=== PATIENT | male | born 1935 | race Caucasian/White ===

== ENCOUNTER 2022-08-26 13:36 | Inpatient (IN) ==
[2022-08-26] MEDS ORDERED: 0.9 % SODIUM CHLORIDE 1,000 ML IV ONE ×2 (13:38→14:00)
--- NOTE | 2022-08-26 13:54 | Emergency Department Note ---
Skin/Abscess/FB HPI General Chief complaint: Skin/Abscess/Rash Stated complaint: Abscess to groin Time Seen by Provider: 08/26/22 13:37 Source: patient and family Mode of arrival: wheelchair Limitations: no limitations History of Present Illness HPI Narrative: Narrative: Patient presents to the ED after being sent over from minor care for concerns about patient being sepsis secondary to an abscess in his groin area. Patient states that he noticed a bump in his right groin 3 days ago that has grown since then. He states it hurts whenever anybody touches it. He denies any drainage from the area, fever, chills, nausea, vomiting, difficulty urinating, difficulty having a BM. Patient denies any other alleviating or aggravating factors. Related Data Home Medications Medication Instructions Recorded Confirmed ascorbic acid (vitamin C) 500 mg 500 mg PO QDAY 01/16/15 08/26/22 capsule,extended release hydrochlorothiazide 12.5 mg tablet 12.5 mg PO QDAY 09/14/18 08/26/22 atorvastatin 80 mg tablet 80 mg PO QHS 09/30/20 08/26/22 lisinopril 40 mg tablet 40 mg PO QDAY 09/30/20 08/26/22 metoprolol succinate 50 mg 25 mg PO BID 09/30/20 08/26/22 tablet,extended release 24 hr tamsulosin 0.4 mg capsule 0.4 mg PO QDAY 09/30/20 08/26/22 blood sugar diagnostic (Accu-Chek 05/27/21 08/26/22 Guide test strips) carboxymethylcellulose sodium 0.5 1 drp ophthalmic (eye) TID 05/27/21 08/26/22 % eye drops cholecalciferol (vitamin D3) 50 1,000 unit PO QDAY 07/22/21 08/26/22 mcg (2,000 unit) capsule insulin glargine 100 unit/mL 35 unit subcut QHS 07/22/21 08/26/22 subcutaneous solution aspirin 81 mg tablet,delayed 81 mg PO DAILY 02/12/22 08/26/22 release Previous Rx's Medication Instructions Recorded blood sugar diagnostic (OneTouch #200 ea 05/21/16 Ultra Test strips) insulin syringe-needle U-100 1 mL #100 ea 05/21/16 30 gauge x 1/2" (BD Insulin Syringe Ultra-Fine) Allergies Allergy/AdvReac Type Severity Reaction Status Date / Time felodipine [From Plendil] AdvReac Intermediate Swelling Verified 08/26/22 13:39 pioglitazone [From Actos] AdvReac Intermediate Swelling Verified 08/26/22 13:39 Lotrel AdvReac Intermediate Swelling Uncoded 08/26/22 13:30 Review of Systems ROS ROS Narrative: Narrative: All systems ED: reviewed and negative except as stated. [facility] Narrative Patient History Narrative: Narrative: Medical/Surgical/Family History All Active Problems (Updated 08/26/22 @ 15:26 by Sathya De La Cruz DO) Sepsis (Acute) Cellulitis of buttock, right (Acute) Generalized weakness (Acute) Anemia (Chronic) Long-term use of high-risk medication (Chronic 05/06/13) Colon polyps (Chronic 09/23/03) Diverticulosis of colon (Chronic 10/03/03) Hyperlipidemia, mixed (Chronic) Hypertension (Chronic) Obstructive uropathy (Chronic) Peripheral neuropathy (Chronic) History of prostate cancer (Chronic) Renal failure (Chronic) Seborrheic keratosis (Chronic) Urinary tract infection (Chronic) History of appendectomy (Chronic) History of radiation therapy (Chronic) Encounter for Health Maintenance Examination in Adult (Chronic) Sciatica of right side (Chronic) Ventricular bigeminy (Chronic) Hip pain (Chronic) Lumbago with sciatica (Chronic) Tachycardia (Chronic) Nevus, choroidal (Chronic) Microscopic hematuria (Chronic) Age-related nuclear cataract, bilateral (Chronic) Other corneal scars and opacities (Chronic) Other disorders of refraction (Chronic) Dysuria (Chronic) Urinary frequency (Chronic) Chronic kidney disease (Chronic) Proteinuria (Chronic) CKD stage G4/A3, 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) Retention of urine (Chronic) Carcinoma in situ of prostate (Chronic) Carcinoma of prostate (Chronic) Nevus, non-neoplastic (Chronic) Other urethral stricture, male, unspecified site (Chronic) Polyp of colon (Chronic) Postprocedural bulbous urethral stricture, 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 10- year sequence. Diabetes mellitus with neuropathy Goal HgBA1c <7.5% Diverticulosis of colon (10/03/03) Colonoscopy--Dr. Cartagena--Polypectomy, benign colonic mucosa with prominent lymphoid aggregate; moderately severe diverticulosis, small hemorrhoids Hip pain History of prostate cancer History of cancer of the prostate status post radiation therapy in 1993 History of radiation therapy History of Cancer of the Prostate status post radiation therapy in 1993 History of urinary tract infection Recurrent, clinically stable, due for recheck Hyperkalemia Hyperlipidemia, mixed Hypertension Controlled on 3 Rx Goal 130/80 Long-term use of high-risk medication (05/06/13) patient on Statin for Hyperlipidemia Lumbago with sciatica Medicare annual wellness visit, subsequent Microscopic hematuria Nevus, choroidal Nevus, non-neoplastic Obstructive uropathy Other corneal scars and opacities Other disorders of refraction Other urethral stricture, male, unspecified site Peripheral neuropathy Very mild by exam Polyp of colon Postprocedural bulbous urethral stricture, male Renal failure Mild, probably related to diuretics and now stabilized Retention of urine Sciatica of right side Seborrheic keratosis Multiple, yearly dermatology follow up through [place] Tachycardia Urinary frequency Urinary tract infection History of recurrent urinary tract infections, previous suppressive therapy and previous evaluation through Dr. Durham in January of 2010 Surgical History History of appendectomy In the distant past History of arthroplasty Left hip in September of 2005 History of colonoscopy Lymphoid polyp and sigmoid diverticulii on ten year sequencing through [address]. Cartagena History of cystoscopy (~10/2017) with urethral dilation History of left hip replacement History of tonsillectomy Family History Mother Breast cancer Social History Smoking Status: Former smoker Alcohol Intake Frequency: does not drink Substance Use: does not use Exam Narrative Narrative: Narrative: General Limitations: no limitations General appearance: Absent in distress ENT ENT: Present normal oropharynx and mucous membranes moist Respiratory Respiratory: Present normal lung sounds bilaterally; Absent respiratory distress Cardiovascular Cardiovascular: Present normal rhythm and tachycardia Adbominal Abdominal: Present soft; Absent tenderness Extremities Extremities: Present normal inspection and normal capillary refill Neurological Neurological: Present alert and oriented X3 Psychiatric Psychiatric: Present normal affect and normal mood Skin Skin: Present warm (WNL) Expanded Skin Body image: 1. Large area of erythema, fluctuance, warmth and tenderness to palpation Course Course Course Narrative: Patient was evaluated for concerns of abscess to the right buttocks and inner thigh. Physical exam consistent with cellulitis with induration. Labs were obtained and showed that patient had elevated white cell count with severe leukocytosis. Lactic acid was elevated at 3. Patient's renal function was compromised but he does have history of CKD with unknown baseline creatinine. Patient was bolused IV fluids. Blood cultures were obtained he was then given IV Rocephin. CT of the abdomen pelvis was obtained which showed cellulitis without any obvious abscess. Patient has generalized weakness and I believe he will benefit from having inpatient antibiotic treatment for his sepsis. He was initially tachycardic but his heart rate improved after IV fluids. Shared decision made conversation with had with patient about possible inpatient treatment versus outpatient treatment. Patient is expressed a desire to have inpatient treatment due to patient's increasing weakness and the fact how fast the the infection is spreading. This is a reasonable decision. Case was discussed with the office who has agreed to admit the patient. Consultations Consultation #1: Case discussed with hospitalist, Dr. Lindsey, who has agreed to admit the patient Time: 15:35 Vital Signs Vital signs: Vital Signs Temperature 97.0 F 08/26/22 13:37 Pulse Rate 115 H 08/26/22 13:37 Respiratory Rate 17 08/26/22 13:37 Blood Pressure 126/64 08/26/22 13:37 Pulse Oximetry (%) 98 08/26/22 13:37 Oxygen Delivery Method Room Air 08/26/22 13:37 Temperature 97.0 F 08/26/22 13:37 Pulse Rate 92 H 08/26/22 15:16 Respiratory Rate 17 08/26/22 13:37 Blood Pressure 125/52 08/26/22 15:16 Pulse Oximetry (%) 92 08/26/22 15:16 Oxygen Delivery Method Room Air 08/26/22 13:37 [facility] MDM Narrative Medical decision making narrative: Narrative: Differential Diagnosis Differential Diagnosis: Groin abscess Medical Records Medical records reviewed: Yes I reviewed the patient's medical records. Lab Data Lab results reviewed: Yes I reviewed the patient's lab results. 08/26/22 13:38 Labs: Lab Results 08/26/22 08/26/22 08/26/22 Range/Units 13:38 13:53 13:53 WBC 25.4 H (4.5-11.0) K/mcL RBC 3.52 L (4.63-6.08) M/mcL Hgb 10.9 L (13.7-17.5) g/dL Hct 33.8 L (40.1-51.0) % POC Hct 33.0 L (41-55) MCV 96.0 (80.0-100.0) fL MCH 31.0 (26.0-34.0) pg MCHC 32.2 (31.0-36.0) g/dL RDW 12.5 (11.5-14.5) % Plt Count 182 (140-440) K/mcL MPV 13.0 H (8.8-12.5) fL Immature Gran % (Auto) 0.8 H (0.0-0.5) % Neut % (Auto) 83.7 H (38.0-78.0) % Lymph % (Auto) 8.2 L (15.5-49.0) % Nelson % (Auto) 7.0 (1.0-12.0) % Eos % (Auto) 0.1 (0.0-7.0) % Baso % (Auto) 0.2 (0.0-2.0) % Lymph # (Auto) 2.07 (1.50-4.80) K/mcL Nelson # (Auto) 1.78 H (0.10-0.90) K/mcL Eos # (Auto) 0.03 (0.00-0.70) K/mcL Baso # (Auto) 0.06 (0.00-0.30) K/mcL Immature Gran # 0.21 H (0.00-0.05) K/mcl Absolute Neutrophils 21.20 H (1.80-8.00) K/mcL POC VBG pH 7.38 (7.32-7.42) POC VBG pCO2 at Temp 34.4 L (41-51) POC VBG pO2 23 L (25-40) POC VBG HCO3 20.6 L (24-28) POC VBG Total CO2 22.0 L (25-29) POC Venous O2 Sat 39.0 L (40-70) POC VBG Base Excess -4.0 L (-2-2) VBG Lactic Acid 3.0 H (0.5-2) POC Sodium 133 (133-145) POC Potassium 4.2 (3.3-5.1) POC Chloride 102 (96-108) POC Total CO2 21.0 L (22-30) POC BUN 86 H (6-20) POC Creatinine 2.7 H (0.6-1.2) POC Glucose 223 H (70-105) POC WB Ioniz Calcium 1.24 (1.16-1.32) Radiology Data Radiology results reviewed: Yes I reviewed the patient's radiology results. Radiology results narrative: CT of the pelvis obtained with image reviewed myself, agree with radiologist to rotation Core Measures AMI Core Measures Followed: Yes Discharge Plan Patient/Caregiver Discharge Instructions Pt seen by COST ENGINEER/PA only: No Clinical Impression: Cellulitis of buttock, right, Generalized weakness Sepsis Qualifiers: Sepsis type: sepsis due to unspecified organism Sepsis acute organ dysfunction status: without acute organ dysfunction Qualified Code(s): A41.9 - Sepsis, unspecified organism Patient Disposition: Xfer As Outpt/Obs ([facility]) Condition: Fair Follow up with: Jamison Jean MD [Primary Care Provider] - Prescriptions: No Action (DME) blood sugar diagnostic [OneTouch Ultra Test] strip See Dose Instructions .ROUTE .MEDSUPPLY MDD 2 Qty: 200 3RF Dose Instruction: As directed Rx Instructions: As directed testing blood glucose twice daily. (DME) insulin syringe-needle U-100 [BD Insulin Syringe Ultra-Fine] 1 mL 30 gauge x 1/2" syringe See Dose Instructions .ROUTE .MEDSUPPLY MDD 1 Qty: 100 3RF Dose Instruction: As directed Rx Instructions: As directed with Lantus once daily. ascorbic acid (vitamin C) 500 mg capsule, extended release 500 mg PO QDAY Patient Comments: take 1 capsule by oral route daily hydrochlorothiazide 12.5 mg tablet 12.5 mg tablet 12.5 mg PO QDAY cholecalciferol (vitamin D3) 50 mcg (2,000 unit) capsule 1,000 unit PO QDAY insulin glargine 100 unit/mL solution 35 unit SUB-Q QHS (DME) Accu-Chek Guide test strips Strip See Rx Instructions .Route Rx Instructions: As directed carboxymethylcellulose sodium 0.5 % drops 1 drp ophthalmic (eye) TID tamsulosin 0.4 mg capsule 0.4 mg PO QDAY metoprolol succinate 50 mg tablet extended release 24 hr 25 mg PO BID atorvastatin 80 mg tablet 80 mg PO QHS lisinopril 40 mg tablet 40 mg PO QDAY aspirin 81 mg tablet,delayed release (DR/EC) 81 mg PO DAILY Patient Comments: patient takes every other day
[2022-08-26 13:57] LABS: POC Calcium, Ionized 1.24 (1.16-1.32); POC Creatinine 2.7 (0.6-1.2); POC Potassium 4.2 (3.3-5.1)
[2022-08-26] MEDS ORDERED: cefTRIAXone 2 GM in DEXTROSE 5% IN WATER 50 ML IV ONE (14:01)
[2022-08-26 14:45] LABS: Basophils # (Auto) 0.06 K/mcL (0.00-0.30); Basophils % (Auto) 0.2 % (0.0-2.0); Eosinophils # (Auto) 0.03 K/mcL (0.00-0.70); Eosinophils % (Auto) 0.1 % (0.0-7.0); Hematocrit 33.8 % (40.1-51.0); Hemoglobin 10.9 g/dL (13.7-17.5); Lymphocytes # (Auto) 2.07 K/mcL (1.50-4.80); Lymphocytes % (Auto) 8.2 % (15.5-49.0); Mean Corpuscular HGB Conc 32.2 g/dL (31.0-36.0); Monocytes # (Auto) 1.78 K/mcL (0.10-0.90); Neutrophils % (Auto) 83.7 % (38.0-78.0); Platelet Count 182 K/mcL (140-440); RBC 3.52 M/mcL (4.63-6.08); Red Cell Distribution Width 12.5 % (11.5-14.5); WBC 25.4 K/mcL (4.5-11.0)
--- NOTE | 2022-08-26 15:09 | Cat Scan Report ---
CLINICAL INFORMATION: groin/buttocks abscess COMPARISON: None. FINDINGS: Moderate simple cellulitis is confined to the subcutaneous fat of the right upper thigh with extension to the right buttocks region. No evidence of abscess. Muscle and fascial planes are, otherwise, normal. Bone windows show left hip prostheses is anatomically aligned without loosening or infection. Moderate right and hip and bilateral SI degeneration noted. No osseous abnormalities. There are multiple sigmoid diverticuli, but no evidence of diverticulitis. The remaining visualized large and small bowel are normal. There is no free air, free fluid or adenopathy. Prostate is mildly enlarged-5 cm.. Mild wall thickening the urinary bladder appreciated most prominent anteriorly. Moderate dilatation of the visualized ureters-particularly distally suggesting chronic bladder outlet obstruction IMPRESSION: Cellulitis in the subcutaneous fat of the right upper thigh and right buttock region. No evidence of abscess. Sigmoid diverticulosis, but no evidence of diverticulitis Mild prostate enlargement. Mild wall urinary bladder could indicate chronic bladder outlet narrowing. 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 Interpreted and Authenticated by: Pee Shoemaker 08/26/22
--- NOTE | 2022-08-26 16:41 | Internal Med History&Physical ---
HPI History of Present Illness Patient information: Note initiated : 08/26/22 at 4:28 pm Service Date, if different from initiated Date: [] Patient: Bebo Barnes a 87 y/o M admitted on for Abscess to groin. Chief Complaint: [] Chief complaint: Right groin pain and redness History of present illness: Mr. Barnes is a 87 year old M with history of diabetes mellitus 2 with neuropathy, hypertension, hyperlipidemia, CKD stage IV baseline creatinine unknown, anemia, BPH, history of prostate cancer noted a bump in his right groin 3 days ago, that has been growing since then. He has been feeling feverish associated with chills. It hurts whenever anything touches it. He reported no drainage, no nausea vomiting. Patient was seen at [facility] first and was sent to ED for concerns of sepsis secondary to abscess in his groin. In ER patient was in sepsis with tachycardia of 92, leukocytosis of 25,000, lactic acidosis 3.0, acute kidney injury with creatinine of 2.7. Lab work also showed chronic anemia of 10.9, hyperglycemia 2-3. CT scan showed cellulitis in the subcutaneous fat of the right upper thigh and right buttock region. No evidence of abscess. Patient was admitted to the floor. Review of systems Patient reports right groin pain, redness. Chills and felt feverish No headache or visual disturbance No nausea or vomiting or abdominal pain No dysuria, no hematuria No focal deficits, known visual problems Denies depression or anxiety Physical exam General General appearance: Alert and awake, in no acute distress ENT ENT: Present normal oropharynx and mucous membranes moist Respiratory Respiratory: Present normal lung sounds bilaterally; Absent respiratory distress Cardiovascular Cardiovascular: Present S1 and S2, normal rhythm and tachycardia, no murmurs heard Adbominal Abdominal: Present soft; Absent tenderness Extremities Extremities: Present normal inspection and normal capillary refill Neurological Neurological: Present alert and oriented X3 Psychiatric Psychiatric: Present normal affect and normal mood Skin Skin: Right groin skin is red, indurated, no open wound, it is close to scrotum and superficial layer of skin is off, induration does not reach all the way to the buttock. Assessment and plan Sepsis. Patient meets sepsis criteria with tachycardia of 92, leukocytosis of 25,000, lactic acidosis 3.0, acute kidney injury with creatinine of 2.7. Will give IV antibiotics and IV hydration Right groin cellulitis CT scan showed cellulitis in the subcutaneous fat of the right upper thigh and right buttock region. No evidence of abscess. IV Zosyn and clindamycin. Patient has no history of MRSA. Will obtain MRSA screen. Blood cultures pending. Repeat lactic acid to clear. Diabetes mellitus 2 with hyperglycemia. Most recent A1c 7.6 on 05/15/2022. Will repeat A1c. Home dose glargine 35 units. Insulin sliding scale HENNY versus progression chronic renal failure on CKD stage IV. Unclear baseline creatinine. Will hydrate and repeat BMP Anemia Likely anemia of chronic kidney disease. Patient is on iron supplementation which will be continued Hypertension Hold hydrochlorothiazide and lisinopril due to HENNY. Will give IV labetalol and IV hydralazine as needed for blood pressure control Hyperlipidemia Continue home dose atorvastatin BPH. CT with mild prostate enlargement. Mild wall urinary bladder could indicate chronic bladder outlet narrowing. 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 Continue with home dose tamsulosin Sigmoid diverticulosis, incidental finding, but no evidence of diverticulitis DVT prophylaxis with SCDs CODE STATUS, full code Total time taken 55 minutes PFSH PFS All Active Problems (Updated 08/26/22 @ 15:26 by Sathya De La Cruz DO) Sepsis (Acute) Cellulitis of buttock, right (Acute) Generalized weakness (Acute) Anemia (Chronic) Long-term use of high-risk medication (Chronic 05/06/13) Colon polyps (Chronic 09/23/03) Diverticulosis of colon (Chronic 10/03/03) Hyperlipidemia, mixed (Chronic) Hypertension (Chronic) Obstructive uropathy (Chronic) Peripheral neuropathy (Chronic) History of prostate cancer (Chronic) Renal failure (Chronic) Seborrheic keratosis (Chronic) Urinary tract infection (Chronic) History of appendectomy (Chronic) History of radiation therapy (Chronic) Encounter for Health Maintenance Examination in Adult (Chronic) Sciatica of right side (Chronic) Ventricular bigeminy (Chronic) Hip pain (Chronic) Lumbago with sciatica (Chronic) Tachycardia (Chronic) Nevus, choroidal (Chronic) Microscopic hematuria (Chronic) Age-related nuclear cataract, bilateral (Chronic) Other corneal scars and opacities (Chronic) Other disorders of refraction (Chronic) Dysuria (Chronic) Urinary frequency (Chronic) Chronic kidney disease (Chronic) Proteinuria (Chronic) CKD stage G4/A3, 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) Retention of urine (Chronic) Carcinoma in situ of prostate (Chronic) Carcinoma of prostate (Chronic) Nevus, non-neoplastic (Chronic) Other urethral stricture, male, unspecified site (Chronic) Polyp of colon (Chronic) Postprocedural bulbous urethral stricture, 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 mellitus with neuropathy (Chronic) Hyperkalemia (Acute) Urethral stricture (Acute) Medicare annual wellness visit, subsequent (Acute) Hypercalcemia due to a drug (Acute) Acute urinary tract infection (Acute) Urethral stricture (Acute) Incomplete bladder emptying (Acute) Medical History Age-related nuclear cataract, bilateral Anemia Carcinoma in situ of prostate Carcinoma of prostate s/p Radiation 1993 Chronic kidney disease Colon polyps (09/23/03) Colonoscopy Dr Cartagena--Polypectomy, benign colonic mucosa with prominent ly mphoid aggregate; moderately severe diverticulosis, small hemorrhoids. 10- year sequence. Diabetes mellitus with neuropathy Goal HgBA1c <7.5% Diverticulosis of colon (10/03/03) Colonoscopy--Dr. Cartagena--Polypectomy, benign colonic mucosa with prominent lymphoid aggregate; moderately severe diverticulosis, small hemorrhoids Hip pain History of prostate cancer History of cancer of the prostate status post radiation therapy in 1993 History of radiation therapy History of Cancer of the Prostate status post radiation therapy in 1993 History of urinary tract infection Recurrent, clinically stable, due for recheck Hyperkalemia Hyperlipidemia, mixed Hypertension Controlled on 3 Rx Goal 130/80 Long-term use of high-risk medication (05/06/13) patient on Statin for Hyperlipidemia Lumbago with sciatica Medicare annual wellness visit, subsequent Microscopic hematuria Nevus, choroidal Nevus, non-neoplastic Obstructive uropathy Other corneal scars and opacities Other disorders of refraction Other urethral stricture, male, unspecified site Peripheral neuropathy Very mild by exam Polyp of colon Postprocedural bulbous urethral stricture, male Renal failure Mild, probably related to diuretics and now stabilized Retention of urine Sciatica of right side Seborrheic keratosis Multiple, yearly dermatology follow up through [place] Tachycardia Urinary frequency Urinary tract infection History of recurrent urinary tract infections, previous suppressive therapy and previous evaluation through Dr. 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 [employer] smoking status: Former smoker alcohol intake frequency: does not drink substance use type: does not use MEDS/ALLERGIES Home Medications and Allergies Home Medications Medication Instructions Recorded Confirmed Type ascorbic acid (vitamin C) 500 mg 500 mg PO QDAY 01/16/15 08/26/22 History capsule,extended release blood sugar diagnostic (OneTouch #200 ea 05/21/16 08/26/22 Rx Ultra Test strips) insulin syringe-needle U-100 1 mL #100 ea 05/21/16 08/26/22 Rx 30 gauge x 1/2" (BD Insulin Syringe Ultra-Fine) hydrochlorothiazide 12.5 mg tablet 12.5 mg PO QDAY 09/14/18 08/26/22 History atorvastatin 80 mg tablet 80 mg PO QHS 09/30/20 08/26/22 History lisinopril 40 mg tablet 40 mg PO QDAY 09/30/20 08/26/22 History metoprolol succinate 50 mg 25 mg PO BID 09/30/20 08/26/22 History tablet,extended release 24 hr tamsulosin 0.4 mg capsule 0.4 mg PO QDAY 09/30/20 08/26/22 History blood sugar diagnostic (Accu-Chek 05/27/21 08/26/22 History Guide test strips) carboxymethylcellulose sodium 0.5 1 drp ophthalmic (eye) TID 05/27/21 08/26/22 History % eye drops cholecalciferol (vitamin D3) 50 1,000 unit PO QDAY 07/22/21 08/26/22 History mcg (2,000 unit) capsule insulin glargine 100 unit/mL 30 unit subcut QHS 07/22/21 08/26/22 History subcutaneous solution aspirin 81 mg tablet,delayed 81 mg PO DAILY 02/12/22 08/26/22 History release Allergies Allergy/AdvReac Type Severity Reaction Status Date / Time felodipine [From Plendil] AdvReac Intermediate Swelling Verified 08/26/22 13:39 pioglitazone [From Actos] AdvReac Intermediate Swelling Verified 08/26/22 13:39 Lotrel AdvReac Intermediate Swelling Uncoded 08/26/22 13:30 EXAM Constitutional Vitals: Temp Pulse Resp BP Pulse Ox O2 Del Method 97.0 F 96 H 17 123/58 98 Room Air 08/26/22 13:37 08/26/22 16:02 08/26/22 13:37 08/26/22 16:02 08/26/22 16:02 08/26/22 13:37 DATA Data Completed and Pending Labs: Labs from last 24 hours 08/26/22 08/26/22 08/26/22 13:53 13:53 13:38 WBC 25.4 H RBC 3.52 L Hgb 10.9 L Hct 33.8 L POC Hct 33.0 L MCV 96.0 MCH 31.0 MCHC 32.2 RDW 12.5 Plt Count 182 MPV 13.0 H Immature Gran % (Auto) 0.8 H Neut % (Auto) 83.7 H Lymph % (Auto) 8.2 L [place] % (Auto) 7.0 Eos % (Auto) 0.1 Baso % (Auto) 0.2 Lymph # (Auto) 2.07 [place] # (Auto) 1.78 H Eos # (Auto) 0.03 Baso # (Auto) 0.06 Immature Gran # 0.21 H Absolute Neutrophils 21.20 H POC VBG pH 7.38 POC VBG pCO2 at Temp 34.4 L POC VBG pO2 23 L POC VBG HCO3 20.6 L POC VBG Total CO2 22.0 L POC Venous O2 Sat 39.0 L POC VBG Base Excess -4.0 L VBG Lactic Acid 3.0 H POC Sodium 133 POC Potassium 4.2 POC Chloride 102 POC Total CO2 21.0 L POC BUN 86 H POC Creatinine 2.7 H POC Glucose 223 H POC WB Ioniz Calcium 1.24 A/P Time Spent With Patient Time: Total time spent is greater than 50% in coordination of care (as documented) at patient's floor/unit and/or counseling patient: Initial: Total time with patient: 40 - 54 minutes Critical Care Time: Yes Total Critical Care Time: 55
[2022-08-26] MEDS ORDERED: DEXTROSE 50% 50 ML VIAL IV PRN (17:07)
[2022-08-26] MEDS ORDERED: DEXTROSE 31 GM ORAL.SUSP PO PRN (17:07)
[2022-08-26] MEDS ORDERED: hydrALAZINE 20 MG/ML VIAL IV PRN (17:42)
[2022-08-26] MEDS ORDERED: ONDANSETRON 4 MG/2 ML VIAL IV PRN (17:42)
[2022-08-26] MEDS ORDERED: MAGNESIUM HYDROXIDE 30 ML ORAL.SUSP PO PRN (17:42)
[2022-08-26] MEDS: PIPERACILLIN SODIUM/TAZOBACTAM 2.25 GM in DEXTROSE 5% IN WATER 50 ML IV SCH ×2 (18:19→23:22)
[2022-08-26 19:15] LABS: Hemoglobin A1C 7.7 % Hgb (4.0-6.0)
[2022-08-26] MEDS: ATORVASTATIN 40 MG TABLET PO SCH (21:25)
[2022-08-26] MEDS: CARBOXYMETHYLCELLULOSE SODIUM 1 EACH DROPER.GEL OU SCH (21:25)
[2022-08-26] MEDS: ACETAMINOPHEN 325 MG TABLET PO PRN (21:25)
[2022-08-26] MEDS: SENNOSIDES 1 TABLET PO SCH (21:25)
[2022-08-26] MEDS: METOPROLOL SUCCINATE 50 MG TAB.XL.24H PO SCH (21:25)
[2022-08-26] MEDS: FAMOTIDINE 20 MG TABLET PO SCH (21:25)
[2022-08-26] MEDS: DOCUSATE SODIUM 100 MG CAPSULE PO SCH (21:25)
[2022-08-26] MEDS: INSULIN GLARGINE, HUMAN 1 UNIT/0.01 ML SQ SCH (21:26)
[2022-08-26] MEDS: INSULIN LISPRO 1 UNIT/0.01 ML UNIT SQ SCH (21:26)
[2022-08-26] MEDS: HEPARIN 5,000 UNIT/ML VIAL SQ SCH (21:26)
[2022-08-26] MEDS: 0.9 % SODIUM CHLORIDE 10 ML SYRINGE IV SCH (21:27)
[2022-08-27] MEDS: PIPERACILLIN SODIUM/TAZOBACTAM 2.25 GM in DEXTROSE 5% IN WATER 50 ML IV SCH ×4 (05:14→23:29)
[2022-08-27] MEDS: 0.9 % SODIUM CHLORIDE 10 ML SYRINGE IV SCH ×3 (05:14→21:28)
[2022-08-27 06:10] LABS: Basophils # (Auto) 0.05 K/mcL (0.00-0.30); Basophils % (Auto) 0.2 % (0.0-2.0); Eosinophils # (Auto) 0.01 K/mcL (0.00-0.70); Eosinophils % (Auto) 0 % (0.0-7.0); Hematocrit 29.3 % (40.1-51.0); Hemoglobin 9.2 g/dL (13.7-17.5); Lymphocytes # (Auto) 1.27 K/mcL (1.50-4.80); Lymphocytes % (Auto) 5.8 % (15.5-49.0); Mean Corpuscular HGB Conc 31.4 g/dL (31.0-36.0); Mean Platelet Volume 12.2 fL (8.8-12.5); Monocytes # (Auto) 1.36 K/mcL (0.10-0.90); Monocytes % (Auto) 6.3 % (1.0-12.0); Platelet Count 166 K/mcL (140-440); RBC 3.02 M/mcL (4.63-6.08); Red Cell Distribution Width 12.6 % (11.5-14.5); WBC 21.7 K/mcL (4.5-11.0)
[2022-08-27 06:49] LABS: ALT/SGPT 15 U/L (<40); AST/SGOT 19 U/L (<40); Albumin 2.6 gm/dL (3.2-5.2); Albumin/Globulin Ratio 0.7 (1.0-2.3); Alkaline Phosphatase 79 U/L (39-117); Bilirubin,Total 0.4 mg/dL (0.1-1.0); Blood Urea Nitrogen 77 mg/dL (8-23); Calcium 9.4 mg/dL (8.6-10.4); Carbon Dioxide 21 mmol/L (22-30); Chloride 103 mmol/L (96-108); Globulin 3.5 gm/dL (2.2-3.7); Glomerular Filtration Rate 22; Glucose 176 mg/dL (70-105)
[2022-08-27] MEDS: INSULIN LISPRO 1 UNIT/0.01 ML UNIT SQ SCH ×4 (07:56→21:16)
--- NOTE | 2022-08-27 08:38 | Internal Med Progress Note ---
SUBJECTIVE Subjective Patient information: Note initiated : 08/27/22 at 8:32 am Service Date, if different from initiated Date: [] Patient: Bebo Barnes a 87 y/o M admitted on 08/26/22 for Abscess to groin, Celulitis, Sepsis. Chief Complaint: [] Additional PMFSH (Level 3 Only): History of present illness: Mr. Barnes is a 87 year old M with history of diabetes mellitus 2 with neuropathy, hypertension, hyperlipidemia, CKD stage IV baseline creatinine unknown, anemia, BPH, history of prostate cancer noted a bump in his right groin 3 days ago, that has been growing since then. He has been feeling feverish associated with chills. It hurts whenever anything touches it. He reported no drainage, no nausea vomiting. Patient was seen at [facility] first and was sent to ED for concerns of sepsis secondary to abscess in his groin. In ER patient was in sepsis with tachycardia of 92, leukocytosis of 25,000, lactic acidosis 3.0, acute kidney injury with creatinine of 2.7. Lab work also showed chronic anemia of 10.9, hyperglycemia 2-3. CT scan showed cellulitis in the subcutaneous fat of the right upper thigh and right buttock region. No evidence of abscess. Patient was admitted to the floor. 08/27. Patient seen and examined. Patient had low-grade fever of 99.9 F overnight, somewhat hypotensive with BP 106/44. Leukocytosis somewhat improved however still elevated at 21,000 significantly. Patient serum creatinine improved to 2.5 from 2.7 yesterday. BUN and down to 77 from 86 yesterday. Glucose improved to 176 from 2-3 before. HBA 1C came to A1c is 7.7. Blood culture is still pending. He remains on IV Zosyn and clindamycin. Will give 1 L NS for hypotension and acute kidney injury. Review of systems Patient reports less right groin pain, redness is still there. No fever or chills No headache or visual disturbance No nausea or vomiting or abdominal pain No dysuria, no hematuria No focal deficits, known visual problems Denies depression or anxiety Physical exam General General appearance: Alert and awake, in no acute distress ENT ENT: Present normal oropharynx and mucous membranes moist Respiratory Respiratory: Present normal lung sounds bilaterally; Absent respiratory distress Cardiovascular Cardiovascular: Present S1 and S2, normal rhythm and tachycardia, no murmurs heard Adbominal Abdominal: Present soft; Absent tenderness Extremities Extremities: Present normal inspection and normal capillary refill Neurological Neurological: Present alert and oriented X3 Psychiatric Psychiatric: Present normal affect and normal mood Skin Skin: Right groin skin is still red, less indurated, superficial layer of skin is off, but no drainage. Assessment and plan Sepsis. Patient meets sepsis criteria with tachycardia of 92, leukocytosis of 25,000, lactic acidosis 3.0, acute kidney injury with creatinine of 2.7. Right groin cellulitis CT scan showed cellulitis in the subcutaneous fat of the right upper thigh and right buttock region. No evidence of abscess. IV Zosyn and clindamycin. Patient has no history of MRSA. MRSA screen pending. Blood cultures pending. Lactic acidosis has cleared Diabetes mellitus 2 with hyperglycemia. Blood glucose control improving, A1c 7.7 on 08/26/2022. Home dose glargine 35 units. Insulin sliding scale HENNY versus progression chronic renal failure on CKD stage IV. Unclear baseline creatinine. Serum creatinine improved to 2.5 from 2.7 on admission. Will give 1 L of NS and repeat BMP Anemia Likely anemia of chronic kidney disease. Patient is on iron supplementation which will be continued Hypertension Continue to hold hydrochlorothiazide and lisinopril due to hypotension and HENNY. Will give IV labetalol and IV hydralazine as needed for blood pressure control Hyperlipidemia Continue home dose atorvastatin BPH. CT with mild prostate enlargement. Mild wall urinary bladder could indicate chronic bladder outlet narrowing. 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 Continue with home dose tamsulosin Sigmoid diverticulosis, incidental finding, but no evidence of diverticulitis DVT prophylaxis with SCDs CODE STATUS, full code Total time taken 50 minutes Constitutional Vitals: Vital Signs Temp Pulse Resp BP Pulse Ox O2 Del Method 98.4 F 84 22 106/44 97 Room Air 08/27/22 07:34 08/27/22 07:34 08/27/22 07:34 08/27/22 07:34 08/27/22 07:34 08/27/22 07:34 Period Temp Pulse Resp BP Sys/Canela Pulse Ox O2 Del Method O2 Flow Rate Last 24 Hr 97.0 F-100.2 F 81-115 17-26 100-142/44-82 92-100 Room Air-Room Air Intake and Output 08/26/22 08/27/22 08/27/22 19:59 03:59 11:59 Intake Total 2099 350 50 Output Total 1 2 Balance 2098 50 Weight 103.192 kg Intake & Output: Intake & Output 08/26/22 08/27/22 08/27/22 19:59 03:59 11:59 Intake Total 2100 350 50 Output Total 1 2 Balance 2098 50 Weight 103.192 kg Intake: IV 2099 50 50 Sodium Chloride 0.9% 1,000 ml @ 2000 Wide Open IV BOLUS ONE Rx#: [id number] Zosyn 2.25 gm In Dextrose 5% in 50 50 50 Water 50 ml @ 100 mls/hr IV Q8H JAIME Rx#:[id number] Rocephin 2 gm In Dextrose 5% in 50 Water 50 ml @ 100 mls/hr IV ONCE ONE Rx#:[id number] Oral 300 Output: # of times incontinent of urine 1 2 OBJ DATA Labs 08/27/22 05:20 08/27/22 05:20 Labs: Abnormal Lab Results 08/27/22 08/27/22 08/26/22 05:20 05:20 17:15 WBC 21.7 H RBC 3.02 L Hgb 9.2 L Hct 29.3 L POC Hct MPV Immature Gran % (Auto) 0.7 H Neut % (Auto) 87.0 H Lymph % (Auto) 5.8 L Lymph # (Auto) 1.27 L [place] # (Auto) 1.36 H Immature Gran # 0.15 H Absolute Neutrophils 18.89 H POC VBG pCO2 at Temp POC VBG pO2 POC VBG HCO3 POC VBG Total CO2 POC Venous O2 Sat POC VBG Base Excess VBG Lactic Acid Carbon Dioxide 21 L POC Total CO2 POC BUN BUN 77 H Creatinine 2.5 H POC Creatinine Glucose 176 H POC Glucose Hemoglobin A1c 7.7 H Albumin 2.6 L Albumin/Globulin Ratio 0.7 L 08/26/22 08/26/22 08/26/22 13:53 13:53 13:38 WBC 25.4 H RBC 3.52 L Hgb 10.9 L Hct 33.8 L POC Hct 33.0 L MPV 13.0 H Immature Gran % (Auto) 0.8 H Neut % (Auto) 83.7 H Lymph % (Auto) 8.2 L Lymph # (Auto) [place] # (Auto) 1.78 H Immature Gran # 0.21 H Absolute Neutrophils 21.20 H POC VBG pCO2 at Temp 34.4 L POC VBG pO2 23 L POC VBG HCO3 20.6 L POC VBG Total CO2 22.0 L POC Venous O2 Sat 39.0 L POC VBG Base Excess -4.0 L VBG Lactic Acid 3.0 H Carbon Dioxide POC Total CO2 21.0 L POC BUN 86 H BUN Creatinine POC Creatinine 2.7 H Glucose POC Glucose 223 H Hemoglobin A1c Albumin Albumin/Globulin Ratio Meds: Medications Acetaminophen (Acetaminophen 325 Mg Tablet) 650 mg PO Q6HP PRN; Protocol PRN Reason: Per Pain Protocol/Fever > 101 Last Admin: 08/26/22 21:25 Dose: 650 mg Artificial Tears (Carboxymethylcellulose Sodium 1 Each Droper.Gel) 1 each OU TID [facility] Last Admin: 08/26/22 21:25 Dose: 1 each Ascorbic Acid (Ascorbic Acid 500 Mg Tablet) 500 mg PO DAILY [facility] Aspirin (Aspirin 81 Mg Tab.Chew) 81 mg PO DAILY [facility] Atorvastatin Calcium (Atorvastatin 40 Mg Tablet) 80 mg PO HS [facility] Last Admin: 08/26/22 21:25 Dose: 80 mg Dextrose (Dextrose 50% 50 Ml Vial) 0 ml IV UD PRN PRN Reason: Per Sliding Scale Diagnostic Test (Pha) (Accu-Chek 1 Each Strip) 1 each FS ACHS [facility] Last Admin: 08/27/22 07:30 Dose: 1 each Docusate Sodium (Docusate Sodium 100 Mg Capsule) 100 mg PO BID [facility] Last Admin: 08/26/22 21:25 Dose: 100 mg Famotidine (Famotidine 20 Mg Tablet) 20 mg PO BID [facility] Last Admin: 08/26/22 21:25 Dose: 20 mg Glucose (Dextrose 31 Gm Oral.Susp) 15 gm PO PRN PRN PRN Reason: Hypoglycemia Heparin Sodium (Porcine) (Heparin 5,000 Unit/Ml Vial) 5,000 unit SQ Q12 [facility] Last Admin: 08/26/22 21:26 Dose: 5,000 unit Hydralazine HCl (Hydralazine 20 Mg/Ml Vial) 10 mg IV Q4-6HP PRN PRN Reason: Hypertension Piperacillin Sod/Tazobactam (Sod 2.25 gm/ Dextrose) 50 mls @ 100 mls/hr IV Q8H [facility]; Protocol Last Infusion: 08/27/22 05:44 Dose: Infused Insulin Glargine (Insulin Glargine, Human 1 Unit/0.01 Ml) 35 unit SQ QHS [facility] Last Admin: 08/26/22 21:26 Dose: 35 units Insulin Human Lispro (Insulin Lispro 1 Unit/0.01 Ml Unit) 0 unit SQ ACHS [facility]; Protocol Last Admin: 08/27/22 07:56 Dose: 2 units Magnesium Hydroxide (Magnesium Hydroxide 30 Ml Oral.Susp) 30 ml PO DAILYP PRN PRN Reason: Constipation Metoprolol Succinate (Metoprolol Succinate 50 Mg Tab.Xl.24h) 25 mg PO BID [facility] Last Admin: 08/26/22 21:25 Dose: 25 mg Ondansetron HCl (Ondansetron 4 Mg/2 Ml Vial) 4 mg IV Q6HP PRN PRN Reason: Nausea And Vomiting Oxycodone HCl (Oxycodone Ir 5 Mg Tablet) 5 mg PO Q4HP PRN; Protocol PRN Reason: Per Pain Protocol Senna (Sennosides 1 Tablet) 2 tab PO HS [facility] Last Admin: 08/26/22 21:25 Dose: 2 tab Sodium Chloride (0.9 % Sodium Chloride 10 Ml Syringe) 10 ml IV Q8 [facility] Last Admin: 08/27/22 05:14 Dose: 10 ml Tamsulosin HCl (Tamsulosin 0.4 Mg Capsule) 0.4 mg PO QDAY [facility] Trazodone HCl (Trazodone Hcl 50 Mg Tablet) 25 mg PO HSP PRN PRN Reason: Insomnia Vitamin D (Vitamin D3 25 Mcg Tablet) 25 mcg PO DAILY [facility] A/P Time Spent With Patient Time: Total time spent is greater than 50% in coordination of care (as documented) at patient's floor/unit and/or counseling patient: QUALITY Stroke Symptom Onset Unknown: No VTE Deep Vein Thrombosis/Pulmonary Embolism Present on Admission: No
[2022-08-27] MEDS ORDERED: 0.9 % SODIUM CHLORIDE 1,000 ML IV SCH (08:45)
[2022-08-27] MEDS: ASPIRIN 81 MG TAB.CHEW PO SCH (09:12)
[2022-08-27] MEDS: FAMOTIDINE 20 MG TABLET PO SCH ×2 (09:13→21:09)
[2022-08-27] MEDS: DOCUSATE SODIUM 100 MG CAPSULE PO SCH ×2 (09:13→21:08)
[2022-08-27] MEDS: TAMSULOSIN 0.4 MG CAPSULE PO SCH (09:14)
[2022-08-27] MEDS: CARBOXYMETHYLCELLULOSE SODIUM 1 EACH DROPER.GEL OU SCH ×3 (09:15→21:05)
[2022-08-27] MEDS: VITAMIN D3 25 MCG TABLET PO SCH (09:16)
[2022-08-27] MEDS: ASCORBIC ACID 500 MG TABLET PO SCH (09:16)
[2022-08-27] MEDS: HEPARIN 5,000 UNIT/ML VIAL SQ SCH ×2 (09:20→21:05)
[2022-08-27] MEDS: METOPROLOL SUCCINATE 50 MG TAB.XL.24H PO SCH ×2 (09:25→21:05)
[2022-08-27] MEDS: CLINDAMYCIN IN 0.9 % SOD CHLOR 900 MG/50 ML BAG IV SCH ×3 (10:51→21:28)
[2022-08-27] MEDS: traZODone HCL 50 MG TABLET PO PRN (21:06)
[2022-08-27] MEDS: ATORVASTATIN 40 MG TABLET PO SCH (21:07)
[2022-08-27] MEDS: SENNOSIDES 1 TABLET PO SCH (21:08)
[2022-08-27] MEDS: INSULIN GLARGINE, HUMAN 1 UNIT/0.01 ML SQ SCH (21:17)
[2022-08-28] MEDS: PIPERACILLIN SODIUM/TAZOBACTAM 2.25 GM in DEXTROSE 5% IN WATER 50 ML IV SCH ×3 (05:04→17:24)
[2022-08-28] MEDS: 0.9 % SODIUM CHLORIDE 10 ML SYRINGE IV SCH ×3 (05:04→22:51)
[2022-08-28] MEDS: CLINDAMYCIN IN 0.9 % SOD CHLOR 900 MG/50 ML BAG IV SCH ×3 (05:05→22:51)
[2022-08-28 06:03] LABS: Basophils # (Auto) 0.05 K/mcL (0.00-0.30); Basophils % (Auto) 0.3 % (0.0-2.0); Eosinophils # (Auto) 0.16 K/mcL (0.00-0.70); Eosinophils % (Auto) 0.8 % (0.0-7.0); Hematocrit 27.7 % (40.1-51.0); Hemoglobin 8.6 g/dL (13.7-17.5); Lymphocytes # (Auto) 1.03 K/mcL (1.50-4.80); Lymphocytes % (Auto) 5.4 % (15.5-49.0); Mean Cell Volume 97.9 fL (80.0-100.0); Mean Platelet Volume 12.1 fL (8.8-12.5); Monocytes # (Auto) 0.91 K/mcL (0.10-0.90); Monocytes % (Auto) 4.8 % (1.0-12.0); Platelet Count 161 K/mcL (140-440); RBC 2.83 M/mcL (4.63-6.08); Red Cell Distribution Width 12.6 % (11.5-14.5); WBC 19.1 K/mcL (4.5-11.0)
[2022-08-28 06:30] LABS: ALT/SGPT 24 U/L (<40); AST/SGOT 33 U/L (<40); Albumin 2.3 gm/dL (3.2-5.2); Albumin/Globulin Ratio 0.6 (1.0-2.3); Alkaline Phosphatase 85 U/L (39-117); Bilirubin,Total 0.3 mg/dL (0.1-1.0); Blood Urea Nitrogen 84 mg/dL (8-23); Calcium 9.5 mg/dL (8.6-10.4); Carbon Dioxide 19 mmol/L (22-30); Chloride 101 mmol/L (96-108); Globulin 3.9 gm/dL (2.2-3.7); Glomerular Filtration Rate 20; Glucose 185 mg/dL (70-105)
[2022-08-28] MEDS: INSULIN LISPRO 1 UNIT/0.01 ML UNIT SQ SCH ×4 (07:55→21:52)
[2022-08-28] MEDS: TAMSULOSIN 0.4 MG CAPSULE PO SCH (08:17)
[2022-08-28] MEDS: VITAMIN D3 25 MCG TABLET PO SCH (08:17)
[2022-08-28] MEDS: DOCUSATE SODIUM 100 MG CAPSULE PO SCH ×2 (08:17→21:32)
[2022-08-28] MEDS: ASCORBIC ACID 500 MG TABLET PO SCH (08:17)
[2022-08-28] MEDS: HEPARIN 5,000 UNIT/ML VIAL SQ SCH ×2 (08:18→21:31)
[2022-08-28] MEDS: METOPROLOL SUCCINATE 50 MG TAB.XL.24H PO SCH ×2 (08:18→21:32)
[2022-08-28] MEDS: FAMOTIDINE 20 MG TABLET PO SCH ×2 (08:18→21:32)
[2022-08-28] MEDS: ASPIRIN 81 MG TAB.CHEW PO SCH (08:18)
[2022-08-28] MEDS: CARBOXYMETHYLCELLULOSE SODIUM 1 EACH DROPER.GEL OU SCH ×3 (08:18→21:32)
--- NOTE | 2022-08-28 17:11 | Ultrasound Report ---
CLINICAL INFORMATION: N18.9 - Chronic kidney disease, unspecified COMPARISON: 10/10/2020 FINDINGS: Both kidneys are mildly enlarged: The right is 13 x 6 cm and left is 12.6 cm Renal parenchymal echotexture is elevated consistent with medical renal disease. There is a 1.7 cm simple cyst in the superior pole the left kidney. No solid lesions or stones. Mild left hydronephrosis has developed. Urinary bladder volume is 174 cc with 17 cc post void residual. Prostate volume is normal 70 cc IMPRESSION: Mildly enlarged, hyperechoic kidneys compatible medical renal disease Mild left hydronephrosis. 1.7 cm simple cyst superior pole the left kidney-stable. Urinary bladder and prostate are normal Interpreted and Authenticated by: Pee Shoemaker 08/28/22
--- NOTE | 2022-08-28 17:26 | Internal Med Progress Note ---
SUBJECTIVE Subjective Patient information: Note initiated : 08/28/22 at 5:25 pm Service Date, if different from initiated Date: [] Patient: Bebo Barnes a 87 y/o M admitted on 08/26/22 for Abscess to groin, Celulitis, Sepsis. Chief Complaint: [] Additional PMFSH (Level 3 Only): Hospital course: Mr. Barnes is a 87 year old M with history of diabetes mellitus 2 with neuropathy, hypertension, hyperlipidemia, CKD stage IV baseline creatinine unkno wn, anemia, BPH, history of prostate cancer noted a bump in his right groin 3 days ago, that has been growing since then. He has been feeling feverish associated with chills. It hurts whenever anything touches it. He reported no drainage, no nausea vomiting. Patient was seen at [facility] first and was sent to ED for concerns of sepsis secondary to abscess in his groin. In ER patient was in sepsis with tachycardia of 92, leukocytosis of 25,000, lactic acidosis 3.0, acute kidney injury with creatinine of 2.7. Lab work also showed chronic anemia of 10.9, hyperglycemia 2-3. CT scan showed cellulitis in the subcutaneous fat of the right upper thigh and right buttock region. No evidence of abscess. Patient was admitted to the floor. 08/27. Patient seen and examined. Patient had low-grade fever of 99.9 F overnight, somewhat hypotensive with BP 106/44. Leukocytosis somewhat improved however still elevated at 21,000 significantly. Patient serum creatinine improved to 2.5 from 2.7 yesterday. BUN and down to 77 from 86 yesterday. Glucose improved to 176 from 2-3 before. HBA 1C came to A1c is 7.7. Blood culture is still pending. He remains on IV Zosyn and clindamycin. Will give 1 L NS for hypotension and acute kidney injury. 08/28 patient reports feeling better. WBC slightly improved to 19,000 from 21,000, hemoglobin 8.6 down from 9.2, likely in the setting of hemodilution. Creatinine worsened to 2.7 from 2.5 yesterday. His baseline is around 1.9-2.0. He has stage IV kidney disease at baseline. RN reported patient was having urine dribbling. Suspect urinary retention. Will put Wood catheter in. HbA1c 7.7 Review of systems Patient reports no fever or chills, strength is still low No fever or chills No headache or visual disturbance No nausea or vomiting or abdominal pain No dysuria, no hematuria No focal deficits, known visual problems Less erythema in right groin Denies depression or anxiety Physical exam General General appearance: Alert and awake, in no acute distress ENT ENT: Present normal oropharynx and mucous membranes moist Respiratory Respiratory: Present normal lung sounds bilaterally; Absent respiratory distress Cardiovascular Cardiovascular: Present S1 and S2, normal rhythm and tachycardia, no murmurs heard Adbominal Abdominal: Present soft; Absent tenderness Extremities Extremities: Present normal inspection and normal capillary refill Neurological Neurological: Present alert and oriented X3 Psychiatric Psychiatric: Present normal affect and normal mood Skin Skin: Right groin skin is is less red and indurated, portion of superficial layer is off, skin is covered with barrier cream. Assessment and plan Sepsis. Patient meets sepsis criteria with tachycardia of 92, leukocytosis of 25,000, lactic acidosis 3.0, acute kidney injury with creatinine of 2.7. Right groin cellulitis CT scan showed cellulitis in the subcutaneous fat of the right upper thigh and right buttock region. No evidence of abscess. Continue IV Zosyn and clindamycin. Patient has no history of MRSA. MRSA screen pending. Blood cultures pending. Lactic acidosis has cleared Diabetes mellitus 2 with hyperglycemia. Blood glucose control improving, A1c 7.7 on 08/26/2022. Home dose glargine 35 units. Insulin sliding scale HENNY versus progression chronic renal failure on CKD stage IV. Serum creatinine 2.5 on admission. Worsened to 2.7. Continue to hold lisinopril and HCTZ. Suspect obstruction since patient is dribbling. Patient has history of BPH and prostate issues. Wood catheter was placed and an 1100cc urine came out. Renal ultrasound completed and showed mildly enlarged kidneys consistent with medical renal disease, mild left hydronephrosis. Anemia Likely anemia of chronic kidney disease. Patient is on iron supplementation which will be continued Hypertension Continue to hold hydrochlorothiazide and lisinopril due to hypotension and HENNY. Will give IV labetalol and IV hydralazine as needed for blood pressure control Hyperlipidemia Continue home dose atorvastatin BPH. CT with mild prostate enlargement. Mild wall urinary bladder could indicate chronic bladder outlet narrowing. 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 Renal ultrasound completed and showed mildly enlarged kidneys consistent with medical renal disease, mild left hydronephrosis. Continue with home dose tamsulosin Sigmoid diverticulosis, incidental finding, but no evidence of diverticulitis DVT prophylaxis with SCDs CODE STATUS, full code Total time taken 50 minutes Constitutional Vitals: Vital Signs Temp Pulse Resp BP Pulse Ox O2 Del Method 98.6 F 90 16 118/76 100 Room Air 08/28/22 12:00 08/28/22 12:00 08/28/22 12:00 08/28/22 12:00 08/28/22 12:00 08/28/22 12:00 Period Temp Pulse Resp BP Sys/Canela Pulse Ox O2 Del Method O2 Flow Rate Last 24 Hr 97.3 F-98.8 F 87-106 16-18 106-118/36-76 95-100 Room Air-Room Air Intake and Output 08/28/22 08/28/22 08/28/22 03:59 11:59 19:59 Intake Total 750 880 100 Output Total 400 Balance 750 480 100 Weight 99.473 kg Intake & Output: Intake & Output 08/28/22 08/28/22 08/28/22 03:59 11:59 19:59 Intake Total 750 880 100 Output Total 400 Balance 750 480 100 Weight 99.473 kg Intake: IV 150 100 100 Zosyn 2.25 gm In Dextrose 5% in 100 50 50 Water 50 ml @ 100 mls/hr IV Q6H [facility] Rx#:[id number] Oral 600 780 Output: Void Amount 400 Other: Meal Breakfast Percent of Meal Consumed 100% Feeding Ability Independent Urine Appearance Clear Uretheral (Wood) Clear Urine Color Yellow Uretheral (Wood) Yellow Stool Size Smear Stool Color Brown Brown Stool Consistency Loose Loose # Bowel Movements 2 # of times incontinent of 2 Bowels OBJ DATA Labs 08/28/22 05:20 08/28/22 05:20 Labs: Abnormal Lab Results 08/28/22 08/28/22 08/27/22 05:20 05:20 05:20 WBC 19.1 H RBC 2.83 L Hgb 8.6 L Hct 27.7 L POC Hct MPV Immature Gran % (Auto) 0.7 H Neut % (Auto) 88.0 H Lymph % (Auto) 5.4 L Lymph # (Auto) 1.03 L [place] # (Auto) 0.91 H Immature Gran # 0.14 H Absolute Neutrophils 16.85 H POC VBG pCO2 at Temp POC VBG pO2 POC VBG HCO3 POC VBG Total CO2 POC Venous O2 Sat POC VBG Base Excess VBG Lactic Acid Sodium 132 L Carbon Dioxide 19 L 21 L POC Total CO2 POC BUN BUN 84 H 77 H Creatinine 2.7 H 2.5 H POC Creatinine Glucose 185 H 176 H POC Glucose Hemoglobin A1c Albumin 2.3 L 2.6 L Globulin 3.9 H Albumin/Globulin Ratio 0.6 L 0.7 L 08/27/22 08/26/22 08/26/22 05:20 17:15 13:53 WBC 21.7 H RBC 3.02 L Hgb 9.2 L Hct 29.3 L POC Hct MPV Immature Gran % (Auto) 0.7 H Neut % (Auto) 87.0 H Lymph % (Auto) 5.8 L Lymph # (Auto) 1.27 L [place] # (Auto) 1.36 H Immature Gran # 0.15 H Absolute Neutrophils 18.89 H POC VBG pCO2 at Temp 34.4 L POC VBG pO2 23 L POC VBG HCO3 20.6 L POC VBG Total CO2 22.0 L POC Venous O2 Sat 39.0 L POC VBG Base Excess -4.0 L VBG Lactic Acid 3.0 H Sodium Carbon Dioxide POC Total CO2 POC BUN BUN Creatinine POC Creatinine Glucose POC Glucose Hemoglobin A1c 7.7 H Albumin Globulin Albumin/Globulin Ratio 08/26/22 08/26/22 13:53 13:38 WBC 25.4 H RBC 3.52 L Hgb 10.9 L Hct 33.8 L POC Hct 33.0 L MPV 13.0 H Immature Gran % (Auto) 0.8 H Neut % (Auto) 83.7 H Lymph % (Auto) 8.2 L Lymph # (Auto) [place] # (Auto) 1.78 H Immature Gran # 0.21 H Absolute Neutrophils 21.20 H POC VBG pCO2 at Temp POC VBG pO2 POC VBG HCO3 POC VBG Total CO2 POC Venous O2 Sat POC VBG Base Excess VBG Lactic Acid Sodium Carbon Dioxide POC Total CO2 21.0 L POC BUN 86 H BUN Creatinine POC Creatinine 2.7 H Glucose POC Glucose 223 H Hemoglobin A1c Albumin Globulin Albumin/Globulin Ratio Meds: Medications Acetaminophen (Acetaminophen 325 Mg Tablet) 650 mg PO Q6HP PRN; Protocol PRN Reason: Per Pain Protocol/Fever > 101 Last Admin: 08/26/22 21:25 Dose: 650 mg Artificial Tears (Carboxymethylcellulose Sodium 1 Each Droper.Gel) 1 each OU TID [facility] Last Admin: 08/28/22 14:37 Dose: 1 each Ascorbic Acid (Ascorbic Acid 500 Mg Tablet) 500 mg PO DAILY [facility] Last Admin: 08/28/22 08:17 Dose: 500 mg Aspirin (Aspirin 81 Mg Tab.Chew) 81 mg PO DAILY [facility] Last Admin: 08/28/22 08:18 Dose: 81 mg Atorvastatin Calcium (Atorvastatin 40 Mg Tablet) 80 mg PO HS [facility] Last Admin: 08/27/22 21:07 Dose: 80 mg Dextrose (Dextrose 50% 50 Ml Vial) 0 ml IV UD PRN PRN Reason: Per Sliding Scale Diagnostic Test (Pha) (Accu-Chek 1 Each Strip) 1 each FS ACHS [facility] Last Admin: 08/28/22 17:03 Dose: 1 each Docusate Sodium (Docusate Sodium 100 Mg Capsule) 100 mg PO BID [facility] Last Admin: 08/28/22 08:17 Dose: 100 mg Famotidine (Famotidine 20 Mg Tablet) 20 mg PO BID [facility] Last Admin: 08/28/22 08:18 Dose: 20 mg Glucose (Dextrose 31 Gm Oral.Susp) 15 gm PO PRN PRN PRN Reason: Hypoglycemia Heparin Sodium (Porcine) (Heparin 5,000 Unit/Ml Vial) 5,000 unit SQ Q12 [facility] Last Admin: 08/28/22 08:18 Dose: 5,000 unit Hydralazine HCl (Hydralazine 20 Mg/Ml Vial) 10 mg IV Q4-6HP PRN PRN Reason: Hypertension Piperacillin Sod/Tazobactam (Sod 2.25 gm/ Dextrose) 50 mls @ 100 mls/hr IV Q6H [facility]; Protocol Last Admin: 08/28/22 17:24 Dose: 100 mls/hr CLINDAMYCIN IN 0.9 % SOD CHLOR (Clindamycin 900 Mg/50 Ml-Ns) 900 mg in 50 mls @ 100 mls/hr IV Q8H [facility] Last Infusion: 08/28/22 13:59 Dose: Infused Insulin Glargine (Insulin Glargine, Human 1 Unit/0.01 Ml) 35 unit SQ QHS [facility] Last Admin: 08/27/22 21:17 Dose: 35 units Insulin Human Lispro (Insulin Lispro 1 Unit/0.01 Ml Unit) 0 unit SQ ACHS [facility]; Protocol Last Admin: 08/28/22 17:06 Dose: 4 units Magnesium Hydroxide (Magnesium Hydroxide 30 Ml Oral.Susp) 30 ml PO DAILYP PRN PRN Reason: Constipation Metoprolol Succinate (Metoprolol Succinate 50 Mg Tab.Xl.24h) 25 mg PO BID [facility] Last Admin: 08/28/22 08:18 Dose: 25 mg Ondansetron HCl (Ondansetron 4 Mg/2 Ml Vial) 4 mg IV Q6HP PRN PRN Reason: Nausea And Vomiting Oxycodone HCl (Oxycodone Ir 5 Mg Tablet) 5 mg PO Q4HP PRN; Protocol PRN Reason: Per Pain Protocol Senna (Sennosides 1 Tablet) 2 tab PO HS [facility] Last Admin: 08/27/22 21:08 Dose: 2 tab Sodium Chloride (0.9 % Sodium Chloride 10 Ml Syringe) 10 ml IV Q8 [facility] Last Admin: 08/28/22 13:59 Dose: 10 ml Tamsulosin HCl (Tamsulosin 0.4 Mg Capsule) 0.4 mg PO QDAY [facility] Last Admin: 08/28/22 08:17 Dose: 0.4 mg Trazodone HCl (Trazodone Hcl 50 Mg Tablet) 25 mg PO HSP PRN PRN Reason: Insomnia Last Admin: 08/27/22 21:06 Dose: 25 mg Vitamin D (Vitamin D3 25 Mcg Tablet) 25 mcg PO DAILY [facility] Last Admin: 08/28/22 08:17 Dose: 25 mcg A/P Time Spent With Patient Time: Total time spent is greater than 50% in coordination of care (as documented) at patient's floor/unit and/or counseling patient: QUALITY Stroke Symptom Onset Unknown: No VTE Deep Vein Thrombosis/Pulmonary Embolism Present on Admission: No
[2022-08-28] MEDS: ATORVASTATIN 40 MG TABLET PO SCH (21:32)
[2022-08-28] MEDS: SENNOSIDES 1 TABLET PO SCH (21:32)
[2022-08-28] MEDS: INSULIN GLARGINE, HUMAN 1 UNIT/0.01 ML SQ SCH (21:52)
[2022-08-29] MEDS: PIPERACILLIN SODIUM/TAZOBACTAM 2.25 GM in DEXTROSE 5% IN WATER 50 ML IV SCH ×5 (00:06→23:43)
[2022-08-29] MEDS: CLINDAMYCIN IN 0.9 % SOD CHLOR 900 MG/50 ML BAG IV SCH ×3 (04:41→21:28)
[2022-08-29] MEDS: 0.9 % SODIUM CHLORIDE 10 ML SYRINGE IV SCH ×3 (05:13→21:28)
[2022-08-29 06:37] LABS: Basophils # (Auto) 0.04 K/mcL (0.00-0.30); Basophils % (Auto) 0.2 % (0.0-2.0); Eosinophils # (Auto) 0.21 K/mcL (0.00-0.70); Eosinophils % (Auto) 1.1 % (0.0-7.0); Hemoglobin 8.5 g/dL (13.7-17.5); Lymphocytes # (Auto) 0.86 K/mcL (1.50-4.80); Lymphocytes % (Auto) 4.6 % (15.5-49.0); Mean Cell Volume 96.1 fL (80.0-100.0); Mean Corpuscular HGB Conc 31.5 g/dL (31.0-36.0); Mean Platelet Volume 12.4 fL (8.8-12.5); Monocytes # (Auto) 0.94 K/mcL (0.10-0.90); Neutrophils % (Auto) 88.2 % (38.0-78.0); Platelet Count 183 K/mcL (140-440); RBC 2.81 M/mcL (4.63-6.08); Red Cell Distribution Width 12.8 % (11.5-14.5); WBC 18.8 K/mcL (4.5-11.0)
[2022-08-29 07:23] LABS: ALT/SGPT 39 U/L (<40); AST/SGOT 47 U/L (<40); Albumin 2.3 gm/dL (3.2-5.2); Albumin/Globulin Ratio 0.7 (1.0-2.3); Alkaline Phosphatase 112 U/L (39-117); Bilirubin,Total 0.2 mg/dL (0.1-1.0); Blood Urea Nitrogen 83 mg/dL (8-23); Calcium 9.1 mg/dL (8.6-10.4); Carbon Dioxide 20 mmol/L (22-30); Chloride 104 mmol/L (96-108); Globulin 3.4 gm/dL (2.2-3.7); Glomerular Filtration Rate 21; Glucose 220 mg/dL (70-105)
[2022-08-29] MEDS: INSULIN LISPRO 1 UNIT/0.01 ML UNIT SQ SCH ×4 (07:52→20:43)
[2022-08-29] MEDS: DOCUSATE SODIUM 100 MG CAPSULE PO SCH ×2 (08:42→20:43)
[2022-08-29] MEDS: METOPROLOL SUCCINATE 50 MG TAB.XL.24H PO SCH ×2 (08:42→20:43)
[2022-08-29] MEDS: HEPARIN 5,000 UNIT/ML VIAL SQ SCH ×2 (08:42→20:43)
[2022-08-29] MEDS: TAMSULOSIN 0.4 MG CAPSULE PO SCH (08:42)
[2022-08-29] MEDS: FAMOTIDINE 20 MG TABLET PO SCH ×2 (08:42→20:43)
[2022-08-29] MEDS: ASPIRIN 81 MG TAB.CHEW PO SCH (08:43)
[2022-08-29] MEDS: VITAMIN D3 25 MCG TABLET PO SCH (08:43)
[2022-08-29] MEDS: CARBOXYMETHYLCELLULOSE SODIUM 1 EACH DROPER.GEL OU SCH ×3 (08:43→20:42)
[2022-08-29] MEDS: ASCORBIC ACID 500 MG TABLET PO SCH (08:43)
--- NOTE | 2022-08-29 13:10 | Internal Med Progress Note ---
SUBJECTIVE Subjective Patient information: Note initiated : 08/29/22 at 1:06 pm Service Date, if different from initiated Date: [] Patient: Bebo Barnes a 87 y/o M admitted on 08/26/22 for Abscess to groin, Celulitis, Sepsis. Chief Complaint: [] Additional PMFSH (Level 3 Only): Hospital course: Mr. Barnes is a 87 year old M with history of diabetes mellitus 2 with neuropathy, hypertension, hyperlipidemia, CKD stage IV baseline creatinine unkno wn, anemia, BPH, history of prostate cancer noted a bump in his right groin 3 days ago, that has been growing since then. He has been feeling feverish associated with chills. It hurts whenever anything touches it. He reported no drainage, no nausea vomiting. Patient was seen at [facility] first and was sent to ED for concerns of sepsis secondary to abscess in his groin. In ER patient was in sepsis with tachycardia of 92, leukocytosis of 25,000, lactic acidosis 3.0, acute kidney injury with creatinine of 2.7. Lab work also showed chronic anemia of 10.9, hyperglycemia 2-3. CT scan showed cellulitis in the subcutaneous fat of the right upper thigh and right buttock region. No evidence of abscess. Patient was admitted to the floor. 08/27. Patient seen and examined. Patient had low-grade fever of 99.9 F overnight, somewhat hypotensive with BP 106/44. Leukocytosis somewhat improved however still elevated at 21,000 significantly. Patient serum creatinine improved to 2.5 from 2.7 yesterday. BUN and down to 77 from 86 yesterday. Glucose improved to 176 from 2-3 before. HBA 1C came to A1c is 7.7. Blood culture is still pending. He remains on IV Zosyn and clindamycin. Will give 1 L NS for hypotension and acute kidney injury. 08/28 patient reports feeling better. WBC slightly improved to 19,000 from 21,000, hemoglobin 8.6 down from 9.2, likely in the setting of hemodilution. Creatinine worsened to 2.7 from 2.5 yesterday. His baseline is around 1.9-2.0. He has stage IV kidney disease at baseline. RN reported patient was having urine dribbling. Suspect urinary retention. Will put Wood catheter in. HbA1c 7.7 5/13. No fevers overnight, leukocytosis slightly improved to 18,000. Reports scrotal discomfort is improving. Serum creatinine 2.6 down from 2.7 yesterday. BUN same 83. Patient is tolerating antibiotics Review of systems Patient reports no fever or chills, strength is still low No fever or chills No headache or visual disturbance No nausea or vomiting or abdominal pain No dysuria, no hematuria No focal deficits, known visual problems Less erythema in right groin Denies depression or anxiety Physical exam General General appearance: Alert and awake, in no acute distress ENT ENT: Present normal oropharynx and mucous membranes moist Respiratory Respiratory: Present normal lung sounds bilaterally; Absent respiratory distress Cardiovascular Cardiovascular: Present S1 and S2, normal rhythm and tachycardia, no murmurs heard Adbominal Abdominal: Present soft; Absent tenderness Extremities Extremities: Present normal inspection and normal capillary refill Neurological Neurological: Present alert and oriented X3 Psychiatric Psychiatric: Present normal affect and normal mood Skin Skin: Right groin skin is is less red and indurated, portion of superficial layer is off, skin is covered with barrier cream. Assessment and plan Sepsis. Patient meets sepsis criteria with tachycardia of 92, leukocytosis of 25,000, lactic acidosis 3.0, acute kidney injury with creatinine of 2.7. Right groin cellulitis CT scan showed cellulitis in the subcutaneous fat of the right upper thigh and right buttock region. No evidence of abscess. Continue IV Zosyn and clindamyc in. Patient has no history of MRSA. MRSA screen pending. Blood cultures pending. Lactic acidosis has cleared Diabetes mellitus 2 with hyperglycemia. Blood glucose control improving, A1c 7.7 on 08/26/2022. Home dose glargine 35 units. Insulin sliding scale HENNY versus progression chronic renal failure on CKD stage IV. Serum creatinine 2.5 on admission. Worsened to 2.7. and now 2.6. Patient noted to have urinary retention, status post Wood with immediate drainage of 1100 cc. Patient with history of BPH and prostate issues and was noted to have dribbling prior to Wood catheter placement. Renal ultrasound showed mildly enlarged kidneys consistent with medical renal disease, mild left hydronephrosis. Repeat BMP. Hold HCTZ and lisinopril Anemia Likely anemia of chronic kidney disease. Patient is on iron supplementation which will be continued Hypertension Continue to hold hydrochlorothiazide and lisinopril due to hypotension and HENNY. Will give IV labetalol and IV hydralazine as needed for blood pressure control Hyperlipidemia Continue home dose atorvastatin BPH. CT with mild prostate enlargement. Mild wall urinary bladder could indicate chronic bladder outlet narrowing. 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 Renal ultrasound completed and showed mildly enlarged kidneys consistent with medical renal disease, mild left hydronephrosis. Continue with home dose tamsulosin Sigmoid diverticulosis, incidental finding, but no evidence of diverticulitis Physical deconditioning, weakness PT eval DVT prophylaxis with SCDs CODE STATUS, full code Total time taken 50 minutes Constitutional Vitals: Vital Signs Temp Pulse Resp BP Pulse Ox O2 Del Method 97.9 F 84 16 112/51 94 Room Air 08/29/22 08:00 08/29/22 08:00 08/29/22 08:00 08/29/22 08:00 08/29/22 08:00 08/29/22 08:00 Period Temp Pulse Resp BP Sys/Canela Pulse Ox O2 Del Method O2 Flow Rate Last 24 Hr 97.9 F-99.1 F 84-96 16-28 112-128/46-51 94-96 Room Air-Room r Intake and Output 08/29/22 08/29/22 08/29/22 03:59 11:59 19:59 Intake Total 100 100 240 Output Total 500 Balance -400 100 240 Weight 107.048 kg Intake & Output: Intake & Output 08/29/22 08/29/22 08/29/22 03:59 11:59 19:59 Intake Total 100 100 240 Output Total 500 Balance -400 100 240 Weight 107.048 kg Intake: IV 100 100 Zosyn 2.25 gm In Dextrose 5% in 50 50 Water 50 ml @ 100 mls/hr IV Q6H [facility] Rx#:[id number] Oral 240 Output: Urine Catheter Amount 500 Other: Meal Breakfast Percent of Meal Consumed 100% Feeding Ability Assist with Tray Set Up Urine Appearance Clear Clear Sediment Uretheral (Wood) Cloudy Clear Sediment Sediment Urine Color Dark Yellow Dark Elina Uretheral (Wood) Dark Elina Dark Elina Red Brown Urine Odor Normal OBJ DATA Labs 08/29/22 05:13 08/29/22 05:13 Labs: Abnormal Lab Results 08/29/22 08/29/22 08/28/22 05:13 05:13 05:20 WBC 18.8 H RBC 2.81 L Hgb 8.5 L Hct 27.0 L POC Hct MPV Immature Gran % (Auto) 0.9 H Neut % (Auto) 88.2 H Lymph % (Auto) 4.6 L Lymph # (Auto) 0.86 L [place] # (Auto) 0.94 H Immature Gran # 0.16 H Absolute Neutrophils 16.55 H POC VBG pCO2 at Temp POC VBG pO2 POC VBG HCO3 POC VBG Total CO2 POC Venous O2 Sat POC VBG Base Excess VBG Lactic Acid Sodium 132 L Carbon Dioxide 20 L 19 L POC Total CO2 POC BUN BUN 83 H 84 H Creatinine 2.6 H 2.7 H POC Creatinine Glucose 220 H 185 H POC Glucose Hemoglobin A1c AST 47 H Total Protein 5.7 L Albumin 2.3 L 2.3 L Globulin 3.9 H Albumin/Globulin Ratio 0.7 L 0.6 L 08/28/22 08/27/22 08/27/22 05:20 05:20 05:20 WBC 19.1 H 21.7 H RBC 2.83 L 3.02 L Hgb 8.6 L 9.2 L Hct 27.7 L 29.3 L POC Hct MPV Immature Gran % (Auto) 0.7 H 0.7 H Neut % (Auto) 88.0 H 87.0 H Lymph % (Auto) 5.4 L 5.8 L Lymph # (Auto) 1.03 L 1.27 L [place] # (Auto) 0.91 H 1.36 H Immature Gran # 0.14 H 0.15 H Absolute Neutrophils 16.85 H 18.89 H POC VBG pCO2 at Temp POC VBG pO2 POC VBG HCO3 POC VBG Total CO2 POC Venous O2 Sat POC VBG Base Excess VBG Lactic Acid Sodium Carbon Dioxide 21 L POC Total CO2 POC BUN BUN 77 H Creatinine 2.5 H POC Creatinine Glucose 176 H POC Glucose Hemoglobin A1c AST Total Protein Albumin 2.6 L Globulin Albumin/Globulin Ratio 0.7 L 08/26/22 08/26/22 08/26/22 17:15 13:53 13:53 WBC RBC Hgb Hct POC Hct 33.0 L MPV Immature Gran % (Auto) Neut % (Auto) Lymph % (Auto) Lymph # (Auto) [place] # (Auto) Immature Gran # Absolute Neutrophils POC VBG pCO2 at Temp 34.4 L POC VBG pO2 23 L POC VBG HCO3 20.6 L POC VBG Total CO2 22.0 L POC Venous O2 Sat 39.0 L POC VBG Base Excess -4.0 L VBG Lactic Acid 3.0 H Sodium Carbon Dioxide POC Total CO2 21.0 L POC BUN 86 H BUN Creatinine POC Creatinine 2.7 H Glucose POC Glucose 223 H Hemoglobin A1c 7.7 H AST Total Protein Albumin Globulin Albumin/Globulin Ratio 08/26/22 13:38 WBC 25.4 H RBC 3.52 L Hgb 10.9 L Hct 33.8 L POC Hct MPV 13.0 H Immature Gran % (Auto) 0.8 H Neut % (Auto) 83.7 H Lymph % (Auto) 8.2 L Lymph # (Auto) [place] # (Auto) 1.78 H Immature Gran # 0.21 H Absolute Neutrophils 21.20 H POC VBG pCO2 at Temp POC VBG pO2 POC VBG HCO3 POC VBG Total CO2 POC Venous O2 Sat POC VBG Base Excess VBG Lactic Acid Sodium Carbon Dioxide POC Total CO2 POC BUN BUN Creatinine POC Creatinine Glucose POC Glucose Hemoglobin A1c AST Total Protein Albumin Globulin Albumin/Globulin Ratio Meds: Medications Acetaminophen (Acetaminophen 325 Mg Tablet) 650 mg PO Q6HP PRN; Protocol PRN Reason: Per Pain Protocol/Fever > 101 Last Admin: 08/26/22 21:25 Dose: 650 mg Artificial Tears (Carboxymethylcellulose Sodium 1 Each Droper.Gel) 1 each OU TID [facility] Last Admin: 08/29/22 08:43 Dose: 1 each Ascorbic Acid (Ascorbic Acid 500 Mg Tablet) 500 mg PO DAILY [facility] Last Admin: 08/29/22 08:43 Dose: 500 mg Aspirin (Aspirin 81 Mg Tab.Chew) 81 mg PO DAILY [facility] Last Admin: 08/29/22 08:43 Dose: 81 mg Atorvastatin Calcium (Atorvastatin 40 Mg Tablet) 80 mg PO HS [facility] Last Admin: 08/28/22 21:32 Dose: 80 mg Dextrose (Dextrose 50% 50 Ml Vial) 0 ml IV UD PRN PRN Reason: Per Sliding Scale Diagnostic Test (Pha) (Accu-Chek 1 Each Strip) 1 each FS ACHS [facility] Last Admin: 08/29/22 11:59 Dose: 1 each Docusate Sodium (Docusate Sodium 100 Mg Capsule) 100 mg PO BID [facility] Last Admin: 08/29/22 08:42 Dose: 100 mg Famotidine (Famotidine 20 Mg Tablet) 20 mg PO BID [facility] Last Admin: 08/29/22 08:42 Dose: 20 mg Glucose (Dextrose 31 Gm Oral.Susp) 15 gm PO PRN PRN PRN Reason: Hypoglycemia Heparin Sodium (Porcine) (Heparin 5,000 Unit/Ml Vial) 5,000 unit SQ Q12 [facility] Last Admin: 08/29/22 08:42 Dose: 5,000 unit Hydralazine HCl (Hydralazine 20 Mg/Ml Vial) 10 mg IV Q4-6HP PRN PRN Reason: Hypertension Piperacillin Sod/Tazobactam (Sod 2.25 gm/ Dextrose) 50 mls @ 100 mls/hr IV Q6H [facility]; Protocol Last Admin: 08/29/22 12:42 Dose: 100 mls/hr CLINDAMYCIN IN 0.9 % SOD CHLOR (Clindamycin 900 Mg/50 Ml-Ns) 900 mg in 50 mls @ 100 mls/hr IV Q8H [facility] Last Infusion: 08/29/22 05:42 Dose: Infused Insulin Glargine (Insulin Glargine, Human 1 Unit/0.01 Ml) 35 unit SQ QHS [facility] Last Admin: 08/28/22 21:52 Dose: 35 units Insulin Human Lispro (Insulin Lispro 1 Unit/0.01 Ml Unit) 0 unit SQ ACHS [facility]; Protocol Last Admin: 08/29/22 11:58 Dose: 6 units Magnesium Hydroxide (Magnesium Hydroxide 30 Ml Oral.Susp) 30 ml PO DAILYP PRN PRN Reason: Constipation Metoprolol Succinate (Metoprolol Succinate 50 Mg Tab.Xl.24h) 25 mg PO BID [facility] Last Admin: 08/29/22 08:42 Dose: 25 mg Ondansetron HCl (Ondansetron 4 Mg/2 Ml Vial) 4 mg IV Q6HP PRN PRN Reason: Nausea And Vomiting Oxycodone HCl (Oxycodone Ir 5 Mg Tablet) 5 mg PO Q4HP PRN; Protocol PRN Reason: Per Pain Protocol Senna (Sennosides 1 Tablet) 2 tab PO HS [facility] Last Admin: 08/28/22 21:32 Dose: 2 tab Sodium Chloride (0.9 % Sodium Chloride 10 Ml Syringe) 10 ml IV Q8 [facility] Last Admin: 08/29/22 05:13 Dose: 10 ml Tamsulosin HCl (Tamsulosin 0.4 Mg Capsule) 0.4 mg PO QDAY [facility] Last Admin: 08/29/22 08:42 Dose: 0.4 mg Trazodone HCl (Trazodone Hcl 50 Mg Tablet) 25 mg PO HSP PRN PRN Reason: Insomnia Last Admin: 08/27/22 21:06 Dose: 25 mg Vitamin D (Vitamin D3 25 Mcg Tablet) 25 mcg PO DAILY [facility] Last Admin: 08/29/22 08:43 Dose: 25 mcg A/P Time Spent With Patient Time: Total time spent is greater than 50% in coordination of care (as documented) at patient's floor/unit and/or counseling patient: QUALITY Stroke Symptom Onset Unknown: No VTE Deep Vein Thrombosis/Pulmonary Embolism Present on Admission: No
[2022-08-29] MEDS: INSULIN GLARGINE, HUMAN 1 UNIT/0.01 ML SQ SCH (20:42)
[2022-08-29] MEDS: SENNOSIDES 1 TABLET PO SCH (20:43)
[2022-08-29] MEDS: ATORVASTATIN 40 MG TABLET PO SCH (20:43)
[2022-08-30] MEDS: PIPERACILLIN SODIUM/TAZOBACTAM 2.25 GM in DEXTROSE 5% IN WATER 50 ML IV SCH ×3 (05:02→17:31)
[2022-08-30] MEDS: 0.9 % SODIUM CHLORIDE 10 ML SYRINGE IV SCH ×3 (05:05→20:30)
[2022-08-30] MEDS: CLINDAMYCIN IN 0.9 % SOD CHLOR 900 MG/50 ML BAG IV SCH ×3 (05:38→22:45)
[2022-08-30 06:32] LABS: Basophils # (Auto) 0.06 K/mcL (0.00-0.30); Basophils % (Auto) 0.3 % (0.0-2.0); Eosinophils # (Auto) 0.31 K/mcL (0.00-0.70); Eosinophils % (Auto) 1.6 % (0.0-7.0); Hematocrit 28.5 % (40.1-51.0); Hemoglobin 9.4 g/dL (13.7-17.5); Lymphocytes # (Auto) 1.14 K/mcL (1.50-4.80); Lymphocytes % (Auto) 5.8 % (15.5-49.0); Mean Cell Volume 91.3 fL (80.0-100.0); Mean Platelet Volume 11.9 fL (8.8-12.5); Monocytes # (Auto) 1.16 K/mcL (0.10-0.90); Monocytes % (Auto) 5.9 % (1.0-12.0); Neutrophils % (Auto) 85.6 % (38.0-78.0); Platelet Count 221 K/mcL (140-440); RBC 3.12 M/mcL (4.63-6.08); WBC 19.8 K/mcL (4.5-11.0)
[2022-08-30 06:43] LABS: ALT/SGPT 55 U/L (<40); AST/SGOT 49 U/L (<40); Albumin 2.4 gm/dL (3.2-5.2); Albumin/Globulin Ratio 0.6 (1.0-2.3); Alkaline Phosphatase 127 U/L (39-117); Bilirubin,Total 0.2 mg/dL (0.1-1.0); Blood Urea Nitrogen 86 mg/dL (8-23); Calcium 9.6 mg/dL (8.6-10.4); Carbon Dioxide 22 mmol/L (22-30); Chloride 105 mmol/L (96-108); Globulin 3.8 gm/dL (2.2-3.7); Glomerular Filtration Rate 21; Glucose 189 mg/dL (70-105)
[2022-08-30] MEDS: INSULIN LISPRO 1 UNIT/0.01 ML UNIT SQ SCH ×8 (07:42→20:29)
[2022-08-30] MEDS: ASCORBIC ACID 500 MG TABLET PO SCH (09:02)
[2022-08-30] MEDS: METOPROLOL SUCCINATE 50 MG TAB.XL.24H PO SCH ×2 (09:02→20:31)
[2022-08-30] MEDS: TAMSULOSIN 0.4 MG CAPSULE PO SCH (09:02)
[2022-08-30] MEDS: FAMOTIDINE 20 MG TABLET PO SCH (09:02)
[2022-08-30] MEDS: ASPIRIN 81 MG TAB.CHEW PO SCH (09:02)
[2022-08-30] MEDS: VITAMIN D3 25 MCG TABLET PO SCH (09:02)
[2022-08-30] MEDS: HEPARIN 5,000 UNIT/ML VIAL SQ SCH ×2 (09:02→20:30)
[2022-08-30] MEDS: CARBOXYMETHYLCELLULOSE SODIUM 1 EACH DROPER.GEL OU SCH ×3 (09:02→20:30)
[2022-08-30] MEDS: DOCUSATE SODIUM 100 MG CAPSULE PO SCH ×2 (09:03→20:30)
--- NOTE | 2022-08-30 11:48 | Internal Med Progress Note ---
SUBJECTIVE Subjective Patient information: Note initiated : 08/30/22 at 11:43 am Service Date, if different from initiated Date: [] Patient: Bebo Barnes a 87 y/o M admitted on 08/26/22 for Abscess to groin, Celulitis, Sepsis. Chief Complaint: [] Additional PMFSH (Level 3 Only): Hospital course: Mr. Barnes is a 87 year old M with history of diabetes mellitus 2 with neuropathy, hypertension, hyperlipidemia, CKD stage IV baseline creatinine unkn own, anemia, BPH, history of prostate cancer noted a bump in his right groin 3 days ago, that has been growing since then. He has been feeling feverish associated with chills. It hurts whenever anything touches it. He reported no drainage, no nausea vomiting. Patient was seen at [facility] first and was sent to ED for concerns of sepsis secondary to abscess in his groin. In ER patient was in sepsis with tachycardia of 92, leukocytosis of 25,000, lactic acidosis 3.0, acute kidney injury with creatinine of 2.7. Lab work also showed chronic anemia of 10.9, hyperglycemia 2-3. CT scan showed cellulitis in the subcutaneous fat of the right upper thigh and right buttock region. No evidence of abscess. Patient was admitted to the floor. 08/27. Patient seen and examined. Patient had low-grade fever of 99.9 F overnight, somewhat hypotensive with BP 106/44. Leukocytosis somewhat improved however still elevated at 21,000 significantly. Patient serum creatinine improved to 2.5 from 2.7 yesterday. BUN and down to 77 from 86 yesterday. Glucose improved to 176 from 2-3 before. HBA 1C came to A1c is 7.7. Blood culture is still pending. He remains on IV Zosyn and clindamycin. Will give 1 L NS for hypotension and acute kidney injury. 08/28 patient reports feeling better. WBC slightly improved to 19,000 from 21,000, hemoglobin 8.6 down from 9.2, likely in the setting of hemodilution. Creatinine worsened to 2.7 from 2.5 yesterday. His baseline is around 1.9-2.0. He has stage IV kidney disease at baseline. RN reported patient was having urine dribbling. Suspect urinary retention. Will put Wood catheter in. HbA1c 7.7 08/29. No fevers overnight, leukocytosis slightly improved to 18,000. Reports scrotal discomfort is improving. Serum creatinine 2.6 down from 2.7 yesterday. BUN same 83. Patient is tolerating antibiotics 08/30 afebrile, leukocytosis up to 19.8 from 18.8 yesterday, creatinine 2.6 stable. Will order CRP and procalcitonin to follow-up on his infection. Also will obtain repeat CT scan of pelvis to see if he has an abscess Review of systems Patient reports no fever or chills, strength is slowly improving No fever or chills No headache or visual disturbance No nausea or vomiting or abdominal pain No dysuria, no hematuria No focal deficits, known visual problems Less erythema in right groin Denies depression or anxiety Physical exam General General appearance: Alert and awake, in no acute distress ENT ENT: Present normal oropharynx and mucous membranes moist Respiratory Respiratory: Present normal lung sounds bilaterally; Absent respiratory distress Cardiovascular Cardiovascular: Present S1 and S2, normal rhythm and tachycardia, no murmurs heard Adbominal Abdominal: Present soft; Absent tenderness Extremities Extremities: Present normal inspection and normal capillary refill Neurological Neurological: Present alert and oriented X3 Psychiatric Psychiatric: Present normal affect and normal mood Skin Skin: Right groin skin is is less red and indurated, portion of superficial layer is off, skin is covered with barrier cream. Assessment and plan Sepsis. Patient meets sepsis criteria with tachycardia of 92, leukocytosis of 25,000, lactic acidosis 3.0, acute kidney injury with creatinine of 2.7. Right groin cellulitis CT scan showed cellulitis in the subcutaneous fat of the right upper thigh and right buttock region, no abscess. Continue IV Zosyn and clindamycin. Patient has no history of MRSA. Blood cultures pending. Lactic acidosis has cleared. Still significant leukocytosis. Will repeat CT pelvis to evaluate for organized or occult abscess Diabetes mellitus 2 with hyperglycemia. Blood glucose control improving, A1c 7.7 on 08/26/2022. Blood glucose in house elevated, start scheduled lispro 4 units insulin lispro with each meal, continue glargine 35 units. Increase to moderate insulin sliding scale HENNY versus progression chronic renal failure on CKD stage IV. Serum creatinine 2.5 on admission. Worsened to 2.7. and now 2.6. Patient noted to have urinary retention, status post Wood with immediate drainage of [address] c. Patient with history of BPH and prostate issues and was noted to have dribbling prior to Wood catheter placement. Renal ultrasound showed mildly enlarged kidneys consistent with medical renal disease, mild left hydronephrosis. Repeat BMP. Hold HCTZ and lisinopril Anemia Likely anemia of chronic kidney disease. Patient is on iron supplementation which will be continued Hypertension Continue to hold hydrochlorothiazide and lisinopril due to hypotension and HENNY. Will give IV labetalol and IV hydralazine as needed for blood pressure control Hyperlipidemia Continue home dose atorvastatin BPH. CT with mild prostate enlargement. Mild wall urinary bladder could indicate chronic bladder outlet narrowing. 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 Renal ultrasound completed and showed mildly enlarged kidneys consistent with medical renal disease, mild left hydronephrosis. Continue with home dose tamsulosin Sigmoid diverticulosis, incidental finding, but no evidence of diverticulitis Physical deconditioning, weakness PT eval DVT prophylaxis with SCDs CODE STATUS, full code Total time taken 50 minutes Constitutional Vitals: Vital Signs Temp Pulse Resp BP Pulse Ox O2 Del Method 98.4 F 91 H 18 119/53 97 Room Air 08/30/22 07:41 08/30/22 07:41 08/30/22 07:41 08/30/22 07:41 08/30/22 07:41 08/30/22 07:41 Period Temp Pulse Resp BP Sys/Canela Pulse Ox O2 Del Method O2 Flow Rate Last 24 Hr 98.1 F-99.3 F 88-95 16-24 119-130/50-72 94-97 Room Air-Room Air Intake and Output 08/29/22 08/30/22 08/30/22 19:59 03:59 11:59 Intake Total 1270 100 700 Output Total 425 1300 Balance 845 100 -600 Weight 106.322 kg Intake & Output: Intake & Output 08/29/22 08/30/22 08/30/22 19:59 03:59 11:59 Intake Total 1270 100 700 Output Total 425 1300 Balance 845 100 -600 Weight 106.322 kg Intake: Nourishment/Supplement quantity 240 (ml) IV 150 100 100 Zosyn 2.25 gm In Dextrose 5% in 100 50 50 Water 50 ml @ 100 mls/hr IV Q6H [facility] Rx#:[id number] Oral 880 600 Output: Urine Catheter Amount 425 1300 Other: Meal Lunch Percent of Meal Consumed 25% Feeding Ability Independent Nourishment/Supplement name ensure Urine Appearance Cloudy Clear Sediment Uretheral (Wood) Clear Sediment Urine Color Dark Elina Yellow Tea Colored Uretheral (Wood) Yellow Urine Odor Foul Normal Stool Size Large Stool Color Brown Stool Consistency Soft Formed Loose # Bowel Movements 1 OBJ DATA Labs 08/30/22 05:24 08/30/22 05:24 Labs: Abnormal Lab Results 08/30/22 08/30/22 08/29/22 05:24 05:24 05:13 WBC 19.8 H RBC 3.12 L Hgb 9.4 L Hct 28.5 L Immature Gran % (Auto) 0.8 H Neut % (Auto) 85.6 H Lymph % (Auto) 5.8 L Lymph # (Auto) 1.14 L Dolores # (Auto) 1.16 H Immature Gran # 0.15 H Absolute Neutrophils 16.93 H Sodium Carbon Dioxide 20 L BUN 86 H 83 H Creatinine 2.6 H 2.6 H Glucose 189 H 220 H AST 49 H 47 H ALT 55 H Alkaline Phosphatase 127 H Total Protein 5.7 L Albumin 2.4 L 2.3 L Globulin 3.8 H Albumin/Globulin Ratio 0.6 L 0.7 L 08/29/22 08/28/22 08/28/22 05:13 05:20 05:20 WBC 18.8 H 19.1 H RBC 2.81 L 2.83 L Hgb 8.5 L 8.6 L Hct 27.0 L 27.7 L Immature Gran % (Auto) 0.9 H 0.7 H Neut % (Auto) 88.2 H 88.0 H Lymph % (Auto) 4.6 L 5.4 L Lymph # (Auto) 0.86 L 1.03 L Dolores # (Auto) 0.94 H 0.91 H Immature Gran # 0.16 H 0.14 H Absolute Neutrophils 16.55 H 16.85 H Sodium 132 L Carbon Dioxide 19 L BUN 84 H Creatinine 2.7 H Glucose 185 H AST ALT Alkaline Phosphatase Total Protein Albumin 2.3 L Globulin 3.9 H Albumin/Globulin Ratio 0.6 L Meds: Medications Acetaminophen (Acetaminophen 325 Mg Tablet) 650 mg PO Q6HP PRN; Protocol PRN Reason: Per Pain Protocol/Fever > 101 Last Admin: 08/26/22 21:25 Dose: 650 mg Artificial Tears (Carboxymethylcellulose Sodium 1 Each Droper.Gel) 1 each OU TID [facility] Last Admin: 08/30/22 09:02 Dose: 1 each Ascorbic Acid (Ascorbic Acid 500 Mg Tablet) 500 mg PO DAILY [facility] Last Admin: 08/30/22 09:02 Dose: 500 mg Aspirin (Aspirin 81 Mg Tab.Chew) 81 mg PO DAILY [facility] Last Admin: 08/30/22 09:02 Dose: 81 mg Atorvastatin Calcium (Atorvastatin 40 Mg Tablet) 80 mg PO HS [facility] Last Admin: 08/29/22 20:43 Dose: 80 mg Dextrose (Dextrose 50% 50 Ml Vial) 0 ml IV UD PRN PRN Reason: Per Sliding Scale Diagnostic Test (Pha) (Accu-Chek 1 Each Strip) 1 each FS ACHS [facility] Last Admin: 08/30/22 07:42 Dose: 1 each Docusate Sodium (Docusate Sodium 100 Mg Capsule) 100 mg PO BID [facility] Last Admin: 08/30/22 09:03 Dose: Not Given Famotidine (Famotidine 20 Mg Tablet) 20 mg PO QAM [facility] Last Admin: 08/30/22 09:02 Dose: 20 mg Glucose (Dextrose 31 Gm Oral.Susp) 15 gm PO PRN PRN PRN Reason: Hypoglycemia Heparin Sodium (Porcine) (Heparin 5,000 Unit/Ml Vial) 5,000 unit SQ Q12 [facility] Last Admin: 08/30/22 09:02 Dose: 5,000 unit Hydralazine HCl (Hydralazine 20 Mg/Ml Vial) 10 mg IV Q4-6HP PRN PRN Reason: Hypertension Piperacillin Sod/Tazobactam (Sod 2.25 gm/ Dextrose) 50 mls @ 100 mls/hr IV Q6H [facility]; Protocol Last Infusion: 08/30/22 05:35 Dose: Infused CLINDAMYCIN IN 0.9 % SOD CHLOR (Clindamycin 900 Mg/50 Ml-Ns) 900 mg in 50 mls @ 100 mls/hr IV Q8H [facility] Last Infusion: 08/30/22 06:39 Dose: Infused Insulin Glargine (Insulin Glargine, Human 1 Unit/0.01 Ml) 35 unit SQ QHS [facility] Last Admin: 08/29/22 20:42 Dose: 35 units Insulin Human Lispro (Insulin Lispro 1 Unit/0.01 Ml Unit) 4 unit SQ [facility] Insulin Human Lispro (Insulin Lispro 1 Unit/0.01 Ml Unit) 0 unit SQ [facility]; Protocol Magnesium Hydroxide (Magnesium Hydroxide 30 Ml Oral.Susp) 30 ml PO DAILYP PRN PRN Reason: Constipation Metoprolol Succinate (Metoprolol Succinate 50 Mg Tab.Xl.24h) 25 mg PO BID [facility] Last Admin: 08/30/22 09:02 Dose: 25 mg Ondansetron HCl (Ondansetron 4 Mg/2 Ml Vial) 4 mg IV Q6HP PRN PRN Reason: Nausea And Vomiting Oxycodone HCl (Oxycodone Ir 5 Mg Tablet) 5 mg PO Q4HP PRN; Protocol PRN Reason: Per Pain Protocol Senna (Sennosides 1 Tablet) 2 tab PO HS [facility] Last Admin: 08/29/22 20:43 Dose: 2 tab Sodium Chloride (0.9 % Sodium Chloride 10 Ml Syringe) 10 ml IV Q8 [facility] Last Admin: 08/30/22 05:05 Dose: 10 ml Tamsulosin HCl (Tamsulosin 0.4 Mg Capsule) 0.4 mg PO QDAY [facility] Last Admin: 08/30/22 09:02 Dose: 0.4 mg Trazodone HCl (Trazodone Hcl 50 Mg Tablet) 25 mg PO HSP PRN PRN Reason: Insomnia Last Admin: 08/27/22 21:06 Dose: 25 mg Vitamin D (Vitamin D3 25 Mcg Tablet) 25 mcg PO DAILY [facility] Last Admin: 08/30/22 09:02 Dose: 25 mcg A/P Time Spent With Patient Time: Total time spent is greater than 50% in coordination of care (as documented) at patient's floor/unit and/or counseling patient: QUALITY Stroke Symptom Onset Unknown: No VTE Deep Vein Thrombosis/Pulmonary Embolism Present on Admission: No
[2022-08-30 12:36] LABS: CRP,High Sensitivity 242.1 mg/L (1.0-3.0)
--- NOTE | 2022-08-30 13:47 | Cat Scan Report ---
CLINICAL INFORMATION: groin/buttocks abscess COMPARISON: None. FINDINGS: Moderate simple cellulitis the subcutaneous fat of the right upper thigh with extension to the right buttocks region shows overall mild improvement from the comparison exam four days ago. There is, however, a new cluster of 3-4 fluid collections in the subcutaneous fat of the superior medial right thigh ranging up to 3 cm. These could represent small developing abscesses. Moderate hydrocele is also noted in the scrotal region.Muscle and fascial planes are, otherwise, normal. Bone windows show left hip prostheses is anatomically aligned without loosening or infection. Moderate right and hip and bilateral SI degeneration noted. No osseous abnormalities. There are multiple sigmoid diverticuli, but no evidence of diverticulitis. The remaining visualized large and small bowel are normal. There is no free air, free fluid or adenopathy. Prostate is mildly enlarged-5 cm.. Urinary bladder is decompressed by Wood catheter. There is mild wall thickening as previously seen. A small (1.5 cm) abscess in Camper's fascia and the left periumbilical region. IMPRESSION: Slight improvement in cellulitis in the subcutaneous fat of the right upper thigh and buttock region there is, however, 3-4 new fluid collections in this area ranging up to 3 cm. They may represent small abscesses. Moderate hydrocele present the scrotal region. Sigmoid diverticulosis, but no evidence of diverticulitis Mild prostate enlargement. Mild wall urinary bladder could indicate chronic bladder outlet narrowing. 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 Small (1.5 cm) abscess in Camper's fascia left periumbilical region new from prior exam Interpreted and Authenticated by: Pee Shoemaker 08/30/22
[2022-08-30] MEDS: ACETAMINOPHEN 325 MG TABLET PO PRN (14:00)
--- NOTE | 2022-08-30 16:38 | General Surgery Consult Note ---
HPI Date of Consult Consult Date: 08/30/22 Primary Care Provider: Jamison Jean MD Consult Narrative Patient Information: Note initiated : 08/30/22 at 4:35 pm Service Date, if different from initiated Date: [] Patient: Bebo Barnes 87 y/o M admitted on 08/26/22 for Abscess to groin, Celulitis, Sepsis. Patient was admitted on 510 for cellulitis, he was placed on IV antibiotics initially his white count and cellulitis started to improve, however today his white count increased therefore the hospitalist ordered another CT scan which is read as resolving cellulitis but with several small abscesses the largest being 3 x 3 cm. I was asked today to further evaluate for possible need for incision and drainage patient has no complaints at this time. He has no fevers chills nausea or vomiting. Chief Complaint: [] Chief complaint: Cellulitis, right leg cc:: CC: Manolo Garcia MD Review of Systems Review of systems: All systems are reviewed, negative other than above PFSH PFSH All Active Problems (Updated 08/26/22 @ 15:26 by Sathya De La Cruz DO) Sepsis (Acute) Cellulitis of buttock, right (Acute) Generalized weakness (Acute) Anemia (Chronic) Long-term use of high-risk medication (Chronic 05/06/13) Colon polyps (Chronic 09/23/03) Diverticulosis of colon (Chronic 10/03/03) Hyperlipidemia, mixed (Chronic) Hypertension (Chronic) Obstructive uropathy (Chronic) Peripheral neuropathy (Chronic) History of prostate cancer (Chronic) Renal failure (Chronic) Seborrheic keratosis (Chronic) Urinary tract infection (Chronic) History of appendectomy (Chronic) History of radiation therapy (Chronic) Encounter for Health Maintenance Examination in Adult (Chronic) Sciatica of right side (Chronic) Ventricular bigeminy (Chronic) Hip pain (Chronic) Lumbago with sciatica (Chronic) Tachycardia (Chronic) Nevus, choroidal (Chronic) Microscopic hematuria (Chronic) Age-related nuclear cataract, bilateral (Chronic) Other corneal scars and opacities (Chronic) Other disorders of refraction (Chronic) Dysuria (Chronic) Urinary frequency (Chronic) Chronic kidney disease (Chronic) Proteinuria (Chronic) CKD stage G4/A3, 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) Retention of urine (Chronic) Carcinoma in situ of prostate (Chronic) Carcinoma of prostate (Chronic) Nevus, non-neoplastic (Chronic) Other urethral stricture, male, unspecified site (Chronic) Polyp of colon (Chronic) Postprocedural bulbous urethral stricture, 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 10- year sequence. Diabetes mellitus with neuropathy Goal HgBA1c <7.5% Diverticulosis of colon (10/03/03) Colonoscopy--Dr. Cartagena--Polypectomy, benign colonic mucosa with prominent lymphoid aggregate; moderately severe diverticulosis, small hemorrhoids Hip pain History of prostate cancer History of cancer of the prostate status post radiation therapy in 1993 History of radiation therapy History of Cancer of the Prostate status post radiation therapy in 1993 History of urinary tract infection Recurrent, clinically stable, due for recheck Hyperkalemia Hyperlipidemia, mixed Hypertension Controlled on 3 Rx Goal 130/80 Long-term use of high-risk medication (05/06/13) patient on Statin for Hyperlipidemia Lumbago with sciatica Medicare annual wellness visit, subsequent Microscopic hematuria Nevus, choroidal Nevus, non-neoplastic Obstructive uropathy Other corneal scars and opacities Other disorders of refraction Other urethral stricture, male, unspecified site Peripheral neuropathy Very mild by exam Polyp of colon Postprocedural bulbous urethral stricture, male Renal failure Mild, probably related to diuretics and now stabilized Retention of urine Sciatica of right side Seborrheic keratosis Multiple, yearly dermatology follow up through [place] Tachycardia Urinary frequency Urinary tract infection History of recurrent urinary tract infections, previous suppressive therapy and previous evaluation through Dr. 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 [employer] smoking status: Former smoker alcohol intake frequency: does not drink substance use type: does not use MEDS/ALLERGIES Home Medications and Allergies Home Medications Medication Instructions Recorded Confirmed Type ascorbic acid (vitamin C) 500 mg 500 mg PO QDAY 01/16/15 08/26/22 History capsule,extended release blood sugar diagnostic (OneTouch #200 ea 05/21/16 08/26/22 Rx Ultra Test strips) insulin syringe-needle U-100 1 mL #100 ea 05/21/16 08/26/22 Rx 30 gauge x 1/2" (BD Insulin Syringe Ultra-Fine) hydrochlorothiazide 12.5 mg tablet 12.5 mg PO QDAY 09/14/18 08/26/22 History atorvastatin 80 mg tablet 80 mg PO QHS 09/30/20 08/26/22 History lisinopril 40 mg tablet 40 mg PO QDAY 09/30/20 08/26/22 History metoprolol succinate 50 mg 25 mg PO BID 09/30/20 08/26/22 History tablet,extended release 24 hr tamsulosin 0.4 mg capsule 0.4 mg PO QDAY 09/30/20 08/26/22 History blood sugar diagnostic (Accu-Chek 05/27/21 08/26/22 History Guide test strips) carboxymethylcellulose sodium 0.5 1 drp ophthalmic (eye) TID 05/27/21 08/26/22 History % eye drops cholecalciferol (vitamin D3) 50 1,000 unit PO QDAY 07/22/21 08/26/22 History mcg (2,000 unit) capsule insulin glargine 100 unit/mL 30 unit subcut QHS 07/22/21 08/26/22 History subcutaneous solution aspirin 81 mg tablet,delayed 81 mg PO DAILY 02/12/22 08/26/22 History release Allergies Allergy/AdvReac Type Severity Reaction Status Date / Time amlodipine [From Lotrel] AdvReac Intermediate Swelling Verified 08/26/22 17:46 benazepril [From Lotrel] AdvReac Intermediate Swelling Verified 08/26/22 17:46 felodipine [From Plendil] AdvReac Intermediate Swelling Verified 08/26/22 13:39 pioglitazone [From Actos] AdvReac Intermediate Swelling Verified 08/26/22 13:39 Physical Examination Vital Signs Vital signs: Temp Pulse Resp BP Pulse Ox O2 Del Method 98.2 F 94 H 20 108/76 94 Room Air 08/30/22 12:00 08/30/22 12:00 08/30/22 12:00 08/30/22 12:00 08/30/22 12:00 08/30/22 12:00 General physical appearance General physical exam: well developed, well nourished and no distress Eyes Eye exam: PERRL and normal ocular movement ENT ENT exam: normal pinna, normal nares, normal mucosa, no hearing loss and no congestion Head Head exam IM: Present atraumatic and normocephalic Neck Neck exam: no masses, no bruits, trachea midline, no lymphadenopathy and no venous distension Cardiovascular Cardiovascular exam IM: Present normal rate and rhythm Respiratory Respiratory exam: normal expansion, normal respiratory effort, clear to percussion and clear to auscultation Abdomen Abdomen: Present soft, non tender and bowel sounds Hernia: Present none Genitourinary Genitourinary (Male): Present normal penis with no external lesions Rectum Rectum: Present normal sphincter tone, no hemorrhoids, no tenderness, no masses and no bleeding Integumentary Integumentary: Present no rash, no growths and no abnormal pigmentation Neurologic Neurologic: Present normal coordination and normal sensation Musculoskeletal Musculoskeletal: Present normal gait and normal posture Psychiatric Psychiatric: Present oriented to time, oriented to person, oriented to place, speech is normal and memory intact Additional Findings Additional exam: Along the inner right thigh there is an area of fluctuance, upon palpation loni pus started draining therefore the area was probed with a sterile cotton tip applicator and approximately 100 cc of pus was drained from the abscess cavity. It was packed loosely with the corner of a 4 x 4. Results Labs 08/30/22 05:24 08/30/22 05:24 Labs: Abnormal lab results 08/30/22 08/30/22 08/30/22 Range/Units 05:24 05:24 05:24 WBC 19.8 H (4.5-11.0) K/mcL RBC 3.12 L (4.63-6.08) M/mcL Hgb 9.4 L (13.7-17.5) g/dL Hct 28.5 L (40.1-51.0) % Immature Gran % (Auto) 0.8 H (0.0-0.5) % Neut % (Auto) 85.6 H (38.0-78.0) % Lymph % (Auto) 5.8 L (15.5-49.0) % Lymph # (Auto) 1.14 L (1.50-4.80) K/mcL [facility] # (Auto) 1.16 H (0.10-0.90) K/mcL Immature Gran # 0.15 H (0.00-0.05) K/mcl Absolute Neutrophils 16.93 H (1.80-8.00) K/mcL BUN 86 H (8-23) mg/dL Creatinine 2.6 H (0.7-1.2) mg/dL Glucose 189 H (70-105) mg/dL AST 49 H (<40) U/L ALT 55 H (<40) U/L Alkaline Phosphatase 127 H (39-117) U/L C-React Prot High Sens 242.1 H (1.0-3.0) mg/L Albumin 2.4 L (3.2-5.2) gm/dL Globulin 3.8 H (2.2-3.7) gm/dL Albumin/Globulin Ratio 0.6 L (1.0-2.3) Procalcitonin (<0.10) ng/mL 08/30/22 Range/Units 05:24 WBC (4.5-11.0) K/mcL RBC (4.63-6.08) M/mcL Hgb (13.7-17.5) g/dL Hct (40.1-51.0) % Immature Gran % (Auto) (0.0-0.5) % Neut % (Auto) (38.0-78.0) % Lymph % (Auto) (15.5-49.0) % Lymph # (Auto) (1.50-4.80) K/mcL [facility] # (Auto) (0.10-0.90) K/mcL Immature Gran # (0.00-0.05) K/mcl Absolute Neutrophils (1.80-8.00) K/mcL BUN (8-23) mg/dL Creatinine (0.7-1.2) mg/dL Glucose (70-105) mg/dL AST (<40) U/L ALT (<40) U/L Alkaline Phosphatase (39-117) U/L C-React Prot High Sens (1.0-3.0) mg/L Albumin (3.2-5.2) gm/dL Globulin (2.2-3.7) gm/dL Albumin/Globulin Ratio (1.0-2.3) Procalcitonin 1.17 H (<0.10) ng/mL Diabetes panel 08/30/22 Range/Units 05:24 Sodium 136 (133-145) mmol/L Potassium 4.7 (3.3-5.1) mmol/L Chloride 105 (96-108) mmol/L Carbon Dioxide 22 (22-30) mmol/L BUN 86 H (8-23) mg/dL Creatinine 2.6 H (0.7-1.2) mg/dL Glucose 189 H (70-105) mg/dL Calcium 9.6 (8.6-10.4) mg/dL AST 49 H (<40) U/L ALT 55 H (<40) U/L Alkaline Phosphatase 127 H (39-117) U/L Total Protein 6.2 (5.9-8.4) gm/dL Albumin 2.4 L (3.2-5.2) gm/dL Calcium panel 08/30/22 Range/Units 05:24 Calcium 9.6 (8.6-10.4) mg/dL Albumin 2.4 L (3.2-5.2) gm/dL Pituitary panel 08/30/22 Range/Units 05:24 Sodium 136 (133-145) mmol/L Potassium 4.7 (3.3-5.1) mmol/L Chloride 105 (96-108) mmol/L Carbon Dioxide 22 (22-30) mmol/L BUN 86 H (8-23) mg/dL Creatinine 2.6 H (0.7-1.2) mg/dL Glucose 189 H (70-105) mg/dL Calcium 9.6 (8.6-10.4) mg/dL Adrenal panel 08/30/22 Range/Units 05:24 Sodium 136 (133-145) mmol/L Potassium 4.7 (3.3-5.1) mmol/L Chloride 105 (96-108) mmol/L Carbon Dioxide 22 (22-30) mmol/L BUN 86 H (8-23) mg/dL Creatinine 2.6 H (0.7-1.2) mg/dL Glucose 189 H (70-105) mg/dL Calcium 9.6 (8.6-10.4) mg/dL Total Bilirubin 0.2 (0.1-1.0) mg/dL AST 49 H (<40) U/L ALT 55 H (<40) U/L Alkaline Phosphatase 127 H (39-117) U/L Total Protein 6.2 (5.9-8.4) gm/dL Albumin 2.4 L (3.2-5.2) gm/dL All other labs normal. Imaging CT scan - abdomen: image reviewed A/P Assessment and plan (1) Cellulitis of buttock, right: Plan: Cellulitis which has coalesced into a small abscess which is now spontaneously draining. Recommend continue with IV antibiotics. Twice daily dressing changes to the area. I will continue to follow with you. Status: Acute Time Spent With Patient Time: Total time spent is greater than 50% in coordination of care (as documented) at patient's floor/unit and/or counseling patient:
[2022-08-30] MEDS: INSULIN GLARGINE, HUMAN 1 UNIT/0.01 ML SQ SCH (20:29)
[2022-08-30] MEDS: ATORVASTATIN 40 MG TABLET PO SCH (20:30)
[2022-08-30] MEDS: SENNOSIDES 1 TABLET PO SCH (20:30)
[2022-08-31] MEDS: PIPERACILLIN SODIUM/TAZOBACTAM 2.25 GM in DEXTROSE 5% IN WATER 50 ML IV SCH ×5 (00:17→23:53)
[2022-08-31] MEDS: 0.9 % SODIUM CHLORIDE 10 ML SYRINGE IV SCH ×3 (05:57→21:36)
[2022-08-31 06:27] LABS: Basophils # (Auto) 0.03 K/mcL (0.00-0.30); Basophils % (Auto) 0.2 % (0.0-2.0); Eosinophils # (Auto) 0.39 K/mcL (0.00-0.70); Eosinophils % (Auto) 2.2 % (0.0-7.0); Hematocrit 26.7 % (40.1-51.0); Hemoglobin 8.8 g/dL (13.7-17.5); Lymphocytes # (Auto) 1.37 K/mcL (1.50-4.80); Lymphocytes % (Auto) 7.6 % (15.5-49.0); Mean Cell Volume 91.1 fL (80.0-100.0); Mean Platelet Volume 11.9 fL (8.8-12.5); Monocytes # (Auto) 1.02 K/mcL (0.10-0.90); Monocytes % (Auto) 5.7 % (1.0-12.0); Neutrophils % (Auto) 83.4 % (38.0-78.0); Platelet Count 211 K/mcL (140-440); RBC 2.93 M/mcL (4.63-6.08)
[2022-08-31] MEDS: CLINDAMYCIN IN 0.9 % SOD CHLOR 900 MG/50 ML BAG IV SCH ×3 (06:31→22:07)
[2022-08-31 07:05] LABS: ALT/SGPT 62 U/L (<40); AST/SGOT 52 U/L (<40); Albumin 2.3 gm/dL (3.2-5.2); Albumin/Globulin Ratio 0.6 (1.0-2.3); Alkaline Phosphatase 117 U/L (39-117); Bilirubin,Total 0.3 mg/dL (0.1-1.0); Blood Urea Nitrogen 94 mg/dL (8-23); Calcium 9.8 mg/dL (8.6-10.4); Carbon Dioxide 21 mmol/L (22-30); Chloride 106 mmol/L (96-108); Globulin 3.8 gm/dL (2.2-3.7); Glomerular Filtration Rate 19; Glucose 87 mg/dL (70-105)
[2022-08-31] MEDS: INSULIN LISPRO 1 UNIT/0.01 ML UNIT SQ SCH ×8 (07:51→21:36)
--- NOTE | 2022-08-31 08:28 | General Surgery Progress Note ---
SUBJECTIVE Subjective Patient information: Note initiated : 08/31/22 at 8:26 am Service Date, if different from initiated Date: [] Patient: Bebo Barnes 87 y/o M admitted on 08/26/22 for Abscess to groin, Celulitis, Sepsis. Chief Complaint: [] Interval history: Patient is doing better today, white blood cell count has decreased. The area of cellulitis and an abscess continues to drain. Constitutional Vitals: Vital Signs Temp Pulse Resp BP Pulse Ox O2 Del Method 98.6 F 95 H 16 131/61 97 Room Air 08/31/22 08:00 08/31/22 08:00 08/31/22 08:00 08/31/22 08:00 08/31/22 08:00 08/31/22 08:00 Period Temp Pulse Resp BP Sys/Canela Pulse Ox O2 Del Method O2 Flow Rate Last 24 Hr 97.9 F-99.2 F 81-95 16-20 102-131/50-76 94-98 Room Air-Room Air Intake and Output 08/30/22 08/31/22 08/31/22 19:59 03:59 11:59 Intake Total 750 100 100 Output Total 450 550 Balance 300 100 -450 Weight 232 lb 6 oz Intake & Output: Intake & Output 08/30/22 08/31/22 08/31/22 19:59 03:59 11:59 Intake Total 750 100 100 Output Total 450 550 Balance 300 100 -450 Weight 232 lb 6 oz Intake: IV 150 100 100 Zosyn 2.25 gm In Dextrose 5% in 100 50 50 Water 50 ml @ 100 mls/hr IV Q6H PENDING SALE TO [facility] Rx#:[id number] GI Tube Flush 600 Output: Urine Catheter Amount 450 550 Other: Urine Appearance Clear Clear Sediment Uretheral (Wood) Clear Clear Sediment Sediment Urine Color Dark Yellow Yellow Uretheral (Wood) Yellow Yellow Urine Odor Strong Normal Stool Size Large Moderate Stool Color Brown Brown Stool Consistency Soft Soft Formed # Bowel Movements 1 # of times incontinent of 1 Bowels General appearance: cooperative and no acute distress GI/Abdominal GI/Abdominal exam: Present normal bowel sounds and soft; Absent distended Additional comments: Improved cellulitis and fluctuance A/P Assessment and plan (1) Cellulitis of buttock, right: Plan: Cellulitis coalesced into abscess which is spontaneously draining. Continue with twice daily dressing changes. Would not recommend culturing secondary to spontaneous drainage and contamination from skin. I will continue to follow. Status: Acute Time Spent With Patient Time: Total time spent is greater than 50% in coordination of care (as documented) at patient's floor/unit and/or counseling patient:
[2022-08-31] MEDS: ASCORBIC ACID 500 MG TABLET PO SCH (08:41)
[2022-08-31] MEDS: DOCUSATE SODIUM 100 MG CAPSULE PO SCH ×2 (08:41→21:38)
[2022-08-31] MEDS: FAMOTIDINE 20 MG TABLET PO SCH (08:41)
[2022-08-31] MEDS: TAMSULOSIN 0.4 MG CAPSULE PO SCH (08:42)
[2022-08-31] MEDS: ASPIRIN 81 MG TAB.CHEW PO SCH (08:42)
[2022-08-31] MEDS: VITAMIN D3 25 MCG TABLET PO SCH (08:42)
[2022-08-31] MEDS: CARBOXYMETHYLCELLULOSE SODIUM 1 EACH DROPER.GEL OU SCH ×3 (08:42→21:38)
[2022-08-31] MEDS: HEPARIN 5,000 UNIT/ML VIAL SQ SCH ×2 (08:42→21:37)
[2022-08-31] MEDS: METOPROLOL SUCCINATE 50 MG TAB.XL.24H PO SCH ×2 (08:42→21:38)
--- NOTE | 2022-08-31 12:44 | Internal Med Progress Note ---
SUBJECTIVE Subjective Patient information: Note initiated : 08/31/22 at 12:42 pm Service Date, if different from initiated Date: [] Patient: Bebo Barnes a 87 y/o M admitted on 08/26/22 for Abscess to groin, Celulitis, Sepsis. Chief Complaint: [] Additional PMFSH (Level 3 Only): Hospital course: Mr. Barnes is a 87 year old M with history of diabetes mellitus 2 with neuropathy, hypertension, hyperlipidemia, CKD stage IV baseline creatinine unkn own, anemia, BPH, history of prostate cancer noted a bump in his right groin 3 days ago, that has been growing since then. He has been feeling feverish associated with chills. It hurts whenever anything touches it. He reported no drainage, no nausea vomiting. Patient was seen at [facility] first and was sent to ED for concerns of sepsis secondary to abscess in his groin. In ER patient was in sepsis with tachycardia of 92, leukocytosis of 25,000, lactic acidosis 3.0, acute kidney injury with creatinine of 2.7. Lab work also showed chronic anemia of 10.9, hyperglycemia 2-3. CT scan showed cellulitis in the subcutaneous fat of the right upper thigh and right buttock region. No evidence of abscess. Patient was admitted to the floor. 08/27. Patient seen and examined. Patient had low-grade fever of 99.9 F overnight, somewhat hypotensive with BP 106/44. Leukocytosis somewhat improved however still elevated at 21,000 significantly. Patient serum creatinine improved to 2.5 from 2.7 yesterday. BUN and down to 77 from 86 yesterday. Glucose improved to 176 from 2-3 before. HBA 1C came to A1c is 7.7. Blood culture is still pending. He remains on IV Zosyn and clindamycin. Will give 1 L NS for hypotension and acute kidney injury. 08/28 patient reports feeling better. WBC slightly improved to 19,000 from 21,000, hemoglobin 8.6 down from 9.2, likely in the setting of hemodilution. Creatinine worsened to 2.7 from 2.5 yesterday. His baseline is around 1.9-2.0. He has stage IV kidney disease at baseline. RN reported patient was having urine dribbling. Suspect urinary retention. Will put Wood catheter in. HbA1c 7.7 08/29. No fevers overnight, leukocytosis slightly improved to 18,000. Reports scrotal discomfort is improving. Serum creatinine 2.6 down from 2.7 yesterday. BUN same 83. Patient is tolerating antibiotics 08/30 afebrile, leukocytosis up to 19.8 from 18.8 yesterday, creatinine 2.6 stable. Will order CRP and procalcitonin to follow-up on his infection. Also will obtain repeat CT scan of pelvis to see if he has an abscess 08/31 Patient is doing better today, white cell counts has come down.. The area of cellulitis and an abscess continues to drain. I was able to drain about 5 cc of pus by squeezing the area. Cellulitis coalesced into abscess which is now spontaneously draining. Appreciate Dr. Yanez recommendations. Recommending to continue twice daily dressing change. Review of systems Patient reports no fever or chills, still weak but improved from before No fever or chills No headache or visual disturbance No nausea or vomiting or abdominal pain No dysuria, no hematuria No focal deficits, known visual problems Less erythema in right groin Denies depression or anxiety Physical exam General General appearance: Alert and awake, in no acute distress ENT ENT: Present normal oropharynx and mucous membranes moist Respiratory Respiratory: Present normal lung sounds bilaterally; Absent respiratory distress Cardiovascular Cardiovascular: Present S1 and S2, normal rhythm and tachycardia, no murmurs h eard Adbominal Abdominal: Present soft; Absent tenderness Extremities Extremities: Present normal inspection and normal capillary refill Neurological Neurological: Present alert and oriented X3 Psychiatric Psychiatric: Present normal affect and normal mood Skin Skin: Right groin abscess spontaneously draining, just less than 2 cm depth with probe, about 5 cc pus was expressed and was sent for culture Assessment and plan Sepsis. Patient meets sepsis criteria with tachycardia of 92, leukocytosis of 25,000, lactic acidosis 3.0, acute kidney injury with creatinine of 2.7. Right groin cellulitis and abscess Initial CT scan showed cellulitis but no abscess. Repeat CT scan Cellulitis coalesced into abscess which is now spontaneously draining. Appreciate Dr. Yanez recommendations. Recommending to continue twice daily dressing change. Continue IV Zosyn and clindamycin Follow culture data Diabetes mellitus 2 with hyperglycemia. Blood glucose control improving, A1c 7.7 on 08/26/2022. Blood glucose in house elevated, start scheduled lispro 4 units insulin lispro with each meal, continue glargine 35 units. Increase to moderate insulin sliding scale HENNY versus progression chronic renal failure on CKD stage IV. Serum creatinine 2.5 on admission now 2.8 . Patient noted to have urinary retention, status post Wood with immediate drainage of 1100 cc. Patient with history of BPH and prostate issues and was noted to have dribbling prior to Wood catheter placement. Renal ultrasound showed mildly enlarged kidneys consistent with medical renal disease, mild left hydronephrosis. Repeat BMP. Hold HCTZ and lisinopril Anemia Likely anemia of chronic kidney disease. Patient is on iron supplementation which will be continued Hypertension Continue to hold hydrochlorothiazide and lisinopril due to hypotension and HENNY. Will give IV labetalol and IV hydralazine as needed for blood pressure control Hyperlipidemia Continue home dose atorvastatin BPH. CT with mild prostate enlargement. Mild wall urinary bladder could indicate chronic bladder outlet narrowing. 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 Renal ultrasound completed and showed mildly enlarged kidneys consistent with medical renal disease, mild left hydronephrosis. Continue with home dose tamsulosin Sigmoid diverticulosis, incidental finding, but no evidence of diverticulitis Physical deconditioning, weakness PT eval DVT prophylaxis with SCDs CODE STATUS, full code Total time taken 40 minutes Constitutional Vitals: Vital Signs Temp Pulse Resp BP Pulse Ox O2 Del Method 98.4 F 86 18 128/51 96 Room Air 08/31/22 12:00 08/31/22 12:00 08/31/22 12:00 08/31/22 12:00 08/31/22 12:00 08/31/22 12:00 Period Temp Pulse Resp BP Sys/Canela Pulse Ox O2 Del Method O2 Flow Rate Last 24 Hr 97.9 F-99.2 F 81-95 16-18 102-131/50-61 95-98 Room Air-Room Air Intake and Output 08/31/22 08/31/22 08/31/22 03:59 11:59 19:59 Intake Total 100 780 Output Total 550 Balance 100 230 Weight 105.404 kg Intake & Output: Intake & Output 08/31/22 08/31/22 08/31/22 03:59 11:59 19:59 Intake Total 100 780 Output Total 550 Balance 100 230 Weight 105.404 kg Intake: IV 100 100 Zosyn 2.25 gm In Dextrose 5% in 50 50 Water 50 ml @ 100 mls/hr IV Q6H [facility] Rx#:[id number] Oral 480 GI Tube Flush 200 Output: Urine Catheter Amount 550 Other: Meal Breakfast Percent of Meal Consumed 100% Feeding Ability Independent Urine Appearance Clear Sediment Uretheral (Wood) Clear Sediment Urine Color Yellow Uretheral (Wood) Yellow Urine Odor Normal Stool Size Moderate Stool Color Brown Stool Consistency Soft # of times incontinent of 1 Bowels OBJ DATA Labs 08/31/22 05:27 08/31/22 05:27 Labs: Abnormal Lab Results 08/31/22 08/31/22 08/30/22 05:27 05:27 05:24 WBC 18.0 H RBC 2.93 L Hgb 8.8 L Hct 26.7 L Immature Gran % (Auto) 0.9 H Neut % (Auto) 83.4 H Lymph % (Auto) 7.6 L Lymph # (Auto) 1.37 L [place] # (Auto) 1.02 H Immature Gran # 0.16 H Absolute Neutrophils 15.04 H Carbon Dioxide 21 L BUN 94 H Creatinine 2.8 H Glucose AST 52 H ALT 62 H Alkaline Phosphatase C-React Prot High Sens Total Protein Albumin 2.3 L Globulin 3.8 H Albumin/Globulin Ratio 0.6 L Procalcitonin 1.17 H 08/30/22 08/30/22 08/30/22 05:24 05:24 05:24 WBC 19.8 H RBC 3.12 L Hgb 9.4 L Hct 28.5 L Immature Gran % (Auto) 0.8 H Neut % (Auto) 85.6 H Lymph % (Auto) 5.8 L Lymph # (Auto) 1.14 L [place] # (Auto) 1.16 H Immature Gran # 0.15 H Absolute Neutrophils 16.93 H Carbon Dioxide BUN 86 H Creatinine 2.6 H Glucose 189 H AST 49 H ALT 55 H Alkaline Phosphatase 127 H C-React Prot High Sens 242.1 H Total Protein Albumin 2.4 L Globulin 3.8 H Albumin/Globulin Ratio 0.6 L Procalcitonin 08/29/22 08/29/22 05:13 05:13 WBC 18.8 H RBC 2.81 L Hgb 8.5 L Hct 27.0 L Immature Gran % (Auto) 0.9 H Neut % (Auto) 88.2 H Lymph % (Auto) 4.6 L Lymph # (Auto) 0.86 L [place] # (Auto) 0.94 H Immature Gran # 0.16 H Absolute Neutrophils 16.55 H Carbon Dioxide 20 L BUN 83 H Creatinine 2.6 H Glucose 220 H AST 47 H ALT Alkaline Phosphatase C-React Prot High Sens Total Protein 5.7 L Albumin 2.3 L Globulin Albumin/Globulin Ratio 0.7 L Procalcitonin Meds: Medications Acetaminophen (Acetaminophen 325 Mg Tablet) 650 mg PO Q6HP PRN; Protocol PRN Reason: Per Pain Protocol/Fever > 101 Last Admin: 08/30/22 14:00 Dose: 650 mg Artificial Tears (Carboxymethylcellulose Sodium 1 Each Droper.Gel) 1 each OU TID [facility] Last Admin: 08/31/22 08:42 Dose: 1 each Ascorbic Acid (Ascorbic Acid 500 Mg Tablet) 500 mg PO DAILY [facility] Last Admin: 08/31/22 08:41 Dose: 500 mg Aspirin (Aspirin 81 Mg Tab.Chew) 81 mg PO DAILY [facility] Last Admin: 08/31/22 08:42 Dose: 81 mg Atorvastatin Calcium (Atorvastatin 40 Mg Tablet) 80 mg PO HS [facility] Last Admin: 08/30/22 20:30 Dose: 80 mg Dextrose (Dextrose 50% 50 Ml Vial) 0 ml IV UD PRN PRN Reason: Per Sliding Scale Diagnostic Test (Pha) (Accu-Chek 1 Each Strip) 1 each FS ACHS [facility] Last Admin: 08/31/22 11:58 Dose: 1 each Docusate Sodium (Docusate Sodium 100 Mg Capsule) 100 mg PO BID [facility] Last Admin: 08/31/22 08:41 Dose: 100 mg Famotidine (Famotidine 20 Mg Tablet) 20 mg PO QAM [facility] Last Admin: 08/31/22 08:41 Dose: 20 mg Glucose (Dextrose 31 Gm Oral.Susp) 15 gm PO PRN PRN PRN Reason: Hypoglycemia Heparin Sodium (Porcine) (Heparin 5,000 Unit/Ml Vial) 5,000 unit SQ Q12 [facility] Last Admin: 08/31/22 08:42 Dose: 5,000 unit Hydralazine HCl (Hydralazine 20 Mg/Ml Vial) 10 mg IV Q4-6HP PRN PRN Reason: Hypertension Piperacillin Sod/Tazobactam (Sod 2.25 gm/ Dextrose) 50 mls @ 100 mls/hr IV Q6H [facility]; Protocol Last Admin: 08/31/22 11:58 Dose: 100 mls/hr CLINDAMYCIN IN 0.9 % SOD CHLOR (Clindamycin 900 Mg/50 Ml-Ns) 900 mg in 50 mls @ 100 mls/hr IV Q8H [facility] Last Infusion: 08/31/22 07:18 Dose: Infused Insulin Glargine (Insulin Glargine, Human 1 Unit/0.01 Ml) 35 unit SQ QHS [facility] Last Admin: 08/30/22 20:29 Dose: 35 units Insulin Human Lispro (Insulin Lispro 1 Unit/0.01 Ml Unit) 4 unit SQ ACHS [facility] Last Admin: 08/31/22 11:58 Dose: 4 units Insulin Human Lispro (Insulin Lispro 1 Unit/0.01 Ml Unit) 0 unit SQ ACHS [facility]; Protocol Last Admin: 08/31/22 11:58 Dose: 6 units Magnesium Hydroxide (Magnesium Hydroxide 30 Ml Oral.Susp) 30 ml PO DAILYP PRN PRN Reason: Constipation Metoprolol Succinate (Metoprolol Succinate 50 Mg Tab.Xl.24h) 25 mg PO BID [facility] Last Admin: 08/31/22 08:42 Dose: 25 mg Ondansetron HCl (Ondansetron 4 Mg/2 Ml Vial) 4 mg IV Q6HP PRN PRN Reason: Nausea And Vomiting Oxycodone HCl (Oxycodone Ir 5 Mg Tablet) 5 mg PO Q4HP PRN; Protocol PRN Reason: Per Pain Protocol Senna (Sennosides 1 Tablet) 2 tab PO HS [facility] Last Admin: 08/30/22 20:30 Dose: Not Given Sodium Chloride (0.9 % Sodium Chloride 10 Ml Syringe) 10 ml IV Q8 [facility] Last Admin: 08/31/22 05:57 Dose: 10 ml Tamsulosin HCl (Tamsulosin 0.4 Mg Capsule) 0.4 mg PO QDAY [facility] Last Admin: 08/31/22 08:42 Dose: 0.4 mg Trazodone HCl (Trazodone Hcl 50 Mg Tablet) 25 mg PO HSP PRN PRN Reason: Insomnia Last Admin: 08/27/22 21:06 Dose: 25 mg Vitamin D (Vitamin D3 25 Mcg Tablet) 25 mcg PO DAILY [facility] Last Admin: 08/31/22 08:42 Dose: 25 mcg A/P Time Spent With Patient Time: Total time spent is greater than 50% in coordination of care (as documented) at patient's floor/unit and/or counseling patient: QUALITY Stroke Symptom Onset Unknown: No VTE Deep Vein Thrombosis/Pulmonary Embolism Present on Admission: No
[2022-08-31 14:11] LABS: Appearance,Urine CLOUDY (Clear); Bilirubin,Urine Negative (Negative); Color,Urine YELLOW; Culture Indicated,Urine yes; Glucose,Urine (UA) Negative (Negative); Ketones,Urine Negative (Negative); Leukocyte Esterase,Urine 500 /uL (Negative); Mucus,Urine FEW /hpf; Nitrate,Urine Negative (Negative); Protein,Urine 30 mg/dL (Negative); Specific Gravity,Urine 1.015 (1.000-1.035); Urine Blood >=1.0 mg/dL (Negative); Urine RBC 149 /hpf (0-3); Urine Squamous Epithelial Cell 0 /hpf (0-4); Urine Transitional Epi Cells < 1 /hpf (0-2); Urine WBC 163 /hpf (0-4); Urobilinogen,Urine Negative
[2022-08-31] MEDS: SENNOSIDES 1 TABLET PO SCH (21:37)
[2022-08-31] MEDS: INSULIN GLARGINE, HUMAN 1 UNIT/0.01 ML SQ SCH (21:37)
[2022-08-31] MEDS: ATORVASTATIN 40 MG TABLET PO SCH (21:37)
[2022-09-01] MEDS: PIPERACILLIN SODIUM/TAZOBACTAM 2.25 GM in DEXTROSE 5% IN WATER 50 ML IV SCH ×4 (05:42→23:47)
[2022-09-01] MEDS: 0.9 % SODIUM CHLORIDE 10 ML SYRINGE IV SCH ×3 (05:43→21:46)
[2022-09-01] MEDS: CLINDAMYCIN IN 0.9 % SOD CHLOR 900 MG/50 ML BAG IV SCH ×3 (06:32→21:48)
[2022-09-01 06:44] LABS: Basophils # (Auto) 0.03 K/mcL (0.00-0.30); Basophils % (Auto) 0.2 % (0.0-2.0); Eosinophils # (Auto) 0.36 K/mcL (0.00-0.70); Hematocrit 28.8 % (40.1-51.0); Hemoglobin 8.9 g/dL (13.7-17.5); Lymphocytes # (Auto) 1.23 K/mcL (1.50-4.80); Lymphocytes % (Auto) 6.9 % (15.5-49.0); Mean Corpuscular HGB Conc 30.9 g/dL (31.0-36.0); Mean Platelet Volume 11.8 fL (8.8-12.5); Monocytes % (Auto) 6.2 % (1.0-12.0); Neutrophils % (Auto) 83.7 % (38.0-78.0); Platelet Count 244 K/mcL (140-440); RBC 2.97 M/mcL (4.63-6.08); Red Cell Distribution Width 13.3 % (11.5-14.5); WBC 17.7 K/mcL (4.5-11.0)
[2022-09-01 07:08] LABS: ALT/SGPT 63 U/L (<40); AST/SGOT 50 U/L (<40); Albumin 2.2 gm/dL (3.2-5.2); Albumin/Globulin Ratio 0.6 (1.0-2.3); Alkaline Phosphatase 118 U/L (39-117); Bilirubin,Total 0.3 mg/dL (0.1-1.0); Blood Urea Nitrogen 89 mg/dL (8-23); Calcium 9.6 mg/dL (8.6-10.4); Carbon Dioxide 20 mmol/L (22-30); Chloride 108 mmol/L (96-108); Globulin 3.7 gm/dL (2.2-3.7); Glomerular Filtration Rate 23; Glucose 146 mg/dL (70-105)
[2022-09-01] MEDS: INSULIN LISPRO 1 UNIT/0.01 ML UNIT SQ SCH ×8 (07:14→21:33)
--- NOTE | 2022-09-01 07:18 | General Surgery Progress Note ---
SUBJECTIVE Subjective Patient information: Note initiated : 09/01/22 at 7:17 am Service Date, if different from initiated Date: [] Patient: Bebo Barnes 87 y/o M admitted on 08/26/22 for Abscess to groin, Celulitis, Sepsis. Chief Complaint: [] Principal diagnosis: Cellulitis Interval history: Decreased white count, no fevers. Constitutional Vitals: Vital Signs Temp Pulse Resp BP Pulse Ox O2 Del Method 98.6 F 92 H 20 129/53 95 Room Air 09/01/22 04:00 09/01/22 04:00 09/01/22 04:00 09/01/22 04:00 09/01/22 04:00 09/01/22 04:00 Period Temp Pulse Resp BP Sys/Canela Pulse Ox O2 Del Method O2 Flow Rate Last 24 Hr 98.4 F-99.9 F 80-95 16-25 111-145/51-98 95-100 Room Air-Room Air Intake and Output 08/31/22 09/01/22 09/01/22 19:59 03:59 11:59 Intake Total 350 100 50 Output Total 625 950 Balance -275 100 -900 Weight 227 lb 6.4 oz Intake & Output: Intake & Output 08/31/22 09/01/22 09/01/22 19:59 03:59 11:59 Intake Total 350 100 50 Output Total 625 950 Balance -275 100 -900 Weight 227 lb 6.4 oz Intake: IV 150 100 50 Zosyn 2.25 gm In Dextrose 5% in 100 50 50 Water 50 ml @ 100 mls/hr IV Q6H [facility] Rx#:[id number] GI Tube Flush 200 Output: Urine Catheter Amount 625 950 Other: Urine Appearance Clear Sediment Uretheral (Wood) Clear Sediment Urine Color Yellow Yellow Uretheral (Wood) Yellow Urine Odor Normal Normal General appearance: cooperative and no acute distress GI/Abdominal GI/Abdominal exam: Present normal bowel sounds and soft; Absent distended Additional comments: Improved cellulitis and fluctuance A/P Assessment and plan (1) Cellulitis of buttock, right: Plan: Resolving cellulitis and abscess of right thigh. Continue antibiotics and wound care. Call with any further questions. Status: Acute Time Spent With Patient Time: Total time spent is greater than 50% in coordination of care (as documented) at patient's floor/unit and/or counseling patient:
[2022-09-01] MEDS: CARBOXYMETHYLCELLULOSE SODIUM 1 EACH DROPER.GEL OU SCH ×3 (08:48→21:48)
[2022-09-01] MEDS: METOPROLOL SUCCINATE 50 MG TAB.XL.24H PO SCH ×2 (08:48→21:46)
[2022-09-01] MEDS: DOCUSATE SODIUM 100 MG CAPSULE PO SCH ×2 (08:49→21:48)
[2022-09-01] MEDS: VITAMIN D3 25 MCG TABLET PO SCH (08:49)
[2022-09-01] MEDS: ASCORBIC ACID 500 MG TABLET PO SCH (08:49)
[2022-09-01] MEDS: HEPARIN 5,000 UNIT/ML VIAL SQ SCH ×2 (08:49→21:48)
[2022-09-01] MEDS: TAMSULOSIN 0.4 MG CAPSULE PO SCH (08:49)
[2022-09-01] MEDS: FAMOTIDINE 20 MG TABLET PO SCH (08:49)
[2022-09-01] MEDS: ASPIRIN 81 MG TAB.CHEW PO SCH (08:49)
--- NOTE | 2022-09-01 13:45 | Internal Med Progress Note ---
SUBJECTIVE Subjective Patient information: Note initiated : 09/01/22 at 1:42 pm Service Date, if different from initiated Date: [] Patient: Bebo Barnes a 87 y/o M admitted on 08/26/22 for Abscess to groin, Celulitis, Sepsis. Chief Complaint: [] Principal diagnosis: Cellulitis Additional PMFSH (Level 3 Only): Hospital course: Mr. Barnes is a 87 year old M with history of diabetes mellitus 2 with neuropathy, hypertension, hyperlipidemia, CKD stage IV baseline creatinine unknown, anemia, BPH, history of prostate cancer noted a bump in his right groin 3 days ago, that has been growing since then. He has been feeling feverish associated with chills. It hurts whenever anything touches it. He reported no drainage, no nausea vomiting. Patient was seen at [facility] and was sent to ED for concerns of sepsis secondary to abscess in his groin. In ER patient was in sepsis with tachycardia of 92, leukocytosis of 25,000, lactic acidosis 3.0, acute kidney injury with creatinine of 2.7. Lab work also showed chronic anemia of 10.9, hyperglycemia 2-3. CT scan showed cellulitis in the subcutaneous fat of the right upper thigh and right buttock region. No evidence of abscess. Patient was admitted to the floor. 08/27. Patient seen and examined. Patient had low-grade fever of 99.9 F overnight, somewhat hypotensive with BP 106/44. Leukocytosis somewhat improved however still elevated at 21,000 significantly. Patient serum creatinine improved to 2.5 from 2.7 yesterday. BUN and down to 77 from 86 yesterday. Glucose improved to 176 from 2-3 before. HBA 1C came to A1c is 7.7. Blood culture is still pending. He remains on IV Zosyn and clindamycin. Will give 1 L NS for hypotension and acute kidney injury. 08/28 patient reports feeling better. WBC slightly improved to 19,000 from 21,000, hemoglobin 8.6 down from 9.2, likely in the setting of hemodilution. Creatinine worsened to 2.7 from 2.5 yesterday. His baseline is around 1.9-2.0. He has stage IV kidney disease at baseline. RN reported patient was having urine dribbling. Suspect urinary retention. Will put Wood catheter in. HbA1c 7.7 08/29. No fevers overnight, leukocytosis slightly improved to 18,000. Reports scrotal discomfort is improving. Serum creatinine 2.6 down from 2.7 yesterday. BUN same 83. Patient is tolerating antibiotics 08/30 afebrile, leukocytosis up to 19.8 from 18.8 yesterday, creatinine 2.6 stable. Will order CRP and procalcitonin to follow-up on his infection. Also will obtain repeat CT scan of pelvis to see if he has an abscess 08/31 Patient is doing better today, white cell counts has come down.. The area of cellulitis and an abscess continues to drain. I was able to drain about 5 cc of pus by squeezing the area. Cellulitis coalesced into abscess which is now spontaneously draining. Appreciate Dr. Yanez recommendations. Recommending to continue twice daily dressing change. 09/01 leukocytosis trending down slowly. No fever. Right groin with minimal discharge. Cultures are pending. Review of systems Patient reports no fevers or chills, feels the same No fever or chills No headache or visual disturbance No nausea or vomiting or abdominal pain No dysuria, no hematuria No focal deficits, known visual problems Less erythema in right groin Denies depression or anxiety Physical exam General General appearance: Alert and awake, in no acute distress ENT ENT: Present normal oropharynx and mucous membranes moist Respiratory Respiratory: Present normal lung sounds bilaterally; Absent respiratory distress Cardiovascular Cardiovascular: Present S1 and S2, normal rhythm and tachycardia, no murmurs heard Adbominal Abdominal: Present soft; Absent tenderness Extremities Extremities: Present normal inspection and normal capillary refill Neurological Neurological: Present alert and oriented X3 Psychiatric Psychiatric: Present normal affect and normal mood Skin Skin: Right groin with less erythema and minimal discharge, gluteal area still indurated Assessment and plan Sepsis. Patient meets sepsis criteria with tachycardia of 92, leukocytosis of 25,000, lactic acidosis 3.0, acute kidney injury with creatinine of 2.7. Right groin cellulitis and abscess Initial CT scan showed cellulitis but no abscess. Repeat CT scan Cellulitis coalesced into abscess which is now spontaneously draining. Ap preciate Dr. Yanez recommendations. Continue twice daily dressing Continue IV Zosyn and clindamycin Follow culture data Diabetes mellitus 2 with hyperglycemia. Blood glucose control improving, A1c 7.7 on 08/26/2022. Blood glucose in house elevated, start scheduled lispro 4 units insulin lispro with each meal, continue glargine 35 units. Increase to moderate insulin sliding scale HENNY versus progression chronic renal failure on CKD stage IV. Serum creatinine 2.5 on admission now 2.4 . Patient noted to have urinary retention, status post Wood with immediate drainage of 1100 cc. Patient with history of BPH and prostate issues and was noted to have dribbling prior to Wood catheter placement. Renal ultrasound showed mildly enlarged kidneys consistent with medical renal disease, mild left hydronephrosis. Repeat BMP. Hold HCTZ and lisinopril Anemia Likely anemia of chronic kidney disease. Patient is on iron supplementation which will be continued Hypertension Continue to hold hydrochlorothiazide and lisinopril due to hypotension and HENNY. Will give IV labetalol and IV hydralazine as needed for blood pressure control Hyperlipidemia Continue home dose atorvastatin BPH. CT with mild prostate enlargement. Mild wall urinary bladder could indicate chronic bladder outlet narrowing. 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 Renal ultrasound completed and showed mildly enlarged kidneys consistent with medical renal disease, mild left hydronephrosis. Continue with home dose tamsulosin Sigmoid diverticulosis, incidental finding, but no evidence of diverticulitis Physical deconditioning, weakness PT eval. patient will likely need rehab at SNF. Case management on board DVT prophylaxis with SCDs CODE STATUS, full code Total time taken 40 minutes Constitutional Vitals: Vital Signs Temp Pulse Resp BP Pulse Ox O2 Del Method 98.1 F 71 18 136/67 96 Room Air 09/01/22 12:00 09/01/22 12:00 09/01/22 12:00 09/01/22 12:00 09/01/22 12:00 09/01/22 12:00 Period Temp Pulse Resp BP Sys/Cnaela Pulse Ox O2 Del Method O2 Flow Rate Last 24 Hr 98.1 F-99.9 F 71-95 18-25 111-145/52-98 95-100 Room Air-Room Air Intake and Output 09/01/22 09/01/22 09/01/22 03:59 11:59 19:59 Intake Total 100 100 940 Output Total 950 Balance 100 -850 940 Weight 103.147 kg Patient Weight 09/02/22 03:59 Weight 103.147 kg Intake & Output: Intake & Output 09/01/22 09/01/22 09/01/22 03:59 11:59 19:59 Intake Total 100 100 940 Output Total 950 Balance 100 -850 940 Weight 103.147 kg Intake: IV 100 100 Zosyn 2.25 gm In Dextrose 5% in 50 50 Water 50 ml @ 100 mls/hr IV Q6H [facility] Rx#:[id number] Oral 940 Output: Urine Catheter Amount 950 Other: Meal Breakfast Percent of Meal Consumed 100% Urine Appearance Sediment Uretheral (Wood) Clear Sediment Sediment Urine Color Yellow Uretheral (Wood) Yellow Yellow Urine Odor Normal OBJ DATA Labs 09/01/22 05:50 09/01/22 05:50 Labs: Abnormal Lab Results 09/01/22 09/01/22 08/31/22 05:50 05:50 12:50 WBC 17.7 H RBC 2.97 L Hgb 8.9 L Hct 28.8 L MCHC 30.9 L Immature Gran % (Auto) 1.0 H Neut % (Auto) 83.7 H Lymph % (Auto) 6.9 L Lymph # (Auto) 1.23 L [place] # (Auto) 1.10 H Immature Gran # 0.18 H Absolute Neutrophils 14.80 H Carbon Dioxide 20 L BUN 89 H Creatinine 2.4 H Glucose 146 H AST 50 H ALT 63 H Alkaline Phosphatase 118 H C-React Prot High Sens Albumin 2.2 L Globulin Albumin/Globulin Ratio 0.6 L Procalcitonin Urine Appearance Cloudy A Urine Protein 30 A Urine Occult Blood >=1.0 A Ur Leukocyte Esterase 500 A Urine RBC 149 H Urine WBC 163 H Urine Mucus Few A 08/31/22 08/31/22 08/30/22 05:27 05:27 05:24 WBC 18.0 H RBC 2.93 L Hgb 8.8 L Hct 26.7 L MCHC Immature Gran % (Auto) 0.9 H Neut % (Auto) 83.4 H Lymph % (Auto) 7.6 L Lymph # (Auto) 1.37 L [place] # (Auto) 1.02 H Immature Gran # 0.16 H Absolute Neutrophils 15.04 H Carbon Dioxide 21 L BUN 94 H Creatinine 2.8 H Glucose AST 52 H ALT 62 H Alkaline Phosphatase C-React Prot High Sens Albumin 2.3 L Globulin 3.8 H Albumin/Globulin Ratio 0.6 L Procalcitonin 1.17 H Urine Appearance Urine Protein Urine Occult Blood Ur Leukocyte Esterase Urine RBC Urine WBC Urine Mucus 08/30/22 08/30/22 08/30/22 05:24 05:24 05:24 WBC 19.8 H RBC 3.12 L Hgb 9.4 L Hct 28.5 L MCHC Immature Gran % (Auto) 0.8 H Neut % (Auto) 85.6 H Lymph % (Auto) 5.8 L Lymph # (Auto) 1.14 L [place] # (Auto) 1.16 H Immature Gran # 0.15 H Absolute Neutrophils 16.93 H Carbon Dioxide BUN 86 H Creatinine 2.6 H Glucose 189 H AST 49 H ALT 55 H Alkaline Phosphatase 127 H C-React Prot High Sens 242.1 H Albumin 2.4 L Globulin 3.8 H Albumin/Globulin Ratio 0.6 L Procalcitonin Urine Appearance Urine Protein Urine Occult Blood Ur Leukocyte Esterase Urine RBC Urine WBC Urine Mucus Meds: Medications Acetaminophen (Acetaminophen 325 Mg Tablet) 650 mg PO Q6HP PRN; Protocol PRN Reason: Per Pain Protocol/Fever > 101 Last Admin: 08/30/22 14:00 Dose: 650 mg Artificial Tears (Carboxymethylcellulose Sodium 1 Each Droper.Gel) 1 each OU TID [facility] Last Admin: 09/01/22 08:48 Dose: 1 each Ascorbic Acid (Ascorbic Acid 500 Mg Tablet) 500 mg PO DAILY [facility] Last Admin: 09/01/22 08:49 Dose: 500 mg Aspirin (Aspirin 81 Mg Tab.Chew) 81 mg PO DAILY [facility] Last Admin: 09/01/22 08:49 Dose: 81 mg Atorvastatin Calcium (Atorvastatin 40 Mg Tablet) 80 mg PO HS [facility] Last Admin: 08/31/22 21:37 Dose: 80 mg Dextrose (Dextrose 50% 50 Ml Vial) 0 ml IV UD PRN PRN Reason: Per Sliding Scale Diagnostic Test (Pha) (Accu-Chek 1 Each Strip) 1 each FS ACHS [facility] Last Admin: 09/01/22 11:34 Dose: 1 each Docusate Sodium (Docusate Sodium 100 Mg Capsule) 100 mg PO BID [facility] Last Admin: 09/01/22 08:49 Dose: 100 mg Famotidine (Famotidine 20 Mg Tablet) 20 mg PO QAM [facility] Last Admin: 09/01/22 08:49 Dose: 20 mg Glucose (Dextrose 31 Gm Oral.Susp) 15 gm PO PRN PRN PRN Reason: Hypoglycemia Heparin Sodium (Porcine) (Heparin 5,000 Unit/Ml Vial) 5,000 unit SQ Q12 [facility] Last Admin: 09/01/22 08:49 Dose: 5,000 unit Hydralazine HCl (Hydralazine 20 Mg/Ml Vial) 10 mg IV Q4-6HP PRN PRN Reason: Hypertension Piperacillin Sod/Tazobactam (Sod 2.25 gm/ Dextrose) 50 mls @ 100 mls/hr IV Q6H [facility]; Protocol Last Admin: 09/01/22 12:15 Dose: 100 mls/hr CLINDAMYCIN IN 0.9 % SOD CHLOR (Clindamycin 900 Mg/50 Ml-Ns) 900 mg in 50 mls @ 100 mls/hr IV Q8H [facility] Last Infusion: 09/01/22 07:05 Dose: Infused Insulin Glargine (Insulin Glargine, Human 1 Unit/0.01 Ml) 35 unit SQ QHS [facility] Last Admin: 08/31/22 21:37 Dose: 35 units Insulin Human Lispro (Insulin Lispro 1 Unit/0.01 Ml Unit) 4 unit SQ [facility] Last Admin: 09/01/22 11:34 Dose: 4 units Insulin Human Lispro (Insulin Lispro 1 Unit/0.01 Ml Unit) 0 unit SQ [facility]; Protocol Last Admin: 09/01/22 11:34 Dose: 8 units Magnesium Hydroxide (Magnesium Hydroxide 30 Ml Oral.Susp) 30 ml PO DAILYP PRN PRN Reason: Constipation Metoprolol Succinate (Metoprolol Succinate 50 Mg Tab.Xl.24h) 25 mg PO BID [facility] Last Admin: 09/01/22 08:48 Dose: 25 mg Ondansetron HCl (Ondansetron 4 Mg/2 Ml Vial) 4 mg IV Q6HP PRN PRN Reason: Nausea And Vomiting Oxycodone HCl (Oxycodone Ir 5 Mg Tablet) 5 mg PO Q4HP PRN; Protocol PRN Reason: Per Pain Protocol Senna (Sennosides 1 Tablet) 2 tab PO [facility] Last Admin: 08/31/22 21:37 Dose: 2 tab Sodium Chloride (0.9 % Sodium Chloride 10 Ml Syringe) 10 ml IV Q8 [facility] Last Admin: 09/01/22 05:43 Dose: 10 ml Tamsulosin HCl (Tamsulosin 0.4 Mg Capsule) 0.4 mg PO QDAY [facility] Last Admin: 09/01/22 08:49 Dose: 0.4 mg Trazodone HCl (Trazodone Hcl 50 Mg Tablet) 25 mg PO HSP PRN PRN Reason: Insomnia Last Admin: 08/27/22 21:06 Dose: 25 mg Vitamin D (Vitamin D3 25 Mcg Tablet) 25 mcg PO DAILY [facility] Last Admin: 09/01/22 08:49 Dose: 25 mcg A/P Time Spent With Patient Time: Total time spent is greater than 50% in coordination of care (as documented) at patient's floor/unit and/or counseling patient: QUALITY Stroke Symptom Onset Unknown: No VTE Deep Vein Thrombosis/Pulmonary Embolism Present on Admission: No
--- NOTE | 2022-09-01 19:38 | Internal Med Progress Note ---
SUBJECTIVE Subjective Patient information: Note initiated : 09/01/22 at 7:38 pm Service Date, if different from initiated Date: [] Patient: Bebo Barnes a 87 y/o M admitted on 08/26/22 for Abscess to groin, Celulitis, Sepsis. Chief Complaint: [] Principal diagnosis: Cellulitis Additional PMFSH (Level 3 Only): Hospital course: Mr. Barnes is a 87 year old M with history of diabetes mellitus 2 with neuropathy, hypertension, hyperlipidemia, CKD stage IV baseline creatinine unknown, anemia, BPH, history of prostate cancer noted a bump in his right groin 3 days ago, that has been growing since then. He has been feeling feverish associated with chills. It hurts whenever anything touches it. He reported no drainage, no nausea vomiting. Patient was seen at [facility] and was sent to ED for concerns of sepsis secondary to abscess in his groin. In ER patient was in sepsis with tachycardia of 92, leukocytosis of 25,000, lactic acidosis 3.0, acute kidney injury with creatinine of 2.7. Lab work also showed chronic anemia of 10.9, hyperglycemia 2-3. CT scan showed cellulitis in the subcutaneous fat of the right upper thigh and right buttock region. No evidence of abscess. Patient was admitted to the floor. 08/27. Patient seen and examined. Patient had low-grade fever of 99.9 F overnight, somewhat hypotensive with BP 106/44. Leukocytosis somewhat improved however still elevated at 21,000 significantly. Patient serum creatinine improved to 2.5 from 2.7 yesterday. BUN and down to 77 from 86 yesterday. Glucose improved to 176 from 2-3 before. HBA 1C came to A1c is 7.7. Blood culture is still pending. He remains on IV Zosyn and clindamycin. Will give 1 L NS for hypotension and acute kidney injury. 08/28 patient reports feeling better. WBC slightly improved to 19,000 from 21,000, hemoglobin 8.6 down from 9.2, likely in the setting of hemodilution. Creatinine worsened to 2.7 from 2.5 yesterday. His baseline is around 1.9-2.0. He has stage IV kidney disease at baseline. RN reported patient was having urine dribbling. Suspect urinary retention. Will put Wood catheter in. HbA1c 7.7 08/29. No fevers overnight, leukocytosis slightly improved to 18,000. Reports scrotal discomfort is improving. Serum creatinine 2.6 down from 2.7 yesterday. BUN same 83. Patient is tolerating antibiotics 08/30 afebrile, leukocytosis up to 19.8 from 18.8 yesterday, creatinine 2.6 stable. Will order CRP and procalcitonin to follow-up on his infection. Also will obtain repeat CT scan of pelvis to see if he has an abscess 08/31 Patient is doing better today, white cell counts has come down.. The area of cellulitis and an abscess continues to drain. I was able to drain about 5 cc of pus by squeezing the area. Cellulitis coalesced into abscess which is now spontaneously draining. Appreciate Dr. Yanez recommendations. Recommending to continue twice daily dressing change. 09/01 leukocytosis trending down slowly. No fever. Right groin with minimal discharge. Cultures are pending. 09/02. WBC 17,000 down from 17.7 yesterday. Still purulent discharge from right groin. No fever. Wound culture and urine cultures negative. Patient on antibiotics. Review of systems Patient reports no fevers or chills, no complaints No fever or chills No headache or visual disturbance No nausea or vomiting or abdominal pain No dysuria, no hematuria No focal deficits, known visual problems Less erythema in right groin Denies depression or anxiety Physical exam General General appearance: Alert and awake, in no acute distress ENT ENT: Present normal oropharynx and mucous membranes moist Respiratory Respiratory: Present normal lung sounds bilaterally; Absent respiratory distress Cardiovascular Cardiovascular: Present S1 and S2, normal rhythm and tachycardia, no murmurs heard Adbominal Abdominal: Present soft; Absent tenderness Extremities Extremities: Present normal inspection and normal capillary refill Neurological Neurological: Present alert and oriented X3 Psychiatric Psychiatric: Present normal affect and normal mood Skin Skin: Right groin with less erythema and minimal discharge, gluteal area still indurated Assessment and plan Sepsis. Patient meets sepsis criteria with tachycardia of 92, leukocytosis of 25,000, lactic acidosis 3.0, acute kidney injury with creatinine of 2.7. Right groin cellulitis and abscess Initial CT scan showed cellulitis but no abscess. Repeat CT scan 08/30 with 3-4 continue fluid collection in the right thigh buttock area representing small abscesses. Cellulitis coalesced into abscess which is now spontaneously draining. Appreciate Dr. Yanez recommendations. Continue twice daily dressing Continue IV Zosyn and clindamycin Wound culture is negative. Abscess is still draining, continue IV antibiotics Diabetes mellitus 2 with hyperglycemia. Blood glucose control improving, A1c 7.7 on 08/26/2022. Blood glucose in house elevated, scheduled lispro 4 units insulin lispro with each meal, continue glargine 35 units. Increase to moderate insulin sliding scale HENNY versus progression chronic renal failure on CKD stage IV. Serum creatinine 2.5 on admission, fluctuates and now 2.5 . Patient noted to have urinary retention, status post Wood with immediate drainage of 1100 cc. Patient with history of BPH and prostate issues and was noted to have dribbling prior to Wood catheter placement. Renal ultrasound showed mildly enlarged kidneys consistent with medical renal disease, mild left hydronephrosis. Repeat BMP. Hold HCTZ and lisinopril Anemia Likely anemia of chronic kidney disease. Patient is on iron supplementation at home which is continued Hypertension Continue to hold hydrochlorothiazide and lisinopril due to hypotension and HENNY. Will give IV labetalol and IV hydralazine as needed for blood pressure control Hyperlipidemia Continue home dose atorvastatin BPH. CT with mild prostate enlargement. Mild wall urinary bladder could indicate chronic bladder outlet narrowing. 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 Renal ultrasound completed and showed mildly enlarged kidneys consistent with medical renal disease, mild left hydronephrosis. Continue with home dose tamsulosin Sigmoid diverticulosis, incidental finding, but no evidence of diverticulitis Physical deconditioning, weakness PT eval. patient will likely need rehab at SNF. Case management on board DVT prophylaxis with SCDs CODE STATUS, full code Total time taken 40 minutes Constitutional Vitals: Vital Signs Temp Pulse Resp BP Pulse Ox O2 Del Method 98.6 F 80 18 123/54 97 Room Air 09/01/22 16:00 09/01/22 16:00 09/01/22 16:00 09/01/22 16:00 09/01/22 16:00 09/01/22 16:00 Period Temp Pulse Resp BP Sys/Canela Pulse Ox O2 Del Method O2 Flow Rate Last 24 Hr 98.1 F-99.9 F 71-95 18-25 122-145/52-67 95-100 Room Air-Room Air Intake and Output 09/01/22 09/01/22 09/01/22 03:59 11:59 19:59 Intake Total 326 572 1992 Output Total 950 550 Balance 100 -850 1280 Weight 103.147 kg Patient Weight 09/02/22 03:59 Weight 103.147 kg Intake & Output: Intake & Output 09/01/22 09/01/22 09/01/22 03:59 11:59 19:59 Intake Total 403 796 8866 Output Total 950 550 Balance 100 -850 1280 Weight 103.147 kg Intake: IV 100 100 50 Zosyn 2.25 gm In Dextrose 5% in 50 50 50 Water 50 ml @ 100 mls/hr IV Q6H [facility] Rx#:[id number] Oral 1780 Output: Urine Catheter Amount 950 550 Other: Meal Dinner Percent of Meal Consumed 100% Feeding Ability Independent Urine Appearance Sediment Uretheral (Wood) Clear Sediment Sediment Urine Color Yellow Uretheral (Wood) Yellow Yellow Urine Odor Normal OBJ DATA Labs 09/02/22 05:32 09/02/22 05:32 Labs: Abnormal Lab Results 09/01/22 09/01/22 08/31/22 05:50 05:50 12:50 WBC 17.7 H RBC 2.97 L Hgb 8.9 L Hct 28.8 L MCHC 30.9 L Immature Gran % (Auto) 1.0 H Neut % (Auto) 83.7 H Lymph % (Auto) 6.9 L Lymph # (Auto) 1.23 L [place] # (Auto) 1.10 H Immature Gran # 0.18 H Absolute Neutrophils 14.80 H Carbon Dioxide 20 L BUN 89 H Creatinine 2.4 H Glucose 146 H AST 50 H ALT 63 H Alkaline Phosphatase 118 H C-React Prot High Sens Albumin 2.2 L Globulin Albumin/Globulin Ratio 0.6 L Procalcitonin Urine Appearance Cloudy A Urine Protein 30 A Urine Occult Blood >=1.0 A Ur Leukocyte Esterase 500 A Urine RBC 149 H Urine WBC 163 H Urine Mucus Few A 08/31/22 08/31/22 08/30/22 05:27 05:27 05:24 WBC 18.0 H RBC 2.93 L Hgb 8.8 L Hct 26.7 L MCHC Immature Gran % (Auto) 0.9 H Neut % (Auto) 83.4 H Lymph % (Auto) 7.6 L Lymph # (Auto) 1.37 L [place] # (Auto) 1.02 H Immature Gran # 0.16 H Absolute Neutrophils 15.04 H Carbon Dioxide 21 L BUN 94 H Creatinine 2.8 H Glucose AST 52 H ALT 62 H Alkaline Phosphatase C-React Prot High Sens Albumin 2.3 L Globulin 3.8 H Albumin/Globulin Ratio 0.6 L Procalcitonin 1.17 H Urine Appearance Urine Protein Urine Occult Blood Ur Leukocyte Esterase Urine RBC Urine WBC Urine Mucus 08/30/22 08/30/22 08/30/22 05:24 05:24 05:24 WBC 19.8 H RBC 3.12 L Hgb 9.4 L Hct 28.5 L MCHC Immature Gran % (Auto) 0.8 H Neut % (Auto) 85.6 H Lymph % (Auto) 5.8 L Lymph # (Auto) 1.14 L [place] # (Auto) 1.16 H Immature Gran # 0.15 H Absolute Neutrophils 16.93 H Carbon Dioxide BUN 86 H Creatinine 2.6 H Glucose 189 H AST 49 H ALT 55 H Alkaline Phosphatase 127 H C-React Prot High Sens 242.1 H Albumin 2.4 L Globulin 3.8 H Albumin/Globulin Ratio 0.6 L Procalcitonin Urine Appearance Urine Protein Urine Occult Blood Ur Leukocyte Esterase Urine RBC Urine WBC Urine Mucus Meds: Medications Acetaminophen (Acetaminophen 325 Mg Tablet) 650 mg PO Q6HP PRN; Protocol PRN Reason: Per Pain Protocol/Fever > 101 Last Admin: 08/30/22 14:00 Dose: 650 mg Artificial Tears (Carboxymethylcellulose Sodium 1 Each Droper.Gel) 1 each OU TID [facility] Last Admin: 09/01/22 15:38 Dose: 1 each Ascorbic Acid (Ascorbic Acid 500 Mg Tablet) 500 mg PO DAILY [facility] Last Admin: 09/01/22 08:49 Dose: 500 mg Aspirin (Aspirin 81 Mg Tab.Chew) 81 mg PO DAILY [facility] Last Admin: 09/01/22 08:49 Dose: 81 mg Atorvastatin Calcium (Atorvastatin 40 Mg Tablet) 80 mg PO HS [facility] Last Admin: 08/31/22 21:37 Dose: 80 mg Dextrose (Dextrose 50% 50 Ml Vial) 0 ml IV UD PRN PRN Reason: Per Sliding Scale Diagnostic Test (Pha) (Accu-Chek 1 Each Strip) 1 each FS ACHS [facility] Last Admin: 09/01/22 16:59 Dose: 1 each Docusate Sodium (Docusate Sodium 100 Mg Capsule) 100 mg PO BID [facility] Last Admin: 09/01/22 08:49 Dose: 100 mg Famotidine (Famotidine 20 Mg Tablet) 20 mg PO QAM [facility] Last Admin: 09/01/22 08:49 Dose: 20 mg Glucose (Dextrose 31 Gm Oral.Susp) 15 gm PO PRN PRN PRN Reason: Hypoglycemia Heparin Sodium (Porcine) (Heparin 5,000 Unit/Ml Vial) 5,000 unit SQ Q12 [facility] Last Admin: 09/01/22 08:49 Dose: 5,000 unit Hydralazine HCl (Hydralazine 20 Mg/Ml Vial) 10 mg IV Q4-6HP PRN PRN Reason: Hypertension Piperacillin Sod/Tazobactam (Sod 2.25 gm/ Dextrose) 50 mls @ 100 mls/hr IV Q6H [facility]; Protocol Last Admin: 09/01/22 17:59 Dose: 100 mls/hr CLINDAMYCIN IN 0.9 % SOD CHLOR (Clindamycin 900 Mg/50 Ml-Ns) 900 mg in 50 mls @ 100 mls/hr IV Q8H [facility] Last Admin: 09/01/22 14:10 Dose: 100 mls/hr Insulin Glargine (Insulin Glargine, Human 1 Unit/0.01 Ml) 35 unit SQ QHS [facility] Last Admin: 08/31/22 21:37 Dose: 35 units Insulin Human Lispro (Insulin Lispro 1 Unit/0.01 Ml Unit) 4 unit SQ ACHS [facility] Last Admin: 09/01/22 17:00 Dose: 4 units Insulin Human Lispro (Insulin Lispro 1 Unit/0.01 Ml Unit) 0 unit SQ ACHS [facility]; P rotocol Last Admin: 09/01/22 17:00 Dose: 8 units Magnesium Hydroxide (Magnesium Hydroxide 30 Ml Oral.Susp) 30 ml PO DAILYP PRN PRN Reason: Constipation Metoprolol Succinate (Metoprolol Succinate 50 Mg Tab.Xl.24h) 25 mg PO BID [facility] Last Admin: 09/01/22 08:48 Dose: 25 mg Ondansetron HCl (Ondansetron 4 Mg/2 Ml Vial) 4 mg IV Q6HP PRN PRN Reason: Nausea And Vomiting Oxycodone HCl (Oxycodone Ir 5 Mg Tablet) 5 mg PO Q4HP PRN; Protocol PRN Reason: Per Pain Protocol Senna (Sennosides 1 Tablet) 2 tab PO HS [facility] Last Admin: 08/31/22 21:37 Dose: 2 tab Sodium Chloride (0.9 % Sodium Chloride 10 Ml Syringe) 10 ml IV Q8 [facility] Last Admin: 09/01/22 14:11 Dose: 10 ml Tamsulosin HCl (Tamsulosin 0.4 Mg Capsule) 0.4 mg PO QDAY [facility] Last Admin: 09/01/22 08:49 Dose: 0.4 mg Trazodone HCl (Trazodone Hcl 50 Mg Tablet) 25 mg PO HSP PRN PRN Reason: Insomnia Last Admin: 08/27/22 21:06 Dose: 25 mg Vitamin D (Vitamin D3 25 Mcg Tablet) 25 mcg PO DAILY [facility] Last Admin: 09/01/22 08:49 Dose: 25 mcg A/P Time Spent With Patient Time: Total time spent is greater than 50% in coordination of care (as documented) at patient's floor/unit and/or counseling patient: QUALITY Stroke Symptom Onset Unknown: No VTE Deep Vein Thrombosis/Pulmonary Embolism Present on Admission: No
[2022-09-01] MEDS: INSULIN GLARGINE, HUMAN 1 UNIT/0.01 ML SQ SCH (21:33)
[2022-09-01] MEDS: ATORVASTATIN 40 MG TABLET PO SCH (21:47)
[2022-09-01] MEDS: SENNOSIDES 1 TABLET PO SCH (21:48)
[2022-09-02] MEDS: PIPERACILLIN SODIUM/TAZOBACTAM 2.25 GM in DEXTROSE 5% IN WATER 50 ML IV SCH ×4 (05:34→23:55)
[2022-09-02] MEDS: 0.9 % SODIUM CHLORIDE 10 ML SYRINGE IV SCH ×3 (05:34→21:59)
[2022-09-02] MEDS: CLINDAMYCIN IN 0.9 % SOD CHLOR 900 MG/50 ML BAG IV SCH ×3 (06:07→21:58)
[2022-09-02 07:06] LABS: Basophils # (Auto) 0.04 K/mcL (0.00-0.30); Basophils % (Auto) 0.2 % (0.0-2.0); Eosinophils # (Auto) 0.43 K/mcL (0.00-0.70); Eosinophils % (Auto) 2.5 % (0.0-7.0); Hemoglobin 8.5 g/dL (13.7-17.5); Lymphocytes # (Auto) 1.35 K/mcL (1.50-4.80); Mean Cell Volume 91.9 fL (80.0-100.0); Mean Corpuscular HGB Conc 32.7 g/dL (31.0-36.0); Mean Platelet Volume 11.1 fL (8.8-12.5); Monocytes # (Auto) 0.91 K/mcL (0.10-0.90); Monocytes % (Auto) 5.4 % (1.0-12.0); Neutrophils % (Auto) 83.2 % (38.0-78.0); Platelet Count 255 K/mcL (140-440); RBC 2.83 M/mcL (4.63-6.08); Red Cell Distribution Width 13.1 % (11.5-14.5)
[2022-09-02] MEDS: INSULIN LISPRO 1 UNIT/0.01 ML UNIT SQ SCH ×8 (07:15→21:55)
[2022-09-02 07:55] LABS: ALT/SGPT 58 U/L (<40); AST/SGOT 38 U/L (<40); Albumin 2.1 gm/dL (3.2-5.2); Albumin/Globulin Ratio 0.6 (1.0-2.3); Alkaline Phosphatase 110 U/L (39-117); Bilirubin,Total 0.3 mg/dL (0.1-1.0); Blood Urea Nitrogen 89 mg/dL (8-23); Calcium 9.4 mg/dL (8.6-10.4); Carbon Dioxide 19 mmol/L (22-30); Chloride 106 mmol/L (96-108); Globulin 3.7 gm/dL (2.2-3.7); Glomerular Filtration Rate 22; Glucose 129 mg/dL (70-105)
[2022-09-02] MEDS: HEPARIN 5,000 UNIT/ML VIAL SQ SCH (09:05)
[2022-09-02] MEDS: ASCORBIC ACID 500 MG TABLET PO SCH (09:05)
[2022-09-02] MEDS: CARBOXYMETHYLCELLULOSE SODIUM 1 EACH DROPER.GEL OU SCH ×3 (09:05→21:57)
[2022-09-02] MEDS: METOPROLOL SUCCINATE 50 MG TAB.XL.24H PO SCH ×2 (09:05→21:56)
[2022-09-02] MEDS: TAMSULOSIN 0.4 MG CAPSULE PO SCH (09:06)
[2022-09-02] MEDS: FAMOTIDINE 20 MG TABLET PO SCH (09:06)
[2022-09-02] MEDS: VITAMIN D3 25 MCG TABLET PO SCH (09:06)
[2022-09-02] MEDS: ASPIRIN 81 MG TAB.CHEW PO SCH (09:06)
[2022-09-02] MEDS: DOCUSATE SODIUM 100 MG CAPSULE PO SCH ×2 (09:06→21:57)
--- NOTE | 2022-09-02 13:22 | Internal Med Progress Note ---
SUBJECTIVE Subjective Patient information: Note initiated : 09/02/22 at 1:15 pm Service Date, if different from initiated Date: [] Patient: Bebo Barnes a 87 y/o M admitted on 08/26/22 for Abscess to groin, Celulitis, Sepsis. Chief Complaint: [] Principal diagnosis: Cellulitis Interval history: Hospital course: Mr. Barnes is a 87 year old M with history of diabetes mellitus 2 with neuropathy, hypertension, hyperlipidemia, CKD stage IV baseline creatinine unknown, anemia, BPH, history of prostate cancer noted a bump in his right groin 3 days ago, that has been growing since then. He has been feeling feverish associated with chills. It hurts whenever anything touches it. He reported no drainage, no nausea vomiting. Patient was seen at [facility] first and was sent to ED for concerns of sepsis secondary to abscess in his groin. In ER patient was in sepsis with tachycardia of 92, leukocytosis of 25,000, lac tic acidosis 3.0, acute kidney injury with creatinine of 2.7. Lab work also showed chronic anemia of 10.9, hyperglycemia 2-3. CT scan showed cellulitis in the subcutaneous fat of the right upper thigh and right buttock region. No evidence of abscess. Patient was admitted to the floor. 08/27. Patient seen and examined. Patient had low-grade fever of 99.9 F overnight, somewhat hypotensive with BP 106/44. Leukocytosis somewhat improved however still elevated at 21,000 significantly. Patient serum creatinine improved to 2.5 from 2.7 yesterday. BUN and down to 77 from 86 yesterday. Glucose improved to 176 from 2-3 before. HBA 1C came to A1c is 7.7. Blood culture is still pending. He remains on IV Zosyn and clindamycin. Will give 1 L NS for hypotension and acute kidney injury. 08/28 patient reports feeling better. WBC slightly improved to 19,000 from 21,000, hemoglobin 8.6 down from 9.2, likely in the setting of hemodilution. Creatinine worsened to 2.7 from 2.5 yesterday. His baseline is around 1.9-2.0. He has stage IV kidney disease at baseline. RN reported patient was having urine dribbling. Suspect urinary retention. Will put Wood catheter in. HbA1c 7.7 08/29. No fevers overnight, leukocytosis slightly improved to 18,000. Reports scrotal discomfort is improving. Serum creatinine 2.6 down from 2.7 yesterday. BUN same 83. Patient is tolerating antibiotics 08/30 afebrile, leukocytosis up to 19.8 from 18.8 yesterday, creatinine 2.6 stable. Will order CRP and procalcitonin to follow-up on his infection. Also will obtain repeat CT scan of pelvis to see if he has an abscess 08/31 Patient is doing better today, white cell counts has come down.. The area of cellulitis and an abscess continues to drain. I was able to drain about 5 cc of pus by squeezing the area. Cellulitis coalesced into abscess which is now spontaneously draining. Appreciate Dr. Yanez recommendations. Recommending to continue twice daily dressing change. 09/01 leukocytosis trending down slowly. No fever. Right groin with minimal discharge. Cultures are pending. 09/02. WBC 17,000 down from 17.7 yesterday. Still purulent discharge from right groin. No fever. Wound culture and urine cultures negative. Patient on antibiotics. 09/03 Review of Systems: denies headache/fever/chills/nausea/vomiting/chest or abdominal pain/cough/dyspnea/diarrhea. Otherwise see above. PHYSICAL EXAM General: Alert, Awake, No acute Distress, obese Eyes/N/T: EOMI, no scleral icterus, Head/Neck: neck supple, full ROM, CV: RRR, No murmurs, Pulm: Clear b/l, no wheezing/rhonchi/rales, no respiratory distress Abd: soft, nontender, +BS x4 Ext: no clubbing/cyanosis/edema, nontender Neuro: Alert, no focal deficits, moves all extremities, , sensations intact b/l upper/lower Psychiatric: Skin: Right groin with less erythema and minimal discharge, gluteal area still indurated Constitutional Vitals: Vital Signs Temp Pulse Resp BP Pulse Ox O2 Del Method 98.2 F 82 20 117/97 97 Room Air 09/02/22 12:00 09/02/22 12:00 09/02/22 12:00 09/02/22 12:00 09/02/22 12:00 09/02/22 12:00 Period Temp Pulse Resp BP Sys/Canela Pulse Ox O2 Del Method O2 Flow Rate Last 24 Hr 96.8 F-98.7 F 78-94 16-24 112-151/50-97 96-97 Room Air-Room Air Intake and Output 09/02/22 09/02/22 09/02/22 03:59 11:59 19:59 Intake Total 400 460 290 Output Total 625 Balance -225 460 290 Intake & Output: Intake & Output 09/02/22 09/02/22 09/02/22 03:59 11:59 19:59 Intake Total 400 460 290 Output Total 625 Balance -225 460 290 Intake: Nourishment/Supplement quantity 240 (ml) IV 100 100 50 Zosyn 2.25 gm In Dextrose 5% in 50 50 50 Water 50 ml @ 100 mls/hr IV Q6H [facility] Rx#:[id number] Oral 300 120 240 Output: Urine Catheter Amount 625 Other: Meal Breakfast Lunch Percent of Meal Consumed 100% 75% Feeding Ability Independent Independent Urine Appearance Clear Uretheral (Wood) Sediment Hematuria Urine Color Blood Tinged Uretheral (Wood) Blood Tinged Urine Odor Normal OBJ DATA Labs 09/02/22 05:32 09/02/22 05:32 Labs: Abnormal Lab Results 09/02/22 09/02/22 09/01/22 05:32 05:32 05:50 WBC 17.0 H RBC 2.83 L Hgb 8.5 L Hct 26.0 L MCHC Immature Gran % (Auto) 0.7 H Neut % (Auto) 83.2 H Lymph % (Auto) 8.0 L Lymph # (Auto) 1.35 L Pettis # (Auto) 0.91 H Immature Gran # 0.12 H Absolute Neutrophils 14.11 H Carbon Dioxide 19 L 20 L BUN 89 H 89 H Creatinine 2.5 H 2.4 H Glucose 129 H 146 H AST 50 H ALT 58 H 63 H Alkaline Phosphatase 118 H Total Protein 5.8 L Albumin 2.1 L 2.2 L Globulin Albumin/Globulin Ratio 0.6 L 0.6 L Urine Appearance Urine Protein Urine Occult Blood Ur Leukocyte Esterase Urine RBC Urine WBC Urine Mucus 09/01/22 08/31/22 08/31/22 05:50 12:50 05:27 WBC 17.7 H RBC 2.97 L Hgb 8.9 L Hct 28.8 L MCHC 30.9 L Immature Gran % (Auto) 1.0 H Neut % (Auto) 83.7 H Lymph % (Auto) 6.9 L Lymph # (Auto) 1.23 L Pettis # (Auto) 1.10 H Immature Gran # 0.18 H Absolute Neutrophils 14.80 H Carbon Dioxide 21 L BUN 94 H Creatinine 2.8 H Glucose AST 52 H ALT 62 H Alkaline Phosphatase Total Protein Albumin 2.3 L Globulin 3.8 H Albumin/Globulin Ratio 0.6 L Urine Appearance Cloudy A Urine Protein 30 A Urine Occult Blood >=1.0 A Ur Leukocyte Esterase 500 A Urine RBC 149 H Urine WBC 163 H Urine Mucus Few A 08/31/22 05:27 WBC 18.0 H RBC 2.93 L Hgb 8.8 L Hct 26.7 L MCHC Immature Gran % (Auto) 0.9 H Neut % (Auto) 83.4 H Lymph % (Auto) 7.6 L Lymph # (Auto) 1.37 L Pettis # (Auto) 1.02 H Immature Gran # 0.16 H Absolute Neutrophils 15.04 H Carbon Dioxide BUN Creatinine Glucose AST ALT Alkaline Phosphatase Total Protein Albumin Globulin Albumin/Globulin Ratio Urine Appearance Urine Protein Urine Occult Blood Ur Leukocyte Esterase Urine RBC Urine WBC Urine Mucus Meds: Medications Acetaminophen (Acetaminophen 325 Mg Tablet) 650 mg PO Q6HP PRN; Protocol PRN Reason: Per Pain Protocol/Fever > 101 Last Admin: 08/30/22 14:00 Dose: 650 mg Artificial Tears (Carboxymethylcellulose Sodium 1 Each Droper.Gel) 1 each OU TID [facility] Last Admin: 09/02/22 09:05 Dose: 1 each Ascorbic Acid (Ascorbic Acid 500 Mg Tablet) 500 mg PO DAILY [facility] Last Admin: 09/02/22 09:05 Dose: 500 mg Aspirin (Aspirin 81 Mg Tab.Chew) 81 mg PO DAILY [facility] Last Admin: 09/02/22 09:06 Dose: 81 mg Atorvastatin Calcium (Atorvastatin 40 Mg Tablet) 80 mg PO HS [facility] Last Admin: 09/01/22 21:47 Dose: 80 mg Dextrose (Dextrose 50% 50 Ml Vial) 0 ml IV UD PRN PRN Reason: Per Sliding Scale Diagnostic Test (Pha) (Accu-Chek 1 Each Strip) 1 each FS ACHS [facility] Last Admin: 09/02/22 11:21 Dose: 1 each Docusate Sodium (Docusate Sodium 100 Mg Capsule) 100 mg PO BID [facility] Last Admin: 09/02/22 09:06 Dose: Not Given Famotidine (Famotidine 20 Mg Tablet) 20 mg PO QAM [facility] Last Admin: 09/02/22 09:06 Dose: 20 mg Glucose (Dextrose 31 Gm Oral.Susp) 15 gm PO PRN PRN PRN Reason: Hypoglycemia Heparin Sodium (Porcine) (Heparin 5,000 Unit/Ml Vial) 5,000 unit SQ Q12 [facility] Last Admin: 09/02/22 09:05 Dose: 5,000 unit Hydralazine HCl (Hydralazine 20 Mg/Ml Vial) 10 mg IV Q4-6HP PRN PRN Reason: Hypertension Piperacillin Sod/Tazobactam (Sod 2.25 gm/ Dextrose) 50 mls @ 100 mls/hr IV Q6H [facility]; Protocol Last Infusion: 09/02/22 12:30 Dose: Infused CLINDAMYCIN IN 0.9 % SOD CHLOR (Clindamycin 900 Mg/50 Ml-Ns) 900 mg in 50 mls @ 100 mls/hr IV Q8H [facility] Last Infusion: 09/02/22 06:40 Dose: Infused Insulin Glargine (Insulin Glargine, Human 1 Unit/0.01 Ml) 35 unit SQ QHS [facility] Last Admin: 09/01/22 21:33 Dose: 35 units Insulin Human Lispro (Insulin Lispro 1 Unit/0.01 Ml Unit) 4 unit SQ ACHS [facility] Last Admin: 09/02/22 11:22 Dose: 4 units Insulin Human Lispro (Insulin Lispro 1 Unit/0.01 Ml Unit) 0 unit SQ ACHS [facility]; Protocol Last Admin: 09/02/22 11:22 Dose: 6 units Magnesium Hydroxide (Magnesium Hydroxide 30 Ml Oral.Susp) 30 ml PO DAILYP PRN PRN Reason: Constipation Metoprolol Succinate (Metoprolol Succinate 50 Mg Tab.Xl.24h) 25 mg PO BID [facility] Last Admin: 09/02/22 09:05 Dose: 25 mg Ondansetron HCl (Ondansetron 4 Mg/2 Ml Vial) 4 mg IV Q6HP PRN PRN Reason: Nausea And Vomiting Oxycodone HCl (Oxycodone Ir 5 Mg Tablet) 5 mg PO Q4HP PRN; Protocol PRN Reason: Per Pain Protocol Senna (Sennosides 1 Tablet) 2 tab PO HS [facility] Last Admin: 09/01/22 21:48 Dose: Not Given Sodium Chloride (0.9 % Sodium Chloride 10 Ml Syringe) 10 ml IV Q8 [facility] Last Admin: 09/02/22 05:34 Dose: 10 ml Tamsulosin HCl (Tamsulosin 0.4 Mg Capsule) 0.4 mg PO QDAY [facility] Last Admin: 09/02/22 09:06 Dose: 0.4 mg Trazodone HCl (Trazodone Hcl 50 Mg Tablet) 25 mg PO HSP PRN PRN Reason: Insomnia Last Admin: 08/27/22 21:06 Dose: 25 mg Vitamin D (Vitamin D3 25 Mcg Tablet) 25 mcg PO DAILY [facility] Last Admin: 09/02/22 09:06 Dose: 25 mcg A/P Narrative A/P Narrative: Assessment and plan *Sepsis: 2/2 groin abscess/cellulitis - *Right groin cellulitis and abscess: -Initial CT scan showed cellulitis but no abscess -Repeat CT scan 08/30 with 3-4 continue fluid collection in the right thigh buttock area representing small abscesses. -Cellulitis coalesced into abscess which is now spontaneously draining -Appreciate Surgery following -Continue twice daily dressing -Continue IV Zosyn and clindamycin -Wound culture is negative. Abscess is still draining, continue IV antibiotics *HENNY vs progression of CKD stage IV: -Serum creatinine 2.5 on admission, fluctuates and now 2.5 -Patient noted to have urinary retention, status post Wood with immediate drainage of 1100 cc -Patient with history of BPH and prostate issues and was noted to have dribbling prior to Wood catheter placement -Renal ultrasound showed mildly enlarged kidneys consistent with medical renal disease, mild left hydronephrosis -Repeat BMP. Hold HCTZ and lisinopril *DM2: with hyperglycemia -Blood glucose control improving, A1c 7.7 on 08/26/2022. Blood glucose in house elevated -scheduled lispro 4 units insulin lispro with each meal, continue glargine 35 units. Increase to moderate insulin sliding scale *Anemia, likely of chronic kidney disease -Patient is on iron supplementation at home which is continued *Hypertension/Hyperlipidemia: -Continue to hold hydrochlorothiazide and lisinopril due to hypotension and HENNY -Will give IV labetalol and IV hydralazine as needed for blood pressure control -Continue home dose atorvastatin *BPH with UR: -CT with mild prostate enlargement. Mild wall urinary bladder could indicate -chronic bladder outlet narrowing. There is also moderate dilatation of both ureters -Renal ultrasound miild left hydronephrosis. -Continue with home dose tamsulosin *Generalized weakness/deconditioning: -PT eval. patient will likely need rehab at SNF. -Case management on board *Obesity: BMI 33 -lifestyle modifications *prophylaxis: heparin / pepcid CODE STATUS, full code Time Spent With Patient Time: Total time spent is greater than 50% in coordination of care (as documented) at patient's floor/unit and/or counseling patient: QUALITY Stroke Symptom Onset Unknown: No VTE Deep Vein Thrombosis/Pulmonary Embolism Present on Admission: No
[2022-09-02] MEDS: INSULIN GLARGINE, HUMAN 1 UNIT/0.01 ML SQ SCH (21:55)
[2022-09-02] MEDS: ATORVASTATIN 40 MG TABLET PO SCH (21:56)
[2022-09-02] MEDS: SENNOSIDES 1 TABLET PO SCH (21:57)
[2022-09-03] MEDS: 0.9 % SODIUM CHLORIDE 10 ML SYRINGE IV SCH ×3 (05:06→22:23)
[2022-09-03] MEDS: PIPERACILLIN SODIUM/TAZOBACTAM 2.25 GM in DEXTROSE 5% IN WATER 50 ML IV SCH ×3 (05:06→17:30)
[2022-09-03] MEDS: CLINDAMYCIN IN 0.9 % SOD CHLOR 900 MG/50 ML BAG IV SCH (05:44)
[2022-09-03 06:24] LABS: Basophils # (Auto) 0.04 K/mcL (0.00-0.30); Basophils % (Auto) 0.3 % (0.0-2.0); Eosinophils # (Auto) 0.44 K/mcL (0.00-0.70); Eosinophils % (Auto) 2.8 % (0.0-7.0); Hematocrit 25.5 % (40.1-51.0); Hemoglobin 8.4 g/dL (13.7-17.5); Lymphocytes # (Auto) 1.36 K/mcL (1.50-4.80); Lymphocytes % (Auto) 8.6 % (15.5-49.0); Mean Cell Volume 91.7 fL (80.0-100.0); Mean Corpuscular HGB Conc 32.9 g/dL (31.0-36.0); Mean Platelet Volume 11.3 fL (8.8-12.5); Monocytes % (Auto) 5.7 % (1.0-12.0); Neutrophils % (Auto) 81.6 % (38.0-78.0); Platelet Count 270 K/mcL (140-440); RBC 2.78 M/mcL (4.63-6.08); Red Cell Distribution Width 13.1 % (11.5-14.5); WBC 15.8 K/mcL (4.5-11.0)
[2022-09-03 07:07] LABS: ALT/SGPT 50 U/L (<40); AST/SGOT 32 U/L (<40); Albumin 2.1 gm/dL (3.2-5.2); Albumin/Globulin Ratio 0.6 (1.0-2.3); Alkaline Phosphatase 95 U/L (39-117); Bilirubin,Direct < 0.2 mg/dL (0-0.3); Bilirubin,Total 0.3 mg/dL (0.1-1.0); Blood Urea Nitrogen 81 mg/dL (8-23); Carbon Dioxide 19 mmol/L (22-30); Chloride 109 mmol/L (96-108); Globulin 3.6 gm/dL (2.2-3.7); Glomerular Filtration Rate 24; Glucose 127 mg/dL (70-105); Lactate Dehydrogenase 177 U/L (135-225); Triglycerides 96 mg/dL (<150); Uric Acid 7.8 mg/dL (2.5-8.0)
--- NOTE | 2022-09-03 07:28 | Internal Med Progress Note ---
SUBJECTIVE Subjective Patient information: Note initiated : 09/03/22 at 7:24 am Service Date, if different from initiated Date: [] Patient: Bebo Barnes a 87 y/o M admitted on 08/26/22 for Abscess to groin, Celulitis, Sepsis. Chief Complaint: [] Principal diagnosis: Cellulitis Interval history: Hospital course: Mr. Barnes is a 87 year old M with history of diabetes mellitus 2 with neuropathy, hypertension, hyperlipidemia, CKD stage IV baseline creatinine unknown, anemia, BPH, history of prostate cancer noted a bump in his right groin 3 days ago, that has been growing since then. He has been feeling feverish associated with chills. It hurts whenever anything touches it. He reported no drainage, no nausea vomiting. Patient was seen at [facility] first and was sent to ED for concerns of sepsis secondary to abscess in his groin. In ER patient was in sepsis with tachycardia of 92, leukocytosis of 25,000, lac tic acidosis 3.0, acute kidney injury with creatinine of 2.7. Lab work also showed chronic anemia of 10.9, hyperglycemia 2-3. CT scan showed cellulitis in the subcutaneous fat of the right upper thigh and right buttock region. No evidence of abscess. Patient was admitted to the floor. 08/27. Patient seen and examined. Patient had low-grade fever of 99.9 F overnight, somewhat hypotensive with BP 106/44. Leukocytosis somewhat improved however still elevated at 21,000 significantly. Patient serum creatinine improved to 2.5 from 2.7 yesterday. BUN and down to 77 from 86 yesterday. Glucose improved to 176 from 2-3 before. HBA 1C came to A1c is 7.7. Blood culture is still pending. He remains on IV Zosyn and clindamycin. Will give 1 L NS for hypotension and acute kidney injury. 08/28 patient reports feeling better. WBC slightly improved to 19,000 from 21,000, hemoglobin 8.6 down from 9.2, likely in the setting of hemodilution. Creatinine worsened to 2.7 from 2.5 yesterday. His baseline is around 1.9-2.0. He has stage IV kidney disease at baseline. RN reported patient was having urine dribbling. Suspect urinary retention. Will put Wood catheter in. HbA1c 7.7 08/29. No fevers overnight, leukocytosis slightly improved to 18,000. Reports scrotal discomfort is improving. Serum creatinine 2.6 down from 2.7 yesterday. BUN same 83. Patient is tolerating antibiotics 08/30 afebrile, leukocytosis up to 19.8 from 18.8 yesterday, creatinine 2.6 stable. Will order CRP and procalcitonin to follow-up on his infection. Also will obtain repeat CT scan of pelvis to see if he has an abscess 08/31 Patient is doing better today, white cell counts has come down.. The area of cellulitis and an abscess continues to drain. I was able to drain about 5 cc of pus by squeezing the area. Cellulitis coalesced into abscess which is now spontaneously draining. Appreciate Dr. Yanez recommendations. Recommending to continue twice daily dressing change. 09/01 leukocytosis trending down slowly. No fever. Right groin with minimal discharge. Cultures are pending. 09/02. WBC 17,000 down from 17.7 yesterday. Still purulent discharge from right groin. No fever. Wound culture and urine cultures negative. Patient on antibiotics. 09/03 No acute events overnight. Patient with leukocytosis with very slow gradual improvement. Creatinine 2.3. Wound culture with no growth.Although there is gram-negative bacilli that did not grow in the aerobic culture possible anaerobe s. Review of Systems: denies headache/fever/chills/nausea/vomiting/chest or abdominal pain/cough/dy spnea/diarrhea. Otherwise see above. PHYSICAL EXAM General: Alert, Awake, No acute Distress, obese Eyes/N/T: EOMI, no scleral icterus, Head/Neck: neck supple, full ROM, CV: RRR, No murmurs, Pulm: Clear b/l, no wheezing/rhonchi/rales, no respiratory distress Abd: soft, nontender, +BS x4 Ext: no clubbing/cyanosis/edema, nontender Neuro: Alert, no focal deficits, moves all extremities, , sensations intact b/l upper/lower Psychiatric: Skin: Right groin with less erythema and minimal discharge, gluteal area still indurated Constitutional Vitals: Vital Signs Temp Pulse Resp BP Pulse Ox O2 Del Method 98.6 F 77 22 120/51 93 Room Air 09/03/22 02:46 09/03/22 02:46 09/03/22 02:46 09/03/22 02:46 09/03/22 02:46 09/03/22 02:46 Period Temp Pulse Resp BP Sys/Canela Pulse Ox O2 Del Method O2 Flow Rate Last 24 Hr 96.8 F-98.9 F 77-87 20-24 117-140/50-97 93-99 Room Air-Room Air Intake and Output 09/02/22 09/03/22 09/03/22 19:59 03:59 11:59 Intake Total 1430 550 100 Output Total 700 650 Balance 730 -100 100 Weight 104.236 kg Intake & Output: Intake & Output 09/02/22 09/03/22 09/03/22 19:59 03:59 11:59 Intake Total 1430 550 100 Output Total 700 650 Balance 730 -100 100 Weight 104.236 kg Intake: IV 150 100 100 Zosyn 2.25 gm In Dextrose 5% in 100 50 50 Water 50 ml @ 100 mls/hr IV Q6H [facility] Rx#:[id number] Oral 1280 450 Output: Urine Catheter Amount 650 Void Amount 700 Other: Meal Dinner Percent of Meal Consumed 100% Feeding Ability Assist with Tray Set Up Urine Appearance Hematuria Uretheral (Wood) Hematuria Urine Color Tea Colored Tea Colored Uretheral (Wood) Tea Colored Tea Colored Stool Size Small Smear Small Stool Color Brown Brown Stool Consistency Soft # Bowel Movements 1 1 OBJ DATA Labs 09/03/22 05:40 09/03/22 05:40 Labs: Abnormal Lab Results 09/03/22 09/03/22 09/02/22 05:40 05:40 05:32 WBC 15.8 H RBC 2.78 L Hgb 8.4 L Hct 25.5 L MCHC Immature Gran % (Auto) 1.0 H Neut % (Auto) 81.6 H Lymph % (Auto) 8.6 L Lymph # (Auto) 1.36 L [place] # (Auto) Immature Gran # 0.15 H Absolute Neutrophils 12.87 H Chloride 109 H Carbon Dioxide 19 L 19 L BUN 81 H 89 H Creatinine 2.3 H 2.5 H Glucose 127 H 129 H GGT 79 H AST ALT 50 H 58 H Alkaline Phosphatase Total Protein 5.7 L 5.8 L Albumin 2.1 L 2.1 L Albumin/Globulin Ratio 0.6 L 0.6 L Urine Appearance Urine Protein Urine Occult Blood Ur Leukocyte Esterase Urine RBC Urine WBC Urine Mucus 09/02/22 09/01/22 09/01/22 05:32 05:50 05:50 WBC 17.0 H 17.7 H RBC 2.83 L 2.97 L Hgb 8.5 L 8.9 L Hct 26.0 L 28.8 L MCHC 30.9 L Immature Gran % (Auto) 0.7 H 1.0 H Neut % (Auto) 83.2 H 83.7 H Lymph % (Auto) 8.0 L 6.9 L Lymph # (Auto) 1.35 L 1.23 L [place] # (Auto) 0.91 H 1.10 H Immature Gran # 0.12 H 0.18 H Absolute Neutrophils 14.11 H 14.80 H Chloride Carbon Dioxide 20 L BUN 89 H Creatinine 2.4 H Glucose 146 H GGT AST 50 H ALT 63 H Alkaline Phosphatase 118 H Total Protein Albumin 2.2 L Albumin/Globulin Ratio 0.6 L Urine Appearance Urine Protein Urine Occult Blood Ur Leukocyte Esterase Urine RBC Urine WBC Urine Mucus 08/31/22 12:50 WBC RBC Hgb Hct MCHC Immature Gran % (Auto) Neut % (Auto) Lymph % (Auto) Lymph # (Auto) [place] # (Auto) Immature Gran # Absolute Neutrophils Chloride Carbon Dioxide BUN Creatinine Glucose GGT AST ALT Alkaline Phosphatase Total Protein Albumin Albumin/Globulin Ratio Urine Appearance Cloudy A Urine Protein 30 A Urine Occult Blood >=1.0 A Ur Leukocyte Esterase 500 A Urine RBC 149 H Urine WBC 163 H Urine Mucus Few A Meds: Medications Acetaminophen (Acetaminophen 325 Mg Tablet) 650 mg PO Q6HP PRN; Protocol PRN Reason: Per Pain Protocol/Fever > 101 Last Admin: 08/30/22 14:00 Dose: 650 mg Artificial Tears (Carboxymethylcellulose Sodium 1 Each Droper.Gel) 1 each OU TID [facility] Last Admin: 09/02/22 21:57 Dose: 1 each Ascorbic Acid (Ascorbic Acid 500 Mg Tablet) 500 mg PO DAILY [facility] Last Admin: 09/02/22 09:05 Dose: 500 mg Aspirin (Aspirin 81 Mg Tab.Chew) 81 mg PO DAILY [facility] Last Admin: 09/02/22 09:06 Dose: 81 mg Atorvastatin Calcium (Atorvastatin 40 Mg Tablet) 80 mg PO HS [facility] Last Admin: 09/02/22 21:56 Dose: 80 mg Dextrose (Dextrose 50% 50 Ml Vial) 0 ml IV UD PRN PRN Reason: Per Sliding Scale Diagnostic Test (Pha) (Accu-Chek 1 Each Strip) 1 each FS ACHS [facility] Last Admin: 09/02/22 21:53 Dose: 1 each Docusate Sodium (Docusate Sodium 100 Mg Capsule) 100 mg PO BID [facility] Last Admin: 09/02/22 21:57 Dose: Not Given Famotidine (Famotidine 20 Mg Tablet) 20 mg PO QAM [facility] Last Admin: 09/02/22 09:06 Dose: 20 mg Glucose (Dextrose 31 Gm Oral.Susp) 15 gm PO PRN PRN PRN Reason: Hypoglycemia Hydralazine HCl (Hydralazine 20 Mg/Ml Vial) 10 mg IV Q4-6HP PRN PRN Reason: Hypertension Piperacillin Sod/Tazobactam (Sod 2.25 gm/ Dextrose) 50 mls @ 100 mls/hr IV Q6H [facility]; Protocol Last Infusion: 09/03/22 05:43 Dose: Infused CLINDAMYCIN IN 0.9 % SOD CHLOR (Clindamycin 900 Mg/50 Ml-Ns) 900 mg in 50 mls @ 100 mls/hr IV Q8H [facility] Last Infusion: 09/03/22 06:31 Dose: Infused Insulin Glargine (Insulin Glargine, Human 1 Unit/0.01 Ml) [facility] Admin: 09/02/22 21:55 Dose: 35 units Insulin Human Lispro (Insulin Lispro 1 Unit/0.01 Ml Unit) 4 unit SQ [facility] Last Admin: 09/02/22 21:54 Dose: 4 units Insulin Human Lispro (Insulin Lispro 1 Unit/0.01 Ml Unit) 0 unit SQ [facility]; Protocol Last Admin: 09/02/22 21:55 Dose: 6 units Magnesium Hydroxide (Magnesium Hydroxide 30 Ml Oral.Susp) 30 ml PO DAILYP PRN PRN Reason: Constipation Metoprolol Succinate (Metoprolol Succinate 50 Mg Tab.Xl.24h) 25 mg PO BID [facility] Last Admin: 09/02/22 21:56 Dose: 25 mg Ondansetron HCl (Ondansetron 4 Mg/2 Ml Vial) 4 mg IV Q6HP PRN PRN Reason: Nausea And Vomiting Oxycodone HCl (Oxycodone Ir 5 Mg Tablet) 5 mg PO Q4HP PRN; Protocol PRN Reason: Per Pain Protocol Senna (Sennosides 1 Tablet) 2 tab PO HS [facility] Last Admin: 09/02/22 21:57 Dose: Not Given Sodium Chloride (0.9 % Sodium Chloride 10 Ml Syringe) 10 ml IV Q8 [facility] Last Admin: 09/03/22 05:06 Dose: 10 ml Tamsulosin HCl (Tamsulosin 0.4 Mg Capsule) 0.4 mg PO QDAY [facility] Last Admin: 09/02/22 09:06 Dose: 0.4 mg Trazodone HCl (Trazodone Hcl 50 Mg Tablet) 25 mg PO HSP PRN PRN Reason: Insomnia Last Admin: 08/27/22 21:06 Dose: 25 mg Vitamin D (Vitamin D3 25 Mcg Tablet) 25 mcg PO DAILY [facility] Last Admin: 09/02/22 09:06 Dose: 25 mcg A/P Narrative A/P Narrative: Assessment and plan *Sepsis: 2/2 groin abscess/cellulitis -leukocytosis *Right groin cellulitis and abscess: -Repeat CT scan 08/30 with 3-4 small abscesses in the right thigh buttock -Cellulitis coalesced into abscess which is now spontaneously draining -Appreciate Surgery following -Continue twice daily dressing -Continue IV Zosyn and d/c clindamycin -Wound culture is negative. Abscess is still draining, continue IV antibiotics *HENNY vs progression of CKD stage IV: -Serum creatinine 2.5 on admission, -Patient noted to have urinary retention, status post Wood with immediate drainage of 1100 cc -Patient with history of BPH and prostate issues and was noted to have dribbling prior to Wood catheter placement -Renal ultrasound showed mildly enlarged kidneys consistent with medical renal disease, mild left hydronephrosis -Repeat BMP. Hold HCTZ and lisinopril *Metabolic acidosis: *DM2: with hyperglycemia -Blood glucose control improving, A1c 7.7 on 08/26/2022. Blood glucose in house elevated -scheduled lispro 4 units insulin lispro with each meal, continue glargine 35 units. Increased to moderate insulin sliding scale *Anemia, likely of chronic kidney disease -Patient is on iron supplementation at home which is continued *Hypertension/Hyperlipidemia: -Continue to hold hydrochlorothiazide and lisinopril due to HENNY -Will give IV labetalol and IV hydralazine as needed for blood pressure control -Continue home dose atorvastatin *BPH with UR: -CT with mild prostate enlargement. Mild wall urinary bladder could indicate -chronic bladder outlet narrowing. There is also moderate dilatation of both ureters -Renal ultrasound mild left hydronephrosis. -Continue with home dose tamsulosin *Generalized weakness/deconditioning: -PT eval. patient will likely need rehab at SNF. -Case management on board *Obesity: BMI 33 -lifestyle modifications *prophylaxis: heparin / pepcid CODE STATUS, full code Time Spent With Patient Time: Total time spent is greater than 50% in coordination of care (as documented) at patient's floor/unit and/or counseling patient: Subsequent: Total time with patient: 50 - 65 Minutes QUALITY Stroke Symptom Onset Unknown: No VTE Deep Vein Thrombosis/Pulmonary Embolism Present on Admission: No
[2022-09-03] MEDS: INSULIN LISPRO 1 UNIT/0.01 ML UNIT SQ SCH ×8 (07:36→22:22)
[2022-09-03 08:29] LABS: Band Neutrophils % 1 % (0-10); Eosinophils % (Manual) 2 % (0-7); Lymphocytes % 7 % (15-49); Monocytes % (Manual) 3 % (1-12); Platelet Estimate NORMAL (Normal); RBC Morphology NORMAL (Normal); Segmented Neutrophils % 87 % (38-78)
[2022-09-03] MEDS: TAMSULOSIN 0.4 MG CAPSULE PO SCH (09:20)
[2022-09-03] MEDS: ASCORBIC ACID 500 MG TABLET PO SCH (09:21)
[2022-09-03] MEDS: METOPROLOL SUCCINATE 50 MG TAB.XL.24H PO SCH ×2 (09:23→22:11)
[2022-09-03] MEDS: VITAMIN D3 25 MCG TABLET PO SCH (09:23)
[2022-09-03] MEDS: ASPIRIN 81 MG TAB.CHEW PO SCH (09:23)
[2022-09-03] MEDS: CARBOXYMETHYLCELLULOSE SODIUM 1 EACH DROPER.GEL OU SCH ×3 (09:30→22:12)
[2022-09-03] MEDS: FAMOTIDINE 20 MG TABLET PO SCH (09:37)
[2022-09-03] MEDS: DOCUSATE SODIUM 100 MG CAPSULE PO SCH ×2 (09:48→22:02)
[2022-09-03] MEDS: SENNOSIDES 1 TABLET PO SCH (22:04)
[2022-09-03] MEDS: ATORVASTATIN 40 MG TABLET PO SCH (22:12)
[2022-09-03] MEDS: INSULIN GLARGINE, HUMAN 1 UNIT/0.01 ML SQ SCH (22:22)
[2022-09-04] MEDS: PIPERACILLIN SODIUM/TAZOBACTAM 2.25 GM in DEXTROSE 5% IN WATER 50 ML IV SCH ×4 (00:10→17:43)
[2022-09-04] MEDS: ACETAMINOPHEN 325 MG TABLET PO PRN ×2 (01:24→09:47)
[2022-09-04] MEDS: oxyCODONE IR 5 MG TABLET PO PRN ×2 (01:24→09:47)
[2022-09-04 06:43] LABS: Basophils # (Auto) 0.05 K/mcL (0.00-0.30); Basophils % (Auto) 0.3 % (0.0-2.0); Eosinophils # (Auto) 0.22 K/mcL (0.00-0.70); Eosinophils % (Auto) 1.3 % (0.0-7.0); Hematocrit 27.2 % (40.1-51.0); Hemoglobin 8.9 g/dL (13.7-17.5); Lymphocytes # (Auto) 0.91 K/mcL (1.50-4.80); Lymphocytes % (Auto) 5.5 % (15.5-49.0); Mean Cell Volume 91.3 fL (80.0-100.0); Mean Corpuscular HGB Conc 32.7 g/dL (31.0-36.0); Mean Platelet Volume 11.2 fL (8.8-12.5); Monocytes % (Auto) 4.8 % (1.0-12.0); Neutrophils % (Auto) 87.1 % (38.0-78.0); Platelet Count 285 K/mcL (140-440); RBC 2.98 M/mcL (4.63-6.08); Red Cell Distribution Width 12.9 % (11.5-14.5); WBC 16.6 K/mcL (4.5-11.0)
[2022-09-04 07:28] LABS: Blood Urea Nitrogen 77 mg/dL (8-23); Calcium 9.1 mg/dL (8.6-10.4); Carbon Dioxide 19 mmol/L (22-30); Chloride 108 mmol/L (96-108); Glomerular Filtration Rate 23; Glucose 117 mg/dL (70-105)
[2022-09-04] MEDS: 0.9 % SODIUM CHLORIDE 10 ML SYRINGE IV SCH ×3 (07:48→22:01)
[2022-09-04] MEDS: INSULIN LISPRO 1 UNIT/0.01 ML UNIT SQ SCH ×8 (07:48→22:00)
--- NOTE | 2022-09-04 07:49 | Internal Med Progress Note ---
SUBJECTIVE Subjective Patient information: Note initiated : 09/04/22 at 7:44 am Service Date, if different from initiated Date: [] Patient: Bebo Barnes a 87 y/o M admitted on 08/26/22 for Abscess to groin, Celulitis, Sepsis. Chief Complaint: [] Principal diagnosis: Cellulitis Interval history: Hospital course: Mr. Barnes is a 87 year old M with history of diabetes mellitus 2 with neuropathy, hypertension, hyperlipidemia, CKD stage IV baseline creatinine unknown, anemia, BPH, history of prostate cancer noted a bump in his right groin 3 days ago, that has been growing since then. He has been feeling feverish associated with chills. It hurts whenever anything touches it. He reported no drainage, no nausea vomiting. Patient was seen at [facility] first and was sent to ED for concerns of sepsis secondary to abscess in his groin. In ER patient was in sepsis with tachycardia of 92, leukocytosis of 25,000, lac tic acidosis 3.0, acute kidney injury with creatinine of 2.7. Lab work also showed chronic anemia of 10.9, hyperglycemia 2-3. CT scan showed cellulitis in the subcutaneous fat of the right upper thigh and right buttock region. No evidence of abscess. Patient was admitted to the floor. 08/27. Patient seen and examined. Patient had low-grade fever of 99.9 F overnight, somewhat hypotensive with BP 106/44. Leukocytosis somewhat improved however still elevated at 21,000 significantly. Patient serum creatinine improved to 2.5 from 2.7 yesterday. BUN and down to 77 from 86 yesterday. Glucose improved to 176 from 2-3 before. HBA 1C came to A1c is 7.7. Blood culture is still pending. He remains on IV Zosyn and clindamycin. Will give 1 L NS for hypotension and acute kidney injury. 08/28 patient reports feeling better. WBC slightly improved to 19,000 from 21,000, hemoglobin 8.6 down from 9.2, likely in the setting of hemodilution. Creatinine worsened to 2.7 from 2.5 yesterday. His baseline is around 1.9-2.0. He has stage IV kidney disease at baseline. RN reported patient was having urine dribbling. Suspect urinary retention. Will put Wood catheter in. HbA1c 7.7 08/29. No fevers overnight, leukocytosis slightly improved to 18,000. Reports scrotal discomfort is improving. Serum creatinine 2.6 down from 2.7 yesterday. BUN same 83. Patient is tolerating antibiotics 08/30 afebrile, leukocytosis up to 19.8 from 18.8 yesterday, creatinine 2.6 stable. Will order CRP and procalcitonin to follow-up on his infection. Also will obtain repeat CT scan of pelvis to see if he has an abscess 08/31 Patient is doing better today, white cell counts has come down.. The area of cellulitis and an abscess continues to drain. I was able to drain about 5 cc of pus by squeezing the area. Cellulitis coalesced into abscess which is now spontaneously draining. Appreciate Dr. Yanez recommendations. Recommending to continue twice daily dressing change. 09/01 leukocytosis trending down slowly. No fever. Right groin with minimal discharge. Cultures are pending. 09/02. WBC 17,000 down from 17.7 yesterday. Still purulent discharge from right groin. No fever. Wound culture and urine cultures negative. Patient on antibiotics. 09/03 No acute events overnight. Patient with leukocytosis with very slow gradual improvement. Creatinine 2.3. Wound culture with no growth.Although there is gram-negative bacilli that did not grow in the aerobic culture possible anaerobe s. 09/04 Patient states that he had poor sleep last night because his bladder was full. Sounds like the Wood malfunction probably from clots that he is has developed noticeable gross hematuria. Repeat CT pelvis today shows improving cellulitis and resolving abscess but this shows worsening obstructive distal ureters concerning for possible blood within the ureters as well as inflamed bladder wall. Will discuss with urology. Review of Systems: denies headache/fever/chills/nausea/vomiting/chest or abdominal pain/cough/dyspnea/diarrhea. Otherwise see above. PHYSICAL EXAM General: Alert, Awake, No acute Distress, obese Eyes/N/T: EOMI, no scleral icterus, Head/Neck: neck supple, full ROM, CV: RRR, No murmurs, Pulm: Clear b/l, no wheezing/rhonchi/rales, no respiratory distress Abd: soft, nontender, +BS x4, groin dressing in place, Ext: no clubbing/cyanosis/edema, nontender Neuro: Alert, no focal deficits, moves all extremities, , sensations intact b/l upper/lower Psychiatric: Skin: Right groin with less erythema and light drainage, gluteal area still indurated Constitutional Vitals: Vital Signs Temp Pulse Resp BP Pulse Ox O2 Del Method 97.9 F 96 H 18 155/76 97 Room Air 09/04/22 05:13 09/04/22 05:13 09/04/22 05:13 09/04/22 05:13 09/04/22 05:13 09/04/22 05:13 Period Temp Pulse Resp BP Sys/Canela Pulse Ox O2 Del Method O2 Flow Rate Last 24 Hr 97.9 F-99.0 F 63-96 16- 112-159/42-76 96-99 Room Air-Room Air Intake and Output 09/03/22 09/04/22 09/04/22 19:59 03:59 11:59 Intake Total 735 50 90 Output Total 400 2 550 Balance 335 48 -460 Weight 104.326 kg Patient Weight 09/05/22 03:59 Weight 104.326 kg Intake & Output: Intake & Output 09/03/22 09/04/22 09/04/22 19:59 03:59 11:59 Intake Total 735 50 90 Output Total 400 2 550 Balance 335 48 -460 Weight 104.326 kg Intake: Nourishment/Supplement quantity 275 (ml) IV 100 50 50 Zosyn 2.25 gm In Dextrose 5% in 100 50 50 Water 50 ml @ 100 mls/hr IV Q6H [facility] Rx#:[id number] Oral 360 CBI Fluid 40 Output: Urine Catheter Amount 400 # of times incontinent of urine 2 CBI Fluid 550 Other: Meal Dinner Percent of Meal Consumed 60 Feeding Ability Independent Nourishment/Supplement name nephro Urine Appearance Clear Small Blood Clots Uretheral (Wood) Small Blood Clots Urine Color Tea Colored Dark Red Uretheral (Wood) Dark Red Urine Odor Normal Stool Size Moderate Small Moderate Stool Color Brown Brown Brown Stool Consistency Soft Soft Soft # of times incontinent of 1 1 Bowels Net CBI 510 OBJ DATA Labs 09/04/22 05:40 09/04/22 05:40 Labs: Abnormal Lab Results 09/04/22 09/04/22 09/03/22 05:40 05:40 05:40 WBC 16.6 H RBC 2.98 L Hgb 8.9 L Hct 27.2 L Immature Gran % (Auto) 1.0 H Neut % (Auto) 87.1 H Lymph % (Auto) 5.5 L Lymph # (Auto) 0.91 L [place] # (Auto) Seg Neutrophils % 87 H Lymphocytes % 7 L Immature Gran # 0.16 H Absolute Neutrophils 14.49 H Chloride Carbon Dioxide 19 L BUN 77 H Creatinine 2.4 H Glucose 117 H GGT ALT Total Protein Albumin Albumin/Globulin Ratio 09/03/22 09/03/22 09/02/22 05:40 05:40 05:32 WBC 15.8 H RBC 2.78 L Hgb 8.4 L Hct 25.5 L Immature Gran % (Auto) 1.0 H Neut % (Auto) 81.6 H Lymph % (Auto) 8.6 L Lymph # (Auto) 1.36 L [place] # (Auto) Seg Neutrophils % Lymphocytes % Immature Gran # 0.15 H Absolute Neutrophils 12.87 H Chloride 109 H Carbon Dioxide 19 L 19 L BUN 81 H 89 H Creatinine 2.3 H 2.5 H Glucose 127 H 129 H GGT 79 H ALT 50 H 58 H Total Protein 5.7 L 5.8 L Albumin 2.1 L 2.1 L Albumin/Globulin Ratio 0.6 L 0.6 L 09/02/22 05:32 WBC 17.0 H RBC 2.83 L Hgb 8.5 L Hct 26.0 L Immature Gran % (Auto) 0.7 H Neut % (Auto) 83.2 H Lymph % (Auto) 8.0 L Lymph # (Auto) 1.35 L [place] # (Auto) 0.91 H Seg Neutrophils % Lymphocytes % Immature Gran # 0.12 H Absolute Neutrophils 14.11 H Chloride Carbon Dioxide BUN Creatinine Glucose GGT ALT Total Protein Albumin Albumin/Globulin Ratio Meds: Medications Acetaminophen (Acetaminophen 325 Mg Tablet) 650 mg PO Q6HP PRN; Protocol PRN Reason: Per Pain Protocol/Fever > 101 Last Admin: 09/04/22 01:24 Dose: 650 mg Artificial Tears (Carboxymethylcellulose Sodium 1 Each Droper.Gel) 1 each OU TID [facility] Last Admin: 09/03/22 22:12 Dose: 1 each Ascorbic Acid (Ascorbic Acid 500 Mg Tablet) 500 mg PO DAILY [facility] Last Admin: 09/03/22 09:21 Dose: 500 mg Aspirin (Aspirin 81 Mg Tab.Chew) 81 mg PO DAILY [facility] Last Admin: 09/03/22 09:23 Dose: 81 mg Atorvastatin Calcium (Atorvastatin 40 Mg Tablet) 80 mg PO HS [facility] Last Admin: 09/03/22 22:12 Dose: 80 mg Dextrose (Dextrose 50% 50 Ml Vial) 0 ml IV UD PRN PRN Reason: Per Sliding Scale Diagnostic Test (Pha) (Accu-Chek 1 Each Strip) 1 each FS [facility] Last Admin: 09/03/22 22:23 Dose: 1 each Docusate Sodium (Docusate Sodium 100 Mg Capsule) 100 mg PO BID [facility] Last Admin: 09/03/22 22:02 Dose: Not Given Famotidine (Famotidine 20 Mg Tablet) 20 mg PO QAM [facility] Last Admin: 09/03/22 09:37 Dose: 20 mg Glucose (Dextrose 31 Gm Oral.Susp) 15 gm PO PRN PRN PRN Reason: Hypoglycemia Hydralazine HCl (Hydralazine 20 Mg/Ml Vial) 10 mg IV Q4-6HP PRN PRN Reason: Hypertension Piperacillin Sod/Tazobactam (Sod 2.25 gm/ Dextrose) 50 mls @ 100 mls/hr IV Q6H [facility]; Protocol Last Infusion: 09/04/22 05:50 Dose: Infused Insulin Glargine (Insulin Glargine, Human 1 Unit/0.01 Ml) [facility] Admin: 09/03/22 22:22 Dose: 35 units Insulin Human Lispro (Insulin Lispro 1 Unit/0.01 Ml Unit) 4 unit SQ [facility] Last Admin: 09/03/22 22:22 Dose: 4 units Insulin Human Lispro (Insulin Lispro 1 Unit/0.01 Ml Unit) 0 unit SQ [facility]; Protocol Last Admin: 09/03/22 22:22 Dose: 6 units Magnesium Hydroxide (Magnesium Hydroxide 30 Ml Oral.Susp) 30 ml PO DAILYP PRN PRN Reason: Constipation Metoprolol Succinate (Metoprolol Succinate 50 Mg Tab.Xl.24h) 25 mg PO BID [facility] Last Admin: 09/03/22 22:11 Dose: 25 mg Ondansetron HCl (Ondansetron 4 Mg/2 Ml Vial) 4 mg IV Q6HP PRN PRN Reason: Nausea And Vomiting Oxycodone HCl (Oxycodone Ir 5 Mg Tablet) 5 mg PO Q4HP PRN; Protocol PRN Reason: Per Pain Protocol Last Admin: 09/04/22 01:24 Dose: 5 mg Senna (Sennosides 1 Tablet) 2 tab PO HS [facility] Last Admin: 09/03/22 22:04 Dose: Not Given Sodium Chloride (0.9 % Sodium Chloride 10 Ml Syringe) 10 ml IV Q8 [facility] Last Admin: 09/03/22 22:23 Dose: 10 ml Tamsulosin HCl (Tamsulosin 0.4 Mg Capsule) 0.4 mg PO QDAY [facility] Last Admin: 09/03/22 09:20 Dose: 0.4 mg Trazodone HCl (Trazodone Hcl 50 Mg Tablet) 25 mg PO HSP PRN PRN Reason: Insomnia Last Admin: 08/27/22 21:06 Dose: 25 mg Vitamin D (Vitamin D3 25 Mcg Tablet) 25 mcg PO DAILY [facility] Last Admin: 09/03/22 09:23 Dose: 25 mcg A/P Narrative A/P Narrative: Assessment and plan *Sepsis: 2/2 groin abscess/cellulitis -leukocytosis *Right groin cellulitis and abscess: -Repeat CT scan 08/30 with 3-4 small abscesses in the right thigh buttock -Cellulitis coalesced into abscess which is now spontaneously draining -Appreciate Surgery following -Continue twice daily dressing -Continue IV Zosyn and d/c clindamycin -Wound culture is negative. -slight bump in wbc, f/u CT *HENNY vs progression of CKD stage IV: -Serum creatinine 2.5 on admission, -Patient noted to have urinary retention, status post Wood with immediate drainage of 1100 cc -Patient with history of BPH and prostate issues and was noted to have dribbling prior to Wood catheter placement -Renal ultrasound showed mildly enlarged kidneys consistent with medical renal disease, mild left hydronephrosis -Repeat BMP. Hold HCTZ and lisinopril *Metabolic acidosis: *DM2: with hyperglycemia -Blood glucose control improving, A1c 7.7 on 08/26/2022. Blood glucose in house elevated -lispro 4 units AC, continue glargine 35 units. Increased to moderate insulin sliding scale *Anemia, likely of chronic kidney disease -Patient is on iron supplementation at home which is continued *Hypertension/Hyperlipidemia: -Continue to hold hydrochlorothiazide and lisinopril due to HENNY -Will give IV labetalol and IV hydralazine as needed for blood pressure control -Continue home dose atorvastatin *BPH w/UR: -CT with mild prostate enlargement. Mild wall urinary bladder could indicate -chronic bladder outlet narrowing. There is also moderate dilatation of both ureters -Renal ultrasound mild left hydronephrosis. -Continue with home dose tamsulosin *Gross Hematuria: -aspirin d/c'd *Worsening b/l ureteral dilation: likely 2/2 blood clotting -Urology consult *Generalized weakness/deconditioning: -PT eval. patient will likely need rehab at SNF. -Case management on board *Obesity: BMI 33 -lifestyle modifications *prophylaxis: SCD(heparin d/c'd) / pepcid CODE STATUS, full code Time Spent With Patient Time: Total time spent is greater than 50% in coordination of care (as documented) at patient's floor/unit and/or counseling patient: Subsequent: Total time with patient: 50 - 65 Minutes QUALITY Stroke Symptom Onset Unknown: No VTE Deep Vein Thrombosis/Pulmonary Embolism Present on Admission: No
[2022-09-04] MEDS: TAMSULOSIN 0.4 MG CAPSULE PO SCH (08:49)
[2022-09-04] MEDS: VITAMIN D3 25 MCG TABLET PO SCH (08:49)
[2022-09-04] MEDS: DOCUSATE SODIUM 100 MG CAPSULE PO SCH ×2 (08:49→21:49)
[2022-09-04] MEDS: CARBOXYMETHYLCELLULOSE SODIUM 1 EACH DROPER.GEL OU SCH ×3 (08:50→21:50)
[2022-09-04] MEDS: FAMOTIDINE 20 MG TABLET PO SCH (08:50)
[2022-09-04] MEDS: METOPROLOL SUCCINATE 50 MG TAB.XL.24H PO SCH ×2 (08:50→21:49)
[2022-09-04] MEDS: ASPIRIN 81 MG TAB.CHEW PO SCH (08:50)
[2022-09-04] MEDS: ASCORBIC ACID 500 MG TABLET PO SCH (08:50)
--- NOTE | 2022-09-04 09:09 | Cat Scan Report ---
History: Follow-up pelvic abscess, persistent leukocytosis, sepsis, cellulitis technique: The pelvis was imaged without contrast in axial plane from above the iliac crests to the upper thighs. Sagittal and coronal reformats were created. The radiation exposure was limited using dose reduction technology. FINDINGS: There is a small scar and subcutaneous fat in the left side of the umbilicus. A small pocket of fluid and gas were present at this site on the prior CT done on 08/30/22. This might have been related to a prior injection. No intraabdominal abscess is present. There are numerous diverticula in the descending and sigmoid colon but without evidence of acute diverticulitis. The small intestine is normal caliber. There is severe dilatation of both ureters. The right measures 2.5 and the left 2.6 cm in diameter. There is high attenuation material within the distal ureters which could be blood. The urinary bladder is decompressed by Wood catheter. The wall is abnormally thickened and heterogeneous. The thickening of bladder wall is new since 08/30/22. This may be cystitis. Bladder cancer would not enlarge this rapidly. The ureters are much larger today than they were on the prior CT. There is cellulitis along the inner aspect of the right upper thigh and the perineal region. The small subcutaneous abscesses in this location have nearly but not completely resolved. Largest pocket is 1.5 cm. There is also edema in the subcutaneous fat posterior to the right gluteus muscle. No abscess is present in that region. The inflammation of the perineum extends into the right upper scrotum. There is no hydrocele or scrotal abscess. 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 IMPRESSION: Improving cellulitis and resolving abscess in the right perineum and inner aspect of the right upper thigh. Worsening obstruction of the distal ureters. There may be blood within the ureters. Abnormally thickened and inflamed bladder wall. Cystitis should be suspected. Diverticulosis without diverticulitis Interpreted and Authenticated by: Quincy Israel 09/04/22
--- NOTE | 2022-09-04 13:06 | Urology Consult Note ---
[facility] Date of Consult Consult Date: 09/04/22 Requesting physician: Ronaldo Mark Primary Care Provider: Jamison Jean MD Consult Narrative Patient Information: Note initiated : 09/04/22 at 12:45 pm Service Date, if different from initiated Date: [] Patient: Bebo Barnes a 87 y/o M admitted on 08/26/22 for Abscess to groin, Celulitis, Sepsis. Chief Complaint: Bebo is an 87-year-old male who is well-known to me. I last saw him in my office on November 05, 2021. He has a history of prostate cancer status post radiation. He had a biochemical recurrence with a rise in his PSA. He has a history of incomplete bladder emptying. He also has a history of urinary tract infections. His most recent PSA was 1.29 on August 06, 2021. Most recently he was admitted to the hospital on August 26, 2022 with cellulitis of the right groin. There were several small abscesses which coalesced into one that spontaneously drained. The patient is being followed by Dr. Yanez. When Dr. Yanez last saw the patient the right cellulitis was resolving. During his admission a Wood catheter was placed. Evidently they had difficulty placing the Wood catheter and placed a 14 Swedish catheter. The patient began to have some gross hematuria yesterday and the Wood catheter stopped draining. Urology consultation was obtained. Chief complaint: Gross hematuria and urinary retention with catheter in place. Reason for consult: Gross hematuria urinary retention with catheter in place cc:: CC: Manolo Garcia MD Review of Systems All systems: reviewed and no additional remarkable complaints except as stated Constitutional Constitutional: Present as per [facility] Genitourinary Additional comments: Gross hematuria PFSH PFSH All Active Problems (Updated 09/04/22 @ 13:02 by Cody Richardson MD) Gross hematuria (Acute) Sepsis (Acute) Cellulitis of buttock, right (Acute) Generalized weakness (Acute) Incomplete bladder emptying (Acute) Urethral stricture (Acute) Acute urinary tract infection (Acute) Medicare annual wellness visit, subsequent (Acute) Hypercalcemia due to a drug (Acute) Urethral stricture (Acute) Anemia (Chronic) Long-term use of high-risk medication (Chronic 05/06/13) Colon polyps (Chronic 09/23/03) Diverticulosis of colon (Chronic 10/03/03) Hyperlipidemia, mixed (Chronic) Hypertension (Chronic) Obstructive uropathy (Chronic) Peripheral neuropathy (Chronic) History of prostate cancer (Chronic) Renal failure (Chronic) Seborrheic keratosis (Chronic) Urinary tract infection (Chronic) History of appendectomy (Chronic) History of radiation therapy (Chronic) Encounter for Health Maintenance Examination in Adult (Chronic) Sciatica of right side (Chronic) Ventricular bigeminy (Chronic) Hip pain (Chronic) Lumbago with sciatica (Chronic) Tachycardia (Chronic) Nevus, choroidal (Chronic) Microscopic hematuria (Chronic) Age-related nuclear cataract, bilateral (Chronic) Other corneal scars and opacities (Chronic) Other disorders of refraction (Chronic) Dysuria (Chronic) Urinary frequency (Chronic) Chronic kidney disease (Chronic) Proteinuria (Chronic) CKD stage G4/A3, 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) Retention of urine (Chronic) Carcinoma in situ of prostate (Chronic) Carcinoma of prostate (Chronic) Nevus, non-neoplastic (Chronic) Other urethral stricture, male, unspecified site (Chronic) Polyp of colon (Chronic) Postprocedural bulbous urethral stricture, 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 10- year sequence. Diabetes mellitus with neuropathy Goal HgBA1c <7.5% Diverticulosis of colon (10/03/03) Colonoscopy--Dr. Cartagena--Polypectomy, benign colonic mucosa with prominent lymphoid aggregate; moderately severe diverticulosis, small hemorrhoids Hip pain History of prostate cancer History of cancer of the prostate status post radiation therapy in 1993 History of radiation therapy History of Cancer of the Prostate status post radiation therapy in 1993 History of urinary tract infection Recurrent, clinically stable, due for recheck Hyperkalemia Hyperlipidemia, mixed Hypertension Controlled on 3 Rx Goal 130/80 Long-term use of high-risk medication (05/06/13) patient on Statin for Hyperlipidemia Lumbago with sciatica Medicare annual wellness visit, subsequent Microscopic hematuria Nevus, choroidal Nevus, non-neoplastic Obstructive uropathy Other corneal scars and opacities Other disorders of refraction Other urethral stricture, male, unspecified site Peripheral neuropathy Very mild by exam Polyp of colon Postprocedural bulbous urethral stricture, male Renal failure Mild, probably related to diuretics and now stabilized Retention of urine Sciatica of right side Seborrheic keratosis Multiple, [facility] Tachycardia Urinary frequency Urinary tract infection History of recurrent urinary tract infections, previous suppressive therapy and previous evaluation through Dr. 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 [employer] smoking status: Former smoker alcohol intake frequency: does not drink substance use type: does not use MEDS/ALLERGIES Home Medications and Allergies Home Medications Medication Instructions Recorded Confirmed Type ascorbic acid (vitamin C) 500 mg 500 mg PO QDAY 01/16/15 08/26/22 History capsule,extended release blood sugar diagnostic (OneTouch #200 ea 05/21/16 08/26/22 Rx Ultra Test strips) insulin syringe-needle U-100 1 mL #100 ea 05/21/16 08/26/22 Rx 30 gauge x 1/2" (BD Insulin Syringe Ultra-Fine) hydrochlorothiazide 12.5 mg tablet 12.5 mg PO QDAY 09/14/18 08/26/22 History atorvastatin 80 mg tablet 80 mg PO QHS 09/30/20 08/26/22 History lisinopril 40 mg tablet 40 mg PO QDAY 09/30/20 08/26/22 History metoprolol succinate 50 mg 25 mg PO BID 09/30/20 08/26/22 History tablet,extended release 24 hr tamsulosin 0.4 mg capsule 0.4 mg PO QDAY 09/30/20 08/26/22 History blood sugar diagnostic (Accu-Chek 05/27/21 08/26/22 History Guide test strips) carboxymethylcellulose sodium 0.5 1 drp ophthalmic (eye) TID 05/27/21 08/26/22 History % eye drops cholecalciferol (vitamin D3) 50 1,000 unit PO QDAY 07/22/21 08/26/22 History mcg (2,000 unit) capsule insulin glargine 100 unit/mL 30 unit subcut QHS 07/22/21 08/26/22 History subcutaneous solution aspirin 81 mg tablet,delayed 81 mg PO DAILY 02/12/22 08/26/22 History release Allergies Allergy/AdvReac Type Severity Reaction Status Date / Time amlodipine [From Lotrel] AdvReac Intermediate Swelling Verified 08/26/22 17:46 benazepril [From Lotrel] AdvReac Intermediate Swelling Verified 08/26/22 17:46 felodipine [From Plendil] AdvReac Intermediate Swelling Verified 08/26/22 13:39 pioglitazone [From Actos] AdvReac Intermediate Swelling Verified 08/26/22 13:39 Physical Examination Vital Signs Vital signs: Temp Pulse Resp BP Pulse Ox O2 Del Method 97.9 F 94 H 16 151/68 97 Room Air 09/04/22 08:00 09/04/22 08:00 09/04/22 08:00 09/04/22 08:00 09/04/22 08:00 09/04/22 05:13 General physical appearance General physical exam: well developed, well nourished and no distress Head Head exam IM: Present atraumatic, normal inspection and normocephalic Neck Neck exam: trachea midline Cardiovascular Cardiovascular exam IM: Present normal rate and rhythm Respiratory Respiratory exam: normal respiratory effort and clear to auscultation Abdomen Abdomen: Present soft, non tender and wound (Right groin with dressing) Genitourinary Genitourinary (Male): Present normal penis with no external lesions and other (Mild edema on circumcised) Neurologic Neurologic: Present normal sensation Psychiatric Psychiatric: Present oriented to time, oriented to person, oriented to place and speech is normal Results Labs 09/04/22 05:40 09/04/22 05:40 Labs: Abnormal lab results 09/04/22 09/04/22 Range/Units 05:40 05:40 WBC 16.6 H (4.5-11.0) K/mcL RBC 2.98 L (4.63-6.08) M/mcL Hgb 8.9 L (13.7-17.5) g/dL Hct 27.2 L (40.1-51.0) % Immature Gran % (Auto) 1.0 H (0.0-0.5) % Neut % (Auto) 87.1 H (38.0-78.0) % Lymph % (Auto) 5.5 L (15.5-49.0) % Lymph # (Auto) 0.91 L (1.50-4.80) K/mcL Immature Gran # 0.16 H (0.00-0.05) K/mcl Absolute Neutrophils 14.49 H (1.80-8.00) K/mcL Carbon Dioxide 19 L (22-30) mmol/L BUN 77 H (8-23) mg/dL Creatinine 2.4 H (0.7-1.2) mg/dL Glucose 117 H (70-105) mg/dL Diabetes panel 09/04/22 Range/Units 05:40 Sodium 138 (133-145) mmol/L Potassium 4.8 (3.3-5.1) mmol/L Chloride 108 (96-108) mmol/L Carbon Dioxide 19 L (22-30) mmol/L BUN 77 H (8-23) mg/dL Creatinine 2.4 H (0.7-1.2) mg/dL Glucose 117 H (70-105) mg/dL Calcium 9.1 (8.6-10.4) mg/dL Calcium panel 09/04/22 Range/Units 05:40 Calcium 9.1 (8.6-10.4) mg/dL Pituitary panel 09/04/22 Range/Units 05:40 Sodium 138 (133-145) mmol/L Potassium 4.8 (3.3-5.1) mmol/L Chloride 108 (96-108) mmol/L Carbon Dioxide 19 L (22-30) mmol/L BUN 77 H (8-23) mg/dL Creatinine 2.4 H (0.7-1.2) mg/dL Glucose 117 H (70-105) mg/dL Calcium 9.1 (8.6-10.4) mg/dL Adrenal panel 09/04/22 Range/Units 05:40 Sodium 138 (133-145) mmol/L Potassium 4.8 (3.3-5.1) mmol/L Chloride 108 (96-108) mmol/L Carbon Dioxide 19 L (22-30) mmol/L BUN 77 H (8-23) mg/dL Creatinine 2.4 H (0.7-1.2) mg/dL Glucose 117 H (70-105) mg/dL Calcium 9.1 (8.6-10.4) mg/dL All other labs normal. Imaging CT scan - abdomen: report reviewed and image reviewed CT scan - pelvis: report reviewed and image reviewed A/P Assessment and plan (1) Retention of urine: Status: Chronic (2) Carcinoma of prostate: Status: Chronic Comment: s/p Radiation 1993 (3) Urethral stricture: Assessment and plan: Yuliana Status: Acute (4) Gross hematuria: Status: Acute Narrative A/P Narrative: Bebo is an 87-year-old male who is well-known to me. I last saw him in my office on November 05, 2021. He has a history of prostate cancer status post radiation. He had a biochemical recurrence with a rise in his PSA. He has a history of incomplete bladder emptying. He also has a history of urinary tract infections. His most recent PSA was 1.29 on August 06, 2021. Most recently he was admitted to the hospital on August 26, 2022 with cellulitis of the right groin. There were several small abscesses which coalesced into one that spontaneously drained. The patient is being followed by Dr. Yanez. When Dr. Yanez last saw the patient the right cellulitis was resolving. During his admission a Wood catheter was placed. Evidently they had difficulty placing the Wood catheter and placed a 14 Swedish catheter. The patient began to have some gross hematuria yesterday and the Wood catheter stopped draining. Urology consultation was obtained. On examination the patient had a 14 Swedish [address] catheter in place. It was draining minimally with red blood in the catheter and Wood bag. Additionally, the patient had a StatLock on the catheter which was placed just above the patient's left knee. This created significant tension on the catheter likely pulling the balloon into the prostate and or causing trauma. At the bedside I removed the 14 Swedish Wood catheter and easily placed a 22 Swedish catheter which was placed into the bladder. The balloon was inflated with 20 mL of sterile water was then seated properly. I placed a StatLock getting the catheter plenty of room so that there was no tension. The catheter was then hand irrigated using sterile water until there were no clots in the urine ran clear light red. The patient has been anticoagulated and anticoagulation has been held. The urine should now begin to clear up over the next couple of days. The catheter should be hand irrigated at least once per shift and as needed. Please call if there are any further problems. The patient will need to see me in follow-up. He will need to have a new PSA at some point in the near future but not now. Time Spent With Patient Time: Total time spent is greater than 50% in coordination of care (as documented) at patient's floor/unit and/or counseling patient:
[2022-09-04 15:40] LABS: Hematocrit 27.4 % (40.1-51.0)
[2022-09-04] MEDS: ATORVASTATIN 40 MG TABLET PO SCH (21:50)
[2022-09-04] MEDS: INSULIN GLARGINE, HUMAN 1 UNIT/0.01 ML SQ SCH (22:00)
[2022-09-04] MEDS: SENNOSIDES 1 TABLET PO SCH (22:01)
[2022-09-05] MEDS: PIPERACILLIN SODIUM/TAZOBACTAM 2.25 GM in DEXTROSE 5% IN WATER 50 ML IV SCH ×5 (00:18→23:40)
[2022-09-05] MEDS: 0.9 % SODIUM CHLORIDE 10 ML SYRINGE IV SCH ×4 (06:06→22:45)
[2022-09-05 06:12] LABS: Basophils # (Auto) 0.07 K/mcL (0.00-0.30); Basophils % (Auto) 0.4 % (0.0-2.0); Eosinophils # (Auto) 0.17 K/mcL (0.00-0.70); Eosinophils % (Auto) 0.9 % (0.0-7.0); Hematocrit 28.3 % (40.1-51.0); Hemoglobin 9.5 g/dL (13.7-17.5); Lymphocytes # (Auto) 1.49 K/mcL (1.50-4.80); Lymphocytes % (Auto) 7.6 % (15.5-49.0); Mean Cell Volume 91.9 fL (80.0-100.0); Mean Corpuscular HGB Conc 33.6 g/dL (31.0-36.0); Mean Platelet Volume 10.8 fL (8.8-12.5); Monocytes # (Auto) 1.11 K/mcL (0.10-0.90); Monocytes % (Auto) 5.6 % (1.0-12.0); Neutrophils % (Auto) 84.7 % (38.0-78.0); Platelet Count 321 K/mcL (140-440); RBC 3.08 M/mcL (4.63-6.08); Red Cell Distribution Width 12.9 % (11.5-14.5); WBC 19.7 K/mcL (4.5-11.0)
[2022-09-05 06:52] LABS: ALT/SGPT 53 U/L (<40); AST/SGOT 39 U/L (<40); Albumin 2.4 gm/dL (3.2-5.2); Albumin/Globulin Ratio 0.6 (1.0-2.3); Alkaline Phosphatase 97 U/L (39-117); Bilirubin,Direct < 0.2 mg/dL (0-0.3); Bilirubin,Total 0.3 mg/dL (0.1-1.0); Blood Urea Nitrogen 88 mg/dL (8-23); Calcium 9.5 mg/dL (8.6-10.4); Carbon Dioxide 19 mmol/L (22-30); Chloride 105 mmol/L (96-108); Globulin 4.1 gm/dL (2.2-3.7); Glomerular Filtration Rate 14; Glucose 116 mg/dL (70-105); Lactate Dehydrogenase 209 U/L (135-225); Phosphorous 5.9 mg/dL (2.5-4.5); Triglycerides 96 mg/dL (<150)
--- NOTE | 2022-09-05 07:53 | Internal Med Progress Note ---
SUBJECTIVE Subjective Patient information: Note initiated : 09/05/22 at 7:41 am Service Date, if different from initiated Date: [] Patient: Bebo Barnes a 87 y/o M admitted on 08/26/22 for Abscess to groin, Celulitis, Sepsis. Chief Complaint: [] Principal diagnosis: Cellulitis Interval history: Hospital course: Mr. Barnes is a 87 year old M with history of diabetes mellitus 2 with neuropathy, hypertension, hyperlipidemia, CKD stage IV baseline creatinine unknown, anemia, BPH, history of prostate cancer noted a bump in his right groin 3 days ago, that has been growing since then. He has been feeling feverish associated with chills. It hurts whenever anything touches it. He reported no drainage, no nausea vomiting. Patient was seen at [facility] first and was sent to ED for concerns of sepsis secondary to abscess in his groin. In ER patient was in sepsis with tachycardia of 92, leukocytosis of 25,000, lac tic acidosis 3.0, acute kidney injury with creatinine of 2.7. Lab work also showed chronic anemia of 10.9, hyperglycemia 2-3. CT scan showed cellulitis in the subcutaneous fat of the right upper thigh and right buttock region. No evidence of abscess. Patient was admitted to the floor. 08/27. Patient seen and examined. Patient had low-grade fever of 99.9 F overnight, somewhat hypotensive with BP 106/44. Leukocytosis somewhat improved however still elevated at 21,000 significantly. Patient serum creatinine improved to 2.5 from 2.7 yesterday. BUN and down to 77 from 86 yesterday. Glucose improved to 176 from 2-3 before. HBA 1C came to A1c is 7.7. Blood culture is still pending. He remains on IV Zosyn and clindamycin. Will give 1 L NS for hypotension and acute kidney injury. 08/28 patient reports feeling better. WBC slightly improved to 19,000 from 21,000, hemoglobin 8.6 down from 9.2, likely in the setting of hemodilution. Creatinine worsened to 2.7 from 2.5 yesterday. His baseline is around 1.9-2.0. He has stage IV kidney disease at baseline. RN reported patient was having urine dribbling. Suspect urinary retention. Will put Rogers catheter in. HbA1c 7.7 08/29. No fevers overnight, leukocytosis slightly improved to 18,000. Reports scrotal discomfort is improving. Serum creatinine 2.6 down from 2.7 yesterday. BUN same 83. Patient is tolerating antibiotics 08/30 afebrile, leukocytosis up to 19.8 from 18.8 yesterday, creatinine 2.6 stable. Will order CRP and procalcitonin to follow-up on his infection. Also will obtain repeat CT scan of pelvis to see if he has an abscess 08/31 Patient is doing better today, white cell counts has come down.. The area of cellulitis and an abscess continues to drain. I was able to drain about 5 cc of pus by squeezing the area. Cellulitis coalesced into abscess which is now spontaneously draining. Appreciate Dr. Yanez recommendations. Recommending to continue twice daily dressing change. 09/01 leukocytosis trending down slowly. No fever. Right groin with minimal discharge. Cultures are pending. 09/02. WBC 17,000 down from 17.7 yesterday. Still purulent discharge from right groin. No fever. Wound culture and urine cultures negative. Patient on antibiotics. 09/03 No acute events overnight. Patient with leukocytosis with very slow gradual improvement. Creatinine 2.3. Wound culture with no growth.Although there is gram-negative bacilli that did not grow in the aerobic culture possible anaerobe s. 09/04 Patient states that he had poor sleep last night because his bladder was full. Sounds like the Rogers malfunction probably from clots that he is has developed noticeable gross hematuria. Repeat CT pelvis today shows improving cellulitis and resolving abscess but this shows worsening obstructive distal ureters concerning for possible blood within the ureters as well as inflamed bladder wall. Will discuss with urology. 09/05 Larger Rogers catheter placed yesterday day by urology and irrigation by nursing. Overnight Rogers catheter stopped producing fluid. Nurse irrigated this morning as able to get out some bloody fluid. However creatinine worsened and with corresponding electrolyte abnormalities with elevated potassium/phos/mag. Patient seems to be obstructing again. Urgent renal ultrasound ordered and will likely need to discuss again with urology. Patient otherwise is feeling fine and slept okay. Review of Systems: denies headache/fever/chills/nausea/vomiting/chest or abdominal pain/cough/dyspnea/diarrhea. Otherwise see above. PHYSICAL EXAM General: Alert, Awake, No acute Distress, obese Eyes/N/T: EOMI, no scleral icterus, Head/Neck: neck supple, full ROM, CV: RRR, No murmurs, Pulm: Clear b/l, no wheezing/rhonchi/rales, no respiratory distress Abd: soft, nontender, +BS x4, groin dressing in place, Ext: no clubbing/cyanosis, b/l LE trace edema, nontender Neuro: Alert, no focal deficits, moves all extremities, , sensations intact b/l upper/lower Psychiatric: Skin: Right groin with less erythema and light drainage, cellulitis improving Constitutional Vitals: Vital Signs Temp Pulse Resp BP Pulse Ox O2 Del Method 98.8 F 79 24 H 140/60 97 Room Air 09/05/22 03:45 09/05/22 03:45 09/05/22 03:45 09/05/22 03:45 09/05/22 03:45 09/05/22 03:45 Period Temp Pulse Resp BP Sys/Canela Pulse Ox O2 Del Method O2 Flow Rate Last 24 Hr 97.9 F-98.8 F 77-94 16-24 129-158/54-74 96-98 Room Air-Room Air Intake and Output 09/04/22 09/05/22 09/05/22 19:59 03:59 11:59 Intake Total 50 720 350 Output Total 300 235 350 Balance -250 485 0 Weight 104.326 kg 103.464 kg Intake & Output: Intake & Output 09/04/22 09/05/22 09/05/22 19:59 03:59 11:59 Intake Total 50 720 350 Output Total 300 235 350 Balance -250 485 0 Weight 104.326 kg 103.464 kg Intake: IV 50 100 50 Zosyn 2.25 gm In Dextrose 5% in 50 100 50 Water 50 ml @ 100 mls/hr IV Q6H [facility] Rx#:[id number] Oral 500 CBI Fluid 120 300 Output: Urine Catheter Amount 300 100 CBI Fluid 135 350 Other: Urine Appearance Hematuria Small Blood Clots Uretheral (Rogers) Hematuria Small Blood Clots Small Blood Clots Large Blood Clots Urine Color Dark Red Dark Red Uretheral (Rogers) Dark Red Dark Red Dark Red Stool Size Moderate Stool Color Brown Stool Consistency Soft Net CBI 0 30 OBJ DATA Labs 09/05/22 05:39 09/05/22 05:39 Labs: Abnormal Lab Results 09/05/22 09/05/22 09/04/22 05:39 05:39 15:00 WBC 19.7 H RBC 3.08 L Hgb 9.5 L 9.0 L Hct 28.3 L 27.4 L Immature Gran % (Auto) 0.8 H Neut % (Auto) 84.7 H Lymph % (Auto) 7.6 L Lymph # (Auto) 1.49 L Campbell # (Auto) 1.11 H Seg Neutrophils % Lymphocytes % Immature Gran # 0.15 H Absolute Neutrophils 16.67 H Potassium 5.6 H Chloride Carbon Dioxide 19 L BUN 88 H Creatinine 3.6 H Glucose 116 H Uric Acid 9.0 H Phosphorus 5.9 H* Magnesium 2.6 H GGT 87 H ALT 53 H Total Protein Albumin 2.4 L Globulin 4.1 H Albumin/Globulin Ratio 0.6 L 09/04/22 09/04/22 09/03/22 05:40 05:40 05:40 WBC 16.6 H RBC 2.98 L Hgb 8.9 L Hct 27.2 L Immature Gran % (Auto) 1.0 H Neut % (Auto) 87.1 H Lymph % (Auto) 5.5 L Lymph # (Auto) 0.91 L Campbell # (Auto) Seg Neutrophils % 87 H Lymphocytes % 7 L Immature Gran # 0.16 H Absolute Neutrophils 14.49 H Potassium Chloride Carbon Dioxide 19 L BUN 77 H Creatinine 2.4 H Glucose 117 H Uric Acid Phosphorus Magnesium GGT ALT Total Protein Albumin Globulin Albumin/Globulin Ratio 09/03/22 09/03/22 09/02/22 05:40 05:40 05:32 WBC 15.8 H RBC 2.78 L Hgb 8.4 L Hct 25.5 L Immature Gran % (Auto) 1.0 H Neut % (Auto) 81.6 H Lymph % (Auto) 8.6 L Lymph # (Auto) 1.36 L Campbell # (Auto) Seg Neutrophils % Lymphocytes % Immature Gran # 0.15 H Absolute Neutrophils 12.87 H Potassium Chloride 109 H Carbon Dioxide 19 L 19 L BUN 81 H 89 H Creatinine 2.3 H 2.5 H Glucose 127 H 129 H Uric Acid Phosphorus Magnesium GGT 79 H ALT 50 H 58 H Total Protein 5.7 L 5.8 L Albumin 2.1 L 2.1 L Globulin Albumin/Globulin Ratio 0.6 L 0.6 L Meds: Medications Acetaminophen (Acetaminophen 325 Mg Tablet) 650 mg PO Q6HP PRN; Protocol PRN Reason: Per Pain Protocol/Fever > 101 Last Admin: 09/04/22 09:47 Dose: 650 mg Artificial Tears (Carboxymethylcellulose Sodium 1 Each Droper.Gel) 1 each OU TID [facility] Last Admin: 09/04/22 21:50 Dose: 1 each Ascorbic Acid (Ascorbic Acid 500 Mg Tablet) 500 mg PO DAILY [facility] Last Admin: 09/04/22 08:50 Dose: 500 mg Atorvastatin Calcium (Atorvastatin 40 Mg Tablet) 80 mg PO HS [facility] Last Admin: 09/04/22 21:50 Dose: 80 mg Dextrose (Dextrose 50% 50 Ml Vial) 0 ml IV UD PRN PRN Reason: Per Sliding Scale Diagnostic Test (Pha) (Accu-Chek 1 Each Strip) 1 each FS ACHS [facility] Last Admin: 09/04/22 21:54 Dose: 1 each Docusate Sodium (Docusate Sodium 100 Mg Capsule) 100 mg PO BID [facility] Last Admin: 09/04/22 21:49 Dose: 100 mg Famotidine (Famotidine 20 Mg Tablet) 20 mg PO QAM [facility] Last Admin: 09/04/22 08:50 Dose: 20 mg Glucose (Dextrose 31 Gm Oral.Susp) 15 gm PO PRN PRN PRN Reason: Hypoglycemia Hydralazine HCl (Hydralazine 20 Mg/Ml Vial) 10 mg IV Q4-6HP PRN PRN Reason: Hypertension Piperacillin Sod/Tazobactam (Sod 2.25 gm/ Dextrose) 50 mls @ 100 mls/hr IV Q6H [facility]; Protocol Last Infusion: 09/05/22 06:43 Dose: Infused Insulin Glargine (Insulin Glargine, Human 1 Unit/0.01 Ml) 35 unit SQ QHS [facility] Last Admin: 09/04/22 22:00 Dose: 35 units Insulin Human Lispro (Insulin Lispro 1 Unit/0.01 Ml Unit) 4 unit SQ [facility] Last Admin: 09/04/22 21:59 Dose: 4 units Insulin Human Lispro (Insulin Lispro 1 Unit/0.01 Ml Unit) 0 unit SQ [facility]; Protocol Last Admin: 09/04/22 22:00 Dose: 8 units Magnesium Hydroxide (Magnesium Hydroxide 30 Ml Oral.Susp) 30 ml PO DAILYP PRN PRN Reason: Constipation Metoprolol Succinate (Metoprolol Succinate 50 Mg Tab.Xl.24h) 25 mg PO BID [facility] Last Admin: 09/04/22 21:49 Dose: 25 mg Ondansetron HCl (Ondansetron 4 Mg/2 Ml Vial) 4 mg IV Q6HP PRN PRN Reason: Nausea And Vomiting Oxycodone HCl (Oxycodone Ir 5 Mg Tablet) 5 mg PO Q4HP PRN; Protocol PRN Reason: Per Pain Protocol Last Admin: 09/04/22 09:47 Dose: 5 mg Senna (Sennosides 1 Tablet) 2 tab PO HS [facility] Last Admin: 09/04/22 22:01 Dose: Not Given Sodium Chloride (0.9 % Sodium Chloride 10 Ml Syringe) 10 ml IV Q8 [facility] Last Admin: 09/05/22 06:06 Dose: 10 ml Tamsulosin HCl (Tamsulosin 0.4 Mg Capsule) 0.4 mg PO QDAY [facility] Last Admin: 09/04/22 08:49 Dose: 0.4 mg Trazodone HCl (Trazodone Hcl 50 Mg Tablet) 25 mg PO HSP PRN PRN Reason: Insomnia Last Admin: 08/27/22 21:06 Dose: 25 mg Vitamin D (Vitamin D3 25 Mcg Tablet) 25 mcg PO DAILY [facility] Last Admin: 09/04/22 08:49 Dose: 25 mcg A/P Narrative A/P Narrative: Assessment and plan *Sepsis: 2/2 groin abscess/cellulitis -leukocytosis worsened; check man diff; suspect reactive from renal issues -recheck UA and monitor for other source of infection, no resp symptoms -may be reactive from current situation *Right groin cellulitis and abscess: -f/u CT yesterday with improving cellulitis and resolving abscess -Cellulitis coalesced into abscess which is now spontaneously draining -Appreciate Surgery following -Continue twice daily dressing -Continue IV Zosyn -Wound culture is negative. *HENNY vs progression of CKD stage IV: improved but worsened after gross hematuria and ureteral obstruction -Patient noted to have urinary retention, status post Rogers with immediate drainage of 1100 cc on admit -Patient with history of BPH and prostate issues and was noted to have dribbling prior to Rogers catheter placement -b/l ureteral obstruction likley from blood clots -Repeat BMP. Hold HCTZ and lisinopril -renal u/s *Gross Hematuria: likely 2/2 rogers/prostate trauma *Worsening b/l ureteral dilation: likely 2/2 blood clotting -Urology following *BPH w/UR: -CT with mild prostate enlargement. Mild wall urinary bladder could indicate -chronic bladder outlet narrowing. There is also moderate dilatation of both ureters -Renal ultrasound mild left hydronephrosis. -Continue with home dose tamsulosin *Metabolic acidosis: *Hyperkalemia/Hyperphos/Hyperma: 2/2 HENNY. monitor *DM2: with hyperglycemia on admit -A1c 7.7 on 08/26/2022. -lispro 4 to 6 units AC, continue glargine 35 units.ssi *Anemia, likely of chronic kidney disease -Patient is on iron supplementation at home which is continued *Hypertension/Hyperlipidemia: -Continue to hold hydrochlorothiazide and lisinopril due to HENNY -Will give IV labetalol and IV hydralazine as needed for blood pressure control -Continue home dose atorvastatin *Generalized weakness/deconditioning: -PT eval. patient will likely need rehab at SNF. -Case management on board *Obesity: BMI 33 -lifestyle modifications *prophylaxis: SCD(heparin d/c'd) / pepcid CODE STATUS, full code Time Spent With Patient Time: Total time spent is greater than 50% in coordination of care (as documented) at patient's floor/unit and/or counseling patient: Subsequent: Total time with patient: 50 - 65 Minutes QUALITY Stroke Symptom Onset Unknown: No VTE Deep Vein Thrombosis/Pulmonary Embolism Present on Admission: No
[2022-09-05] MEDS: INSULIN LISPRO 1 UNIT/0.01 ML UNIT SQ SCH ×8 (07:55→22:30)
[2022-09-05] MEDS: TAMSULOSIN 0.4 MG CAPSULE PO SCH (08:36)
[2022-09-05] MEDS: 0.9 % SODIUM CHLORIDE 1,000 ML IV SCH ×2 (08:36→15:39)
[2022-09-05] MEDS: METOPROLOL SUCCINATE 50 MG TAB.XL.24H PO SCH ×2 (08:36→22:18)
[2022-09-05] MEDS: CARBOXYMETHYLCELLULOSE SODIUM 1 EACH DROPER.GEL OU SCH ×3 (08:36→22:19)
[2022-09-05] MEDS: ASCORBIC ACID 500 MG TABLET PO SCH (08:36)
[2022-09-05] MEDS: FAMOTIDINE 20 MG TABLET PO SCH (08:36)
[2022-09-05] MEDS: DOCUSATE SODIUM 100 MG CAPSULE PO SCH ×2 (08:36→22:18)
[2022-09-05] MEDS: VITAMIN D3 25 MCG TABLET PO SCH (08:36)
[2022-09-05 09:29] LABS: Band Neutrophils % 6 % (0-10); Eosinophils % (Manual) 2 % (0-7); Lymphocytes % 8 % (15-49); Monocytes % (Manual) 5 % (1-12); Platelet Estimate NORMAL (Normal); RBC Morphology NORMAL (Normal); Segmented Neutrophils % 79 % (38-78)
--- NOTE | 2022-09-05 10:04 | Ultrasound Report ---
History: Gross hematuria with diminished urine output FINDINGS: Right kidney measures 6.3 x 7.0 x 13.5 cm and the left measures 5.0 x 6.4 x 12.7 cm. There is significant thinning of the renal cortex bilaterally due to atrophy. Moderate hydronephrosis is present in both kidneys. Both ureters are dilated. The right measures 2.2 cm and left measures up to 2.6 cm in diameter. No mass or stone are seen in either kidney. There is no perinephric fluid collection. Urinary bladder is decompressed and cannot be visualized. Comparison with the prior CT done yesterday shows no change in caliber of the ureters. IMPRESSION: Nonvisualized obstruction in the distal ureters causing moderate bilateral hydronephrosis. Moderate atrophy in both kidneys Interpreted and Authenticated by: Quincy Israel 09/05/22
--- NOTE | 2022-09-05 10:25 | Urology Progress Note ---
SUBJECTIVE Subjective Patient information: Note initiated : 09/05/22 at 10:21 am Service Date, if different from initiated Date: [] Patient: Bebo Barnes a 87 y/o M admitted on 08/26/22 for Abscess to groin, Celulitis, Sepsis. Chief Complaint: [Bilateral ureterectasis and hydronephrosis with a decompressed bladder] Principal diagnosis: Cellulitis Interval history: Bebo is a an 87-year-old male with bilateral hydronephrosis and ureterectasis and a decompressed bladder. He also continues to have gross hematuria. His white blood cell count remains elevated. He has a right groin wound. Constitutional Vitals: Vital Signs Temp Pulse Resp BP Pulse Ox O2 Del Method 99.1 F H 78 16 137/52 98 Room Air 09/05/22 07:55 09/05/22 07:55 09/05/22 07:55 09/05/22 07:55 09/05/22 07:55 09/05/22 07:55 Period Temp Pulse Resp BP Sys/Canela Pulse Ox O2 Del Method O2 Flow Rate Last 24 Hr 98.1 F-99.1 F 77-82 16-24 129-158/52-74 96-98 Room Air-Room Air Intake and Output 09/04/22 09/05/22 09/05/22 19:59 03:59 11:59 Intake Total 50 720 590 Output Total 300 235 350 Balance -250 485 240 Weight 104.326 kg 103.464 kg Intake & Output: Intake & Output 09/04/22 09/05/22 09/05/22 19:59 03:59 11:59 Intake Total 50 720 590 Output Total 300 235 350 Balance -250 485 240 Weight 104.326 kg 103.464 kg Intake: Nourishment/Supplement quantity 240 (ml) IV 50 100 50 Zosyn 2.25 gm In Dextrose 5% in 50 100 50 Water 50 ml @ 100 mls/hr IV Q6H [facility] Rx#:[id number] Oral 500 CBI Fluid 120 300 Output: Urine Catheter Amount 300 100 CBI Fluid 135 350 Other: Meal Breakfast Percent of Meal Consumed 75% Feeding Ability Independent Nourishment/Supplement name ensure Urine Appearance Hematuria Small Blood Clots Hematuria Uretheral (Wood) Hematuria Small Blood Clots Small Blood Clots Urine Color Dark Red Dark Red Dark Red Uretheral (Wood) Dark Red Dark Red Dark Red Stool Size Moderate Stool Color Brown Stool Consistency Soft Net CBI 0 30 Expanded Exam Urine Appearance: Clear Urine Color: Medium Red A/P Assessment and plan (1) Gross hematuria: Status: Acute (2) Sepsis: Status: Acute Qualifiers: Sepsis acute organ dysfunction status: without acute organ dysfunction Sepsis type: sepsis due to unspecified organism Qualified Code(s): A41.9 - Sepsis, unspecified organism (3) Incomplete bladder emptying: Status: Acute (4) Urethral stricture: Status: Acute (5) Bilateral hydronephrosis: Status: Acute (6) Carcinoma of prostate: Status: Chronic Comment: s/p Radiation 1994 Narrative A/P Narrative: Bebo is an 87-year-old male with a history of prostate cancer status post rad iation. He has a history of a distal urethral stricture. Most recently he began to have gross hematuria with clot retention. He had a [address] catheter in [address]. This was changed yesterday to a 22 Hebrew catheter which for the most part has drained well and has needed to be irrigated on several occasions to keep it draining the urine remains a clear red. Follow-up renal ultrasound today shows continued bilateral hydronephrosis and ureterectasis down to the bladder with a decompressed bladder We discussed going to the operating room for cystoscopy, bilateral retrograde pyelograms, and bilateral ureteral stent placement. I discussed the procedure with the patient. He understands the procedure and the risks and agrees to proceed. Time Spent With Patient Time: Total time spent is greater than 50% in coordination of care (as documented) at patient's floor/unit and/or counseling patient:
--- NOTE | 2022-09-05 14:18 | Event Note ---
Event Note Event Note: I saw Mr Barnes with [facility]. Reviewed ongoing wound care. Reviewed details of patient's condition, and subsequent progress / plan of care by Dr. Richardson, Patient has RIGHT groin wound with clear drainage and firm subcutaneous nodules. Spoke with Dr. Richardson. Await OR evaluation by Dr. Richardson. Continue ongoing care / change dressings RIGHT groin as needed.
[2022-09-05] MEDS ORDERED: ONDANSETRON 4 MG/2 ML VIAL ONE (18:48)
[2022-09-05] MEDS ORDERED: GLYCOPYRROLATE 0.2 MG/ML VIAL IV ONE (18:48)
[2022-09-05] MEDS ORDERED: LIDOCAINE HCL/PF 100 MG/5 ML SYRINGE IV ONE (18:48)
[2022-09-05] MEDS ORDERED: SUGAMMADEX SODIUM 200 MG/2 ML VIAL IV ONE (18:48)
[2022-09-05] MEDS ORDERED: PHENYLephrine 1 MG/10 ML SYRINGE (ANEST) ONE (18:48)
[2022-09-05] MEDS ORDERED: PROPOFOL 200 MG/20 ML VIAL IV ONE (18:48)
[2022-09-05] MEDS ORDERED: MIDAZOLAM 2 MG/2 ML VIAL ONE (18:48)
[2022-09-05] MEDS ORDERED: KETAMINE 50 MG/ML Syringe (ANEST) IV ONE (18:48)
[2022-09-05] MEDS ORDERED: DEXAMETHASONE 10 MG/ML VIAL ONE (18:48)
[2022-09-05] MEDS ORDERED: ROCURONIUM 10 MG/ML ML IV ONE (18:48)
[2022-09-05] MEDS ORDERED: LIDOCAINE 2% URO-JET 10 ML JEL.PF.APP UR ONE (19:09)
[2022-09-05] MEDS ORDERED: IOVERSOL 20 ML VIAL IJ ONE (19:10)
[2022-09-05] MEDS ORDERED: PROMETHAZINE 25 MG/ML VIAL IV PRN (19:56)
[2022-09-05] MEDS ORDERED: fentaNYL 100 MCG/2 ML VIAL IV PRN (19:56)
[2022-09-05] MEDS ORDERED: ONDANSETRON 4 MG/2 ML VIAL IV PRN (19:56)
[2022-09-05] MEDS ORDERED: METHOCARBAMOL 1,000 MG/10 ML VIAL IV PRN (19:56)
[2022-09-05] MEDS ORDERED: IPRATROPIUM/ALBUTEROL 3 ML AMPUL.NEB NEB PRN (19:56)
[2022-09-05] MEDS ORDERED: OPIUM/BELLADONNA ALKALOIDS 30 MG SUPP.RECT PR SCH (20:00)
--- NOTE | 2022-09-05 20:15 | Operative Note ---
Brief Operative Note Date of procedure: 09/05/22 Pre-op diagnosis: Bilateral ureterectasis, hydronephrosis and gross hematuria, urethral stric Post-op diagnosis: same Procedure: Cystoscopy, evacuation of clot, bilateral retrograde pyelograms, bilateral ureteral stent placement, Wood placement. Grafts/Implants: Yes (7 x 24 cm right ureteral stent with no string, 7 x 26 cm left ureteral sten) Anesthesia: GETA Findings: Blood seen in both ureteral orifices. Both ureteral orifices appeared to be obstructed. Severe proximal ureterectasis and hydronephrosis. Urethral stricture. Complications: none Surgeon: Cody Richardson Estimated blood loss (cc): 15 Specimens Removed/Pathology: none sent Condition: stable Disposition: PACU Operative Note Operative Note: After obtaining informed consent from the patient, he was brought to the operating room was placed upon on the operating table. General anesthesia was provided. He was repositioned in a dorsolithotomy position was prepped and draped in usual sterile fashion. Attention was directed to the urethral meatus where a 21 Rwandan cystoscope was passed per urethra into the bladder. The pallavi ent was noted to have a urethral stricture which allowed passage of the cystoscope. There was irritation of the urethra. There was blood clot that was irrigated out. With extreme difficulty I was eventually able to identify both ureteral orifices which appeared to have blood within them. Bilateral retrograde pyelograms were performed that revealed bilateral proximal severe ureterectasis and hydronephrosis. I placed a wire through the right ureteral orifice with difficulty and passed a 7 Rwandan by 24 cm right ureteral stent with no string. This appeared to drain well. I then passed a wire through the left ureter and passed a 7 Rwandan by 26 cm ureteral stent with no string leaving a good curl on both sides in the kidneys and a good curl in the bladder. I then performed a cystogram and did not see any bladder extravasation. I then with difficulty placed a 24 Rwandan three-way Wood catheter. The balloon was inflated with 15 mL of sterile water. Placement was confirmed with cystogram. The catheter was then placed to gravity drainage and continuous bladder irrigation was started. The patient was returned to the spine position. He was awake and returned to the recovery in stable condition.
[2022-09-05] MEDS ORDERED: MEPERIDINE 25 MG/ML VIAL IV ONE (20:29)
[2022-09-05] MEDS ORDERED: MEPERIDINE 50 MG/ML VIAL ONE (20:36)
[2022-09-05] MEDS: ATORVASTATIN 40 MG TABLET PO SCH (22:18)
[2022-09-05] MEDS: SENNOSIDES 1 TABLET PO SCH (22:18)
[2022-09-05] MEDS: INSULIN GLARGINE, HUMAN 1 UNIT/0.01 ML SQ SCH (22:29)
[2022-09-06] MEDS: PIPERACILLIN SODIUM/TAZOBACTAM 2.25 GM in DEXTROSE 5% IN WATER 50 ML IV SCH (05:10)
[2022-09-06] MEDS: 0.9 % SODIUM CHLORIDE 10 ML SYRINGE IV SCH ×6 (05:10→20:15)
[2022-09-06 06:04] LABS: Basophils # (Auto) 0.05 K/mcL (0.00-0.30); Basophils % (Auto) 0.3 % (0.0-2.0); Eosinophils # (Auto) 0.01 K/mcL (0.00-0.70); Eosinophils % (Auto) 0.1 % (0.0-7.0); Hematocrit 26.5 % (40.1-51.0); Hemoglobin 8.6 g/dL (13.7-17.5); Lymphocytes # (Auto) 1.26 K/mcL (1.50-4.80); Lymphocytes % (Auto) 6.4 % (15.5-49.0); Mean Corpuscular HGB Conc 32.5 g/dL (31.0-36.0); Mean Platelet Volume 10.7 fL (8.8-12.5); Monocytes # (Auto) 0.29 K/mcL (0.10-0.90); Monocytes % (Auto) 1.5 % (1.0-12.0); Platelet Count 283 K/mcL (140-440); RBC 2.85 M/mcL (4.63-6.08); Red Cell Distribution Width 13.1 % (11.5-14.5); WBC 19.5 K/mcL (4.5-11.0)
[2022-09-06 06:54] LABS: ALT/SGPT 43 U/L (<40); AST/SGOT 25 U/L (<40); Albumin 2.3 gm/dL (3.2-5.2); Albumin/Globulin Ratio 0.6 (1.0-2.3); Alkaline Phosphatase 75 U/L (39-117); Bilirubin,Direct < 0.2 mg/dL (0-0.3); Bilirubin,Total 0.2 mg/dL (0.1-1.0); Blood Urea Nitrogen 94 mg/dL (8-23); Calcium 8.9 mg/dL (8.6-10.4); Carbon Dioxide 17 mmol/L (22-30); Chloride 105 mmol/L (96-108); Globulin 3.8 gm/dL (2.2-3.7); Glomerular Filtration Rate 11; Glucose 152 mg/dL (70-105); Lactate Dehydrogenase 178 U/L (135-225); Phosphorous 8.3 mg/dL (2.5-4.5); Triglycerides 65 mg/dL (<150); Uric Acid 9.3 mg/dL (2.5-8.0)
[2022-09-06] MEDS ORDERED: INSULIN REGULAR, HUMAN 1 UNIT/0.01 ML UNIT IV SCH (07:18)
[2022-09-06] MEDS ORDERED: DEXTROSE 50% 50 ML SYRINGE IV ONE (07:18)
[2022-09-06] MEDS ORDERED: SODIUM BICARBONATE 50 MEQ/50 ML VIAL IV ONE ×2 (07:20→16:52)
[2022-09-06] MEDS ORDERED: SODIUM POLYSTYRENE SULFONATE 15 GM/60 ML SUSPENSION PO SCH ×2 (07:21→16:56)
[2022-09-06] MEDS ORDERED: SODIUM BICARBONATE VIAL 50 MEQ in EMPTYBAG 0 ML IV SCH ×2 (07:45→17:15)
--- NOTE | 2022-09-06 07:45 | Internal Med Progress Note ---
SUBJECTIVE Subjective Patient information: Note initiated : 09/06/22 at 7:36 am Service Date, if different from initiated Date: [] Patient: Bebo Barnes a 87 y/o M admitted on 08/26/22 for Abscess to groin, Celulitis, Sepsis. Chief Complaint: [] Principal diagnosis: Cellulitis Interval history: Hospital course: Mr. Barnes is a 87 year old M with history of diabetes mellitus 2 with neuropathy, hypertension, hyperlipidemia, CKD stage IV baseline creatinine unknown, anemia, BPH, history of prostate cancer noted a bump in his right groin 3 days ago, that has been growing since then. He has been feeling feverish associated with chills. It hurts whenever anything touches it. He reported no drainage, no nausea vomiting. Patient was seen at [facility] first and was sent to ED for concerns of sepsis secondary to abscess in his groin. In ER patient was in sepsis with tachycardia of 92, leukocytosis of 25,000, lac tic acidosis 3.0, acute kidney injury with creatinine of 2.7. Lab work also showed chronic anemia of 10.9, hyperglycemia 2-3. CT scan showed cellulitis in the subcutaneous fat of the right upper thigh and right buttock region. No evidence of abscess. Patient was admitted to the floor. 08/27. Patient seen and examined. Patient had low-grade fever of 99.9 F overnight, somewhat hypotensive with BP 106/44. Leukocytosis somewhat improved however still elevated at 21,000 significantly. Patient serum creatinine improved to 2.5 from 2.7 yesterday. BUN and down to 77 from 86 yesterday. Glucose improved to 176 from 2-3 before. HBA 1C came to A1c is 7.7. Blood culture is still pending. He remains on IV Zosyn and clindamycin. Will give 1 L NS for hypotension and acute kidney injury. 08/28 patient reports feeling better. WBC slightly improved to 19,000 from 21,000, hemoglobin 8.6 down from 9.2, likely in the setting of hemodilution. Creatinine worsened to 2.7 from 2.5 yesterday. His baseline is around 1.9-2.0. He has stage IV kidney disease at baseline. RN reported patient was having urine dribbling. Suspect urinary retention. Will put Rogers catheter in. HbA1c 7.7 08/29. No fevers overnight, leukocytosis slightly improved to 18,000. Reports scrotal discomfort is improving. Serum creatinine 2.6 down from 2.7 yesterday. BUN same 83. Patient is tolerating antibiotics 08/30 afebrile, leukocytosis up to 19.8 from 18.8 yesterday, creatinine 2.6 stable. Will order CRP and procalcitonin to follow-up on his infection. Also will obtain repeat CT scan of pelvis to see if he has an abscess 08/31 Patient is doing better today, white cell counts has come down.. The area of cellulitis and an abscess continues to drain. I was able to drain about 5 cc of pus by squeezing the area. Cellulitis coalesced into abscess which is now spontaneously draining. Appreciate Dr. Yanez recommendations. Recommending to continue twice daily dressing change. 09/01 leukocytosis trending down slowly. No fever. Right groin with minimal discharge. Cultures are pending. 09/02. WBC 17,000 down from 17.7 yesterday. Still purulent discharge from right groin. No fever. Wound culture and urine cultures negative. Patient on antibiotics. 09/03 No acute events overnight. Patient with leukocytosis with very slow gradual improvement. Creatinine 2.3. Wound culture with no growth.Although there is gram-negative bacilli that did not grow in the aerobic culture possible anaerobe s. 09/04 Patient states that he had poor sleep last night because his bladder was full. Sounds like the Rogers malfunction probably from clots that he is has developed noticeable gross hematuria. Repeat CT pelvis today shows improving cellulitis and resolving abscess but this shows worsening obstructive distal ureters concerning for possible blood within the ureters as well as inflamed bladder wall. Will discuss with urology. 09/05 Larger Rogers catheter placed yesterday day by urology and irrigation by nursing. Overnight Rogers catheter stopped producing fluid. Nurse irrigated this morning as able to get out some bloody fluid. However creatinine worsened and with corresponding electrolyte abnormalities with elevated potassium/phos/mag. Patient seems to be obstructing again. Urgent renal ultrasound ordered and will likely need to discuss again with urology. Patient otherwise is feeling fine and slept okay. 09/06 Patient had cystoscopy with bilateral ureteral stents and evacuation of clots last evening. Currently undergoing CBI. Leukocytosis same as yesterday. But afebrile and no bandemia. Renal function worse patient likely has acute tubular necrosis. Hyperkalemia and hyperphosphatemia noted. Metabolic acidosis. Nephrology consult. Gross hematuria much improved Rogers bag fluid now pale red. Review of Systems: denies headache/fever/chills/nausea/vomiting/chest or abdominal pain/cough/dyspnea/diarrhea. Otherwise see above. PHYSICAL EXAM General: Alert, Awake, No acute Distress, obese Eyes/N/T: EOMI, no scleral icterus, Head/Neck: neck supple, full ROM, CV: RRR, No murmurs, Pulm: Clear b/l, no wheezing/rhonchi/rales, no respiratory distress Abd: soft, nontender, +BS x4, groin dressing in place, Ext: no clubbing/cyanosis, b/l LE trace edema, nontender Neuro: Alert, no focal deficits, moves all extremities, , sensations intact b/l upper/lower Psychiatric: Skin: Right groin with less erythema and light drainage, cellulitis improved Constitutional Vitals: Vital Signs Temp Pulse Resp BP Pulse Ox O2 Del Method O2 Flow Rate 97.3 F 66 20 116/45 93 Room Air 3 09/06/22 03:52 09/06/22 03:52 09/06/22 03:52 09/06/22 03:52 09/06/22 03:52 09/06/22 03:52 09/05/22 20:40 Period Temp Pulse Resp BP Sys/Canela Pulse Ox O2 Del Method O2 Flow Rate Last 24 Hr 97.3 F-99.2 F 66-88 15-20 105-158/45-110 87-100 Nasal Cannula- Room Air 3-5 Intake and Output 09/05/22 09/06/22 09/06/22 19:59 03:59 11:59 Intake Total 1000 43829 6500 Output Total 550 38149 6700 Balance 450 -1250 -200 Weight 104.78 kg Intake & Output: Intake & Output 09/05/22 09/06/22 09/06/22 19:59 03:59 11:59 Intake Total 1000 58056 6500 Output Total 550 12337 6700 Balance 450 -1250 -200 Weight 104.78 kg Intake: IV 800 50 50 Sodium Chloride 0.9% 1,000 ml @ 700 125 mls/hr IV .Q8H [facility] Rx#: [id number] Zosyn 2.25 gm In Dextrose 5% in 100 50 50 Water 50 ml @ 100 mls/hr IV Q6H [facility] Rx#:[id number] Oral 450 GI Tube Flush 200 IV - Manual Only 900 CBI Fluid 33192 6000 Output: Urine Catheter Amount 550 CBI Fluid 31545 6700 Other: Meal NPO [place] Percent of Meal Consumed 100% Feeding Ability Independent Urine Appearance Hematuria Clear Small Blood Clots Hematuria Large Blood Clots Uretheral (Rogers) Hematuria Small Blood Clots Large Blood Clots Urine Color Dark [place] [employer] [place] Uretheral (Rogers) Dark [place] [employer] Net CBI 300 300 OBJ DATA Labs 09/06/22 05:22 09/06/22 05:22 Labs: Abnormal Lab Results 09/06/22 09/06/22 09/05/22 05:22 05:22 07:43 WBC 19.5 H RBC 2.85 L Hgb 8.6 L Hct 26.5 L Immature Gran % (Auto) 0.7 H Neut % (Auto) 91.0 H Lymph % (Auto) 6.4 L Lymph # (Auto) 1.26 L Mclean # (Auto) Seg Neutrophils % 79 H Lymphocytes % 8 L Immature Gran # 0.13 H Absolute Neutrophils 17.80 H Potassium 6.8 H* Carbon Dioxide 17 L BUN 94 H Creatinine 4.5 H Glucose 152 H Uric Acid 9.3 H Phosphorus 8.3 H* Magnesium 2.6 H GGT 72 H ALT 43 H Albumin 2.3 L Globulin 3.8 H Albumin/Globulin Ratio 0.6 L 09/05/22 09/05/22 09/04/22 05:39 05:39 15:00 WBC 19.7 H RBC 3.08 L Hgb 9.5 L 9.0 L Hct 28.3 L 27.4 L Immature Gran % (Auto) 0.8 H Neut % (Auto) 84.7 H Lymph % (Auto) 7.6 L Lymph # (Auto) 1.49 L Mclean # (Auto) 1.11 H Seg Neutrophils % Lymphocytes % Immature Gran # 0.15 H Absolute Neutrophils 16.67 H Potassium 5.6 H Carbon Dioxide 19 L BUN 88 H Creatinine 3.6 H Glucose 116 H Uric Acid 9.0 H Phosphorus 5.9 H* Magnesium 2.6 H GGT 87 H ALT 53 H Albumin 2.4 L Globulin 4.1 H Albumin/Globulin Ratio 0.6 L 09/04/22 09/04/22 09/03/22 05:40 05:40 05:40 WBC 16.6 H RBC 2.98 L Hgb 8.9 L Hct 27.2 L Immature Gran % (Auto) 1.0 H Neut % (Auto) 87.1 H Lymph % (Auto) 5.5 L Lymph # (Auto) 0.91 L Mclean # (Auto) Seg Neutrophils % 87 H Lymphocytes % 7 L Immature Gran # 0.16 H Absolute Neutrophils 14.49 H Potassium Carbon Dioxide 19 L BUN 77 H Creatinine 2.4 H Glucose 117 H Uric Acid Phosphorus Magnesium GGT ALT Albumin Globulin Albumin/Globulin Ratio Meds: Medications Acetaminophen (Acetaminophen 325 Mg Tablet) 650 mg PO Q6HP PRN; Protocol PRN Reason: Per Pain Protocol/Fever > 101 Last Admin: 09/04/22 09:47 Dose: 650 mg Artificial Tears (Carboxymethylcellulose Sodium 1 Each Droper.Gel) 1 each OU TID [facility] Last Admin: 09/05/22 22:19 Dose: 1 each Ascorbic Acid (Ascorbic Acid 500 Mg Tablet) 500 mg PO DAILY [facility] Last Admin: 09/05/22 08:36 Dose: 500 mg Atorvastatin Calcium (Atorvastatin 40 Mg Tablet) 80 mg PO HS [facility] Last Admin: 09/05/22 22:18 Dose: 80 mg Dextrose (Dextrose 50% 50 Ml Vial) 0 ml IV UD PRN PRN Reason: Per Sliding Scale Diagnostic Test (Pha) (Accu-Chek 1 Each Strip) 1 each FS ACHS [facility] Last Admin: 09/05/22 22:23 Dose: 1 each Docusate Sodium (Docusate Sodium 100 Mg Capsule) 100 mg PO BID [facility] Last Admin: 09/05/22 22:18 Dose: 100 mg Famotidine (Famotidine 20 Mg Tablet) 20 mg PO QAM [facility] Last Admin: 09/05/22 08:36 Dose: 20 mg Glucose (Dextrose 31 Gm Oral.Susp) 15 gm PO PRN PRN PRN Reason: Hypoglycemia Hydralazine HCl (Hydralazine 20 Mg/Ml Vial) 10 mg IV Q4-6HP PRN PRN Reason: Hypertension Piperacillin Sod/Tazobactam (Sod 2.25 gm/ Dextrose) 50 mls @ 100 mls/hr IV Q6H [facility]; Protocol Last Infusion: 09/06/22 05:40 Dose: Infused Sodium Bicarbonate 50 meq/ (EMPTYBAG) 50 mls @ 100 mls/hr IV ONCE [facility] Stop: 09/06/22 10:00 Insulin Glargine (Insulin Glargine, Human 1 Unit/0.01 Ml) 35 unit SQ QHS [facility] Last Admin: 09/05/22 22:29 Dose: 35 units Insulin Human Lispro (Insulin Lispro 1 Unit/0.01 Ml Unit) 0 unit SQ [facility]; Protocol Last Admin: 09/05/22 22:23 Dose: Not Given Insulin Human Lispro (Insulin Lispro 1 Unit/0.01 Ml Unit) 6 unit SQ [facility] Last Admin: 09/05/22 22:30 Dose: Not Given Insulin Human Regular (Insulin Regular, Human 1 Unit/0.01 Ml Unit) 10 unit IV ONCE [facility] Stop: 09/06/22 10:00 Magnesium Hydroxide (Magnesium Hydroxide 30 Ml Oral.Susp) 30 ml PO DAILYP PRN PRN Reason: Constipation Metoprolol Succinate (Metoprolol Succinate 50 Mg Tab.Xl.24h) 25 mg PO BID [facility] Last Admin: 09/05/22 22:18 Dose: 25 mg Ondansetron HCl (Ondansetron 4 Mg/2 Ml Vial) 4 mg IV Q6HP PRN PRN Reason: Nausea And Vomiting Oxycodone HCl (Oxycodone Ir 5 Mg Tablet) 5 mg PO Q4HP PRN; Protocol PRN Reason: Per Pain Protocol Last Admin: 09/04/22 09:47 Dose: 5 mg Senna (Sennosides 1 Tablet) 2 tab PO HS [facility] Last Admin: 09/05/22 22:18 Dose: 2 tab Sodium Chloride (0.9 % Sodium Chloride 10 Ml Syringe) 10 ml IV Q8 [facility] Last Admin: 09/06/22 05:10 Dose: 10 ml Sodium Chloride (0.9 % Sodium Chloride 10 Ml Syringe) 10 ml IV Q8 [facility] Last Admin: 09/06/22 05:10 Dose: Not Given Sodium Polystyrene Sulfonate (Sodium Polystyrene Sulfonate 15 Gm/60 Ml Suspension) 15 gm PO ONCE [facility] Stop: 09/06/22 10:00 Tamsulosin HCl (Tamsulosin 0.4 Mg Capsule) 0.4 mg PO QDAY [facility] Last Admin: 09/05/22 08:36 Dose: 0.4 mg Trazodone HCl (Trazodone Hcl 50 Mg Tablet) 25 mg PO HSP PRN PRN Reason: Insomnia Last Admin: 08/27/22 21:06 Dose: 25 mg Vitamin D (Vitamin D3 25 Mcg Tablet) 25 mcg PO DAILY JAIME Last Admin: 09/05/22 08:36 Dose: 25 mcg A/P Narrative A/P Narrative: Assessment and plan *ATN, HENNY on CKD IV: 2/2 obstructive Uropathy -Hold HCTZ and lisinopril -IVF -good uop -Nephrology consult *Obstructive Uropathy: 2/2 gross hematuria/blood clots from rogers/prostate trauma. s/p b/l ureteral stents (09/06) -Urology following *BPH w/UR: -chronic bladder outlet narrowing. -Continue with home dose tamsulosin *Sepsis: 2/2 groin abscess/cellulitis -leukocytosis worsened after uropathy, non bandemia or fevers, ?reactive, still pending UA -recheck UA and monitor for other source of infection, no resp symptoms -may be reactive from current situation *Right groin cellulitis and abscess: -f/u CT yesterday with improving cellulitis and resolving abscess -Cellulitis coalesced into abscess which is now spontaneously draining -seen by Surgery -Continue twice daily dressing -d/c Zosyn -Wound culture is negative. *Hyperkalemia/Hyperphos/Hyperma/2 HENNY. monitor -Hyerkalemia treatment, f/u bmp today *Metabolic acidosis: 2/2 renal issues *DM2: with hyperglycemia on admit -A1c 7.7 on 08/26/2022. -lispro 4 to 6 units AC, continue glargine 35 units.ssi *Anemia, likely of chronic kidney disease *Hypertension/Hyperlipidemia: -Continue to hold hydrochlorothiazide and lisinopril due to HENNY -Will give IV labetalol and IV hydralazine as needed for blood pressure control -Continue home dose atorvastatin *Generalized weakness/deconditioning: -PT eval. patient will likely need rehab at SNF. -Case management on board *Obesity: BMI 33 -lifestyle modifications *prophylaxis: SCD(heparin d/c'd) / pepcid CODE STATUS, full code Time Spent With Patient Time: Total time spent is greater than 50% in coordination of care (as documented) at patient's floor/unit and/or counseling patient: Subsequent: Total time with patient: 50 - 65 Minutes QUALITY Stroke Symptom Onset Unknown: No VTE Deep Vein Thrombosis/Pulmonary Embolism Present on Admission: No
--- NOTE | 2022-09-06 07:59 | XRay Report ---
HISTORY: FINDINGS: IMPRESSION: 3.2 minutes of fluoroscopy time was used. Interpreted and Authenticated by: Quincy Israel 09/06/22
[2022-09-06] MEDS: 0.9 % SODIUM CHLORIDE 1,000 ML IV SCH ×2 (08:01→19:56)
[2022-09-06] MEDS: INSULIN LISPRO 1 UNIT/0.01 ML UNIT SQ SCH ×8 (08:57→20:33)
[2022-09-06] MEDS: METOPROLOL SUCCINATE 50 MG TAB.XL.24H PO SCH ×2 (08:58→20:12)
[2022-09-06] MEDS: FAMOTIDINE 20 MG TABLET PO SCH (08:58)
[2022-09-06] MEDS: TAMSULOSIN 0.4 MG CAPSULE PO SCH (08:58)
[2022-09-06] MEDS: CARBOXYMETHYLCELLULOSE SODIUM 1 EACH DROPER.GEL OU SCH ×3 (08:58→20:12)
[2022-09-06] MEDS: DOCUSATE SODIUM 100 MG CAPSULE PO SCH ×2 (08:58→20:12)
[2022-09-06] MEDS: VITAMIN D3 25 MCG TABLET PO SCH (08:58)
--- NOTE | 2022-09-06 10:24 | Urology Progress Note ---
SUBJECTIVE Subjective Patient information: Note initiated : 09/06/22 at 10:20 am Service Date, if different from initiated Date: [] Patient: Bebo Barnes a 87 y/o M admitted on 08/26/22 for Abscess to groin, Celulitis, Sepsis. Chief Complaint: [Bebo is an 87-year-old male with a history of bilateral ureteral obstruction and hydronephrosis, gross hematuria] Principal diagnosis: Cellulitis Interval history: Bebo is an 87-year-old male who is postoperative day #1 status post cystoscopy, difficult placement of bilateral ureteral stents, placement of a three-way Wood catheter with commencement of irrigation, and incision and packing of his right groin wound. He is doing well this morning. White blood cell count remains elevated. Serum creatinine remains elevated. Other electrolyte abnormalities are present. Overnight the wound had some bleeding which was packed with some pressure. It is no longer bleeding. The catheter appears to be draining well with irrigation Constitutional Vitals: Vital Signs Temp Pulse Resp BP Pulse Ox O2 Del Method O2 Flow Rate 97.5 F 92 H 16 135/59 92 Room Air 3 09/06/22 08:00 09/06/22 08:00 09/06/22 08:00 09/06/22 08:00 09/06/22 08:00 09/06/22 08:00 09/05/22 20:40 Period Temp Pulse Resp BP Sys/Canela Pulse Ox O2 Del Method O2 Flow Rate Last 24 Hr 97.3 F-99.2 F 66-92 15-20 105-158/45-110 87-100 Nasal Cannula- Room Air 3-5 Intake and Output 09/05/22 09/06/22 09/06/22 19:59 03:59 11:59 Intake Total 1000 37026 9790 Output Total 550 68330 17299 Balance 450 -1250 -3310 Weight 104.78 kg Intake & Output: Intake & Output 09/05/22 09/06/22 09/06/22 19:59 03:59 11:59 Intake Total 1000 14842 9790 Output Total 550 39391 63513 Balance 450 -1250 -3310 Weight 104.78 kg Intake: IV 800 50 100 Sodium Chloride 0.9% 1,000 ml @ 700 125 mls/hr IV .Q8H [facility] Rx#: [id number] Zosyn 2.25 gm In Dextrose 5% in 100 50 50 Water 50 ml @ 100 mls/hr IV Q6H [facility] Rx#:[id number] Sodium Bicarbonate Vial 50 Meq 50 In Emptybag 0 ml @ 100 mls/hr IV ONCE [facility] Rx#:[id number] Oral 690 GI Tube Flush 200 IV - Manual Only 900 CBI Fluid 44621 9000 Output: Urine Catheter Amount 550 3200 Uretheral (Wood) 3200 CBI Fluid 38880 9900 Other: Meal NPO [place] Breakfast Percent of Meal Consumed 100% 50% Feeding Ability Independent Assist with Tray Set Up Urine Appearance Hematuria Clear Small Blood Clots Hematuria Large Blood Clots Uretheral (Wood) Hematuria Clear Small Blood Clots Large Blood Clots Urine Color Dark [place] Uretheral (Wood) Dark Red Light [place] Light [place] Urine [place] Uretheral (Wood) Normal Net CBI 300 200 General appearance: average body habitus, cooperative and no acute distress GI/Abdominal Additional comments: Right groin wound packed with packing strips wet-to-dry. exam: Absent circumcision (Small lesion on the right side of the foreskin) Expanded Exam Urine Appearance: Clear Urine Color: Light Red A/P Assessment and plan (1) Bilateral hydronephrosis: Status: Acute (2) Gross hematuria: Status: Acute (3) Urethral stricture: Status: Acute (4) Right groin wound: Status: Acute Narrative A/P Narrative: Bebo is an 87-year-old male who is postoperative day #1 status post bilateral ureteral stent placement for ureteral obstruction with bilateral ureterectasis and hydronephrosis. I also opened his right groin wound and packed it wet-to-dry. A 24 Greek three-way Wood catheter was placed and continuous bladder irrigation was started. This morning he is doing well although he continues to have significant electrolyte abnormalities including an elevated serum creatinine. We will continue supportive care. If he continues to show obstruction we may need to consider placement of bilateral nephrostomy tubes by interventional radiology. We will continue to follow. Time Spent With Patient Time: Total time spent is greater than 50% in coordination of care (as documented) at patient's floor/unit and/or counseling patient:
--- NOTE | 2022-09-06 10:54 | Nephrology Consult Note ---
HPI Date of Consult Consult Date: 09/06/22 Requesting physician: Ronaldo Mark Primary Care Provider: Jamison Jean MD Consult Narrative Patient Information: Note initiated : 09/06/22 at 10:42 am Patient: Bebo Barnes 87 y/o M admitted on 08/26/22 for Abscess to groin, Celulitis, Sepsis. 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 He received IV Zosyn and clindamycin. Cellulitis coalesced into abscess which was drained on 08/31/22. A Wood catheter was placed on admission. The patient b maria teresa to have some gross hematuria on 09/03/22 and the Wood catheter stopped draining. Urology consultation was done and he had cystoscopy, evacuation of clot, bilateral retrograde pyelograms, bilateral ureteral stent placement and Wood placement on 09/05/22 for bilateral ureterectasis, hydronephrosis, gross hematuria, urethral stricture. He has been followed by Dr. Espinoza for chronic kidney disease stage 4, last visit was on 10/07/22, last serum creatinine was 1.9 (eGFR 31). His admission serum creatinine was 2.5 which started to rise on 09/05/22 to 3.6 and 4.5 on 09/06/22. Nephrology consultation was requested for acute kidney injury. Chief complaint: Right groin wound Reason for consult: Acute kidney injury on chronic kidney disease cc:: CC: Manolo Garcia MD Constitutional Constitutional: Present fatigue and weakness EENT Nose, mouth and throat: Absent nasal congestion or sore throat Cardiovascular Cardiovascular: Absent chest pain or palpatations Respiratory Respiratory: Absent dyspnea or wheezing Gastrointestinal Gastrointestinal: Absent nausea or vomiting Genitourinary Additional comments: CBI in progress Musculoskeletal Musculoskeletal: Absent joint swelling Integumentary Integumentary: Absent rash Neurological Neurological: Present weakness; Absent confusion Psychiatric Psychiatric: Absent anxiety or panic attacks Hematologic/Lymphatic Hematologic/Lymphatic: Absent easy bleeding or easy bruising Allergic/Immunologic Allergic/Immunologic: Absent tongue swelling or uticaria PFSH PFSH All Active Problems (Updated 09/06/22 @ 10:50 by Heriberto Morales MD) Acute renal failure superimposed on stage 4 chronic kidney disease (Acute) Anemia (Chronic) Long-term use of high-risk medication (Chronic 05/06/13) Colon polyps (Chronic 09/23/03) Diverticulosis of colon (Chronic 10/03/03) Hyperlipidemia, mixed (Chronic) Hypertension (Chronic) Obstructive uropathy (Chronic) Peripheral neuropathy (Chronic) History of prostate cancer (Chronic) Renal failure (Chronic) Seborrheic keratosis (Chronic) Urinary tract infection (Chronic) History of appendectomy (Chronic) History of radiation therapy (Chronic) Encounter for Health Maintenance Examination in Adult (Chronic) Sciatica of right side (Chronic) Ventricular bigeminy (Chronic) Hip pain (Chronic) Lumbago with sciatica (Chronic) Tachycardia (Chronic) Nevus, choroidal (Chronic) Microscopic hematuria (Chronic) Age-related nuclear cataract, bilateral (Chronic) Other corneal scars and opacities (Chronic) Other disorders of refraction (Chronic) Dysuria (Chronic) Urinary frequency (Chronic) Chronic kidney disease (Chronic) Proteinuria (Chronic) CKD stage G4/A3, 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) Retention of urine (Chronic) Carcinoma in situ of prostate (Chronic) Carcinoma of prostate (Chronic) Nevus, non-neoplastic (Chronic) Other urethral stricture, male, unspecified site (Chronic) Polyp of colon (Chronic) Postprocedural bulbous urethral stricture, 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 mellitus with neuropathy (Chronic) Hyperkalemia (Acute) Urethral stricture (Acute) Medicare annual wellness visit, subsequent (Acute) Hypercalcemia due to a drug (Acute) Acute urinary tract infection (Acute) Urethral stricture (Acute) Incomplete bladder emptying (Acute) Sepsis (Acute) Cellulitis of buttock, right (Acute) Generalized weakness (Acute) Gross hematuria (Acute) Bilateral hydronephrosis (Acute) Right groin wound (Acute) Medical History Age-related nuclear cataract, bilateral Anemia Carcinoma in situ of prostate Carcinoma of prostate s/p Radiation 1993 Chronic kidney disease Colon polyps (09/23/03) Colonoscopy Dr Cartagena--Polypectomy, benign colonic mucosa with prominent lymphoid aggregate; moderately severe diverticulosis, small hemorrhoids. 10- year sequence. Diabetes mellitus with neuropathy Goal HgBA1c <7.5% Diverticulosis of colon (10/03/03) Colonoscopy--Dr. Cartagena--Polypectomy, benign colonic mucosa with prominent lymphoid aggregate; moderately severe diverticulosis, small hemorrhoids Hip pain History of prostate cancer History of cancer of the prostate status post radiation therapy in 1993 History of radiation therapy History of Cancer of the Prostate status post radiation therapy in 1993 History of urinary tract infection Recurrent, clinically stable, due for recheck Hyperkalemia Hyperlipidemia, mixed Hypertension Controlled on 3 Rx Goal 130/80 Long-term use of high-risk medication (05/06/13) patient on Statin for Hyperlipidemia Lumbago with sciatica Medicare annual wellness visit, subsequent Microscopic hematuria Nevus, choroidal Nevus, non-neoplastic Obstructive uropathy Other corneal scars and opacities Other disorders of refraction Other urethral stricture, male, unspecified site Peripheral neuropathy Very mild by exam Polyp of colon Postprocedural bulbous urethral stricture, male Renal failure Mild, probably related to diuretics and now stabilized Retention of urine Sciatica of right side Seborrheic keratosis Multiple, yearly dermatology follow up through [place] Tachycardia Urinary frequency Urinary tract infection History of recurrent urinary tract infections, previous suppressive therapy and previous evaluation through Dr. Durham in January of 2010 Surgical History History of appendectomy In the distant past History of arthroplasty Left hip in September of 2005 History of colonoscopy Lymphoid polyp and sigmoid diverticulii on ten year sequencing through Dr. 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 [employer] smoking status: Former smoker alcohol intake frequency: does not drink substance use type: does not use MEDS/ALLERGIES Home Medications and Allergies Home Medications Medication Instructions Recorded Confirmed Type ascorbic acid (vitamin C) 500 mg 500 mg PO QDAY 01/16/15 08/26/22 History capsule,extended release blood sugar diagnostic (OneTouch #200 ea 05/21/16 08/26/22 Rx Ultra Test strips) insulin syringe-needle U-100 1 mL #100 ea 05/21/16 08/26/22 Rx 30 gauge x 1/2" (BD Insulin Syringe Ultra-Fine) hydrochlorothiazide 12.5 mg tablet 12.5 mg PO QDAY 09/14/18 08/26/22 History atorvastatin 80 mg tablet 80 mg PO QHS 09/30/20 08/26/22 History lisinopril 40 mg tablet 40 mg PO QDAY 09/30/20 08/26/22 History metoprolol succinate 50 mg 25 mg PO BID 09/30/20 08/26/22 History tablet,extended release 24 hr tamsulosin 0.4 mg capsule 0.4 mg PO QDAY 09/30/20 08/26/22 History blood sugar diagnostic (Accu-Chek 05/27/21 08/26/22 History Guide test strips) carboxymethylcellulose sodium 0.5 1 drp ophthalmic (eye) TID 05/27/21 08/26/22 History % eye drops cholecalciferol (vitamin D3) 50 1,000 unit PO QDAY 07/22/21 08/26/22 History mcg (2,000 unit) capsule insulin glargine 100 unit/mL 30 unit subcut QHS 07/22/21 08/26/22 History subcutaneous solution aspirin 81 mg tablet,delayed 81 mg PO DAILY 02/12/22 08/26/22 History release Allergies Allergy/AdvReac Type Severity Reaction Status Date / Time amlodipine [From Lotrel] AdvReac Intermediate Swelling Verified 08/26/22 17:46 benazepril [From Lotrel] AdvReac Intermediate Swelling Verified 08/26/22 17:46 felodipine [From Plendil] AdvReac Intermediate Swelling Verified 08/26/22 13:39 pioglitazone [From Actos] AdvReac Intermediate Swelling Verified 08/26/22 13:39 Physical Examination Vital Signs Vital signs: Temp Pulse Resp BP Pulse Ox O2 Del Method O2 Flow Rate 97.5 F 92 H 16 135/59 92 Room Air 3 09/06/22 08:00 09/06/22 08:00 09/06/22 08:00 09/06/22 08:00 09/06/22 08:00 09/06/22 08:00 09/05/22 20:40 General Appearance General appearance: well-developed and well-nourished EENT EENT: mucous membranes moist Neck Neck: no JVD Respiratory Respiratory: clear Cardiovascular Cardiology: edema Gastrointestinal Gastrointestinal: no tenderness Integumentary Integumentary: no rash Neurologic Neurologic: no focal deficit and alert and oriented x3 Musculoskeletal Musculoskeletal: no deformities Psychiatric Psychiatric: mood/affect appropriate and cooperative Results Lab Results 09/06/22 05:22 09/06/22 05:22 Lab results: Most recent lab results Calcium 8.9 mg/dL (8.6-10.4) 09/06/22 05:22 Phosphorus 8.3 mg/dL (2.5-4.5) H* 09/06/22 05:22 Magnesium 2.6 mg/dL (1.6-2.5) H 09/06/22 05:22 A/P Assessment and plan (1) Acute renal failure superimposed on stage 4 chronic kidney disease: Assessment and plan: Bebo Barnes is a 87-year-old male with hypertension, diabetes mellitus type 2, chronic kidney disease stage 4, 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 He received IV Zosyn and clindamycin. Cellulitis coalesced into abscess which was drained on 08/31/22. A Wood catheter was placed on admission. The patient began to have some gross hematuria on 09/03/22 and the Wood catheter stopped draining. Urology consultation was done and he had cystoscopy, evacuation of clot, bilateral retrograde pyelograms, bilateral ureteral stent placement and Wood placement on 09/05/22 for bilateral ureterectasis, hydronephrosis, gross hematuria, urethral stricture. He has been followed by Dr. Espinoza for chronic kidney disease stage 4, last visit was on 10/07/22, last serum creatinine was 1.9 (eGFR 31). His admission serum creatinine was 2.5 which started to rise on 09/05/22 to 3.6 and 4.5 on 09/06/22. Nephrology consultation was requested for acute kidney injury. 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 There is no recent history of IV contrast administration or NSAID use. Intravascular volume depletion unlikely. Acute infectious (immune complex) glomerulonephritis, acute interstitial nephritis or acute toxic nephropathy due to medications considered, but unlikely. Work up: Urinalysis on 08/31/22: Yellow, cloudy, pH 5.0, SG 1.015, protein 30, blood >1.0, leukocyte esterase 500. Urine random total protein/creatinine on 10/10/21: 1,000 mg/g creatinine. UPEP/FAYE on 09/30/20: Normal pattern. No monoclonal proteins detected. Renal US on 09/05/22: Nonvisualized obstruction in the distal ureters causing moderate bilateral hydronephrosis. Moderate atrophy in both kidneys. Progress: Serum creatinine increased from 3.6 to 4.5 in the past 24 hours. Baseline serum creatinine: Last serum creatinine was 1.9 (eGFR 31). Urine output: Not reported in the past 24 hours due to CBI. Metabolic acidosis. Hyperkalemia. No significant fluid overload. No uremic symptoms. Discussion: Serum creatinine elevation of 0.9 mg/dL in the past 24 hours is consistent with no recovery of acute kidney injury. Urine output is not known d ue to CBI. He has hyperkalemia and metabolic acidosis, but no significant uremic symptoms. Acute hemodialysis need is anticipated unless there is a change in the current trend. I discussed risks and benefits of dialysis and dialysis catheter placement as well as transfer to a higher level of care. He agrees with the plan. Recommendations/Plan: Hyperkalemia medically treated. Repeat Kayexalate if he has no BM in 4 hours. Monitor acute hemodialysis need with a follow up BMP. Avoid NSAIDs, nephrotoxic medications and IV contrast. Hold MAIKOL/ARB, Metformin. Status: Acute (2) Hyperkalemia: Status: Acute Time Spent With Patient Time: Total time spent is greater than 50% in coordination of care (as documented) at patient's floor/unit and/or counseling patient:
[2022-09-06] MEDS ORDERED: PIPERACILLIN SODIUM/TAZOBACTAM 2.25 GM in DEXTROSE 5% IN WATER 50 ML IV SCH (14:00)
[2022-09-06 16:44] LABS: Blood Urea Nitrogen 95 mg/dL (8-23); Calcium 8.9 mg/dL (8.6-10.4); Carbon Dioxide 18 mmol/L (22-30); Chloride 104 mmol/L (96-108); Glomerular Filtration Rate 11; Glucose 188 mg/dL (70-105)
[2022-09-06] MEDS ORDERED: SODIUM BICARBONATE 650 MG TABLET PO SCH (17:10)
[2022-09-06] MEDS: ATORVASTATIN 40 MG TABLET PO SCH (20:12)
[2022-09-06] MEDS: SENNOSIDES 1 TABLET PO SCH (20:12)
[2022-09-06] MEDS: INSULIN GLARGINE, HUMAN 1 UNIT/0.01 ML SQ SCH (20:33)
[2022-09-07] MEDS: 0.9 % SODIUM CHLORIDE 10 ML SYRINGE IV SCH ×6 (05:33→21:15)
[2022-09-07 06:03] LABS: Basophils # (Auto) 0.05 K/mcL (0.00-0.30); Basophils % (Auto) 0.4 % (0.0-2.0); Eosinophils # (Auto) 0.49 K/mcL (0.00-0.70); Eosinophils % (Auto) 3.5 % (0.0-7.0); Hemoglobin 7.5 g/dL (13.7-17.5); Lymphocytes # (Auto) 1.86 K/mcL (1.50-4.80); Lymphocytes % (Auto) 13.2 % (15.5-49.0); Mean Corpuscular HGB Conc 32.6 g/dL (31.0-36.0); Mean Platelet Volume 10.7 fL (8.8-12.5); Monocytes # (Auto) 0.98 K/mcL (0.10-0.90); Neutrophils % (Auto) 75.4 % (38.0-78.0); Platelet Count 281 K/mcL (140-440); Red Cell Distribution Width 13.2 % (11.5-14.5); WBC 14.1 K/mcL (4.5-11.0)
[2022-09-07 06:53] LABS: ALT/SGPT 39 U/L (<40); AST/SGOT 27 U/L (<40); Albumin/Globulin Ratio 0.6 (1.0-2.3); Alkaline Phosphatase 63 U/L (39-117); Bilirubin,Direct < 0.2 mg/dL (0-0.3); Bilirubin,Total 0.2 mg/dL (0.1-1.0); Blood Urea Nitrogen 85 mg/dL (8-23); Calcium 8.5 mg/dL (8.6-10.4); Carbon Dioxide 21 mmol/L (22-30); Chloride 108 mmol/L (96-108); Globulin 3.4 gm/dL (2.2-3.7); Glomerular Filtration Rate 13; Glucose 64 mg/dL (70-105); Lactate Dehydrogenase 169 U/L (135-225); Phosphorous 7.1 mg/dL (2.5-4.5); Triglycerides 71 mg/dL (<150); Uric Acid 8.9 mg/dL (2.5-8.0)
--- NOTE | 2022-09-07 07:02 | Nephrology Progress Note ---
SUBJECTIVE Subjective Patient information: Note initiated : 09/07/22 at 6:59 am Patient: Bebo Barnes 87 y/o M admitted on 08/26/22 for Abscess to groin, Celulitis, Sepsis. Chief Complaint: Weakness Principal diagnosis: Cellulitis Pertinent ROS: Weakness Constitutional Vitals: Vital Signs Temp Pulse Resp BP Pulse Ox O2 Del Method O2 Flow Rate 97.3 F 75 18 132/49 97 Room Air 3 09/07/22 03:31 09/07/22 03:31 09/07/22 03:31 09/07/22 03:31 09/07/22 03:31 09/07/22 03:31 09/05/22 20:40 Period Temp Pulse Resp BP Sys/Canela Pulse Ox O2 Del Method O2 Flow Rate Last 24 Hr 97.3 F-98.2 F 72-92 16-20 113-135/49-92 92-97 Room Air-Room Air Intake and Output 09/06/22 09/07/22 09/07/22 19:59 03:59 11:59 Intake Total 8180 6600 3000 Output Total 6750 6950 3650 Balance 1430 -350 -650 Weight 231 lb 12.8 oz Intake & Output: Intake & Output 09/06/22 09/07/22 09/07/22 19:59 03:59 11:59 Intake Total 8180 6600 3000 Output Total 6750 6950 3650 Balance 1430 -350 -650 Weight 231 lb 12.8 oz Intake: IV 1100 Sodium Chloride 0.9% 1,000 ml @ 1000 100 mls/hr IV .Q10H JAIME Rx#: [id number] Zosyn 2.25 gm In Dextrose 5% in 50 Water 50 ml @ 100 mls/hr IV Q8H JAIME Rx#:[id number] Sodium Bicarbonate Vial 50 Meq 50 In Emptybag 0 ml @ 100 mls/hr IV ONCE JAIME Rx#:[id number] Oral 480 600 GI Tube Flush 600 CBI Fluid 6000 6000 3000 Output: CBI Fluid 6750 6950 3650 Other: Meal Lunch Heath cracker Percent of Meal Consumed 100% 100% Feeding Ability Independent Independent Urine Appearance Clear Urine Color Light Breese Light Breese Uretheral (Wood) Light Red Stool Size Copious Stool Color Brown Stool Consistency Loose Net CBI 450 550 650 General appearance: cooperative and no acute distress Head Head exam: Present normal inspection Eye Eye exam: Present normal appearance ENT ENT exam: Present mucous membranes moist Respiratory Respiratory exam: Absent respiratory distress Cardiovascular Cardiovascular exam: Present normal rate and rhythm GI/Abdominal GI/Abdominal exam: Present soft; Absent tenderness Extremities Exam Extremities exam: Absent joint swelling or pedal edema Neurological Exam Neurological exam: Present alert and oriented X3 Psychiatric Psychiatric exam: Present normal affect and normal mood Skin Skin exam: Present warm; Absent rash A/P Assessment and plan (1) Acute renal failure superimposed on stage 4 chronic kidney disease: Assessment and plan: Bebo Barnes is a 87-year-old male with hypertension, diabetes mellitus type 2, chronic kidney disease stage 4, 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 He received IV Zosyn and clindamycin. Cellulitis coalesced into abscess which was drained on 08/31/22. A Wood catheter was placed on admission. The patient began to have some gross hematuria on 09/03/22 and the Wood catheter stopped draining. Urology consultation was done and he had cystoscopy, evacuation of clot, bilateral retrograde pyelograms, bilateral ureteral stent placement and Wood placement on 09/05/22 for bilateral ureterectasis, hydronephrosis, gross hematuria, urethral stricture. He has been followed by Dr. Espinoza for chronic kidney disease stage 4, last visit was on 10/07/22, last serum creatinine was 1.9 (eGFR 31). His admission serum creatinine was 2.5 which started to rise on 09/05/22 to 3.6 and 4.5 on 09/06/22. Nephrology consultation was requested for acute kidney injury on 09/06/22. 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 There is no recent history of IV contrast administration or NSAID use. Intravascular volume depletion unlikely. Acute infectious (immune complex) glomerulonephritis, acute interstitial nephritis or acute toxic nephropathy due to medications considered, but unlikely. Work up: Urinalysis on 08/31/22: Yellow, cloudy, pH 5.0, SG 1.015, protein 30, blood >1.0, leukocyte esterase 500. Urine random total protein/creatinine on 10/10/21: 1,000 mg/g creatinine. UPEP/FAYE on 09/30/20: Normal pattern. No monoclonal proteins detected. Renal US on 09/05/22: Nonvisualized obstruction in the distal ureters causing mod erate bilateral hydronephrosis. Moderate atrophy in both kidneys. Progress: Serum creatinine changed from 4.4 to 3.9 in the past 12 hours. Baseline serum creatinine: Last serum creatinine was 1.9 (eGFR 31). Urine output: CBI. Metabolic acidosis, improved. Hyperkalemia, resolved. No significant fluid overload. No uremic symptoms. Recommendations/Plan: Anticipate no acute hemodialysis need. Avoid NSAIDs, nephrotoxic medications and IV contrast. Hold MAIKOL/ARB, Metformin. Status: Acute (2) Hyperkalemia: Status: Acute Time Spent With Patient Time: Total time spent is greater than 50% in coordination of care (as documented) at patient's floor/unit and/or counseling patient:
[2022-09-07] MEDS: DOCUSATE SODIUM 100 MG CAPSULE PO SCH ×2 (07:11→20:52)
[2022-09-07] MEDS: INSULIN LISPRO 1 UNIT/0.01 ML UNIT SQ SCH ×8 (07:18→20:57)
[2022-09-07] MEDS ORDERED: 0.9 % SODIUM CHLORIDE 500 ML IV SCH (07:30)
--- NOTE | 2022-09-07 07:31 | Internal Med Progress Note ---
SUBJECTIVE Subjective Patient information: Note initiated : 09/07/22 at 7:27 am Service Date, if different from initiated Date: [] Patient: Bebo Barnes a 87 y/o M admitted on 08/26/22 for Abscess to groin, Celulitis, Sepsis. Chief Complaint: [] Principal diagnosis: Cellulitis Interval history: Hospital course: Mr. Barnes is a 87 year old M with history of diabetes mellitus 2 with neuropathy, hypertension, hyperlipidemia, CKD stage IV baseline creatinine unknown, anemia, BPH, history of prostate cancer noted a bump in his right groin 3 days ago, that has been growing since then. He has been feeling feverish associated with chills. It hurts whenever anything touches it. He reported no drainage, no nausea vomiting. Patient was seen at [facility] first and was sent to ED for concerns of sepsis secondary to abscess in his groin. In ER patient was in sepsis with tachycardia of 92, leukocytosis of 25,000, lac tic acidosis 3.0, acute kidney injury with creatinine of 2.7. Lab work also showed chronic anemia of 10.9, hyperglycemia 2-3. CT scan showed cellulitis in the subcutaneous fat of the right upper thigh and right buttock region. No evidence of abscess. Patient was admitted to the floor. 08/27. Patient seen and examined. Patient had low-grade fever of 99.9 F overnight, somewhat hypotensive with BP 106/44. Leukocytosis somewhat improved however still elevated at 21,000 significantly. Patient serum creatinine improved to 2.5 from 2.7 yesterday. BUN and down to 77 from 86 yesterday. Glucose improved to 176 from 2-3 before. HBA 1C came to A1c is 7.7. Blood culture is still pending. He remains on IV Zosyn and clindamycin. Will give 1 L NS for hypotension and acute kidney injury. 08/28 patient reports feeling better. WBC slightly improved to 19,000 from 21,000, hemoglobin 8.6 down from 9.2, likely in the setting of hemodilution. Creatinine worsened to 2.7 from 2.5 yesterday. His baseline is around 1.9-2.0. He has stage IV kidney disease at baseline. RN reported patient was having urine dribbling. Suspect urinary retention. Will put Rogers catheter in. HbA1c 7.7 08/29. No fevers overnight, leukocytosis slightly improved to 18,000. Reports scrotal discomfort is improving. Serum creatinine 2.6 down from 2.7 yesterday. BUN same 83. Patient is tolerating antibiotics 08/30 afebrile, leukocytosis up to 19.8 from 18.8 yesterday, creatinine 2.6 stable. Will order CRP and procalcitonin to follow-up on his infection. Also will obtain repeat CT scan of pelvis to see if he has an abscess 08/31 Patient is doing better today, white cell counts has come down.. The area of cellulitis and an abscess continues to drain. I was able to drain about 5 cc of pus by squeezing the area. Cellulitis coalesced into abscess which is now spontaneously draining. Appreciate Dr. Yanez recommendations. Recommending to continue twice daily dressing change. 09/01 leukocytosis trending down slowly. No fever. Right groin with minimal discharge. Cultures are pending. 09/02. WBC 17,000 down from 17.7 yesterday. Still purulent discharge from right groin. No fever. Wound culture and urine cultures negative. Patient on antibiotics. 09/03 No acute events overnight. Patient with leukocytosis with very slow gradual improvement. Creatinine 2.3. Wound culture with no growth.Although there is gram-negative bacilli that did not grow in the aerobic culture possible anaerobe s. 09/04 Patient states that he had poor sleep last night because his bladder was full. Sounds like the Rogers malfunction probably from clots that he is has developed noticeable gross hematuria. Repeat CT pelvis today shows improving cellulitis and resolving abscess but this shows worsening obstructive distal ureters concerning for possible blood within the ureters as well as inflamed bladder wall. Will discuss with urology. 09/05 Larger Rogers catheter placed yesterday day by urology and irrigation by nursing. Overnight Rogers catheter stopped producing fluid. Nurse irrigated this morning as able to get out some bloody fluid. However creatinine worsened and with corresponding electrolyte abnormalities with elevated potassium/phos/mag. Patient seems to be obstructing again. Urgent renal ultrasound ordered and will likely need to discuss again with urology. Patient otherwise is feeling fine and slept okay. 09/06 Patient had cystoscopy with bilateral ureteral stents and evacuation of clots last evening. Currently undergoing CBI. Leukocytosis same as yesterday. But afebrile and no bandemia. Renal function worse patient likely has acute tubular necrosis. Hyperkalemia and hyperphosphatemia noted. Metabolic acidosis. Nephrology consult. Gross hematuria much improved Rogers bag fluid now pale red. 09/07 Patient says he is feeling better today. Sitting up in bed eating breakfast. Leukocytosis is improving. Hemoglobin low at 7.7 monitor. Potassium within normal limits. Creatinine started to trend in the right direction. Review of Systems: denies headache/fever/chills/nausea/vomiting/chest or abdominal pain/cough/dyspnea/diarrhea. Otherwise see above. PHYSICAL EXAM General: Alert, Awake, No acute Distress, obese Eyes/N/T: EOMI, no scleral icterus, Head/Neck: neck supple, full ROM, CV: RRR, No murmurs, Pulm: Clear b/l, no wheezing/rhonchi/rales, no respiratory distress Abd: soft, nontender, +BS x4, groin dressing in place, Ext: no clubbing/cyanosis, b/l LE trace edema, nontender Neuro: Alert, no focal deficits, moves all extremities, , sensations intact b/l upper/lower Psychiatric: Skin: right groin cellulitis much improved Constitutional Vitals: Vital Signs Temp Pulse Resp BP Pulse Ox O2 Del Method O2 Flow Rate 97.5 F 72 18 156/70 96 Room Air 3 09/07/22 07:18 09/07/22 07:18 09/07/22 07:18 09/07/22 07:18 09/07/22 07:18 09/07/22 07:18 09/05/22 20:40 Period Temp Pulse Resp BP Sys/Canela Pulse Ox O2 Del Method O2 Flow Rate Last 24 Hr 97.3 F-98.2 F 72-92 16-20 113-156/49-92 92-97 Room Air-Room Air Intake and Output 09/06/22 09/07/22 09/07/22 19:59 03:59 11:59 Intake Total 8180 6600 3000 Output Total 6750 6950 3650 Balance 1430 -350 -650 Weight 105.143 kg Intake & Output: Intake & Output 09/06/22 09/07/22 09/07/22 19:59 03:59 11:59 Intake Total 8180 6600 3000 Output Total 6750 6950 3650 Balance 1430 -350 -650 Weight 105.143 kg Intake: IV 1100 Sodium Chloride 0.9% 1,000 ml @ 1000 100 mls/hr IV .Q10H JAIME Rx#: [id number] Zosyn 2.25 gm In Dextrose 5% in 50 Water 50 ml @ 100 mls/hr IV Q8H JAIME Rx#:[id number] Sodium Bicarbonate Vial 50 Meq 50 In Emptybag 0 ml @ 100 mls/hr IV ONCE JAIME Rx#:[id number] Oral 480 600 GI Tube Flush 600 CBI Fluid 6000 6000 3000 Output: CBI Fluid 6750 6950 3650 Other: Meal Lunch Heath cracker Percent of Meal Consumed 100% 100% Feeding Ability Independent Independent Urine Appearance Clear Clear Urine Color Light [place] Light [place] Light [place] Uretheral (Rogers) Light Red Stool Size Copious Stool Color Brown Stool Consistency Loose Net CBI 450 550 650 OBJ DATA Labs 09/07/22 05:22 09/07/22 05:22 Labs: Abnormal Lab Results 09/07/22 09/07/22 09/06/22 05:22 05:22 16:00 WBC 14.1 H RBC 2.50 L Hgb 7.5 L Hct 23.0 L Immature Gran % (Auto) Neut % (Auto) Lymph % (Auto) 13.2 L Lymph # (Auto) [place] # (Auto) 0.98 H Seg Neutrophils % Lymphocytes % Immature Gran # 0.07 H Absolute Neutrophils 10.65 H Potassium 5.9 H* Carbon Dioxide 21 L 18 L BUN 85 H 95 H Creatinine 3.9 H 4.4 H Glucose 64 L 188 H Uric Acid 8.9 H Calcium 8.5 L Phosphorus 7.1 H* Magnesium GGT 63 H ALT Total Protein 5.4 L Albumin 2.0 L Globulin Albumin/Globulin Ratio 0.6 L 09/06/22 09/06/22 09/05/22 05:22 05:22 07:43 WBC 19.5 H RBC 2.85 L Hgb 8.6 L Hct 26.5 L Immature Gran % (Auto) 0.7 H Neut % (Auto) 91.0 H Lymph % (Auto) 6.4 L Lymph # (Auto) 1.26 L [place] # (Auto) Seg Neutrophils % 79 H Lymphocytes % 8 L Immature Gran # 0.13 H Absolute Neutrophils 17.80 H Potassium 6.8 H* Carbon Dioxide 17 L BUN 94 H Creatinine 4.5 H Glucose 152 H Uric Acid 9.3 H Calcium Phosphorus 8.3 H* Magnesium 2.6 H GGT 72 H ALT 43 H Total Protein Albumin 2.3 L Globulin 3.8 H Albumin/Globulin Ratio 0.6 L 09/05/22 09/05/22 09/04/22 05:39 05:39 15:00 WBC 19.7 H RBC 3.08 L Hgb 9.5 L 9.0 L Hct 28.3 L 27.4 L Immature Gran % (Auto) 0.8 H Neut % (Auto) 84.7 H Lymph % (Auto) 7.6 L Lymph # (Auto) 1.49 L [place] # (Auto) 1.11 H Seg Neutrophils % Lymphocytes % Immature Gran # 0.15 H Absolute Neutrophils 16.67 H Potassium 5.6 H Carbon Dioxide 19 L BUN 88 H Creatinine 3.6 H Glucose 116 H Uric Acid 9.0 H Calcium Phosphorus 5.9 H* Magnesium 2.6 H GGT 87 H ALT 53 H Total Protein Albumin 2.4 L Globulin 4.1 H Albumin/Globulin Ratio 0.6 L 09/04/22 05:40 WBC RBC Hgb Hct Immature Gran % (Auto) Neut % (Auto) Lymph % (Auto) Lymph # (Auto) [place] # (Auto) Seg Neutrophils % Lymphocytes % Immature Gran # Absolute Neutrophils Potassium Carbon Dioxide 19 L BUN 77 H Creatinine 2.4 H Glucose 117 H Uric Acid Calcium Phosphorus Magnesium GGT ALT Total Protein Albumin Globulin Albumin/Globulin Ratio Meds: Medications Acetaminophen (Acetaminophen 325 Mg Tablet) 650 mg PO Q6HP PRN; Protocol PRN Reason: Per Pain Protocol/Fever > 101 Last Admin: 09/04/22 09:47 Dose: 650 mg Artificial Tears (Carboxymethylcellulose Sodium 1 Each Droper.Gel) 1 each OU TID COUNTS INCLUDE 234 BEDS AT THE [facility] Last Admin: 09/06/22 20:12 Dose: 1 each Atorvastatin Calcium (Atorvastatin 40 Mg Tablet) 80 mg PO HS COUNTS INCLUDE 234 BEDS AT THE [facility] Last Admin: 09/06/22 20:12 Dose: 80 mg Dextrose (Dextrose 50% 50 Ml Vial) 0 ml IV UD PRN PRN Reason: Per Sliding Scale Diagnostic Test (Pha) (Accu-Chek 1 Each Strip) 1 each FS ACHS COUNTS INCLUDE 234 BEDS AT THE [facility] Last Admin: 09/07/22 07:18 Dose: 1 each Docusate Sodium (Docusate Sodium 100 Mg Capsule) 100 mg PO BID COUNTS INCLUDE 234 BEDS AT THE [facility] Last Admin: 09/07/22 07:11 Dose: Not Given Famotidine (Famotidine 20 Mg Tablet) 20 mg PO QAM COUNTS INCLUDE 234 BEDS AT THE [facility] Last Admin: 09/06/22 08:58 Dose: 20 mg Glucose (Dextrose 31 Gm Oral.Susp) 15 gm PO PRN PRN PRN Reason: Hypoglycemia Hydralazine HCl (Hydralazine 20 Mg/Ml Vial) 10 mg IV Q4-6HP PRN PRN Reason: Hypertension Insulin Glargine (Insulin Glargine, Human 1 Unit/0.01 Ml) 35 unit SQ QHS COUNTS INCLUDE 234 BEDS AT THE [facility] Last Admin: 09/06/22 20:33 Dose: 35 units Insulin Human Lispro (Insulin Lispro 1 Unit/0.01 Ml Unit) 0 unit SQ [facility]; Protocol Last Admin: 09/07/22 07:18 Dose: Not Given Insulin Human Lispro (Insulin Lispro 1 Unit/0.01 Ml Unit) 6 unit SQ [facility] Last Admin: 09/06/22 20:33 Dose: 6 units Metoprolol Succinate (Metoprolol Succinate 50 Mg Tab.Xl.24h) 25 mg PO BID COUNTS INCLUDE 234 BEDS AT THE [facility] Last Admin: 09/06/22 20:12 Dose: 25 mg Ondansetron HCl (Ondansetron 4 Mg/2 Ml Vial) 4 mg IV Q6HP PRN PRN Reason: Nausea And Vomiting Oxycodone HCl (Oxycodone Ir 5 Mg Tablet) 5 mg PO Q4HP PRN; Protocol PRN Reason: Per Pain Protocol Last Admin: 09/04/22 09:47 Dose: 5 mg Senna (Sennosides 1 Tablet) 2 tab PO [facility] Last Admin: 09/06/22 20:12 Dose: 2 tab Sodium Chloride (0.9 % Sodium Chloride 10 Ml Syringe) 10 ml IV Q8 COUNTS INCLUDE 234 BEDS AT THE [facility] Last Admin: 09/07/22 05:33 Dose: Not Given Sodium Chloride (0.9 % Sodium Chloride 10 Ml Syringe) 10 ml IV Q8 COUNTS INCLUDE 234 BEDS AT THE [facility] Last Admin: 09/07/22 05:33 Dose: Not Given Tamsulosin HCl (Tamsulosin 0.4 Mg Capsule) 0.4 mg PO QDAY COUNTS INCLUDE 234 BEDS AT THE [facility] Last Admin: 09/06/22 08:58 Dose: 0.4 mg Trazodone HCl (Trazodone Hcl 50 Mg Tablet) 25 mg PO HSP PRN PRN Reason: Insomnia Last Admin: 08/27/22 21:06 Dose: 25 mg Vitamin D (Vitamin D3 25 Mcg Tablet) 25 mcg PO DAILY JAIME Last Admin: 09/06/22 08:58 Dose: 25 mcg A/P Narrative A/P Narrative: Assessment and plan *ATN, HENNY on CKD IV: 2/2 obstructive Uropathy -Hold HCTZ and lisinopril -IVF -good uop -Nephrology consult -improving *Obstructive Uropathy: 2/2 gross hematuria/blood clots from rogers/prostate trauma. s/p b/l ureteral stents (09/06) -Urology following *BPH w/UR: -chronic bladder outlet narrowing. -Continue with home dose tamsulosin *Sepsis: 2/2 groin abscess/cellulitis -leukocytosis worsened after uropathy, no bandemia or fevers, Likely Reactive, still pending UA -recheck UA and monitor for other source of infection, no resp symptoms -finished 10-11 days of Zosyn -may be reactive from current situation *Right groin cellulitis and abscess: -f/u CT yesterday with improving cellulitis and resolving abscess -Cellulitis coalesced into abscess which is now spontaneously draining -seen by Surgery -Continue twice daily dressing -d/c Zosyn -Wound culture is negative. *Hyperkalemia/Hyperphos/Hyperma/2 HENNY. monitor. improving -Hyperkalemia treatment, f/u bmp *Metabolic acidosis: 2/2 renal issues. iimproving *DM2: with hyperglycemia on admit -A1c 7.7 on 08/26/2022. -lispro 6 units AC, continue glargine 35 units.ssi *Anemia, likely of chronic kidney disease + Acute blood loss anemia: 2/2 gross hematuria -hematuria much improved -hgb down to 7.5, combination of blood loss and IVF dilution -f/u H&H today and transfuse if 7 or less *Hypertension/Hyperlipidemia: -Continue to hold hydrochlorothiazide and lisinopril due to HENNY -Will give IV labetalol and IV hydralazine as needed for blood pressure control -Continue home dose atorvastatin *Generalized weakness/deconditioning: -PT eval. patient will likely need rehab at SNF. -Case management on board *Obesity: BMI 33 -lifestyle modifications *prophylaxis: SCD(heparin d/c'd) / pepcid CODE STATUS, full code Time Spent With Patient Time: Total time spent is greater than 50% in coordination of care (as documented) at patient's floor/unit and/or counseling patient: Subsequent: Total time with patient: 50 - 65 Minutes QUALITY Stroke Symptom Onset Unknown: No VTE Deep Vein Thrombosis/Pulmonary Embolism Present on Admission: No
--- NOTE | 2022-09-07 07:57 | Urology Progress Note ---
SUBJECTIVE Subjective Patient information: Note initiated : 09/07/22 at 7:55 am Service Date, if different from initiated Date: [] Patient: Bebo Barnes a 87 y/o M admitted on 08/26/22 for Abscess to groin, Celulitis, Sepsis. Chief Complaint: [Bilateral ureteral obstruction and gross hematuria] Principal diagnosis: Cellulitis Interval history: Bebo is postoperative day #2 status postplacement of bilateral ureteral stents and a three-way Wood catheter. Continuous bladder irrigation is running at a slow drip. He feels well. Constitutional Vitals: Vital Signs Temp Pulse Resp BP Pulse Ox O2 Del Method O2 Flow Rate 97.5 F 72 18 156/70 96 Room Air 3 09/07/22 07:18 09/07/22 07:18 09/07/22 07:18 09/07/22 07:18 09/07/22 07:18 09/07/22 07:18 09/05/22 20:40 Period Temp Pulse Resp BP Sys/Canela Pulse Ox O2 Del Method O2 Flow Rate Last 24 Hr 97.3 F-98.2 F 72-92 16-20 113-156/49-92 92-97 Room Air-Room Air Intake and Output 09/06/22 09/07/22 09/07/22 19:59 03:59 11:59 Intake Total 8180 6600 3000 Output Total 6750 6950 3650 Balance 1430 -350 -650 Weight 105.143 kg Intake & Output: Intake & Output 09/06/22 09/07/22 09/07/22 19:59 03:59 11:59 Intake Total 8180 6600 3000 Output Total 6750 6950 3650 Balance 1430 -350 -650 Weight 105.143 kg Intake: IV 1100 Sodium Chloride 0.9% 1,000 ml @ 1000 100 mls/hr IV .Q10H JAIME Rx#: [id number] Zosyn 2.25 gm In Dextrose 5% in 50 Water 50 ml @ 100 mls/hr IV Q8H JAIME Rx#:[id number] Sodium Bicarbonate Vial 50 Meq 50 In Emptybag 0 ml @ 100 mls/hr IV ONCE JAIME Rx#:[id number] Oral 480 600 GI Tube Flush 600 CBI Fluid 6000 6000 3000 Output: CBI Fluid 6750 6950 3650 Other: Meal Lunch Heath cracker Percent of Meal Consumed 100% 100% Feeding Ability Independent Independent Urine Appearance Clear Clear Urine Color Light [place] Light [place] Light [place] Uretheral (Wood) Light Red Stool Size Copious Stool Color Brown Stool Consistency Loose Net CBI 450 550 650 Additional comments: The right groin wound is clean dry intact and packed wet-to-dry. Expanded Exam Urine Appearance: Clear Urine Color: Tea Colored A/P Assessment and plan (1) Right groin wound: Status: Acute (2) Bilateral hydronephrosis: Status: Acute (3) Gross hematuria: Status: Acute Narrative A/P Narrative: Beob is an 87-year-old male with a history of prostate cancer status post radiation. He has bilateral ureteral obstruction status post bilateral ureteral stent placement. He also has a history of gross hematuria and has an indwelling 24 Japanese three-way Wood catheter with slow irrigation. Urine this morning is clear and luis-colored. He also has a right groin wound that is now packed wet-to-dry. He is doing well and has no complaints this morning. His serum creatinine has come down slightly. We will continue to observe. The wound is being managed now by wound care. Time Spent With Patient Time: Total time spent is greater than 50% in coordination of care (as documented) at patient's floor/unit and/or counseling patient:
[2022-09-07] MEDS: METOPROLOL SUCCINATE 50 MG TAB.XL.24H PO SCH ×2 (09:03→20:50)
[2022-09-07] MEDS: TAMSULOSIN 0.4 MG CAPSULE PO SCH (09:03)
[2022-09-07] MEDS: CARBOXYMETHYLCELLULOSE SODIUM 1 EACH DROPER.GEL OU SCH ×3 (09:04→20:50)
[2022-09-07] MEDS: FAMOTIDINE 20 MG TABLET PO SCH (09:04)
[2022-09-07] MEDS: VITAMIN D3 25 MCG TABLET PO SCH (09:04)
--- NOTE | 2022-09-07 12:06 | General Surgery Progress Note ---
SUBJECTIVE Subjective Patient information: Note initiated : 09/07/22 at 11:56 am Service Date, if different from initiated Date: [] Patient: Bebo Barnes 87 y/o M admitted on 08/26/22 for Abscess to groin, Celulitis, Sepsis. Chief Complaint: [] Principal diagnosis: Cellulitis Additional PMFSH (Level 3 Only): Saw patient on rounds with Katelyn Dangelo RNquarter doper Nurse on rounds. Patient underwent cystoscopy and bilateral ureteric stent placements and 3 way urethral catheter placement over weekend. Urine in bag is clearer now. Reviewed procedure note from Dr. Richardson. Constitutional Vitals: Vital Signs Temp Pulse Resp BP Pulse Ox O2 Del Method O2 Flow Rate 97.5 F 72 18 156/70 96 Room Air 3 09/07/22 07:18 09/07/22 07:18 09/07/22 07:18 09/07/22 07:18 09/07/22 07:18 09/07/22 07:18 09/05/22 20:40 Period Temp Pulse Resp BP Sys/Canela Pulse Ox O2 Del Method O2 Flow Rate Last 24 Hr 97.3 F-98.2 F 72-80 18-20 113-156/49-92 94-97 Room Air-Room Air Intake and Output 09/06/22 09/07/22 09/07/22 19:59 03:59 11:59 Intake Total 8180 6600 4340 Output Total 6750 6950 3650 Balance 1430 -350 690 Weight 231 lb 12.8 oz Intake & Output: Intake & Output 09/06/22 09/07/22 09/07/22 19:59 03:59 11:59 Intake Total 8180 6600 4340 Output Total 6750 6950 3650 Balance 1430 -350 690 Weight 231 lb 12.8 oz Intake: IV 1100 1000 Sodium Chloride 0.9% 1,000 ml @ 1000 1000 100 mls/hr IV .Q10H JAIME Rx#: [id number] Zosyn 2.25 gm In Dextrose 5% in 50 Water 50 ml @ 100 mls/hr IV Q8H JAIME Rx#:[id number] Sodium Bicarbonate Vial 50 Meq 50 In Emptybag 0 ml @ 100 mls/hr IV ONCE JAIME Rx#:[id number] Oral 480 600 340 GI Tube Flush 600 CBI Fluid 6000 6000 3000 Output: CBI Fluid 6750 6950 3650 Other: Meal Lunch Heath cracker Breakfast Percent of Meal Consumed 100% 100% 100% Feeding Ability Independent Independent Independent Urine Appearance Clear Clear Urine Color Light [place] Tea Colored Uretheral (Wood) Light Red Stool Size Copious Stool Color Brown Stool Consistency Loose Net CBI 450 550 650 Exam: AVSS. No changes ERIC. RIGHT groin colonized wound (irradiated field) with loose thin slough on surface. NO open sacral wound at this time. A/P Narrative A/P Narrative: Assessment: Obstructive uropathy / Urethral stricture. In context of past radiation therapy. S/P Cystoscopy, bilateral ureteric stents. Urethral catheter replaced. Urine color improving. Lab results gradually improving (Chemistry). Plan of Treatment: Plan: Local skin and wound care per Katelyn Dangelo director of operations. Detailed wound care instruction form filled out. AND reviewed with Katelyn Smith RN. After d/c f/u at wound care in ONE week. Spoke with Dr. Mark. Time Spent With Patient Time: Total time spent is greater than 50% in coordination of care (as documented) at patient's floor/unit and/or counseling patient: Initial: Total time with patient: Less than 40 minutes
[2022-09-07] MEDS: GENTAMICIN SULFATE 40 MG, CLINDAMYCIN 300 MG in SODIUM CHLORIDE IRRIG SOLUTION 500 ML IRR SCH ×2 (14:11→21:11)
[2022-09-07 14:32] LABS: Appearance,Urine CLOUDY (Clear); Bilirubin,Urine Negative (Negative); Color,Urine Yellow; Culture Indicated,Urine yes; Glucose,Urine (UA) Negative (Negative); Ketones,Urine Negative (Negative); Leukocyte Esterase,Urine 250 /uL (Negative); Nitrate,Urine Negative (Negative); Protein,Urine 100 mg/dL (Negative); Specific Gravity,Urine 1.011 (1.000-1.035); Urine RBC > 182 /hpf (0-1); Urine Squamous Epithelial Cell 0 /hpf (0-4); Urine WBC 120 /hpf (0-4); Urobilinogen,Urine Negative
[2022-09-07 16:33] LABS: Hematocrit 27.3 % (40.1-51.0); Hemoglobin 8.7 g/dL (13.7-17.5)
[2022-09-07] MEDS: ATORVASTATIN 40 MG TABLET PO SCH (20:49)
[2022-09-07] MEDS: SENNOSIDES 1 TABLET PO SCH (20:52)
[2022-09-07] MEDS: INSULIN GLARGINE, HUMAN 1 UNIT/0.01 ML SQ SCH (20:57)
[2022-09-08] MEDS: 0.9 % SODIUM CHLORIDE 10 ML SYRINGE IV SCH ×6 (05:07→20:19)
[2022-09-08 06:46] LABS: Basophils # (Auto) 0.08 K/mcL (0.00-0.30); Basophils % (Auto) 0.5 % (0.0-2.0); Eosinophils # (Auto) 0.41 K/mcL (0.00-0.70); Eosinophils % (Auto) 2.6 % (0.0-7.0); Hematocrit 24.9 % (40.1-51.0); Hemoglobin 8.1 g/dL (13.7-17.5); Lymphocytes # (Auto) 2.63 K/mcL (1.50-4.80); Lymphocytes % (Auto) 16.8 % (15.5-49.0); Mean Cell Volume 92.2 fL (80.0-100.0); Mean Corpuscular HGB Conc 32.5 g/dL (31.0-36.0); Mean Platelet Volume 10.8 fL (8.8-12.5); Monocytes # (Auto) 0.93 K/mcL (0.10-0.90); Monocytes % (Auto) 5.9 % (1.0-12.0); Neutrophils % (Auto) 73.6 % (38.0-78.0); Platelet Count 336 K/mcL (140-440); Red Cell Distribution Width 13.2 % (11.5-14.5); WBC 15.7 K/mcL (4.5-11.0)
[2022-09-08] MEDS: INSULIN LISPRO 1 UNIT/0.01 ML UNIT SQ SCH ×6 (07:13→20:18)
--- NOTE | 2022-09-08 07:45 | Urology Progress Note ---
SUBJECTIVE Subjective Patient information: Note initiated : 09/08/22 at 7:38 am Service Date, if different from initiated Date: [] Patient: Bebo Barnes a 87 y/o M admitted on 08/26/22 for Abscess to groin, Celulitis, Sepsis. Chief Complaint: [Bilateral ureteral obstruction and gross hematuria] Principal diagnosis: Cellulitis Interval history: Bebo is postoperative day #3 status postplacement of bilateral ureteral stents and a three-way Wood catheter. He feels well. Continuous bladder irrigation was stopped yesterday. Morning labs are not yet back. Constitutional Vitals: Vital Signs Temp Pulse Resp BP Pulse Ox O2 Del Method O2 Flow Rate 97.8 F 84 22 145/59 97 Room Air 3 09/08/22 02:53 09/08/22 02:53 09/08/22 02:53 09/08/22 02:53 09/08/22 02:53 09/08/22 02:53 09/05/22 20:40 Period Temp Pulse Resp BP Sys/Canela Pulse Ox O2 Del Method O2 Flow Rate Last 24 Hr 97.7 F-98.6 F 81-90 18-24 127-157/52-72 95-99 Room Air-Room Air Intake and Output 09/07/22 09/08/22 09/08/22 19:59 03:59 11:59 Intake Total 4150 450 Output Total 4700 1200 Balance -550 -750 Weight 102.92 kg Intake & Output: Intake & Output 09/07/22 09/08/22 09/08/22 19:59 03:59 11:59 Intake Total 4150 450 Output Total 4700 1200 Balance -550 -750 Weight 102.92 kg Intake: IV 500 Sodium Chloride 0.9% 500 ml @ 500 84 mls/hr IV .Q5H58M [facility] Rx#: [id number] Oral 650 450 CBI Fluid 3000 Output: Urine Catheter Amount 750 1200 CBI Fluid 3950 Other: Meal Lunch Percent of Meal Consumed 75% Feeding Ability Independent Urine Appearance Small Blood Clots Uretheral (Wood) Small Blood Clots Urine Color Blood Tinged Uretheral (Wood) Light Luis Blood Tinged Stool Size Small Stool Color Brown Stool Consistency Soft # of times incontinent of 1 Bowels Net CBI 950 General appearance: average body habitus, cooperative and no acute distress Expanded Exam Urine Appearance: Clear Urine Color: Light Luis A/P Assessment and plan (1) Acute renal failure superimposed on stage 4 chronic kidney disease: Status: Acute (2) Right groin wound: Status: Acute (3) Bilateral hydronephrosis: Status: Acute (4) Gross hematuria: Status: Acute Plan Bebo is an 87-year-old male with a history of prostate cancer status post radiation. He has bilateral ureteral obstruction status post bilateral ureteral stent placement. He also has a history of gross hematuria and has an indwelling 24 Guyanese three-way Wood catheter in place. CBI was stopped yesterday. Urine this morning is clear and light luis-colored. He also has a right groin wound that is now packed wet-to-dry. He is doing well and has no complaints. WBC remains elevated. Morning chemistry is not back. We will continue to observe. The wound is being managed now by wound care. Narrative Plan of Treatment: Plan: Local skin and wound care per Katelyn Dangelo general farm hand. Detailed wound care instruction form filled out. AND reviewed with Katelyn Smith RN. After d/c f/u at wound care in ONE week. Spoke with Dr. Mark. Time Spent With Patient Time: Total time spent is greater than 50% in coordination of care (as documented) at patient's floor/unit and/or counseling patient:
--- NOTE | 2022-09-08 08:01 | EKG ---
[facility] Test Date: 2022-09-05 Pat Name: Bebo Barnes Department: [facility] Room: 111 Gender: Male District Leader: : [id number] Requested By: Beto Manuel Order Number: [id number] Reading MD: Bladimir Hair Measurements Intervals [place] Rate: 75 P: 30 MD: 206 QRS: -20 QRSD: 96 T: 13 QT: 433 QTc: 484 Interpretive Statements Sinus rhythm Ventricular premature complex Borderline left axis deviation Borderline prolonged QT interval Electronically Signed On 09-08-2022 8:01:37 PDT by Bladimir Hair /store/M0/[id number]
[2022-09-08 08:31] LABS: ALT/SGPT 40 U/L (<40); AST/SGOT 29 U/L (<40); Albumin 2.3 gm/dL (3.2-5.2); Albumin/Globulin Ratio 0.6 (1.0-2.3); Alkaline Phosphatase 65 U/L (39-117); Bilirubin,Total 0.2 mg/dL (0.1-1.0); Blood Urea Nitrogen 76 mg/dL (8-23); Calcium 8.6 mg/dL (8.6-10.4); Carbon Dioxide 22 mmol/L (22-30); Chloride 110 mmol/L (96-108); Globulin 3.7 gm/dL (2.2-3.7); Glomerular Filtration Rate 18; Glucose 51 mg/dL (70-105)
--- NOTE | 2022-09-08 08:47 | Nephrology Progress Note ---
SUBJECTIVE Subjective Patient information: Note initiated : 09/08/22 at 8:45 am Patient: Bebo Barnes 87 y/o M admitted on 08/26/22 for Abscess to groin, Celulitis, Sepsis. Chief Complaint: Weakness Principal diagnosis: Cellulitis Pertinent ROS: Weakness Wood catheter Constitutional Vitals: Vital Signs Temp Pulse Resp BP Pulse Ox O2 Del Method O2 Flow Rate 98.2 F 84 22 157/52 97 Room Air 3 09/08/22 08:00 09/08/22 08:00 09/08/22 08:00 09/08/22 08:00 09/08/22 08:00 09/08/22 08:00 09/05/22 20:40 Period Temp Pulse Resp BP Sys/Canela Pulse Ox O2 Del Method O2 Flow Rate Last 24 Hr 97.7 F-98.6 F 81-90 18-24 127-157/52-72 95-99 Room Air-Room Air Intake and Output 09/07/22 09/08/22 09/08/22 19:59 03:59 11:59 Intake Total 4150 450 Output Total 4700 1200 Balance -550 -750 Weight 226 lb 14.4 oz Intake & Output: Intake & Output 09/07/22 09/08/22 09/08/22 19:59 03:59 11:59 Intake Total 4150 450 Output Total 4700 1200 Balance -550 -750 Weight 226 lb 14.4 oz Intake: IV 500 Sodium Chloride 0.9% 500 ml @ 500 84 mls/hr IV .[id number] [facility] Rx#: [id number] Oral 650 450 CBI Fluid 3000 Output: Urine Catheter Amount 750 1200 CBI Fluid 3950 Other: Meal Lunch Percent of Meal Consumed 75% Feeding Ability Independent Urine Appearance Small Blood Clots Clear Uretheral (Wood) Small Blood Clots Urine Color Blood Tinged Light Elina Uretheral (Wood) Light Elina Blood Tinged Stool Size Small Stool Color Brown Stool Consistency Soft # of times incontinent of 1 Bowels Net CBI 950 General appearance: cooperative and no acute distress Head Head exam: Present normal inspection Eye Eye exam: Present normal appearance ENT ENT exam: Present mucous membranes moist Respiratory Respiratory exam: Absent respiratory distress Cardiovascular Cardiovascular exam: Present normal rate and rhythm GI/Abdominal GI/Abdominal exam: Present soft; Absent tenderness Extremities Exam Extremities exam: Absent joint swelling or pedal edema Neurological Exam Neurological exam: Present alert and oriented X3 Psychiatric Psychiatric exam: Present normal affect and normal mood Skin Skin exam: Present warm; Absent rash A/P Assessment and plan (1) Acute renal failure superimposed on stage 4 chronic kidney disease: Assessment and plan: Bebo Barnes is a 87-year-old male with hypertension, diabetes mellitus type 2, chronic kidney disease stage 4, 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 He received IV Zosyn and clindamycin. Cellulitis coalesced into abscess which was drained on 08/31/22. A Wood catheter was placed on admission. The patient began to have some gross hematuria on 09/03/22 and the Wood catheter stopped draining. Urology consultation was done and he had cystoscopy, evacuation of clot, bilateral retrograde pyelograms, bilateral ureteral stent placement and Wood placement on 09/05/22 for bilateral ureterectasis, hydronephrosis, gross hematuria, urethral stricture. He has been followed by Dr. Espinoza for chronic kidney disease stage 4, last visit was on 10/07/22, last serum creatinine was 1.9 (eGFR 31). His admission serum creatinine was 2.5 which started to rise on 09/05/22 to 3.6 and 4.5 on 09/06/22. Nephrology consultation was requested for acute kidney injury on 09/06/22. 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 There is no recent history of IV contrast administration or NSAID use. Intravascular volume depletion unlikely. Acute infectious (immune complex) glomerulonephritis, acute interstitial nephritis or acute toxic nephropathy due to medications considered, but unlikely. Work up: Urinalysis on 08/31/22: Yellow, cloudy, pH 5.0, SG 1.015, protein 30, blood >1.0, leukocyte esterase 500. Urine random total protein/creatinine on 10/10/21: 1,000 mg/g creatinine. UPEP/FAYE on 09/30/20: Normal pattern. No monoclonal proteins detected. Renal US on 09/05/22: Nonvisualized obstruction in the distal ureters causing moderate bilateral hydronephrosis. Moderate atrophy in both kidneys. Progress: Serum creatinine changed from 3.9 to 3.0 in the past 24 hours. Baseline serum creatinine: Last serum creatinine was 1.9 (eGFR 31). Urine output: 1,950 ml reported in the past 24 hours. Metabolic acidosis, resolved. Hyperkalemia, resolved. No uremic symptoms. Recommendations/Plan: Anticipate no acute hemodialysis need. Avoid NSAIDs, nephrotoxic medications and IV contrast. Hold MAIKOL/ARB, Metformin. Outpatient nephrology follow up with Dr. Espinoza. Status: Acute (2) Hyperkalemia: Status: Acute Narrative Plan of Treatment: Plan: Local skin and wound care per Katelyn Dangelo md allergy immunology. Detailed wound care instruction form filled out. AND reviewed with Katelyn Smith RN. After d/c f/u at wound care in ONE week. Spoke with Dr. Mark. Time Spent With Patient Time: Total time spent is greater than 50% in coordination of care (as documented) at patient's floor/unit and/or counseling patient:
[2022-09-08] MEDS: METOPROLOL SUCCINATE 50 MG TAB.XL.24H PO SCH ×2 (08:48→20:17)
[2022-09-08] MEDS: CARBOXYMETHYLCELLULOSE SODIUM 1 EACH DROPER.GEL OU SCH ×3 (08:48→20:17)
[2022-09-08] MEDS: FAMOTIDINE 20 MG TABLET PO SCH (08:48)
[2022-09-08] MEDS: TAMSULOSIN 0.4 MG CAPSULE PO SCH (08:48)
[2022-09-08] MEDS: VITAMIN D3 25 MCG TABLET PO SCH (08:48)
[2022-09-08] MEDS: GENTAMICIN SULFATE 40 MG, CLINDAMYCIN 300 MG in SODIUM CHLORIDE IRRIG SOLUTION 500 ML IRR SCH ×2 (08:50→20:11)
[2022-09-08] MEDS: DOCUSATE SODIUM 100 MG CAPSULE PO SCH ×2 (08:50→20:05)
--- NOTE | 2022-09-08 11:45 | Internal Med Progress Note ---
SUBJECTIVE Subjective Patient information: Note initiated : 09/08/22 at 11:41 am Service Date, if different from initiated Date: [] Patient: Bebo Barnes a 87 y/o M admitted on 08/26/22 for Abscess to groin, Celulitis, Sepsis. Chief Complaint: [] Principal diagnosis: Cellulitis Interval history: Mr. Barnes is a 87 year old M with history of diabetes mellitus 2 with neuropathy, hypertension, hyperlipidemia, CKD stage IV baseline creatinine unknown, anemia, BPH, history of prostate cancer noted a bump in his right groi n 3 days ago, that has been growing since then. He has been feeling feverish associated with chills. It hurts whenever anything touches it. He reported no drainage, no nausea vomiting. Patient was seen at [facility] first and was sent to ED for concerns of sepsis secondary to abscess in his groin. In ER patient was in sepsis with tachycardia of 92, leukocytosis of 25,000, lactic acidosis 3.0, acute kidney injury with creatinine of 2.7. Lab work also showed chronic anemia of 10.9, hyperglycemia 2-3. CT scan showed cellulitis in the subcutaneous fat of the right upper thigh and right buttock region. No evidence of abscess. Patient was admitted to the floor. 08/27. Patient seen and examined. Patient had low-grade fever of 99.9 F overnight, somewhat hypotensive with BP 106/44. Leukocytosis somewhat improved however still elevated at 21,000 significantly. Patient serum creatinine improved to 2.5 from 2.7 yesterday. BUN and down to 77 from 86 yesterday. Glucose improved to 176 from 2-3 before. HBA 1C came to A1c is 7.7. Blood culture is still pending. He remains on IV Zosyn and clindamycin. Will give 1 L NS for hypotension and acute kidney injury. 08/28 patient reports feeling better. WBC slightly improved to 19,000 from 21,000, hemoglobin 8.6 down from 9.2, likely in the setting of hemodilution. Creatinine worsened to 2.7 from 2.5 yesterday. His baseline is around 1.9-2.0. He has stage IV kidney disease at baseline. RN reported patient was having urine dribbling. Suspect urinary retention. Will put Wood catheter in. HbA1c 7.7 08/29. No fevers overnight, leukocytosis slightly improved to 18,000. Reports scrotal discomfort is improving. Serum creatinine 2.6 down from 2.7 yesterday. BUN same 83. Patient is tolerating antibiotics 08/30 afebrile, leukocytosis up to 19.8 from 18.8 yesterday, creatinine 2.6 stable. Will order CRP and procalcitonin to follow-up on his infection. Also will obtain repeat CT scan of pelvis to see if he has an abscess 08/31 Patient is doing better today, white cell counts has come down.. The area of cellulitis and an abscess continues to drain. I was able to drain about 5 cc of pus by squeezing the area. Cellulitis coalesced into abscess which is now spontaneously draining. Appreciate Dr. Yanez recommendations. Recommending to continue twice daily dressing change. 09/01 leukocytosis trending down slowly. No fever. Right groin with minimal discharge. Cultures are pending. 09/02. WBC 17,000 down from 17.7 yesterday. Still purulent discharge from right groin. No fever. Wound culture and urine cultures negative. Patient on antibiotics. 09/03 No acute events overnight. Patient with leukocytosis with very slow gradual improvement. Creatinine 2.3. Wound culture with no growth.Although there is gram-negative bacilli that did not grow in the aerobic culture possible anaerobes. 09/04 Patient states that he had poor sleep last night because his bladder was full. Sounds like the Wood malfunction probably from clots that he is has developed noticeable gross hematuria. Repeat CT pelvis today shows improving cellulitis and resolving abscess but this shows worsening obstructive distal ureters concerning for possible blood within the ureters as well as inflamed bladder wall. Will discuss with urology. 09/05 Larger Wood catheter placed yesterday day by urology and irrigation by nursing. Overnight Wood catheter stopped producing fluid. Nurse irrigated this morning as able to get out some bloody fluid. However creatinine worsened and with corresponding electrolyte abnormalities wit h elevated potassium/phos/mag. Patient seems to be obstructing again. Urgent renal ultrasound ordered and will likely need to discuss again with urology. Patient otherwise is feeling fine and slept okay. 09/06 Patient had cystoscopy with bilateral ureteral stents and evacuation of clots last evening. Currently undergoing CBI. Leukocytosis same as yesterday. But afebrile and no bandemia. Renal function worse patient likely has acute tubular necrosis. Hyperkalemia and hyperphosphatemia noted. Metabolic acidosis. Nephrology consult. Gross hematuria much improved Wood bag fluid now pale red. 09/07 Patient says he is feeling better today. Sitting up in bed eating breakfast. Leukocytosis is improving. Hemoglobin low at 7.7 monitor. Potassium within normal limits. Creatinine started to trend in the right direction. 09/08: Kidney functions continue to improve, serum Cr 3.9-->3.0. WBC 15.7. All cultures no growth to date. He finished 11 days of Zosyn. Urinary catheter in place, clamped, CBI discontinued on 09/07. Patient denies having any groin or scrotal or penile pain. He denies any fever chills or diaphoresis. We will continue to work with urology, nephrology, and general surgery for obstructive uropathy with associated acute kidney injury, right groin cellulitis and abscess, and his other underlying medical issues. Overall condition guarded. Stay in [facility]. Constitutional Vitals: Vital Signs Temp Pulse Resp BP Pulse Ox O2 Del Method O2 Flow Rate 36.8 C 84 22 157/52 97 Room Air 3 09/08/22 08:00 09/08/22 08:00 09/08/22 08:00 09/08/22 08:00 09/08/22 08:00 09/08/22 08:00 09/05/22 20:40 Period Temp Pulse Resp BP Sys/Canela Pulse Ox O2 Del Method O2 Flow Rate Last 24 Hr 36.5 C-37.0 C 81-90 18-24 127-157/52-72 95-99 Room Air-Room Air Intake and Output 09/07/22 09/08/22 09/08/22 19:59 03:59 11:59 Intake Total 4150 450 440 Output Total 4700 1200 Balance -550 -750 440 Weight 102.92 kg Intake & Output: Intake & Output 09/07/22 09/08/22 09/08/22 19:59 03:59 11:59 Intake Total 4150 450 440 Output Total 4700 1200 Balance -550 -750 440 Weight 102.92 kg Intake: IV 500 Sodium Chloride 0.9% 500 ml @ 500 84 mls/hr IV .Q5H58M [facility] Rx#: [id number] Oral 650 450 240 GI Tube Flush 200 CBI Fluid 3000 Output: Urine Catheter Amount 750 1200 CBI Fluid 3950 Other: Meal Lunch Breakfast Percent of Meal Consumed 75% 100% Feeding Ability Independent Independent Urine Appearance Small Blood Clots Clear Uretheral (Wood) Small Blood Clots Clear Urine Color Blood Tinged Light Elina Uretheral (Wood) Light Elina Light Elina Blood Tinged Stool Size Small Stool Color Brown Stool Consistency Soft # of times incontinent of 1 Bowels Net CBI 950 Head Head exam: Present atraumatic and normal inspection Eye Eye exam: Present normal appearance ENT ENT exam: Present mucous membranes moist, normal exam and normal external ear exam Neck Neck exam: Present normal inspection Respiratory Respiratory exam: Present normal respiratory exam Cardiovascular Cardiovascular exam: Present normal rate and rhythm GI/Abdominal GI/Abdominal exam: Present normal bowel sounds Additional comments: Urinary catheter in place Right groin incision, clean, minimal clear drainage with manual expression, no tenderness to palpation Back Exam Back exam: Present normal inspection Neurological Exam Neurological exam: Present alert and oriented X3 Skin Skin exam: Present intact and warm OBJ DATA Labs 09/08/22 05:46 09/08/22 05:46 Labs: Abnormal Lab Results 09/08/22 09/08/22 09/07/22 05:46 05:46 16:04 WBC 15.7 H RBC 2.70 L Hgb 8.1 L 8.7 L Hct 24.9 L 27.3 L Immature Gran % (Auto) 0.6 H Neut % (Auto) Lymph % (Auto) Lymph # (Auto) Ness # (Auto) 0.93 H Immature Gran # 0.09 H Absolute Neutrophils 11.53 H Potassium Chloride 110 H Carbon Dioxide BUN 76 H Creatinine 3.0 H Glucose 51 L Uric Acid Calcium Phosphorus Magnesium GGT ALT 40 H Total Protein Albumin 2.3 L Globulin Albumin/Globulin Ratio 0.6 L Urine Appearance Urine Protein Ur Leukocyte Esterase Urine RBC Urine WBC 09/07/22 09/07/22 09/07/22 13:45 05:22 05:22 WBC 14.1 H RBC 2.50 L Hgb 7.5 L Hct 23.0 L Immature Gran % (Auto) Neut % (Auto) Lymph % (Auto) 13.2 L Lymph # (Auto) Ness # (Auto) 0.98 H Immature Gran # 0.07 H Absolute Neutrophils 10.65 H Potassium Chloride Carbon Dioxide 21 L BUN 85 H Creatinine 3.9 H Glucose 64 L Uric Acid 8.9 H Calcium 8.5 L Phosphorus 7.1 H* Magnesium GGT 63 H ALT Total Protein 5.4 L Albumin 2.0 L Globulin Albumin/Globulin Ratio 0.6 L Urine Appearance Cloudy A Urine Protein 100 A Ur Leukocyte Esterase 250 A Urine RBC > 182 H Urine WBC 120 H 09/06/22 09/06/22 09/06/22 16:00 05:22 05:22 WBC 19.5 H RBC 2.85 L Hgb 8.6 L Hct 26.5 L Immature Gran % (Auto) 0.7 H Neut % (Auto) 91.0 H Lymph % (Auto) 6.4 L Lymph # (Auto) 1.26 L Ness # (Auto) Immature Gran # 0.13 H Absolute Neutrophils 17.80 H Potassium 5.9 H* 6.8 H* Chloride Carbon Dioxide 18 L 17 L BUN 95 H 94 H Creatinine 4.4 H 4.5 H Glucose 188 H 152 H Uric Acid 9.3 H Calcium Phosphorus 8.3 H* Magnesium 2.6 H GGT 72 H ALT 43 H Total Protein Albumin 2.3 L Globulin 3.8 H Albumin/Globulin Ratio 0.6 L Urine Appearance Urine Protein Ur Leukocyte Esterase Urine RBC Urine WBC Meds: Medications Acetaminophen (Acetaminophen 325 Mg Tablet) 650 mg PO Q6HP PRN; Protocol PRN Reason: Per Pain Protocol/Fever > 101 Last Admin: 09/04/22 09:47 Dose: 650 mg Artificial Tears (Carboxymethylcellulose Sodium 1 Each Droper.Gel) 1 each OU TID [facility] Last Admin: 09/08/22 08:48 Dose: 1 each Atorvastatin Calcium (Atorvastatin 40 Mg Tablet) 80 mg PO [facility] Last Admin: 09/07/22 20:49 Dose: 80 mg Dextrose (Dextrose 50% 50 Ml Vial) 0 ml IV UD PRN PRN Reason: Per Sliding Scale Diagnostic Test (Pha) (Accu-Chek 1 Each Strip) 1 each FS ACHS [facility] Last Admin: 09/08/22 11:05 Dose: 1 each Docusate Sodium (Docusate Sodium 100 Mg Capsule) 100 mg PO BID [facility] Last Admin: 09/08/22 08:50 Dose: Not Given Famotidine (Famotidine 20 Mg Tablet) 20 mg PO QAM [facility] Last Admin: 09/08/22 08:48 Dose: 20 mg Glucose (Dextrose 31 Gm Oral.Susp) 15 gm PO PRN PRN PRN Reason: Hypoglycemia Hydralazine HCl (Hydralazine 20 Mg/Ml Vial) 10 mg IV Q4-6HP PRN PRN Reason: Hypertension Gentamicin Sulfate 40 mg/Clindamycin Phosphate 300 mg/Sodium Chloride 503 mls @ 1 mls/hr IRR BID [facility] Last Admin: 09/08/22 08:50 Dose: 1 mls/hr Insulin Glargine (Insulin Glargine, Human 1 Unit/0.01 Ml) 35 unit SQ QHS [facility] Last Admin: 09/07/22 20:57 Dose: 35 units Insulin Human Lispro (Insulin Lispro 1 Unit/0.01 Ml Unit) 0 unit SQ ACHS [facility]; Protocol Last Admin: 09/08/22 11:05 Dose: Not Given Insulin Human Lispro (Insulin Lispro 1 Unit/0.01 Ml Unit) 6 unit SQ [facility] Last Admin: 09/08/22 11:05 Dose: Not Given Metoprolol Succinate (Metoprolol Succinate 50 Mg Tab.Xl.24h) 25 mg PO BID [facility] Last Admin: 09/08/22 08:48 Dose: 25 mg Ondansetron HCl (Ondansetron 4 Mg/2 Ml Vial) 4 mg IV Q6HP PRN PRN Reason: Nausea And Vomiting Oxycodone HCl (Oxycodone Ir 5 Mg Tablet) 5 mg PO Q4HP PRN; Protocol PRN Reason: Per Pain Protocol Last Admin: 09/04/22 09:47 Dose: 5 mg Senna (Sennosides 1 Tablet) 2 tab PO HS [facility] Last Admin: 09/07/22 20:52 Dose: Not Given Sodium Chloride (0.9 % Sodium Chloride 10 Ml Syringe) 10 ml IV Q8 [facility] Last Admin: 09/08/22 05:27 Dose: 10 ml Sodium Chloride (0.9 % Sodium Chloride 10 Ml Syringe) 10 ml IV Q8 [facility] Last Admin: 09/08/22 05:07 Dose: Not Given Tamsulosin HCl (Tamsulosin 0.4 Mg Capsule) 0.4 mg PO QDAY [facility] Last Admin: 09/08/22 08:48 Dose: 0.4 mg Trazodone HCl (Trazodone Hcl 50 Mg Tablet) 25 mg PO HSP PRN PRN Reason: Insomnia Last Admin: 08/27/22 21:06 Dose: 25 mg Vitamin D (Vitamin D3 25 Mcg Tablet) 25 mcg PO DAILY [facility] Last Admin: 09/08/22 08:48 Dose: 25 mcg A/P Assessment and plan (1) Obstructive uropathy: Status: Chronic (2) Acute renal failure superimposed on stage 4 chronic kidney disease: Status: Acute (3) Right groin wound: Status: Acute (4) Hyperlipidemia, mixed: Status: Chronic (5) Hypertension: Status: Chronic Comment: Controlled on 3 Rx Goal 130/80 Qualifiers: Hypertension type: essential hypertension Qualified Code(s): I10 - Essential (primary) hypertension (6) Anemia: Status: Chronic Qualifiers: Anemia type: unspecified type Qualified Code(s): D64.9 - Anemia, uns pecified (7) Diabetes mellitus with neuropathy: Status: Chronic Comment: Goal HgBA1c <7.5% Qualifiers: Diabetes mellitus type: type 2 Diabetes mellitus terminal carman insulin use: with terminal carman use Qualified Code(s): E11.40 - Type 2 diabetes mellitus with diabetic neuropathy, unspecified; 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 Right groin abscess: All cultures no growth Finished 11 days of Zosyn cbc w/ auto diff in the morning to trend WBC Comanagement with general surgeon Dr. Germain, follow up in office within 1 week of hospital discharge 2. Obstructive uropathy with associated acute on chronic kidney injury: Comanagement with urologist, Dr. Richardson, recs. appreciated. 24 [place] 3 [address] catheter, clamped, CBI stopped on 09/07 Comanagement with associate professor of chemistry Dr. Morales, recs. appreciated Saline lock, avoid nephrotoxic agents, CMP daily to trend kidney functions Flomax 3. T2DM: HgA1c Insulin Lantus 35 unit HS Insulin Lispro 6 unit + SSI AC HS Accu Check AC HS Hypoglycemia protocol Diabetic diet 4. Essential hypertension: Metoprolol Succinate 5. Hyperlipidemia, mixed: Lipitor 6. Anemia, normocytic normochromic: cbc w/ auto diff in the morning to trend H/H GI ppx: Pepcid DVT ppx: SCDs Code status: Full Prognosis: guarded Disposition: inpatient med surg Time Spent With Patient Time: Total time spent is greater than 50% in coordination of care (as documented) at patient's floor/unit and/or counseling patient: Subsequent: Total time with patient: 35 - 49 minutes QUALITY Stroke Symptom Onset Unknown: No VTE Deep Vein Thrombosis/Pulmonary Embolism Present on Admission: No
--- NOTE | 2022-09-08 17:27 | General Surgery Progress Note ---
SUBJECTIVE Subjective Patient information: Note initiated : 09/08/22 at 5:19 pm Service Date, if different from initiated Date: [] Patient: Bebo Barnes 87 y/o M admitted on 08/26/22 for Abscess to groin, Celulitis, Sepsis. Chief Complaint: [] Principal diagnosis: Cellulitis Additional PMFSH (Level 3 Only): I saw Mr. Barnes this morning on rounds with Katelyn Dangelo RN, Wound Care Nurse. Examined RIGHT groin wound. Now draining scant amount of serous fluid. ?? URINE. CBI is ongoing and urine in bag is clearer. Patient feels better and is ambulating in room . Had a BM. Constitutional Vitals: Vital Signs Temp Pulse Resp BP Pulse Ox O2 Del Method O2 Flow Rate 97.2 F 76 16 151/84 98 Room Air 3 09/08/22 12:00 09/08/22 12:00 09/08/22 12:00 09/08/22 12:00 09/08/22 12:00 09/08/22 12:00 09/05/22 20:40 Period Temp Pulse Resp BP Sys/Canela Pulse Ox O2 Del Method O2 Flow Rate Last 24 Hr 97.2 F-98.6 F 76-90 16-24 127-157/52-84 95-98 Room Air-Room Air Intake and Output 09/08/22 09/08/22 09/08/22 03:59 11:59 19:59 Intake Total 450 440 Output Total 1200 Balance -750 440 Intake & Output: Intake & Output 09/08/22 09/08/22 09/08/22 03:59 11:59 19:59 Intake Total 450 440 Output Total 1200 Balance -750 440 Intake: Oral 450 240 GI Tube Flush 200 Output: Urine Catheter Amount 1200 Other: Meal Breakfast Percent of Meal Consumed 100% Feeding Ability Independent Urine Appearance Small Blood Clots Clear Uretheral (Wood) Small Blood Clots Clear Urine Color Blood Tinged Light Elina Uretheral (Wood) Light Elina Light Elina Blood Tinged Stool Size Small Moderate Stool Color Brown Brown Stool Consistency Soft Soft # Bowel Movements 1 # of times incontinent of 1 Bowels Exam: Afebrile. VSS. Ongoing CBi. s/p Cystoscopy, Ureteric stents (bilateral) and 3 way CBI catheter. S/P Cystoscopy and dilatation of urethral stricture. Labs Creatinine is trending down. A/P Narrative A/P Narrative: Assessment: Slow steady improvement . Renal function / creatinine is improving. Plan of Treatment: Plan: Continue ongoing wound care. Will see during patient's stay in hospital. Later f/u at wound care clinic, Time Spent With Patient Time: Total time spent is greater than 50% in coordination of care (as documented) at patient's floor/unit and/or counseling patient: Initial: Total time with patient: Less than 40 minutes
[2022-09-08] MEDS: ATORVASTATIN 40 MG TABLET PO SCH (20:17)
[2022-09-08] MEDS: INSULIN GLARGINE, HUMAN 1 UNIT/0.01 ML SQ SCH (20:17)
[2022-09-08] MEDS: SENNOSIDES 1 TABLET PO SCH (20:19)
[2022-09-09] MEDS: 0.9 % SODIUM CHLORIDE 10 ML SYRINGE IV SCH ×4 (05:09→20:59)
[2022-09-09 06:20] LABS: Basophils # (Auto) 0.07 K/mcL (0.00-0.30); Basophils % (Auto) 0.5 % (0.0-2.0); Eosinophils # (Auto) 0.11 K/mcL (0.00-0.70); Eosinophils % (Auto) 0.8 % (0.0-7.0); Hemoglobin 8.1 g/dL (13.7-17.5); Lymphocytes # (Auto) 1.14 K/mcL (1.50-4.80); Lymphocytes % (Auto) 8.1 % (15.5-49.0); Mean Cell Volume 92.3 fL (80.0-100.0); Mean Corpuscular HGB Conc 32.4 g/dL (31.0-36.0); Mean Platelet Volume 10.8 fL (8.8-12.5); Monocytes # (Auto) 0.91 K/mcL (0.10-0.90); Monocytes % (Auto) 6.5 % (1.0-12.0); Neutrophils % (Auto) 83.6 % (38.0-78.0); Platelet Count 299 K/mcL (140-440); RBC 2.71 M/mcL (4.63-6.08); Red Cell Distribution Width 13.2 % (11.5-14.5)
[2022-09-09] MEDS: INSULIN LISPRO 1 UNIT/0.01 ML UNIT SQ SCH ×4 (07:16→21:27)
[2022-09-09 08:21] LABS: ALT/SGPT 38 U/L (<40); AST/SGOT 31 U/L (<40); Albumin 2.4 gm/dL (3.2-5.2); Albumin/Globulin Ratio 0.7 (1.0-2.3); Alkaline Phosphatase 68 U/L (39-117); Bilirubin,Total 0.3 mg/dL (0.1-1.0); Blood Urea Nitrogen 65 mg/dL (8-23); Calcium 8.8 mg/dL (8.6-10.4); Carbon Dioxide 22 mmol/L (22-30); Chloride 107 mmol/L (96-108); Globulin 3.5 gm/dL (2.2-3.7); Glomerular Filtration Rate 21; Glucose 44 mg/dL (70-105)
[2022-09-09] MEDS: CARBOXYMETHYLCELLULOSE SODIUM 1 EACH DROPER.GEL OU SCH ×3 (08:34→20:58)
--- NOTE | 2022-09-09 08:34 | Nephrology Progress Note ---
SUBJECTIVE Subjective Patient information: Note initiated : 09/09/22 at 8:32 am Patient: Bebo Barnes 87 y/o M admitted on 08/26/22 for Abscess to groin, Celulitis, Sepsis. Chief Complaint: Weakness Principal diagnosis: Cellulitis Pertinent ROS: Weakness Wood catheter Constitutional Vitals: Vital Signs Temp Pulse Resp BP Pulse Ox O2 Del Method O2 Flow Rate 97.5 F 83 20 161/64 100 Room Air 3 09/09/22 07:02 09/09/22 07:02 09/09/22 03:38 09/09/22 07:02 09/09/22 07:02 09/09/22 07:02 09/05/22 20:40 Period Temp Pulse Resp BP Sys/Canela Pulse Ox O2 Del Method O2 Flow Rate Last 24 Hr 97.2 F-98.9 F 72-83 16-22 134-161/51-84 95-100 Room Air-Room Air Intake and Output 09/08/22 09/09/22 09/09/22 19:59 03:59 11:59 Intake Total 240 400 Output Total 1325 1100 Balance -1085 -700 Weight 223 lb Intake & Output: Intake & Output 09/08/22 09/09/22 09/09/22 19:59 03:59 11:59 Intake Total 240 400 Output Total 1325 1100 Balance -1085 -700 Weight 223 lb Intake: Oral 240 400 Output: Urine Catheter Amount 1325 1100 Other: Meal Dinner Percent of Meal Consumed 100% Feeding Ability Independent Urine Appearance Small Blood Clots Clear Uretheral (Wood) Small Blood Clots Small Blood Clots Sediment Urine Color Blood Tinged Dark Yellow Uretheral (Wood) Yellow Yellow Light Elina Blood Tinged Blood Tinged Stool Size Small Small Stool Color Brown Brown Stool Consistency Soft Soft # Bowel Movements 1 # of times incontinent of 1 1 Bowels General appearance: cooperative and no acute distress Head Head exam: Present normal inspection Eye Eye exam: Present normal appearance ENT ENT exam: Present mucous membranes moist Respiratory Respiratory exam: Absent respiratory distress Cardiovascular Cardiovascular exam: Present normal rate and rhythm GI/Abdominal GI/Abdominal exam: Present soft; Absent tenderness Extremities Exam Extremities exam: Absent joint swelling or pedal edema Neurological Exam Neurological exam: Present alert and oriented X3 Psychiatric Psychiatric exam: Present normal affect and normal mood Skin Skin exam: Present warm; Absent rash A/P Assessment and plan (1) Acute renal failure superimposed on stage 4 chronic kidney disease: Assessment and plan: Bebo Barnes is a 87-year-old male with hypertension, diabetes mellitus type 2, chronic kidney disease stage 4, 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 He received IV Zosyn and clindamycin. Cellulitis coalesced into abscess which was drained on 08/31/22. A Wood catheter was placed on admission. The patient began to have some gross hematuria on 09/03/22 and the Wood catheter stopped draining. Urology consultation was done and he had cystoscopy, evacuation of clot, bilateral retrograde pyelograms, bilateral ureteral stent placement and Wood placement on 09/05/22 for bilateral ureterectasis, hydronephrosis, gross hematuria, urethral stricture. He has been followed by Dr. Espinoza for chronic kidney disease stage 4, last visit was on 10/07/22, last serum creatinine was 1.9 (eGFR 31). His admission serum creatinine was 2.5 which started to rise on 09/05/22 to 3.6 and 4.5 on 09/06/22. Nephrology consultation was requested for acute kidney injury on 09/06/22. 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 There is no recent history of IV contrast administration or NSAID use. Intravascular volume depletion unlikely. Acute infectious (immune complex) glomerulonephritis, acute interstitial nephritis or acute toxic nephropathy due to medications considered, but unlikely. Work up: Urinalysis on 08/31/22: Yellow, cloudy, pH 5.0, SG 1.015, protein 30, blood >1.0, leukocyte esterase 500. Urine random total protein/creatinine on 10/10/21: 1,000 mg/g creatinine. UPEP/FAYE on 09/30/20: Normal pattern. No monoclonal proteins detected. Renal US on 09/05/22: Nonvisualized obstruction in the distal ureters causing moderate bilateral hydronephrosis. Moderate atrophy in both kidneys. Progress: Serum creatinine changed from 3.0 to 2.6 in the past 24 hours. Baseline serum creatinine: Last serum creatinine was 1.9 (eGFR 31). Urine output: 2,425 ml reported in the past 24 hours. Recommendations/Plan: Outpatient nephrology follow up with Dr. Espinoza. Status: Acute (2) Hyperkalemia: Status: Acute Narrative Plan of Treatment: Plan: Continue ongoing wound care. Will see during patient's stay in hospital. Later f/u at wound care clinic, Time Spent With Patient Time: Total time spent is greater than 50% in coordination of care (as documented) at patient's floor/unit and/or counseling patient:
[2022-09-09] MEDS: DOCUSATE SODIUM 100 MG CAPSULE PO SCH ×2 (08:35→20:58)
[2022-09-09] MEDS: GENTAMICIN SULFATE 40 MG, CLINDAMYCIN 300 MG in SODIUM CHLORIDE IRRIG SOLUTION 500 ML IRR SCH ×2 (08:35→20:57)
[2022-09-09] MEDS: METOPROLOL SUCCINATE 50 MG TAB.XL.24H PO SCH ×2 (08:35→20:58)
[2022-09-09] MEDS: TAMSULOSIN 0.4 MG CAPSULE PO SCH (08:35)
[2022-09-09] MEDS: VITAMIN D3 25 MCG TABLET PO SCH (08:35)
[2022-09-09] MEDS: FAMOTIDINE 20 MG TABLET PO SCH (08:35)
--- NOTE | 2022-09-09 09:59 | Urology Progress Note ---
SUBJECTIVE Subjective Patient information: Note initiated : 09/09/22 at 9:56 am Service Date, if different from initiated Date: [] Patient: Bebo Barnes a 87 y/o M admitted on 08/26/22 for Abscess to groin, Celulitis, Sepsis. Chief Complaint: [Bilateral ureteral obstruction and gross hematuria] Principal diagnosis: Cellulitis Interval history: Bebo is postoperative day #4 status postplacement of bilateral ureteral stents and a three-way Wood catheter. He feels well. Constitutional Vitals: Vital Signs Temp Pulse Resp BP Pulse Ox O2 Del Method O2 Flow Rate 97.5 F 83 20 161/64 100 Room Air 3 09/09/22 07:02 09/09/22 07:02 09/09/22 03:38 09/09/22 07:02 09/09/22 07:02 09/09/22 07:02 09/05/22 20:40 Period Temp Pulse Resp BP Sys/Canela Pulse Ox O2 Del Method O2 Flow Rate Last 24 Hr 97.2 F-98.9 F 72-83 16-22 134-161/51-84 95-100 Room Air-Room Air Intake and Output 09/08/22 09/09/22 09/09/22 19:59 03:59 11:59 Intake Total 240 400 Output Total 1325 1100 Balance -1085 -700 Weight 101.151 kg Intake & Output: Intake & Output 09/08/22 09/09/22 09/09/22 19:59 03:59 11:59 Intake Total 240 400 Output Total 1325 1100 Balance -1085 -700 Weight 101.151 kg Intake: Oral 240 400 Output: Urine Catheter Amount 1325 1100 Other: Meal Dinner Percent of Meal Consumed 100% Feeding Ability Independent Urine Appearance Small Blood Clots Clear Uretheral (Wood) Small Blood Clots Small Blood Clots Sediment Urine Color Blood Tinged Dark Yellow Uretheral (Wood) Yellow Yellow Light Luis Blood Tinged Blood Tinged Stool Size Small Small Stool Color Brown Brown Stool Consistency Soft Soft # Bowel Movements 1 # of times incontinent of 1 1 Bowels General appearance: average body habitus, cooperative and no acute distress Expanded Exam Urine Appearance: Clear Urine Color: Light Luis A/P Assessment and plan (1) Bilateral hydronephrosis: Status: Acute (2) Gross hematuria: Status: Acute Narrative A/P Narrative: Bebo is an 87-year-old male with a history of prostate cancer status post radiation. He has bilateral ureteral obstruction status post bilateral ureteral stent placement. He also has a history of gross hematuria and has an indwelling 24 Albanian three-way Wood catheter in place. CBI was stopped the urine remains clear and light luis-colored. He also has a right groin wound that is now packed wet-to-dry. He is doing well and has no complaints. WBC remains elevated. The serum creatinine continues to decrease and is 2.6 today. We will continue to observe. The wound is being managed now by wound care. I feel that we should remove the Wood catheter. Plan of Treatment: Plan: Continue ongoing wound care. Will see during patient's stay in hospital. Later f/u at wound care clinic, Time Spent With Patient Time: Total time spent is greater than 50% in coordination of care (as documented) at patient's floor/unit and/or counseling patient:
--- NOTE | 2022-09-09 10:50 | Internal Med Progress Note ---
SUBJECTIVE Subjective Patient information: Note initiated : 09/09/22 at 10:47 am Service Date, if different from initiated Date: [] Patient: Bebo Barnes a 87 y/o M admitted on 08/26/22 for Abscess to groin, Celulitis, Sepsis. Chief Complaint: [] Principal diagnosis: Cellulitis Interval history: Mr. Barnes is a 87 year old M with history of diabetes mellitus 2 with neuropathy, hypertension, hyperlipidemia, CKD stage IV baseline creatinine unknown, anemia, BPH, history of prostate cancer noted a bump in his right groi n 3 days ago, that has been growing since then. He has been feeling feverish associated with chills. It hurts whenever anything touches it. He reported no drainage, no nausea vomiting. Patient was seen at [facility] first and was sent to ED for concerns of sepsis secondary to abscess in his groin. In ER patient was in sepsis with tachycardia of 92, leukocytosis of 25,000, lactic acidosis 3.0, acute kidney injury with creatinine of 2.7. Lab work also showed chronic anemia of 10.9, hyperglycemia 2-3. CT scan showed cellulitis in the subcutaneous fat of the right upper thigh and right buttock region. No evidence of abscess. Patient was admitted to the floor. 08/27. Patient seen and examined. Patient had low-grade fever of 99.9 F overnight, somewhat hypotensive with BP 106/44. Leukocytosis somewhat improved however still elevated at 21,000 significantly. Patient serum creatinine improved to 2.5 from 2.7 yesterday. BUN and down to 77 from 86 yesterday. Glucose improved to 176 from 2-3 before. HBA 1C came to A1c is 7.7. Blood culture is still pending. He remains on IV Zosyn and clindamycin. Will give 1 L NS for hypotension and acute kidney injury. 08/28 patient reports feeling better. WBC slightly improved to 19,000 from 21,000, hemoglobin 8.6 down from 9.2, likely in the setting of hemodilution. Creatinine worsened to 2.7 from 2.5 yesterday. His baseline is around 1.9-2.0. He has stage IV kidney disease at baseline. RN reported patient was having urine dribbling. Suspect urinary retention. Will put Wood catheter in. HbA1c 7.7 08/29. No fevers overnight, leukocytosis slightly improved to 18,000. Reports scrotal discomfort is improving. Serum creatinine 2.6 down from 2.7 yesterday. BUN same 83. Patient is tolerating antibiotics 08/30 afebrile, leukocytosis up to 19.8 from 18.8 yesterday, creatinine 2.6 stable. Will order CRP and procalcitonin to follow-up on his infection. Also will obtain repeat CT scan of pelvis to see if he has an abscess 08/31 Patient is doing better today, white cell counts has come down.. The area of cellulitis and an abscess continues to drain. I was able to drain about 5 cc of pus by squeezing the area. Cellulitis coalesced into abscess which is now spontaneously draining. Appreciate Dr. Yanez recommendations. Recommending to continue twice daily dressing change. 09/01 leukocytosis trending down slowly. No fever. Right groin with minimal discharge. Cultures are pending. 09/02. WBC 17,000 down from 17.7 yesterday. Still purulent discharge from right groin. No fever. Wound culture and urine cultures negative. Patient on antibiotics. 09/03 No acute events overnight. Patient with leukocytosis with very slow gradual improvement. Creatinine 2.3. Wound culture with no growth.Although there is gram-negative bacilli that did not grow in the aerobic culture possible anaerobes. 09/04 Patient states that he had poor sleep last night because his bladder was full. Sounds like the Wood malfunction probably from clots that he is has developed noticeable gross hematuria. Repeat CT pelvis today shows improving cellulitis and resolving abscess but this shows worsening obstructive distal ureters concerning for possible blood within the ureters as well as inflamed bladder wall. Will discuss with urology. 09/05 Larger Wood catheter placed yesterday day by urology and irrigation by nursing. Overnight Wood catheter stopped producing fluid. Nurse irrigated this morning as able to get out some bloody fluid. However creatinine worsened and with corresponding electrolyte abnormalities wit h elevated potassium/phos/mag. Patient seems to be obstructing again. Urgent renal ultrasound ordered and will likely need to discuss again with urology. Patient otherwise is feeling fine and slept okay. 09/06 Patient had cystoscopy with bilateral ureteral stents and evacuation of clots last evening. Currently undergoing CBI. Leukocytosis same as yesterday. But afebrile and no bandemia. Renal function worse patient likely has acute tubular necrosis. Hyperkalemia and hyperphosphatemia noted. Metabolic acidosis. Nephrology consult. Gross hematuria much improved Wood bag fluid now pale red. 09/07 Patient says he is feeling better today. Sitting up in bed eating breakfast. Leukocytosis is improving. Hemoglobin low at 7.7 monitor. Potassium within normal limits. Creatinine started to trend in the right direction. 09/08: Kidney functions continue to improve, serum Cr 3.9-->3.0. WBC 15.7. All cultures no growth to date. He finished 11 days of Zosyn. Urinary catheter in place, clamped, CBI discontinued on 09/07. Patient denies having any groin or scrotal or penile pain. He denies any fever chills or diaphoresis. We will continue to work with urology, nephrology, and general surgery for obstructive uropathy with associated acute kidney injury, right groin cellulitis and abscess, and his other underlying medical issues. Overall condition guarded. Stay in [facility]. 09/09: Serum Cr level improved from 3.[address] Richardson decided to remove Wood catheter. Patient denies having any penile or scrotal pain. He denies having any fever chills or diaphoresis. Hypogylcemia with serum glucose 65 this morning. We will continue to monitor urine output in the next 24 hours as well as kidney functions on a daily basis. If no urine output in 6 hours, will bladder scan the patient. Decreased Insulin Lantus from 35 to 20 unit HS to avoid hypoglycemia episode. Overall condition guarded. Stay in [facility]. Constitutional Vitals: Vital Signs Temp Pulse Resp BP Pulse Ox O2 Del Method O2 Flow Rate 36.4 C 83 20 161/64 100 Room Air 3 09/09/22 07:02 09/09/22 07:02 09/09/22 03:38 09/09/22 07:02 09/09/22 07:02 09/09/22 07:02 09/05/22 20:40 Period Temp Pulse Resp BP Sys/Canela Pulse Ox O2 Del Method O2 Flow Rate Last 24 Hr 36.2 C-37.2 C 72-83 16-22 134-161/51-84 95-100 Room Air-Room Air Intake and Output 09/08/22 09/09/22 09/09/22 19:59 03:59 11:59 Intake Total 240 400 Output Total 1325 1100 Balance -1085 -700 Weight 101.151 kg Intake & Output: Intake & Output 09/08/22 09/09/22 09/09/22 19:59 03:59 11:59 Intake Total 240 400 Output Total 1325 1100 Balance -1085 -700 Weight 101.151 kg Intake: Oral 240 400 Output: Urine Catheter Amount 1325 1100 Other: Meal Dinner Percent of Meal Consumed 100% Feeding Ability Independent Urine Appearance Small Blood Clots Clear Clear Uretheral (Wood) Small Blood Clots Small Blood Clots Sediment Urine Color Blood Tinged Dark Yellow Light Elina Uretheral (Wood) Yellow Yellow Light Elina Blood Tinged Blood Tinged Stool Size Small Small Stool Color Brown Brown Stool Consistency Soft Soft # Bowel Movements 1 # of times incontinent of 1 1 Bowels Head Head exam: Present atraumatic and normal inspection Eye Eye exam: Present normal appearance ENT ENT exam: Present mucous membranes moist, normal exam and normal external ear exam Neck Neck exam: Present normal inspection Respiratory Respiratory exam: Present normal respiratory exam Cardiovascular Cardiovascular exam: Present normal rate and rhythm GI/Abdominal GI/Abdominal exam: Present normal bowel sounds Additional comments: Right groin surgical incision with surrounding erythema and induration Back Exam Back exam: Present normal inspection Neurological Exam Neurological exam: Present alert and oriented X3 Skin Skin exam: Present intact and warm OBJ DATA Labs 09/09/22 05:28 09/09/22 05:28 Labs: Abnormal Lab Results 09/09/22 09/09/22 09/08/22 05:28 05:28 05:46 WBC 14.0 H RBC 2.71 L Hgb 8.1 L Hct 25.0 L Immature Gran % (Auto) Neut % (Auto) 83.6 H Lymph % (Auto) 8.1 L Lymph # (Auto) 1.14 L [place] # (Auto) 0.91 H Immature Gran # 0.07 H Absolute Neutrophils 11.74 H Potassium Chloride 110 H Carbon Dioxide BUN 65 H 76 H Creatinine 2.6 H 3.0 H Glucose 44 L* 51 L Uric Acid Calcium Phosphorus GGT ALT 40 H Total Protein Albumin 2.4 L 2.3 L Albumin/Globulin Ratio 0.7 L 0.6 L Urine Appearance Urine Protein Ur Leukocyte Esterase Urine RBC Urine WBC 09/08/22 09/07/22 09/07/22 05:46 16:04 13:45 WBC 15.7 H RBC 2.70 L Hgb 8.1 L 8.7 L Hct 24.9 L 27.3 L Immature Gran % (Auto) 0.6 H Neut % (Auto) Lymph % (Auto) Lymph # (Auto) [place] # (Auto) 0.93 H Immature Gran # 0.09 H Absolute Neutrophils 11.53 H Potassium Chloride Carbon Dioxide BUN Creatinine Glucose Uric Acid Calcium Phosphorus GGT ALT Total Protein Albumin Albumin/Globulin Ratio Urine Appearance Cloudy A Urine Protein 100 A Ur Leukocyte Esterase 250 A Urine RBC > 182 H Urine WBC 120 H 09/07/22 09/07/22 09/06/22 05:22 05:22 16:00 WBC 14.1 H RBC 2.50 L Hgb 7.5 L Hct 23.0 L Immature Gran % (Auto) Neut % (Auto) Lymph % (Auto) 13.2 L Lymph # (Auto) [place] # (Auto) 0.98 H Immature Gran # 0.07 H Absolute Neutrophils 10.65 H Potassium 5.9 H* Chloride Carbon Dioxide 21 L 18 L BUN 85 H 95 H Creatinine 3.9 H 4.4 H Glucose 64 L 188 H Uric Acid 8.9 H Calcium 8.5 L Phosphorus 7.1 H* GGT 63 H ALT Total Protein 5.4 L Albumin 2.0 L Albumin/Globulin Ratio 0.6 L Urine Appearance Urine Protein Ur Leukocyte Esterase Urine RBC Urine WBC Meds: Medications Acetaminophen (Acetaminophen 325 Mg Tablet) 650 mg PO Q6HP PRN; Protocol PRN Reason: Per Pain Protocol/Fever > 101 Last Admin: 09/04/22 09:47 Dose: 650 mg Artificial Tears (Carboxymethylcellulose Sodium 1 Each Droper.Gel) 1 each OU TID [facility] Last Admin: 09/09/22 08:34 Dose: 1 each Atorvastatin Calcium (Atorvastatin 40 Mg Tablet) 80 mg PO HS [facility] Last Admin: 09/08/22 20:17 Dose: 80 mg Dextrose (Dextrose 50% 50 Ml Vial) 0 ml IV UD PRN PRN Reason: Per Sliding Scale Diagnostic Test (Pha) (Accu-Chek 1 Each Strip) 1 each FS ACHS [facility] Last Admin: 09/09/22 07:15 Dose: 1 each Docusate Sodium (Docusate Sodium 100 Mg Capsule) 100 mg PO BID [facility] Last Admin: 09/09/22 08:35 Dose: 100 mg Famotidine (Famotidine 20 Mg Tablet) 20 mg PO QAM [facility] Last Admin: 09/09/22 08:35 Dose: 20 mg Glucose (Dextrose 31 Gm Oral.Susp) 15 gm PO PRN PRN PRN Reason: Hypoglycemia Hydralazine HCl (Hydralazine 20 Mg/Ml Vial) 10 mg IV Q4-6HP PRN PRN Reason: Hypertension Gentamicin Sulfate 40 mg/Clindamycin Phosphate 300 mg/Sodium Chloride 503 mls @ 1 mls/hr IRR BID [facility] Last Admin: 09/09/22 08:35 Dose: 1 mls/hr Insulin Glargine (Insulin Glargine, Human 1 Unit/0.01 Ml) 20 unit SQ QHS [facility] Insulin Human Lispro (Insulin Lispro 1 Unit/0.01 Ml Unit) 0 unit SQ ACHS [facility]; Protocol Last Admin: 09/09/22 07:16 Dose: Not Given Metoprolol Succinate (Metoprolol Succinate 50 Mg Tab.Xl.24h) 25 mg PO BID [facility] Last Admin: 09/09/22 08:35 Dose: 25 mg Ondansetron HCl (Ondansetron 4 Mg/2 Ml Vial) 4 mg IV Q6HP PRN PRN Reason: Nausea And Vomiting Oxycodone HCl (Oxycodone Ir 5 Mg Tablet) 5 mg PO Q4HP PRN; Protocol PRN Reason: Per Pain Protocol Last Admin: 09/04/22 09:47 Dose: 5 mg Senna (Sennosides 1 Tablet) 2 tab PO [facility] Last Admin: 09/08/22 20:19 Dose: Not Given Sodium Chloride (0.9 % Sodium Chloride 10 Ml Syringe) 10 ml IV Q8 [facility] Last Admin: 09/09/22 05:09 Dose: Not Given Tamsulosin HCl (Tamsulosin 0.4 Mg Capsule) 0.4 mg PO QDAY [facility] Last Admin: 09/09/22 08:35 Dose: 0.4 mg Trazodone HCl (Trazodone Hcl 50 Mg Tablet) 25 mg PO HSP PRN PRN Reason: Insomnia Last Admin: 08/27/22 21:06 Dose: 25 mg Vitamin D (Vitamin D3 25 Mcg Tablet) 25 mcg PO DAILY [facility] Last Admin: 09/09/22 08:35 Dose: 25 mcg A/P Assessment and plan (1) Obstructive uropathy: Status: Chronic (2) Acute renal failure superimposed on stage 4 chronic kidney disease: Status: Acute (3) Right groin wound: Status: Acute (4) Hyperlipidemia, mixed: Status: Chronic (5) Hypertension: Status: Chronic Comment: Controlled on 3 Rx Goal 130/80 Qualifiers: Hypertension type: essential hypertension Qualified Code(s): I10 - Essential (primary) hypertension (6) Anemia: Status: Chronic Qualifiers: Anemia type: unspecified type Qualified Code(s): D64.9 - Anemia, u nspecified (7) Diabetes mellitus with neuropathy: Status: Chronic Comment: Goal HgBA1c <7.5% Qualifiers: Diabetes mellitus type: type 2 Diabetes mellitus retirement insulin use: with exterminator use Qualified Code(s): E11.40 - Type 2 diabetes mellitus with diabetic neuropathy, unspecified; Z79.4 - prison (current) use of insulin Narrative A/P Narrative: Assessment and Plans: 1. Right groin abscess: All cultures no growth Finished 11 days of Zosyn cbc w/ auto diff in the morning to trend WBC Comanagement with general surgeon Dr. Germain, follow up in office within 1 week of hospital discharge 2. Obstructive uropathy with associated acute on chronic kidney injury: Comanagement with urologist, Dr. Richardson, recs. appreciated. d/c Wood catheter today. We will continue to monitor urine output in the next 24 hours as well as kidney functions on a daily basis. If no urine output in 6 hours, will bladder scan the patient. Comanagement with restorative aide vini Wilcox. appreciated Saline lock, avoid nephrotoxic agents, CMP daily to trend kidney functions Flomax 3. T2DM: HgA1c Decrease Insulin Lantus from 35 to 20unit HS to avoid hypoglycemia episode Insulin Lispro SSI AC HS Accu Check AC HS Hypoglycemia protocol Diabetic diet 4. Essential hypertension: Metoprolol Succinate 5. Hyperlipidemia, mixed: Lipitor 6. Anemia, normocytic normochromic: cbc w/ auto diff in the morning to trend H/H GI ppx: Pepcid DVT ppx: SCDs Code status: Full Prognosis: guarded Disposition: inpatient med surg Plan of Treatment: Plan: Continue ongoing wound care. Will see during patient's stay in hospital. Later f/u at wound care clinic, Time Spent With Patient Time: Total time spent is greater than 50% in coordination of care (as documented) at patient's floor/unit and/or counseling patient: Subsequent: Total time with patient: 35 - 49 minutes QUALITY Stroke Symptom Onset Unknown: No VTE Deep Vein Thrombosis/Pulmonary Embolism Present on Admission: No
[2022-09-09] MEDS: ATORVASTATIN 40 MG TABLET PO SCH (20:57)
[2022-09-09] MEDS: SENNOSIDES 1 TABLET PO SCH (20:59)
[2022-09-09] MEDS ORDERED: INSULIN GLARGINE, HUMAN 1 UNIT/0.01 ML SQ SCH (21:00)
[2022-09-10] MEDS: 0.9 % SODIUM CHLORIDE 10 ML SYRINGE IV SCH ×3 (05:21→21:51)
[2022-09-10 06:45] LABS: Basophils # (Auto) 0.08 K/mcL (0.00-0.30); Basophils % (Auto) 0.6 % (0.0-2.0); Eosinophils # (Auto) 0.39 K/mcL (0.00-0.70); Eosinophils % (Auto) 3.2 % (0.0-7.0); Hematocrit 25.6 % (40.1-51.0); Hemoglobin 8.4 g/dL (13.7-17.5); Lymphocytes # (Auto) 1.64 K/mcL (1.50-4.80); Lymphocytes % (Auto) 13.3 % (15.5-49.0); Mean Cell Volume 91.8 fL (80.0-100.0); Mean Corpuscular HGB Conc 32.8 g/dL (31.0-36.0); Monocytes # (Auto) 0.93 K/mcL (0.10-0.90); Monocytes % (Auto) 7.5 % (1.0-12.0); Platelet Count 295 K/mcL (140-440); RBC 2.79 M/mcL (4.63-6.08); WBC 12.3 K/mcL (4.5-11.0)
[2022-09-10] MEDS: INSULIN LISPRO 1 UNIT/0.01 ML UNIT SQ SCH ×4 (07:51→20:31)
[2022-09-10 08:29] LABS: ALT/SGPT 32 U/L (<40); AST/SGOT 25 U/L (<40); Albumin 2.2 gm/dL (3.2-5.2); Albumin/Globulin Ratio 0.6 (1.0-2.3); Alkaline Phosphatase 69 U/L (39-117); Bilirubin,Total 0.3 mg/dL (0.1-1.0); Blood Urea Nitrogen 56 mg/dL (8-23); Calcium 8.9 mg/dL (8.6-10.4); Carbon Dioxide 22 mmol/L (22-30); Chloride 106 mmol/L (96-108); Globulin 3.8 gm/dL (2.2-3.7); Glomerular Filtration Rate 21; Glucose 46 mg/dL (70-105)
--- NOTE | 2022-09-10 08:35 | Nephrology Progress Note ---
SUBJECTIVE Subjective Patient information: Note initiated : 09/10/22 at 8:34 am Patient: Bebo Barnes a 87 y/o M admitted on 08/26/22 for Abscess to groin, Celulitis, Sepsis. Chief Complaint: Normal Principal diagnosis: Cellulitis Constitutional Vitals: Vital Signs Temp Pulse Resp BP Pulse Ox O2 Del Method O2 Flow Rate 98.4 F 82 18 148/64 93 Room Air 3 09/10/22 07:38 09/10/22 07:38 09/10/22 07:38 09/10/22 07:38 09/10/22 07:38 09/10/22 07:38 09/05/22 20:40 Period Temp Pulse Resp BP Sys/Canela Pulse Ox O2 Del Method O2 Flow Rate Last 24 Hr 97.9 F-99.0 F 64-88 18-20 121-152/40-64 93-99 Room Air-Room Air Intake and Output 09/09/22 09/10/22 09/10/22 19:59 03:59 11:59 Intake Total 1600 0 Output Total 120 1 Balance 1480 -1 Weight 227 lb 6.4 oz Intake & Output: Intake & Output 09/09/22 09/10/22 09/10/22 19:59 03:59 11:59 Intake Total 1600 0 Output Total 120 1 Balance 1480 -1 Weight 227 lb 6.4 oz Intake: Oral 1600 0 Output: Void Amount 120 0 # of times incontinent of urine 1 Other: Meal Lunch Percent of Meal Consumed 100% Urine Appearance Clear Urine Color Yellow Pale Urine Odor Normal # Voids 0 General appearance: cooperative and no acute distress Head Head exam: Present normal inspection Eye Eye exam: Present normal appearance ENT ENT exam: Present mucous membranes moist Respiratory Respiratory exam: Absent respiratory distress Cardiovascular Cardiovascular exam: Present normal rate and rhythm GI/Abdominal GI/Abdominal exam: Present soft; Absent tenderness Extremities Exam Extremities exam: Absent joint swelling or pedal edema Neurological Exam Neurological exam: Present alert and oriented X3 Psychiatric Psychiatric exam: Present normal affect and normal mood Skin Skin exam: Present warm; Absent rash A/P Assessment and plan (1) Acute renal failure superimposed on stage 4 chronic kidney disease: Assessment and plan: Bebo Barnes is a 87-year-old male with hypertension, diabetes mellitus type 2, chronic kidney disease stage 4, 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 He received IV Zosyn and clindamycin. Cellulitis coalesced into abscess which was drained on 08/31/22. A Wood catheter was placed on admission. The patient began to have some gross hematuria on 09/03/22 and the Wood catheter stopped draining. Urology consultation was done and he had cystoscopy, evacuation of clot, bilateral retrograde pyelograms, bilateral ureteral stent placement and Wood placement on 09/05/22 for bilateral ureterectasis, hydronephrosis, gross hematuria, urethral stricture. He has been followed by Dr. Espinoza for chronic kidney disease stage 4, last visit was on 10/07/22, last serum creatinine was 1.9 (eGFR 31). His admission serum creatinine was 2.5 which started to rise on 09/05/22 to 3.6 and 4.5 on 09/06/22. Nephrology consultation was requested for acute kidney injury on 09/06/22. 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 There is no recent history of IV contrast administration or NSAID use. Intravascular volume depletion unlikely. Acute infectious (immune complex) glomerulonephritis, acute interstitial nephritis or acute toxic nephropathy due to medications considered, but unlikely. Work up: Urinalysis on 08/31/22: Yellow, cloudy, pH 5.0, SG 1.015, protein 30, blood >1.0, leukocyte esterase 500. Urine random total protein/creatinine on 10/10/21: 1,000 mg/g creatinine. UPEP/FAYE on 09/30/20: Normal pattern. No monoclonal proteins detected. Renal US on 09/05/22: Nonvisualized obstruction in the distal ureters causing moderate bilateral hydronephrosis. Moderate atrophy in both kidneys. Renal US on 09/10/22: Report pending. Progress: Serum creatinine 2.6 without change in the past 24 hours. Baseline serum creatinine: Last serum creatinine was 1.9 (eGFR 31). Urine output: Incontinent with 120 ml reported in the past 24 hours. Recommendations/Plan: Outpatient nephrology follow up with Dr. Olga. Status: Acute (2) Hyperkalemia: Status: Acute Narrative Plan of Treatment: Plan: Continue ongoing local wound care. May clean with Vashe and change gaze packing as needed. Antifungal powder in diaper / brief BID Will see intermittently during stay in hospital. Later f/u at wound care clinic, Time Spent With Patient Time: Total time spent is greater than 50% in coordination of care (as documented) at patient's floor/unit and/or counseling patient:
--- NOTE | 2022-09-10 08:48 | General Surgery Progress Note ---
SUBJECTIVE Subjective Patient information: Note initiated : 09/10/22 at 8:36 am Service Date, if different from initiated Date: [] Patient: Bebo Barnes 87 y/o M admitted on 08/26/22 for Abscess to groin, Celulitis, Sepsis. Chief Complaint: [] Principal diagnosis: Cellulitis Additional PMFSH (Level 3 Only): Patient seen with Katelyn Dangelo RN Inpatient Wound Care nurse. Patient is comfortable at his baseline. Wood catheter removed. Voiding clear urine. Constitutional Vitals: Vital Signs Temp Pulse Resp BP Pulse Ox O2 Del Method O2 Flow Rate 98.4 F 82 18 148/64 93 Room Air 3 09/10/22 07:38 09/10/22 07:38 09/10/22 07:38 09/10/22 07:38 09/10/22 07:38 09/10/22 07:38 09/05/22 20:40 Period Temp Pulse Resp BP Sys/Canela Pulse Ox O2 Del Method O2 Flow Rate Last 24 Hr 97.9 F-99.0 F 64-88 18-20 121-152/40-64 93-99 Room Air-Room Air Intake and Output 09/09/22 09/10/22 09/10/22 19:59 03:59 11:59 Intake Total 1600 0 Output Total 120 1 Balance 1480 -1 Weight 227 lb 6.4 oz Intake & Output: Intake & Output 09/09/22 09/10/22 09/10/22 19:59 03:59 11:59 Intake Total 1600 0 Output Total 120 1 Balance 1480 -1 Weight 227 lb 6.4 oz Intake: Oral 1600 0 Output: Void Amount 120 0 # of times incontinent of urine 1 Other: Meal Lunch Percent of Meal Consumed 100% Urine Appearance Clear Urine Color Yellow Pale Urine Odor Normal # Voids 0 Exam: Afebrile. VSS. At his baseline. RIGHT groin wound tracks inferiorly and medially along skin folds. Draining thin seropurulent drainage soaking gauze pack. NO crepitus, NO loni purulence, NO odor. Patient log roiled and sacral coccygeal area examined. Moisture associated dermatitis with Stage 1 changes. Mild erythema. Rectal examination. Sphincter tone intact. Copious soft formed stool. Disimpacted. A/P Narrative A/P Narrative: Assessment: Colonized chronically contaminated region. RIGHT groin open wound. Stage 3. Upto adipose tissue. With moisture dermatitis. Moisture dermatitis coccygeal skin. Plan of Treatment: Plan: Continue ongoing local wound care. May clean with Vashe and change gaze packing as needed. Antifungal powder in diaper / brief BID Will see intermittently during stay in hospital. Later f/u at wound care clinic, Time Spent With Patient Time: Total time spent is greater than 50% in coordination of care (as documented) at patient's floor/unit and/or counseling patient:
[2022-09-10] MEDS: FAMOTIDINE 20 MG TABLET PO SCH (09:41)
[2022-09-10] MEDS: METOPROLOL SUCCINATE 50 MG TAB.XL.24H PO SCH ×2 (09:42→20:57)
[2022-09-10] MEDS: TAMSULOSIN 0.4 MG CAPSULE PO SCH (09:42)
[2022-09-10] MEDS: DOCUSATE SODIUM 100 MG CAPSULE PO SCH ×2 (09:42→20:57)
[2022-09-10] MEDS: VITAMIN D3 25 MCG TABLET PO SCH (09:42)
[2022-09-10] MEDS: CARBOXYMETHYLCELLULOSE SODIUM 1 EACH DROPER.GEL OU SCH ×3 (09:43→20:56)
--- NOTE | 2022-09-10 09:48 | Urology Progress Note ---
SUBJECTIVE Subjective Patient information: Note initiated : 09/10/22 at 9:44 am Service Date, if different from initiated Date: [] Patient: Bebo Barnes a 87 y/o M admitted on 08/26/22 for Abscess to groin, Celulitis, Sepsis. Chief Complaint: [Bilateral ureteral obstruction and gross hematuria] Principal diagnosis: Cellulitis Interval history: Bebo is postoperative day #5 status postplacement of bilateral ureteral stents and a three-way Wood catheter. Yesterday the Wood catheter was removed. He is reportedly urinating well without issue and having some incontinence. Serum creatinine today remains stable at 2.6. He feels well. Constitutional Vitals: Vital Signs Temp Pulse Resp BP Pulse Ox O2 Del Method O2 Flow Rate 98.4 F 82 18 148/64 93 Room Air 3 09/10/22 07:38 09/10/22 07:38 09/10/22 07:38 09/10/22 07:38 09/10/22 07:38 09/10/22 07:38 09/05/22 20:40 Period Temp Pulse Resp BP Sys/Canela Pulse Ox O2 Del Method O2 Flow Rate Last 24 Hr 97.9 F-99.0 F 64-88 18-20 121-152/40-64 93-99 Room Air-Room Air Intake and Output 09/09/22 09/10/22 09/10/22 19:59 03:59 11:59 Intake Total 1600 0 Output Total 120 1 Balance 1480 -1 Weight 103.147 kg Intake & Output: Intake & Output 09/09/22 09/10/22 09/10/22 19:59 03:59 11:59 Intake Total 1600 0 Output Total 120 1 Balance 1480 -1 Weight 103.147 kg Intake: Oral 1600 0 Output: Void Amount 120 0 # of times incontinent of urine 1 Other: Meal Lunch Percent of Meal Consumed 100% Urine Appearance Clear Urine Color Yellow Pale Urine Odor Normal Stool Size Small Stool Color Brown Stool Consistency Soft # Voids 0 # Bowel Movements 1 General appearance: average body habitus, cooperative and no acute distress Psychiatric Psychiatric exam: Present normal affect and normal mood A/P Assessment and plan (1) Acute renal failure superimposed on stage 4 chronic kidney disease: Status: Acute (2) Bilateral hydronephrosis: Status: Acute (3) Gross hematuria: Status: Acute Narrative A/P Narrative: Bebo is an 87-year-old male with a history of prostate cancer status post radiation. He has bilateral ureteral obstruction status post bilateral ureteral stent placement. He also has a history of gross hematuria and had an indwelling 24 Portuguese three-way Wood catheter in place. CBI was stopped and the urine remained clear and light luis-colored. The catheter was removed yesterday and since that time he has been voiding on his own and having some incontinence. The urine is reportedly clear and remains yellow. He also has a right groin wound that is now packed wet-to-dry. The wound is being followed by wound care. He is doing well and has no complaints. WBC remains mildly elevated. The serum creatinine is stable today at 2.6. At this point in time there is nothing further that I can do. The patient should follow-up with me as an outpatient to address the ureteral stents and to recheck his urine. I am going to sign off for now. Should you need me or urology any further during this hospital stay please call us. Plan of Treatment: Plan: Continue ongoing local wound care. May clean with Vashe and change gaze packing as needed. Antifungal powder in diaper / brief BID Will see intermittently during stay in hospital. Later f/u at wound care clinic, Time Spent With Patient Time: Total time spent is greater than 50% in coordination of care (as documented) at patient's floor/unit and/or counseling patient:
--- NOTE | 2022-09-10 12:14 | Internal Med Progress Note ---
SUBJECTIVE Subjective Patient information: Note initiated : 09/10/22 at 12:07 pm Service Date, if different from initiated Date: [] Patient: Bebo Barnes a 87 y/o M admitted on 08/26/22 for Abscess to groin, Celulitis, Sepsis. Chief Complaint: [] Principal diagnosis: Cellulitis Interval history: Mr. Barnes is a 87 year old M with history of diabetes mellitus 2 with neuropathy, hypertension, hyperlipidemia, CKD stage IV baseline creatinine unknown, anemia, BPH, history of prostate cancer noted a bump in his right groi n 3 days ago, that has been growing since then. He has been feeling feverish associated with chills. It hurts whenever anything touches it. He reported no drainage, no nausea vomiting. Patient was seen at [facility] first and was sent to ED for concerns of sepsis secondary to abscess in his groin. In ER patient was in sepsis with tachycardia of 92, leukocytosis of 25,000, lactic acidosis 3.0, acute kidney injury with creatinine of 2.7. Lab work also showed chronic anemia of 10.9, hyperglycemia 2-3. CT scan showed cellulitis in the subcutaneous fat of the right upper thigh and right buttock region. No evidence of abscess. Patient was admitted to the floor. 08/27. Patient seen and examined. Patient had low-grade fever of 99.9 F overnight, somewhat hypotensive with BP 106/44. Leukocytosis somewhat improved however still elevated at 21,000 significantly. Patient serum creatinine improved to 2.5 from 2.7 yesterday. BUN and down to 77 from 86 yesterday. Glucose improved to 176 from 2-3 before. HBA 1C came to A1c is 7.7. Blood culture is still pending. He remains on IV Zosyn and clindamycin. Will give 1 L NS for hypotension and acute kidney injury. 08/28 patient reports feeling better. WBC slightly improved to 19,000 from 21,000, hemoglobin 8.6 down from 9.2, likely in the setting of hemodilution. Creatinine worsened to 2.7 from 2.5 yesterday. His baseline is around 1.9-2.0. He has stage IV kidney disease at baseline. RN reported patient was having urine dribbling. Suspect urinary retention. Will put Wood catheter in. HbA1c 7.7 08/29. No fevers overnight, leukocytosis slightly improved to 18,000. Reports scrotal discomfort is improving. Serum creatinine 2.6 down from 2.7 yesterday. BUN same 83. Patient is tolerating antibiotics 08/30 afebrile, leukocytosis up to 19.8 from 18.8 yesterday, creatinine 2.6 stable. Will order CRP and procalcitonin to follow-up on his infection. Also will obtain repeat CT scan of pelvis to see if he has an abscess 08/31 Patient is doing better today, white cell counts has come down.. The area of cellulitis and an abscess continues to drain. I was able to drain about 5 cc of pus by squeezing the area. Cellulitis coalesced into abscess which is now spontaneously draining. Appreciate Dr. Yanez recommendations. Recommending to continue twice daily dressing change. 09/01 leukocytosis trending down slowly. No fever. Right groin with minimal discharge. Cultures are pending. 09/02. WBC 17,000 down from 17.7 yesterday. Still purulent discharge from right groin. No fever. Wound culture and urine cultures negative. Patient on antibiotics. 09/03 No acute events overnight. Patient with leukocytosis with very slow gradual improvement. Creatinine 2.3. Wound culture with no growth.Although there is gram-negative bacilli that did not grow in the aerobic culture possible anaerobes. 09/04 Patient states that he had poor sleep last night because his bladder was full. Sounds like the Wood malfunction probably from clots that he is has developed noticeable gross hematuria. Repeat CT pelvis today shows improving cellulitis and resolving abscess but this shows worsening obstructive distal ureters concerning for possible blood within the ureters as well as inflamed bladder wall. Will discuss with urology. 09/05 Larger Wood catheter placed yesterday day by urology and irrigation by nursing. Overnight Wood catheter stopped producing fluid. Nurse irrigated this morning as able to get out some bloody fluid. However creatinine worsened and with corresponding electrolyte abnormalities wit h elevated potassium/phos/mag. Patient seems to be obstructing again. Urgent renal ultrasound ordered and will likely need to discuss again with urology. Patient otherwise is feeling fine and slept okay. 09/06 Patient had cystoscopy with bilateral ureteral stents and evacuation of clots last evening. Currently undergoing CBI. Leukocytosis same as yesterday. But afebrile and no bandemia. Renal function worse patient likely has acute tubular necrosis. Hyperkalemia and hyperphosphatemia noted. Metabolic acidosis. Nephrology consult. Gross hematuria much improved Wood bag fluid now pale red. 09/07 Patient says he is feeling better today. Sitting up in bed eating breakfast. Leukocytosis is improving. Hemoglobin low at 7.7 monitor. Potassium within normal limits. Creatinine started to trend in the right direction. 09/08: Kidney functions continue to improve, serum Cr 3.9-->3.0. WBC 15.7. All cultures no growth to date. He finished 11 days of Zosyn. Urinary catheter in place, clamped, CBI discontinued on 09/07. Patient denies having any groin or scrotal or penile pain. He denies any fever chills or diaphoresis. We will continue to work with urology, nephrology, and general surgery for obstructive uropathy with associated acute kidney injury, right groin cellulitis and abscess, and his other underlying medical issues. Overall condition guarded. Stay in [facility]. 09/09: Serum Cr level improved from 3.[address] Richardson decided to remove Wood catheter. Patient denies having any penile or scrotal pain. He denies having any fever chills or diaphoresis. Hypogylcemia with serum glucose 65 this morning. We will continue to monitor urine output in the next 24 hours as well as kidney functions on a daily basis. If no urine output in 6 hours, will bladder scan the patient. Decreased Insulin Lantus from 35 to 20 unit HS to avoid hypoglycemia episode. Overall condition guarded. Stay in [facility]. 09/10: Afebrile overnight. Fasting glucose 53. Urine culture: VRE. WBC 12.3. Serum Cr level 2.6. Patient is continue to have urinary and bowel incontinence. He denies any groin penile or buttock pain. Decreased Insulin Lantus from 20 to 10 unit HS to avoid hypoglycemia episode. Continue wound care for buttock wound. Recommends SNF placement for continued wound care. Overall condition stable. Stay in [facility] until placement. Constitutional Vitals: Vital Signs Temp Pulse Resp BP Pulse Ox O2 Del Method O2 Flow Rate 36.9 C 82 18 148/64 93 Room Air 3 09/10/22 07:38 09/10/22 07:38 09/10/22 07:38 09/10/22 07:38 09/10/22 07:38 09/10/22 07:38 09/05/22 20:40 Period Temp Pulse Resp BP Sys/Canela Pulse Ox O2 Del Method O2 Flow Rate Last 24 Hr 36.6 C-37.2 C 64-88 18-20 121-148/40-64 93-98 Room Air-Room Air Intake and Output 09/10/22 09/10/22 09/10/22 03:59 11:59 19:59 Intake Total 0 Output Total 1 Balance -1 Intake & Output: Intake & Output 09/10/22 09/10/22 09/10/22 03:59 11:59 19:59 Intake Total 0 Output Total 1 Balance -1 Intake: Oral 0 Output: Void Amount 0 # of times incontinent of urine 1 Other: Urine Appearance Clear Urine Color Yellow Pale Urine Odor Normal Stool Size Small Stool Color Brown Stool Consistency Soft # Voids 1 # Bowel Movements 1 Head Head exam: Present atraumatic and normal inspection Eye Eye exam: Present normal appearance ENT ENT exam: Present mucous membranes moist, normal exam and normal external ear exam Neck Neck exam: Present normal inspection Respiratory Respiratory exam: Present normal respiratory exam Cardiovascular Cardiovascular exam: Present normal rate and rhythm GI/Abdominal GI/Abdominal exam: Present normal bowel sounds Additional comments: Right groin surgical incision with surrounding erythema and induration Back Exam Back exam: Present normal inspection Neurological Exam Neurological exam: Present alert and oriented X3 Skin Skin exam: Present warm; Absent intact Additional comments: Stage 3 buttock decubitus ulcer OBJ DATA Labs 09/10/22 05:28 09/10/22 05:28 Labs: Abnormal Lab Results 09/10/22 09/10/22 09/09/22 05:28 05:28 05:28 WBC 12.3 H RBC 2.79 L Hgb 8.4 L Hct 25.6 L Immature Gran % (Auto) Neut % (Auto) Lymph % (Auto) 13.3 L Lymph # (Auto) [place] # (Auto) 0.93 H Immature Gran # Absolute Neutrophils 9.23 H Chloride BUN 56 H 65 H Creatinine 2.6 H 2.6 H Glucose 46 L* 44 L* ALT Albumin 2.2 L 2.4 L Globulin 3.8 H Albumin/Globulin Ratio 0.6 L 0.7 L Urine Appearance Urine Protein Ur Leukocyte Esterase Urine RBC Urine WBC 09/09/22 09/08/22 09/08/22 05:28 05:46 05:46 WBC 14.0 H 15.7 H RBC 2.71 L 2.70 L Hgb 8.1 L 8.1 L Hct 25.0 L 24.9 L Immature Gran % (Auto) 0.6 H Neut % (Auto) 83.6 H Lymph % (Auto) 8.1 L Lymph # (Auto) 1.14 L [place] # (Auto) 0.91 H 0.93 H Immature Gran # 0.07 H 0.09 H Absolute Neutrophils 11.74 H 11.53 H Chloride 110 H BUN 76 H Creatinine 3.0 H Glucose 51 L ALT 40 H Albumin 2.3 L Globulin Albumin/Globulin Ratio 0.6 L Urine Appearance Urine Protein Ur Leukocyte Esterase Urine RBC Urine WBC 09/07/22 09/07/22 16:04 13:45 WBC RBC Hgb 8.7 L Hct 27.3 L Immature Gran % (Auto) Neut % (Auto) Lymph % (Auto) Lymph # (Auto) [place] # (Auto) Immature Gran # Absolute Neutrophils Chloride BUN Creatinine Glucose ALT Albumin Globulin Albumin/Globulin Ratio Urine Appearance Cloudy A Urine Protein 100 A Ur Leukocyte Esterase 250 A Urine RBC > 182 H Urine WBC 120 H Meds: Medications Acetaminophen (Acetaminophen 325 Mg Tablet) 650 mg PO Q6HP PRN; Protocol PRN Reason: Per Pain Protocol/Fever > 101 Last Admin: 09/04/22 09:47 Dose: 650 mg Artificial Tears (Carboxymethylcellulose Sodium 1 Each Droper.Gel) 1 each OU TID [facility] Last Admin: 09/10/22 09:43 Dose: 1 each Atorvastatin Calcium (Atorvastatin 40 Mg Tablet) 80 mg PO HS [facility] Last Admin: 09/09/22 20:57 Dose: 80 mg Dextrose (Dextrose 50% 50 Ml Vial) 0 ml IV UD PRN PRN Reason: Per Sliding Scale Diagnostic Test (Pha) (Accu-Chek 1 Each Strip) 1 each FS ACHS [facility] Last Admin: 09/10/22 11:52 Dose: 1 each Docusate Sodium (Docusate Sodium 100 Mg Capsule) 100 mg PO BID [facility] Last Admin: 09/10/22 09:42 Dose: 100 mg Famotidine (Famotidine 20 Mg Tablet) 20 mg PO QAM [facility] Last Admin: 09/10/22 09:41 Dose: 20 mg Glucose (Dextrose 31 Gm Oral.Susp) 15 gm PO PRN PRN PRN Reason: Hypoglycemia Hydralazine HCl (Hydralazine 20 Mg/Ml Vial) 10 mg IV Q4-6HP PRN PRN Reason: Hypertension Gentamicin Sulfate 20 mg/Clindamycin Phosphate 150 mg/Sodium Chloride 251.5 mls @ 0.5 mls/hr IRR BID [facility] Insulin Glargine (Insulin Glargine, Human 1 Unit/0.01 Ml) 10 unit SQ QHS [facility] Insulin Human Lispro (Insulin Lispro 1 Unit/0.01 Ml Unit) 0 unit SQ ACHS [facility]; Protocol Last Admin: 09/10/22 11:52 Dose: 4 units Metoprolol Succinate (Metoprolol Succinate 50 Mg Tab.Xl.24h) 25 mg PO BID [facility] Last Admin: 09/10/22 09:42 Dose: 25 mg Ondansetron HCl (Ondansetron 4 Mg/2 Ml Vial) 4 mg IV Q6HP PRN PRN Reason: Nausea And Vomiting Oxycodone HCl (Oxycodone Ir 5 Mg Tablet) 5 mg PO Q4HP PRN; Protocol PRN Reason: Per Pain Protocol Last Admin: 09/04/22 09:47 Dose: 5 mg Senna (Sennosides 1 Tablet) 2 tab PO HS [facility] Last Admin: 09/09/22 20:59 Dose: 2 tab Sodium Chloride (0.9 % Sodium Chloride 10 Ml Syringe) 10 ml IV Q8 [facility] Last Admin: 09/10/22 05:21 Dose: 10 ml Tamsulosin HCl (Tamsulosin 0.4 Mg Capsule) 0.4 mg PO QDAY [facility] Last Admin: 09/10/22 09:42 Dose: 0.4 mg Trazodone HCl (Trazodone Hcl 50 Mg Tablet) 25 mg PO HSP PRN PRN Reason: Insomnia Last Admin: 08/27/22 21:06 Dose: 25 mg Vitamin D (Vitamin D3 25 Mcg Tablet) 25 mcg PO DAILY [facility] Last Admin: 09/10/22 09:42 Dose: 25 mcg A/P Assessment and plan (1) Obstructive uropathy: Status: Chronic (2) Acute renal failure superimposed on stage 4 chronic kidney disease: Status: Acute (3) Right groin wound: Status: Acute (4) Hyperlipidemia, mixed: Status: Chronic (5) Hypertension: Status: Chronic Comment: Controlled on 3 Rx Goal 130/80 Qualifiers: Hypertension type: essential hypertension Qualified Code(s): I10 - Essential (primary) hypertension (6) Anemia: Status: Chronic Qualifiers: Anemia type: unspecified type Qualified Code(s): D64.9 - Anemia, unspecified (7) Diabetes mellitus with neuropathy: Status: Chronic Comment: Goal HgBA1c <7.5% Qualifiers: Diabetes mellitus type: type 2 Diabetes mellitus long term care social worker insulin use: with long term care social worker use Qualified Code(s): E11.40 - Type 2 diabetes mellitus with diabetic neuropathy, unspecified; Z79.4 - MCC (current) use of insulin (8) Decubitus ulcer of buttock, stage 3: Status: Acute Narrative A/P Narrative: Assessment and Plans: 1. Right groin abscess: Urine culture: VRE Finished 11 days of Zosyn cbc w/ auto diff in the morning to trend WBC Comanagement with general surgeon Dr. Germain, follow up in office within 1 week of hospital discharge 2. Obstructive uropathy with associated acute on chronic kidney injury: Comanagement with urologist, Dr. Richardson, recs. appreciated. Wood removed on 09/09. Comanagement with cigarette making machine catcher Dr. Morales, recs. appreciated Saline lock, avoid nephrotoxic agents, CMP daily to trend kidney functions Flomax 3. T2DM: HgA1c Decrease Insulin Lantus from 20 to 10unit HS to avoid hypoglycemia episode Insulin Lispro SSI AC HS Accu Check AC HS Hypoglycemia protocol Diabetic diet 4. Essential hypertension: Metoprolol Succinate 5. Hyperlipidemia, mixed: Lipitor 6. Anemia, normocytic normochromic: cbc w/ auto diff in the morning to trend H/H 7. Stage III buttock decubitus ulcer: Wound care consult, comanagement with Dr. Germain, recs. appreciated Recs. SNF placement for better continued wound care GI ppx: Pepcid DVT ppx: SCDs Code status: Full Prognosis: Stable Disposition: inpatient med surg; SNF Time Spent With Patient Time: Total time spent is greater than 50% in coordination of care (as documented) at patient's floor/unit and/or counseling patient: Subsequent: Total time with patient: 35 - 49 minutes QUALITY Stroke Symptom Onset Unknown: No VTE Deep Vein Thrombosis/Pulmonary Embolism Present on Admission: No
[2022-09-10] MEDS: SODIUM CHLORIDE IRRIG IRR SCH ×2 (15:27→20:56)
[2022-09-10] MEDS: CLINDAMYCIN IRR SCH ×2 (15:27→20:56)
[2022-09-10] MEDS: GENTAMICIN SULFATE IRR SCH ×2 (15:27→20:56)
[2022-09-10] MEDS: ATORVASTATIN 40 MG TABLET PO SCH (20:56)
[2022-09-10] MEDS: SENNOSIDES 1 TABLET PO SCH (20:56)
[2022-09-10] MEDS: traZODone HCL 50 MG TABLET PO PRN (20:57)
[2022-09-10] MEDS ORDERED: INSULIN GLARGINE, HUMAN 1 UNIT/0.01 ML SQ SCH (21:00)
[2022-09-11] MEDS: ACETAMINOPHEN 325 MG TABLET PO PRN (01:27)
--- NOTE | 2022-09-11 04:49 | Ultrasound Report ---
CLINICAL INFORMATION: Evaluate for improvement in hydronephrosis COMPARISON: 09/05/2022 FINDINGS: Both kidneys are normal in size, position, configuration and echotexture: The right is 13.6 x 6 cm and the left is 12 x 6 cm. On the previous exam, there was severe bilateral hydronephrosis, however this has improved and is now only moderate. 2 cm cyst in the inferior pole of the left kidney noted. There is no mass, stones leg. Arterial blood flow is grossly normal in both kidneys on color Doppler. Urinary bladder is 222 cc patient was unable to void. Prostate not visualized IMPRESSION: Improvement in bilateral hydronephrosis from severe to moderate since the exam of five days prior. Interpreted and Authenticated by: Pee Shoemaker 09/11/22
[2022-09-11] MEDS: 0.9 % SODIUM CHLORIDE 10 ML SYRINGE IV SCH ×2 (05:18→13:02)
--- NOTE | 2022-09-11 05:33 | Nephrology Progress Note ---
SUBJECTIVE Subjective Patient information: Note initiated : 09/11/22 at 5:31 am Patient: Bebo Barnes 87 y/o M admitted on 08/26/22 for Abscess to groin, Celulitis, Sepsis. Chief Complaint: Weakness Principal diagnosis: Cellulitis Pertinent ROS: Weakness Incontinent Constitutional Vitals: Vital Signs Temp Pulse Resp BP Pulse Ox O2 Del Method O2 Flow Rate 97.3 F 85 16 149/86 96 Room Air 3 09/10/22 23:57 09/10/22 23:57 09/11/22 04:00 09/10/22 23:57 09/10/22 23:57 09/10/22 23:57 09/05/22 20:40 Period Temp Pulse Resp BP Sys/Canela Pulse Ox O2 Del Method O2 Flow Rate Last 24 Hr 97.3 F-99 F 69-85 16-20 135-151/57-86 93-99 Room Air-Room Air Intake and Output 09/10/22 09/11/22 09/11/22 19:59 03:59 11:59 Intake Total 1400 240 Output Total 3 3 Balance 1397 237 Weight 225 lb 8 oz Intake & Output: Intake & Output 09/10/22 09/11/22 09/11/22 19:59 03:59 11:59 Intake Total 1400 240 Output Total 3 3 Balance 1397 237 Weight 225 lb 8 oz Intake: Oral 1400 240 Output: # of times incontinent of urine 3 3 Other: Meal Dinner Percent of Meal Consumed 100% Feeding Ability Independent Urine Appearance Clear Urine Color Yellow Urine Odor Normal Stool Size Small Small Stool Color Brown Brown Stool Consistency Soft Soft # Voids 1 # Bowel Movements 1 # of times incontinent of 1 2 Bowels General appearance: cooperative and no acute distress Head Head exam: Present normal inspection Eye Eye exam: Present normal appearance ENT ENT exam: Present mucous membranes moist Respiratory Respiratory exam: Absent respiratory distress Cardiovascular Cardiovascular exam: Present normal rate and rhythm GI/Abdominal GI/Abdominal exam: Present soft; Absent tenderness Extremities Exam Extremities exam: Absent joint swelling or pedal edema Neurological Exam Neurological exam: Present alert and oriented X3 Psychiatric Psychiatric exam: Present normal affect and normal mood Skin Skin exam: Present warm; Absent rash A/P Assessment and plan (1) Acute renal failure superimposed on stage 4 chronic kidney disease: Assessment and plan: Bebo Barnes is a 87-year-old male with hypertension, diabetes mellitus type 2, chronic kidney disease stage 4, 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 He received IV Zosyn and clindamycin. Cellulitis coalesced into abscess which was drained on 08/31/22. A Wood catheter was placed on admission. The patient began to have some gross hematuria on 09/03/22 and the Wood catheter stopped draining. Urology consultation was done and he had cystoscopy, evacuation of clot, bilateral retrograde pyelograms, bilateral ureteral stent placement and Wood placement on 09/05/22 for bilateral ureterectasis, hydronephrosis, gross hematuria, urethral stricture. He has been followed by Dr. Espinoza for chronic kidney disease stage 4, last visit was on 10/07/22, last serum creatinine was 1.9 (eGFR 31). His admission serum creatinine was 2.5 which started to rise on 09/05/22 to 3.6 and 4.5 on 09/06/22. Nephrology consultation was requested for acute kidney injury on 09/06/22. 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 There is no recent history of IV contrast administration or NSAID use. Intravascular volume depletion unlikely. Acute infectious (immune complex) glomerulonephritis, acute interstitial nephritis or acute toxic nephropathy due to medications considered, but unlikely. Work up: Urinalysis on 08/31/22: Yellow, cloudy, pH 5.0, SG 1.015, protein 30, blood >1.0, leukocyte esterase 500. Urine random total protein/creatinine on 10/10/21: 1,000 mg/g creatinine. UPEP/FAYE on 09/30/20: Normal pattern. No monoclonal proteins detected. Renal US on 09/05/22: Nonvisualized obstruction in the distal ureters causing moderate bilateral hydronephrosis. Moderate atrophy in both kidneys. Renal US on 09/10/22: Improvement in bilateral hydronephrosis from severe to moderate since the exam of five days prior. Progress: Serum creatinine changed from 2.6 to 2.2 in the past 24 hours. Baseline serum creatinine: Last outpatient serum creatinine was 1.9 (eGFR 31). Urine output: Incontinent. Recommendations/Plan: Outpatient nephrology follow up with Dr. Espinoza. Status: Acute (2) Hyperkalemia: Status: Acute Time Spent With Patient Time: Total time spent is greater than 50% in coordination of care (as documented) at patient's floor/unit and/or counseling patient:
[2022-09-11 06:19] LABS: Basophils # (Auto) 0.08 K/mcL (0.00-0.30); Basophils % (Auto) 0.7 % (0.0-2.0); Eosinophils # (Auto) 0.37 K/mcL (0.00-0.70); Eosinophils % (Auto) 3.4 % (0.0-7.0); Hemoglobin 7.9 g/dL (13.7-17.5); Lymphocytes # (Auto) 1.71 K/mcL (1.50-4.80); Lymphocytes % (Auto) 15.8 % (15.5-49.0); Mean Cell Volume 99.2 fL (80.0-100.0); Mean Corpuscular HGB Conc 30.4 g/dL (31.0-36.0); Mean Platelet Volume 10.7 fL (8.8-12.5); Monocytes % (Auto) 8.3 % (1.0-12.0); Neutrophils % (Auto) 71.5 % (38.0-78.0); Platelet Count 289 K/mcL (140-440); RBC 2.62 M/mcL (4.63-6.08); Red Cell Distribution Width 12.9 % (11.5-14.5); WBC 10.8 K/mcL (4.5-11.0)
[2022-09-11 06:58] LABS: ALT/SGPT 26 U/L (<40); AST/SGOT 19 U/L (<40); Albumin 2.3 gm/dL (3.2-5.2); Albumin/Globulin Ratio 0.6 (1.0-2.3); Alkaline Phosphatase 66 U/L (39-117); Bilirubin,Total 0.3 mg/dL (0.1-1.0); Blood Urea Nitrogen 55 mg/dL (8-23); Calcium 8.9 mg/dL (8.6-10.4); Carbon Dioxide 23 mmol/L (22-30); Chloride 108 mmol/L (96-108); Globulin 3.6 gm/dL (2.2-3.7); Glomerular Filtration Rate 26; Glucose 76 mg/dL (70-105)
[2022-09-11] MEDS: INSULIN LISPRO 1 UNIT/0.01 ML UNIT SQ SCH ×2 (07:26→11:47)
[2022-09-11] MEDS: METOPROLOL SUCCINATE 50 MG TAB.XL.24H PO SCH (08:06)
[2022-09-11] MEDS: VITAMIN D3 25 MCG TABLET PO SCH (08:06)
[2022-09-11] MEDS: DOCUSATE SODIUM 100 MG CAPSULE PO SCH (08:07)
[2022-09-11] MEDS: FAMOTIDINE 20 MG TABLET PO SCH (08:07)
[2022-09-11] MEDS: CARBOXYMETHYLCELLULOSE SODIUM 1 EACH DROPER.GEL OU SCH (08:07)
[2022-09-11] MEDS: TAMSULOSIN 0.4 MG CAPSULE PO SCH (08:07)
[2022-09-11] MEDS: GENTAMICIN SULFATE IRR SCH (13:01)
[2022-09-11] MEDS: CLINDAMYCIN IRR SCH (13:01)
[2022-09-11] MEDS: SODIUM CHLORIDE IRRIG IRR SCH (13:01)
--- NOTE | 2022-09-11 14:11 | Discharge Summary ---
Discharge Provider Provider IMPORTANT FOLLOW-UP INFORMATION FOR PCP: Patient information: Note initiated : 09/11/22 at 2:04 pm Service Date, if different from initiated Date: [] Patient: Bebo Barnes 87 y/o M admitted on 08/26/22 for Abscess to groin, Celulitis, Sepsis. Chief Complaint: [] Date of admission: 08/26/22 16:52 Discharge date: 09/11/22 Primary care physician: Jamison Jean MD Attending physician on admission: Manolo Garcia Consults: 08/26/22 15:29 Consult to Physician [CONS] Stat Comment: Consulting Provider: Manolo Garcia Reason For Exam: Physician to Consult 09/03/22 12:53 Consult to Physician [CONS] Routine Comment: Consulting Provider: Matthew Germain Reason For Exam: Physician to Consult 09/04/22 10:45 Consult to Physician [CONS] Routine Comment: Consulting Provider: Cody Richardson Reason For Exam: Physician to Consult 09/06/22 07:48 Consult to Physician [CONS] Routine Comment: Consulting Provider: Heriberto Morales Reason For Exam: Physician to Consult 09/11/22 11:57 Consult to Physician [CONS] Routine Comment: snf referral Consulting Provider: [employer] Reason For Exam: Physician to Consult Attending physician on discharge: Jose Carlos Fraser [facility]ui COURSE Hospital Course Hospital course: Mr. Barnes is a 87 year old M with history of diabetes mellitus 2 with neuro venice, hypertension, hyperlipidemia, CKD stage IV baseline creatinine unknown, anemia, BPH, history of prostate cancer noted a bump in his right groin 3 days ago, that has been growing since then. He has been feeling feverish associated with chills. It hurts whenever anything touches it. He reported no drainage, no nausea vomiting. Patient was seen at [facility] first and was sent to ED for concerns of sepsis secondary to abscess in his groin. In ER patient was in sepsis with tachycardia of 92, leukocytosis of 25,000, lactic acidosis 3.0, acute kidney injury with creatinine of 2.7. Lab work also showed chronic anemia of 10.9, hyperglycemia 2-3. CT scan showed cellulitis in the subcutaneous fat of the right upper thigh and right buttock region. No evidence of abscess. Patient was admitted to the floor. 08/27. Patient seen and examined. Patient had low-grade fever of 99.9 F overnight, somewhat hypotensive with BP 106/44. Leukocytosis somewhat improved however still elevated at 21,000 significantly. Patient serum creatinine improved to 2.5 from 2.7 yesterday. BUN and down to 77 from 86 yesterday. Glucose improved to 176 from 2-3 before. HBA 1C came to A1c is 7.7. Blood culture is still pending. He remains on IV Zosyn and clindamycin. Will give 1 L NS for hypotension and acute kidney injury. 08/28 patient reports feeling better. WBC slightly improved to 19,000 from 21,000, hemoglobin 8.6 down from 9.2, likely in the setting of hemodilution. Creatinine worsened to 2.7 from 2.5 yesterday. His baseline is around 1.9-2.0. He has stage IV kidney disease at baseline. RN reported patient was having urine dribbling. Suspect urinary retention. Will put Wood catheter in. HbA1c 7.7 08/29. No fevers overnight, leukocytosis slightly improved to 18,000. Reports scrotal discomfort is improving. Serum creatinine 2.6 down from 2.7 yesterday. BUN same 83. Patient is tolerating antibiotics 08/30 afebrile, leukocytosis up to 19.8 from 18.8 yesterday, creatinine 2.6 stable. Will order CRP and procalcitonin to follow-up on his infection. Also will obtain repeat CT scan of pelvis to see if he has an abscess 08/31 Patient is doing better today, white cell counts has come down.. The area of cellulitis and an abscess continues to drain. I was able to drain about 5 cc of pus by squeezing the area. Cellulitis coalesced into abscess which is now spontaneously draining. Appreciate Dr. Yanez recommendations. Recommending to continue twice daily dressing change. 09/01 leukocytosis trending down slowly. No fever. Right groin with minimal discharge. Cultures are pending. 09/02. WBC 17,000 down from 17.7 yesterday. Still purulent discharge from right groin. No fever. Wound culture and urine cultures negative. Patient on antibiotics. 09/03 No acute events overnight. Patient with leukocytosis with very slow gradual improvement. Creatinine 2.3. Wound culture with no growth.Although there is gram-negative bacilli that did not grow in the aerobic culture possible anaerobes. 09/04 Patient states that he had poor sleep last night because his bladder was full. Sounds like the Wood malfunction probably from clots that he is has developed noticeable gross hematuria. Repeat CT pelvis today shows improving cellulitis and resolving abscess but this shows worsening obstructive distal ureters concerning for possible blood within the ureters as well as inflamed bladder wall. Will discuss with urology. 09/05 Larger Wood catheter placed yesterday day by urology and irrigation by nursing. Overnight Wood catheter stopped producing fluid. Nurse irrigated this morning as able to get out some bloody fluid. However creatinine worsened and with corresponding electrolyte abnormalities with elevated potassium/phos/mag. Patient seems to be obstructing again. Urgent renal ultrasound ordered and will likely need to discuss again with urology. Patient otherwise is feeling fine and slept okay. 09/06 Patient had cystoscopy with bilateral ureteral stents and evacuation of clots last evening. Currently undergoing CBI. Leukocytosis same as yesterday. But afebrile and no bandemia. Renal function worse patient likely has acute tubular necrosis. Hyperkalemia and hyperphosphatemia noted. Metabolic acidosis. Nephrology consult. Gross hematuria much improved Wood bag fluid now pale red. 09/07 Patient says he is feeling better today. Sitting up in bed eating breakfast. Leukocytosis is improving. Hemoglobin low at 7.7 monitor. Potassium within normal limits. Creatinine started to trend in the right direction. 09/08: Kidney functions continue to improve, serum Cr 3.9-->3.0. WBC 15.7. All cultures no growth to date. He finished 11 days of Zosyn. Urinary catheter in place, clamped, CBI discontinued on 09/07. Patient denies having any groin or scrotal or penile pain. He denies any fever chills or diaphoresis. We will continue to work with urology, nephrology, and general surgery for obstructive uropathy with associated acute kidney injury, right groin cellulitis and abscess, and his other underlying medical issues. Overall condition guarded. Stay in [facility]. 09/09: Serum Cr level improved from 3.[address] Richardson decided to remove Wood catheter. Patient denies having any penile or scrotal pain. He denies having any fever chills or diaphoresis. Hypogylcemia with serum glucose 65 this morning. We will continue to monitor urine output in the next 24 hours as well as kidney functions on a daily basis. If no urine output in 6 hours, will bladder scan the patient. Decreased Insulin Lantus from 35 to 20 unit HS to avoid hypoglycemia episode. Overall condition guarded. Stay in [facility]. 09/10: Afebrile overnight. Fasting glucose 53. Urine culture: VRE. WBC 12.3. Serum Cr level 2.6. Patient is continue to have urinary and bowel incontinence. He denies any groin penile or buttock pain. Decreased Insulin Lantus from 20 to 10 unit HS to avoid hypoglycemia episode. Continue wound care for buttock wound. Recommends SNF placement for continued wound care. Overall condition stable. Stay in [facility] until placement. 09/11: Discharged to SNF. Follow up appointment with Dr. Germain, Dr. Richardson, and Dr. Espinoza, respectively. Rx given to patient. All questions were answered prior to patient being physically discharged. Discharge diagnosis: Groin abscess, obstructive uropathy, stage III buttock ulcer Time Spent with Patient Time attestation: Total time spent providing and/or coordinating discharge services: Time spent: Greater than 30 minutes EXAM Constitutional Vitals: Temp Pulse Resp BP Pulse Ox O2 Del Method O2 Flow Rate 36.6 C 75 16 150/59 96 Room Air 3 09/11/22 12:00 09/11/22 12:09/11/22 12:09/11/22 12:09/11/22 12:09/11/22 12:09/11/22 07:48 General appearance: cooperative and no acute distress Head Head exam: Present atraumatic and normocephalic Eye Eye exam: Present EOMI and PERRL ENT ENT exam: Present mucous membranes moist, normal exam and normal external ear exam Neck Neck exam: Present normal inspection; Absent lymphadenopathy, tenderness or thyromegaly Respiratory Respiratory exam: Absent accessory muscle use, respiratory distress or wheezes Cardiovascular Cardiovascular exam: Present normal rate and rhythm; Absent JVD GI/Abdominal GI/Abdominal exam: Present normal bowel sounds and soft; Absent organomegaly or tenderness Rectal Rectal exam: Present deferred Additional comments: Right groin surgical incision, clean with minimal clear discharge upon manual expression Extremities Exam Extremities exam: Present full ROM, normal capillary refill and normal inspection; Absent tenderness Back Exam Additional comments: Buttock decubitus ulcer, stage III Neurological Exam Neurological exam: Present alert, CN II-XII intact and oriented X3; Absent motor sensory deficit Psychiatric Psychiatric exam: Present normal affect and normal mood; Absent anxious or depressed Skin Skin exam: Present dry and intact Additional comments: Buttock decubitus ulcer, stage III Discharge Data Data Completed and Pending Labs on day of discharge: Labs from last 24 hours 09/11/22 09/11/22 05:37 05:37 WBC 10.8 RBC 2.62 L Hgb 7.9 L Hct 26.0 L MCV 99.2 MCH 30.2 MCHC 30.4 L RDW 12.9 Plt Count 289 MPV 10.7 Immature Gran % (Auto) 0.3 Neut % (Auto) 71.5 Lymph % (Auto) 15.8 [place] % (Auto) 8.3 Eos % (Auto) 3.4 Baso % (Auto) 0.7 Lymph # (Auto) 1.71 [place] # (Auto) 0.90 Eos # (Auto) 0.37 Baso # (Auto) 0.08 Immature Gran # 0.03 Absolute Neutrophils 7.74 Sodium 140 Potassium 4.5 Chloride 108 Carbon Dioxide 23 Anion Gap 9.0 BUN 55 H Creatinine 2.2 H GFR Calculation 26 Glucose 76 Calcium 8.9 Total Bilirubin 0.3 AST 19 ALT 26 Alkaline Phosphatase 66 Total Protein 5.9 Albumin 2.3 L Globulin 3.6 Albumin/Globulin Ratio 0.6 L Preliminary micro results at discharge 09/07/22 13:45 Urine Culture - Preliminary Urine - Catheterized Enterococcus species Discharge Plan Patient/Caregiver Discharge Instructions Activity: increase activity as tolerated Diet: Consistent Carbohydrate Prescriptions: New oxycodone 5 mg Tablet 5 mg PO Q6H PRN (Reason: Per Pain Protocol) Qty: 20 0RF Continued (DME) blood sugar diagnostic [OneTouch Ultra Test] strip See Dose Instructions .ROUTE .MEDSUPPLY MDD 2 Qty: 200 3RF Dose Instruction: As directed Rx Instructions: As directed testing blood glucose twice daily. (DME) insulin syringe-needle U-100 [BD Insulin Syringe Ultra-Fine] 1 mL 30 gauge x 1/2" syringe See Dose Instructions .ROUTE .MEDSUPPLY MDD 1 Qty: 100 3RF Dose Instruction: As directed Rx Instructions: As directed with Lantus once daily. ascorbic acid (vitamin C) 500 mg capsule, extended release 500 mg PO QDAY Patient Comments: take 1 capsule by oral route daily cholecalciferol (vitamin D3) 50 mcg (2,000 unit) capsule 1,000 unit PO QDAY (DME) Accu-Chek Guide test strips Strip See Rx Instructions .Route Rx Instructions: As directed carboxymethylcellulose sodium 0.5 % drops 1 drp ophthalmic (eye) TID tamsulosin 0.4 mg capsule 0.4 mg PO QDAY metoprolol succinate 50 mg tablet extended release 24 hr 25 mg PO BID atorvastatin 80 mg tablet 80 mg PO QHS aspirin 81 mg tablet,delayed release (DR/EC) 81 mg PO DAILY Patient Comments: patient takes every other day Changed insulin glargine 100 unit/mL solution 10 unit SUB-Q QHS Qty: 10 1RF Discontinued hydrochlorothiazide 12.5 mg tablet 12.5 mg tablet 12.5 mg PO QDAY lisinopril 40 mg tablet 40 mg PO QDAY Other Ambulatory Orders: OT Discharge Order (Routine) Location: None Selected Ordered By: Jose Carlos Sylvester Physical Therapy at Discharge - General (Routine) Location: None Selected Ordered By: Jose Carlos Sylvester Follow Up Plan Follow up with: Matthew Germain MD [Physician] - (Follow up in office in 1 week.) Javon Espinoza MD [Physician] - Cody Richardson MD [Physician] - Jamison Jean MD [Primary Care Provider] - Patient Disposition: Xfer SNF Prognosis: Fair Rehab Potential: Good I certify that the patient requires SNF services: Yes Overall status at discharge: patient is progressing back to baseline Discharge Orders: Discharge Order (Routine); Ordered 09/11/22 Ordered By: Jose Carlos Sylvester QUALITY VTE Deep Vein Thrombosis/Pulmonary Embolism Present on Admission: No
== END 2022-09-11 15:27 | DRG 853 ==
LOC: ED 13:36 → MEDSUR 16:52
PROVIDERS: ADMIT Internal Medicine; ATTEND Internal Medicine